=== PATIENT | male | born 1945 ===

== ENCOUNTER 2018-03-23 22:37 | Inpatient (IN) | payer MEDICARE, OTHER ==
--- NOTE | 2018-03-23 23:06 | ED PDOC ---
Arrival/HPI - General Chief Complaint: Shortness Of Breath Time Seen by Provider: 03/23/18 22:41 Historian: Patient, Family - History of Present Illness Narrative History of Present Illness (Text): 03/23/18 23:06 Edward Sarkar is a 73 year old male, whose past medical history includes hypertension and prolymphocytic leukemia, who presents to the Emergency department accompanied by daughter complaining of shortness of breath. Daughter states patient was recently discharged from [facility] yesterday following treatment for pneumonia. Patient reports he developed shortness of breath 1 hour prior to arrival. Patient denies any chest pain, nausea, vomiting, diarrhea, urinary symptoms, back pain, neck pain, headache, dizziness, or any other complaints. Symptom Onset: Gradual Symptom Course: Unchanged Activities at Onset: Light Context: Home Past Medical History - Provider Review Nursing Documentation Reviewed: Yes - Infectious Disease Hx of Infectious Diseases: None Family/Social History - Physician Review Nursing Documentation Reviewed: Yes Family/Social History: Unknown Family HX Allergies/Home Meds Allergies/Adverse Reactions: Allergies No Known Allergies Allergy (Verified 03/23/18 22:42) Home Medications: Home Meds Medication Instructions Recorded Confirmed Unobtainable 03/24/18 03/24/18 Review of Systems - Physician Review All systems were reviewed & negative as marked: Yes - Review of Systems Constitutional: Normal. absent: Fevers Eyes: Normal ENT: Normal Respiratory: SOB Cardiovascular: Normal Gastrointestinal: Normal. absent: Diarrhea, Vomiting Genitourinary Male: Normal. absent: Dysuria, Frequency, Hematuria, Urinary Output Changes Musculoskeletal: Normal. absent: Back Pain, Neck Pain Skin: Normal. absent: Rash Neurological: Normal. absent: Headache, Dizziness Endocrine: Normal Hemo/Lymphatic: Normal Psychiatric: Normal Physical Exam Vital Signs Reviewed: Yes Vital Signs Pulse Resp BP Pulse Ox 03/23/18 22:53 59 L 18 141/83 98 Temperature: Hypothermic Blood Pressure: Normal Pulse: Bradycardic Respiratory Rate: Normal Pain Distress: None Mental Status: Positive for: Alert and Oriented X 3 - Systems Exam Head: Present: Atraumatic, Normocephalic Pupils: Present: PERRL Extroacular Muscles: Present: EOMI Conjunctiva: Present: Normal Mouth: Present: Moist Mucous Membranes Neck: Present: Normal Range of Motion Respiratory/Chest: Present: Rhonchi (Diffuse rhonchi). No: Respiratory Distress, Accessory Muscle Use Cardiovascular: Present: Regular Rate and Rhythm, Normal S1, S2. No: Murmurs Abdomen: No: Tenderness, Distention, Peritoneal Signs Back: Present: Normal Inspection Upper Extremity: Present: Normal Inspection. No: Cyanosis, Edema Lower Extremity: Present: Edema (2+ pitting eddema bilaterally) Neurological: Present: GCS=15, CN II-XII Intact, Speech Normal Skin: Present: Warm, Dry, Normal Color. No: Rashes Psychiatric: Present: Alert, Oriented x 3, Normal Insight, Normal Concentration Medical Decision Making ED Course and Treatment: 03/23/18 23:06 Impression: 73 year old male complaining of shortness of breath today. Plan: -- EKG -- Chest X-ray -- Lab, cardiac enzymes, BNP, VBG, blood cultures -- Urinalysis, urine cultures -- Rapid influenza -- Vancomycn -- Zosyn -- Reassess and disposition Progress Notes: Reviewed EKG, sinus bradycardia at [address]-segment elevations or depressions, no T-wave inversions, normal intervals. 03/24/18 00:35 Chest X-ray reviewed, shows resolving left-sided pneumonia. 03/24/18 02:50 Case discussed with EV Granger covering for Dr. Alcazar, who is aware and agrees with plan. Pt will go to [facility] observation for pneumonia and hypothermia under Dr. Alcazar's service. - Scribe Statement The provider has reviewed the documentation as recorded by the Adalgisa Cade Provider Scribe Attestation: All medical record entries made by the Scribe were at my direction and personally dictated by me. I have reviewed the chart and agree that the record accurately reflects my personal performance of the history, physical exam, medical decision making, and the department course for this patient. I have also personally directed, reviewed, and agree with the discharge instructions and disposition. Disposition/Present on Arrival - Present on Arrival Any Indicators Present on Arrival: No History of DVT/PE: No History of Uncontrolled Diabetes: No Urinary Catheter: No History of Decub. Ulcer: No History Surgical Site Infection Following: None - Disposition Have Diagnosis and Disposition been Completed?: Yes Diagnosis: Hypothermia, Pneumonia Disposition: HOSPITALIZED Disposition Time: 02:20 Condition: FAIR
[2018-03-24] MEDS ORDERED: Vancomycin 1gm in NS 250ml 1 GM/250 ML BAG IVPB STA (00:03)
[2018-03-24] MEDS ORDERED: Piperacillin/Tazobact 3.375 gm 100 ML IVPB STA (00:03)
[2018-03-24 00:20] LABS: BASO # 0.01 K/mm3 (0.0-2.0); BASO % 0.1 % (0.0-3.0); EOS % 0.1 % (1.5-5.0); GRAN # 11.52 (1.4-6.5); HEMOGLOBIN 9.9 g/dL (14.0-18.0); LYMPH # 3.9 (1.2-3.4); MEAN CELL VOLUME 82.6 fl (80.0-105.0); MEAN CORPUSCULAR HEMOGLOBIN 26.5 pg (25.0-35.0); MEAN CORPUSCULAR HGB CONC 32.1 g/dl (31.0-37.0); MEAN PLATELET VOLUME 11.2 fl (7.0-11.0); MONO # 0.3 (0.1-0.6); MONO % 1.8 % (1.0-6.0); RBC 3.73 10^6/uL (3.5-6.1); RED CELL DISTRIBUTION WIDTH 19.6 % (11.5-14.5); WHITE BLOOD COUNT 15.8 10^3/uL (4.5-11.0)
[2018-03-24 00:27] LABS: ALB/GLOB RATIO 0.8 (1.1-1.8); ALBUMIN 2.6 g/dL (3.0-4.8); ALT/SGPT 24 U/L (7-56); AST/SGOT 30 U/L (17-59); BLOOD UREA NITROGEN 10 mg/dL (7-21); CALCIUM 8.4 mg/dL (8.4-10.5); GFR NON-AFRICAN AMERICAN > 60
[2018-03-24 00:37] LABS: VENOUS BLOOD GAS BASE EXCESS 2.4 mmol/L (0.0-2.0); VENOUS BLOOD GAS PO2 191 mm/Hg (30-55); VENOUS BLOOD PH 7.39 (7.32-7.43)
[2018-03-24 00:38] LABS: B-TYPE NATRIURETIC PEPTIDE 2410 pg/mL (0-450); TROPONIN I 0.02 ng/mL
[2018-03-24 01:02] LABS: INR 1.09; PARTIAL THROMBOPLASTIN TIME 33.2 Seconds (25.1-36.5); PROTHROMBIN TIME 12.4 SECONDS (9.4-12.5)
[2018-03-24 02:02] LABS: URINE APPEARANCE CLEAR (CLEAR); URINE BILIRUBIN NEGATIVE (NEGATIVE); URINE BLOOD NEGATIVE (NEGATIVE); URINE COLOR YELLOW (YELLOW); URINE GLUCOSE (UA) NEGATIVE (NEGATIVE); URINE LEUKOCYTE ESTERASE NEGATIVE Leu/uL (NEGATIVE); URINE PROTEIN TRACE mg/dL (<30 mg/dL); URINE UROBILINOGEN 0.2 E.U./dL (<1 E.U./dL)
[2018-03-24 02:10] LABS: URINE BACTERIA FEW /hpf; URINE CALCIUM OXALATE CRYSTALS OCC /hpf; URINE RBC 0 - 2 /hpf (0-2); URINE WBC 0 - 2 /hpf (0-6)
[2018-03-24] MEDS: Vancomycin 1gm in NS 250ml 1 GM/250 ML BAG IVPB SCH ×2 (07:44→14:37)
[2018-03-24] MEDS: Meropenem IV 1 gm in NS 1 GM/50 ML BAG IVPB SCH ×3 (07:52→21:26)
--- NOTE | 2018-03-24 09:25 | CARD ---
APPROVED REPORT Date of service: 03/23/2018 EKG Measurement Heart [id number] <Conclusion> Sinus bradycardia Baseline artifact Possible Left atrial enlargement Junctional ST depression, probably abnormal Abnormal ECG
--- NOTE | 2018-03-24 09:59 | RAD ---
Date of service: 03/23/2018 HISTORY: r/o infiltrate COMPARISON: No prior. FINDINGS: LUNGS: Infiltrate at the left lung base. Small bilateral pleural effusions PLEURA: No significant pleural effusion identified, no pneumothorax apparent. CARDIOVASCULAR: Minimal aortic calcification Mild cardiomegaly no pulmonary vascular congestion. OSSEOUS STRUCTURES: No significant abnormalities. VISUALIZED UPPER ABDOMEN: Normal. OTHER FINDINGS: None. IMPRESSION: Infiltrate at the left lung base. Small bilateral pleural effusions
[2018-03-24] MEDS: Enoxaparin 40 mg Syringe SC SCH (10:40)
[2018-03-24 13:29] LABS: T4 6.4 ug/dL (5.5-11.0)
--- NOTE | 2018-03-24 13:31 | CON ---
DATE: 03/24/2018 PULMONARY CONSULTATION REASON FOR PULMONARY CONSULTATION: Pneumonia. REFERRING PHYSICIAN FOR THIS PULMONARY CONSULTATION: Kirill Alcazar DO History is obtained via extensive discussion with the nurse. I have also reviewed the chart at length. The patient does not appear to be an adequate historian. HISTORY OF PRESENT ILLNESS: The patient is a 73-year-old male, with past medical history significant for hypertension, prolymphocytic leukemia, recent admission for pneumonia at [facility], who presents to [facility] with a 1-day history of increasing shortness of breath at rest, dyspnea on exertion, and cough. There is no history of sputum production. There is no history of chest pain, coughing up of blood, or chest pain - brought on with deep respirations. The patient did present to the emergency room with hypothermia. The patient was also noted to have shaking chills. No known infectious exposure. No history of night sweats, weight loss, or appetite change prior to the above events. No history of leg or calf pains. No history of syncope or diaphoresis. No history of recent travel or trauma. REVIEW OF SYSTEMS: No history of nausea, vomiting, or diarrhea. No acute urinary symptoms. Rest of the review of systems is negative. ALLERGIES: NO KNOWN ALLERGIES. SOCIAL HISTORY: Positive for former tobacco usage. No alcohol. FAMILY HISTORY: No inheritable diseases. MEDICATIONS: Home medications are not listed in the computer at the present time. PHYSICAL EXAMINATION: GENERAL: The patient appears comfortable this morning. He is not short of breath at rest. VITALS: Temperature is 96.4, pulse 91, respirations 18, blood pressure 107/55. Oxygen saturation on room air is 100%. HEENT: Normocephalic, atraumatic. No JVD. CARDIOVASCULAR: Positive S1, S2. No S3 gallop. LUNGS: Minimal crackles noted at the left base. No rhonchi. No wheezing. EXTREMITIES: Mild edema. No cyanosis. No clubbing. Calves are nontender to palpation. GI: Abdomen is soft, nontender, and nondistended. Bowel sounds are positive. SKIN: Reveals an erythematous rash on his legs/feet and palms/hands. NEUROLOGIC: Exam limited at the present time. PERTINENT LABORATORY DATA: Chest x-ray was done last night and reviewed. There is a minimal left lower lobe infiltrate noted. There is also a very small left pleural effusion. I could not access the chest x-ray from [facility], but it is reported by Dr. Hernandez (emergency room) that the left-sided infiltrate is significantly decreased in size. CBC: White count 15.8K, hemoglobin 9.9, hematocrit 30.8, and platelets of 301,000. Complete Metabolic Profile: Glucose 119, alkaline phosphatase 143, LDH 860, B-type natriuretic peptide 2410, albumin 2.6. Rest of the metabolic profile is within normal limits. IMPRESSION: 1. Left lower lobe pneumonia - resolving. 2. Small left pleural effusion. 3. Anemia. 4. Hypothermia. 5. Increased B-type natriuretic peptide. PLAN: Again, I did discuss the case with the emergency room nurse at length. I have also reviewed the chart at length. The patient does not appear to be an adequate historian. The patient presents to [facility] with a 1-day history of increasing pulmonary symptoms. Again, I did review the chest x-ray as above. The chest x-ray reveals a minimal left lower lobe infiltrate with a very small left pleural effusion. Again,, as above, I did discuss the case with Dr. Hernandez. Apparently, Dr. Hernandez was able to access the chest x-ray from [facility]. He reports that the infiltrate is significantly improved - from that previously seen. Infectious Disease evaluation with Dr. Moncada has been ordered. On physical exam, there is no significant bronchospasm noted. In addition, there is no significant alveolar-arterial gradient. Oxygen saturation on room air is 100%. In addition, the temperature is now 96.4. Initial temperature was 89.9. Clinical status of the patient does appear to be improving. However, it appears that the future status/prognosis for this patient does remain guarded. I will discuss the above with Dr. Alcazar. Thank you very much for this pulmonary consultation. Nathan Perkins MD ELLIS
--- NOTE | 2018-03-24 14:22 | CON ---
DATE: 03/24/2018 CARDIOLOGY CONSULTATION HISTORY: The patient is a 73-year-old male who was recently discharged from [facility] after a hernia repair as well as cellulitis in which he was treated with antibiotics, who was home for one day then developed weakness and shortness of breath. The patient is in the ER. He was found to be hypothermic with a temperature of 95. PAST MEDICAL HISTORY: The patient's past medical history is free of cardiac disease. No previous myocardial infarction. He denies chest pain, does admit to shortness of breath, does admit to pedal edema. He denies diabetes mellitus or hypertension. SOCIAL HISTORY: Denies ever smoking. REVIEW OF SYSTEMS: A 14-point review of systems was reviewed. No additional symptoms other than one above. PHYSICAL EXAMINATION: VITAL SIGNS: Blood pressure is 117/68, temperature is 95.7, the heart rates in the 80s. NECK: Negative JVD. LUNGS: Decreased breath sounds without rales. HEART: With S1, S2. EXTREMITIES: No edema noted. LABORATORY DATA: EKG shows normal sinus rhythm with nonspecific ST-T changes. Laboratories, white count is 15,000, hemoglobin is 9.9. BUN and creatinine are unremarkable. The proBNP is 2410. Troponin is 0.02. Preliminary echocardiogram reveals compromised left ventricle with an ejection fraction of approximately 40%. IMPRESSION: 1. Acute systolic congestive heart failure. 2. Cardiomyopathy of questionable etiology. 3. No evidence for acute coronary syndrome. 4. Hypothermia. 5. History of cellulitis. 6. Weakness. 7. Anemia. Given these findings, we will give the patient a dose of Lasix. He is currently on IV antibiotics. We will check his thyroid function. Christoph Bustamante MD
--- NOTE | 2018-03-24 15:03 | CP.PCM.CON ---
<Peterson Houser - Last Filed: 03/24/18 15:11> History of Present Illness - History of Present Illness History of Present Illness: ID Consult Note Patient was previously admitted to [facility] under 73 year old male with past medical history of HTH and Promyelocytic leukemia s/p chemotherapy presented to the hospital for 1 day shortness of breath. Patient was discharged from [facility] for left lower lobe pneumonia complicated by inguinal hernia incarceration. Patient was treated with full course of Ciprofloxacin as sputum cultures grew E. coli. Patient was also noted to have tinea pedis by podiatry and was started on Clotrimazole. Patient complains of shortness of breath without productive cough. Patient also admits he intermittently goes to the [employer] and puts his feet in the water. Denies chest pain, nausea, vomiting, diarrhea, fever, chills. Medical Hx: HTN, Prolymphocytic Leukemia Surgical HX- 2 colon surgeries and hernia repair Family Hx-Denies Allergies-NKDA Social- Denies alcohol, tobacco, and illicit drug use Medications: Denies Review of Systems - Review of Systems Review of Systems: 12 point ROS as per HPI, otherwise negative Past Patient History - Infectious Disease Hx of Infectious Diseases: None - Past Social History Smoking Status: Never Smoked - CARDIAC Hx Hypertension: Yes - PULMONARY Hx Pneumonia: Yes - HEMATOLOGICAL/ONCOLOGICAL Hx Leukemia: Yes - INTEGUMENTARY Hx Cellulitis: Yes - PSYCHIATRIC Hx Substance Use: No - SURGICAL HISTORY Hx Surgeries: Yes Other/Comment: hernia sx - ANESTHESIA Hx Anesthesia: Yes Hx Anesthesia Reactions: No Hx Malignant Hyperthermia: No Meds Allergies/Adverse Reactions: Allergies Allergy/AdvReac Type Severity Reaction Status Date / Time No Known Allergies Allergy Verified 03/24/18 11:42 - Medications Medications: Current Medications Enoxaparin Sodium (Lovenox) 40 mg SC DAILY RIYA; Protocol Last Admin: 03/24/18 10:40 Dose: 40 mg Meropenem (Merrem Iv 1 Gm Premix) 1 gm in 50 mls @ 100 mls/hr IVPB Q8 RIYA; Protocol Last Admin: 03/24/18 12:57 Dose: 100 mls/hr Vancomycin HCl (Vancomycin 1gm) 1 gm in 250 mls @ 167 mls/hr IVPB Q12H RIYA; Protocol Last Admin: 03/24/18 14:37 Dose: 167 mls/hr Doxycycline Hyclate 100 mg/ (Sodium Chloride) 100 mls @ 100 mls/hr IVPB Q12 RIYA; Protocol Last Admin: 03/24/18 13:20 Dose: 100 mls/hr Physical Exam - Constitutional Appears: Non-toxic, No Acute Distress - Head Exam Head Exam: ATRAUMATIC, NORMAL INSPECTION, NORMOCEPHALIC - Eye Exam Eye Exam: EOMI - ENT Exam ENT Exam: Mucous Membranes Moist - Respiratory Exam Respiratory Exam: Decreased Breath Sounds, NORMAL BREATHING PATTERN. absent: Rales, Rhonchi, Wheezes - Cardiovascular Exam Cardiovascular Exam: RRR, +S1, +S2 - GI/Abdominal Exam GI & Abdominal Exam: Normal Bowel Sounds, Soft. absent: Tenderness - Extremities Exam Extremities exam: Positive for: pedal edema (Trace b/l) - Neurological Exam Neurological exam: Alert, Oriented x3 - Psychiatric Exam Psychiatric exam: Normal Affect, Normal Mood - Skin Additional comments: Erythematous soles of feet along with desquamation throughout body Results - Vital Signs Recent Vital Signs: Last Vital Signs Temp 97.1 F L 03/24/18 14:51 Pulse 92 H 03/24/18 14:51 Resp 16 03/24/18 14:51 BP 112/57 L 03/24/18 14:51 Pulse Ox 100 03/24/18 14:51 - Labs Result Diagrams: 03/23/18 23:15 03/23/18 23:15 Labs: Laboratory Results - last 24 hr 03/23/18 03/23/18 03/23/18 02:15 23:15 23:15 WBC 15.8 H RBC 3.73 Hgb 9.9 L Hct 30.8 L MCV 82.6 MCH 26.5 MCHC 32.1 RDW 19.6 H Plt Count 301 MPV 11.2 H Gran % 73.0 H Lymph % (Auto) 25.0 Carl[place] % (Auto) 1.8 Eos % (Auto) 0.1 L Baso % (Auto) 0.1 Gran # 11.52 H Lymph # (Auto) 3.9 H [place] # (Auto) 0.3 Eos # (Auto) 0.0 Baso # (Auto) 0.01 PT INR APTT pO2 VBG pH VBG pCO2 VBG HCO3 VBG Total CO2 VBG O2 Sat (Calc) VBG Base Excess VBG Potassium Glucose Lactate FiO2 Sodium 137 Potassium 3.9 Chloride 106 Carbon Dioxide 28 Anion Gap 8 L BUN 10 Creatinine 0.5 L Est GFR ( Amer) > 60 Est GFR (Non-Af Amer) > 60 Random Glucose 119 H Calcium 8.4 Phosphorus 3.1 Magnesium 1.5 L Total Bilirubin 0.3 AST 30 ALT 24 Alkaline Phosphatase 143 H Lactate Dehydrogenase 860 H Total Creatine Kinase 49 Troponin I 0.02 NT-Pro-B Natriuret Pep 2410 H Total Protein 5.9 Albumin 2.6 L Globulin 3.3 Albumin/Globulin Ratio 0.8 L Thyroxine (T4) TSH 3rd Generation Venous Blood Potassium Urine Color Urine Appearance Urine pH Ur Specific [place] Urine Protein Urine Glucose (UA) Urine Ketones Urine Blood Urine Nitrate Urine Bilirubin Urine Urobilinogen Ur Leukocyte Esterase Urine RBC Urine WBC Ur Epithelial Cells Calcium Oxalate Crystal Urine Bacteria Influenza Typ A,B (EIA) Negative for flu a/b 03/23/18 03/24/18 03/24/18 23:15 00:00 01:32 WBC RBC Hgb Hct MCV MCH MCHC RDW Plt Count MPV Gran % Lymph % (Auto) Carl[place] % (Auto) Eos % (Auto) Baso % (Auto) Gran # Lymph # (Auto) [place] # (Auto) Eos # (Auto) Baso # (Auto) PT 12.4 INR 1.09 APTT 33.2 pO2 191 H VBG pH 7.39 VBG pCO2 46.0 VBG HCO3 27.8 VBG Total CO2 29.2 H VBG O2 Sat (Calc) 100.0 H VBG Base Excess 2.4 H VBG Potassium 3.9 Glucose 121 H Lactate 1.5 FiO2 21.0 Sodium 140.0 Potassium Chloride 107.0 Carbon Dioxide Anion Gap BUN Creatinine Est GFR ( Amer) Est GFR (Non-Af Amer) Random Glucose Calcium Phosphorus Magnesium Total Bilirubin AST ALT Alkaline Phosphatase Lactate Dehydrogenase Total Creatine Kinase Troponin I NT-Pro-B Natriuret Pep Total Protein Albumin Globulin Albumin/Globulin Ratio Thyroxine (T4) TSH 3rd Generation Venous Blood Potassium 3.9 Urine Color Yellow Urine Appearance Clear Urine pH 6.0 Ur Specific [place] 1.025 Urine Protein Trace H Urine Glucose (UA) Negative Urine Ketones Negative Urine Blood Negative Urine Nitrate Negative Urine Bilirubin Negative Urine Urobilinogen 0.2 Ur Leukocyte Esterase Negative Urine RBC 0 - 2 Urine WBC 0 - 2 Ur Epithelial Cells 1 - 3 Calcium Oxalate Crystal Occ Urine Bacteria Few Influenza Typ A,B (EIA) 03/24/18 12:45 WBC RBC Hgb Hct MCV MCH MCHC RDW Plt Count MPV Gran % Lymph % (Auto) [place] % (Auto) Eos % (Auto) Baso % (Auto) Gran # Lymph # (Auto) [place] # (Auto) Eos # (Auto) Baso # (Auto) PT INR APTT pO2 VBG pH VBG pCO2 VBG HCO3 VBG Total CO2 VBG O2 Sat (Calc) VBG Base Excess VBG Potassium Glucose Lactate FiO2 Sodium Potassium Chloride Carbon Dioxide Anion Gap BUN Creatinine Est GFR ( Amer) Est GFR (Non-Af Amer) Random Glucose Calcium Phosphorus Magnesium Total Bilirubin AST ALT Alkaline Phosphatase Lactate Dehydrogenase Total Creatine Kinase Troponin I NT-Pro-B Natriuret Pep Total Protein Albumin Globulin Albumin/Globulin Ratio Thyroxine (T4) 6.4 TSH 3rd Generation 3.92 Venous Blood Potassium Urine Color Urine Appearance Urine pH Ur Specific [place] Urine Protein Urine Glucose (UA) Urine Ketones Urine Blood Urine Nitrate Urine Bilirubin Urine Urobilinogen Ur Leukocyte Esterase Urine RBC Urine WBC Ur Epithelial Cells Calcium Oxalate Crystal Urine Bacteria Influenza Typ A,B (EIA) Assessment & Plan - Assessment and Plan (Free Text) Plan: Sepsis secondary to Left-sided Hospital acquired pneumonia Hx of HTN Hx of prolymphocytic leukemia Plan: Chest x-ray reviewed, shows left sided infiltrate Started on Vancomycin, Merrem, and Doxycycline Influenza negative Follow up blood, sputum, and urine cultures Procalcitonin pending Continue monitor closely Mik, PGY-3 <Zhou Leos - Last Filed: 03/24/18 16:58> Meds - Medications Medications: Current Medications Enoxaparin Sodium (Lovenox) 40 mg SC DAILY RIYA; Protocol Last Admin: 03/24/18 10:40 Dose: 40 mg Meropenem (Merrem Iv 1 Gm Premix) 1 gm in 50 mls @ 100 mls/hr IVPB Q8 RIYA; Protocol Last Admin: 03/24/18 12:57 Dose: 100 mls/hr Vancomycin HCl (Vancomycin 1gm) 1 gm in 250 mls @ 167 mls/hr IVPB Q12H RIYA; Pr otocol Last Admin: 03/24/18 14:37 Dose: 167 mls/hr Doxycycline Hyclate 100 mg/ (Sodium Chloride) 100 mls @ 100 mls/hr IVPB Q12 RIYA; Protocol Last Admin: 03/24/18 13:20 Dose: 100 mls/hr Magnesium Sulfate/Dextrose (Magnesium Sulfate 1 Gm/100 Ml D5w) 1 gm in 100 mls @ 100 mls/hr IVPB ONCE ONE Stop: 03/24/18 17:12 Results - Vital Signs Recent Vital Signs: Last Vital Signs Temp 97.1 F L 03/24/18 15:33 Pulse 92 H 03/24/18 15:33 Resp 16 03/24/18 15:33 BP 112/57 L 03/24/18 15:33 Pulse Ox 100 03/24/18 15:33 - Labs Result Diagrams: 03/23/18 23:15 03/23/18 23:15 Labs: Laboratory Results - last 24 hr 03/23/18 03/23/18 03/23/18 02:15 23:15 23:15 WBC 15.8 H RBC 3.73 Hgb 9.9 L Hct 30.8 L MCV 82.6 MCH 26.5 MCHC 32.1 RDW 19.6 H Plt Count 301 MPV 11.2 H Gran % 73.0 H Lymph % (Auto) 25.0 [place] % (Auto) 1.8 Eos % (Auto) 0.1 L Baso % (Auto) 0.1 Gran # 11.52 H Lymph # (Auto) 3.9 H [place] # (Auto) 0.3 Eos # (Auto) 0.0 Baso # (Auto) 0.01 PT INR APTT pO2 VBG pH VBG pCO2 VBG HCO3 VBG Total CO2 VBG O2 Sat (Calc) VBG Base Excess VBG Potassium Glucose Lactate FiO2 Sodium 137 Potassium 3.9 Chloride 106 Carbon Dioxide 28 Anion Gap 8 L BUN 10 Creatinine 0.5 L Est GFR ( Amer) > 60 Est GFR (Non-Af Amer) > 60 Random Glucose 119 H Calcium 8.4 Phosphorus 3.1 Magnesium 1.5 L Total Bilirubin 0.3 AST 30 ALT 24 Alkaline Phosphatase 143 H Lactate Dehydrogenase 860 H Total Creatine Kinase 49 Troponin I 0.02 NT-Pro-B Natriuret Pep 2410 H Total Protein 5.9 Albumin 2.6 L Globulin 3.3 Albumin/Globulin Ratio 0.8 L Procalcitonin Thyroxine (T4) TSH 3rd Generation Venous Blood Potassium Urine Color Urine Appearance Urine pH Ur Specific [place] Urine Protein Urine Glucose (UA) Urine Ketones Urine Blood Urine Nitrate Urine Bilirubin Urine Urobilinogen Ur Leukocyte Esterase Urine RBC Urine WBC Ur Epithelial Cells Calcium Oxalate Crystal Urine Bacteria Influenza Typ A,B (EIA) Negative for flu a/b 03/23/18 03/24/18 03/24/18 23:15 00:00 01:32 WBC RBC Hgb Hct MCV MCH MCHC RDW Plt Count MPV Gran % Lymph % (Auto) [place] % (Auto) Eos % (Auto) Baso % (Auto) Gran # Lymph # (Auto) [place] # (Auto) Eos # (Auto) Baso # (Auto) PT 12.4 INR 1.09 APTT 33.2 pO2 191 H VBG pH 7.39 VBG pCO2 46.0 VBG HCO3 27.8 VBG Total CO2 29.2 H VBG O2 Sat (Calc) 100.0 H VBG Base Excess 2.4 H VBG Potassium 3.9 Glucose 121 H Lactate 1.5 FiO2 21.0 Sodium 140.0 Potassium Chloride 107.0 Carbon Dioxide Anion Gap BUN Creatinine Est GFR ( Amer) Est GFR (Non-Af Amer) Random Glucose Calcium Phosphorus Magnesium Total Bilirubin AST ALT Alkaline Phosphatase Lactate Dehydrogenase Total Creatine Kinase Troponin I NT-Pro-B Natriuret Pep Total Protein Albumin Globulin Albumin/Globulin Ratio Procalcitonin Thyroxine (T4) TSH 3rd Generation Venous Blood Potassium 3.9 Urine Color Yellow Urine Appearance Clear Urine pH 6.0 Ur Specific [place] 1.025 Urine Protein Trace H Urine Glucose (UA) Negative Urine Ketones Negative Urine Blood Negative Urine Nitrate Negative Urine Bilirubin Negative Urine Urobilinogen 0.2 Ur Leukocyte Esterase Negative Urine RBC 0 - 2 Urine WBC 0 - 2 Ur Epithelial Cells 1 - 3 Calcium Oxalate Crystal Occ Urine Bacteria Few Influenza Typ A,B (EIA) 03/24/18 03/24/18 08:30 12:45 WBC RBC Hgb Hct MCV MCH MCHC RDW Plt Count MPV Gran % Lymph % (Auto) [place] % (Auto) Eos % (Auto) Baso % (Auto) Gran # Lymph # (Auto) [place] # (Auto) Eos # (Auto) Baso # (Auto) PT INR APTT pO2 VBG pH VBG pCO2 VBG HCO3 VBG Total CO2 VBG O2 Sat (Calc) VBG Base Excess VBG Potassium Glucose Lactate FiO2 Sodium Potassium Chloride Carbon Dioxide Anion Gap BUN Creatinine Est GFR ( Amer) Est GFR (Non-Af Amer) Random Glucose Calcium Phosphorus Magnesium Total Bilirubin AST ALT Alkaline Phosphatase Lactate Dehydrogenase Total Creatine Kinase Troponin I NT-Pro-B Natriuret Pep Total Protein Albumin Globulin Albumin/Globulin Ratio Procalcitonin 0.55 H Thyroxine (T4) 6.4 TSH 3rd Generation 3.92 Venous Blood Potassium Urine Color Urine Appearance Urine pH Ur Specific [place] Urine Protein Urine Glucose (UA) Urine Ketones Urine Blood Urine Nitrate Urine Bilirubin Urine Urobilinogen Ur Leukocyte Esterase Urine RBC Urine WBC Ur Epithelial Cells Calcium Oxalate Crystal Urine Bacteria Influenza Typ A,B (EIA) Assessment & Plan - Assessment and Plan (Free Text) Plan: Infectious diseases Attending Physician Attestation Patient seen and examined, discussed with medical certification specialist. I have reviewed the patient's history of present illness, past medical, social, personal and family histories, pertinent physical exam findings, course so far in this hospital admission, pertinent laboratory and imaging results. I agree with the above findings, assessment and plan. In addition, we have started the patient on Vancomycin, Merrem and Doxycycline for patient with sepsis from left sided HAP. Will follow up blood, sputum cx, PCT and will monitor clinically.
--- NOTE | 2018-03-24 15:28 | CARD ---
APPROVED REPORT Date of service: 03/24/2018 EXAM: Two-dimensional and M-mode echocardiogram with Doppler and color Doppler. INDICATION Dyspnea 2D DIMENSIONS Left Atrium (2D)4.4 (1.6-4.0cm)IVSd1.2 (0.7-1.1cm) LVDd5.0 (3.9-5.9cm)PWd1.4 (0.7-1.1cm) LVDs3.8 (2.5-4.0cm)FS (%) 23.2 % LVEF (%)46.2 (>50%) M-Mode DIMENSIONS Aortic Root3.40 (2.2-3.7cm)Aortic Cusp Exc.1.80 (1.5-2.0cm) Aortic Valve AoV Peak Ypheyvup946.0cm/Deric Peak GR.17mmHg Mitral Valve MV E Bimhzunt17.3cm/sMV A Rijdhycc139.0cm/sE/A ratio0.8 TDI Lateral E' Peak V11.90cm/sMedial E' Peak V7.60cm/sE/Lateral E'8.0 E/Medial E'12.5 Pulmonary Valve PV Peak Serwitkn19.0cm/sPV Peak Grad.2mmHg Tricuspid Valve TR Peak Byfufldb252no/sRAP [id number] Peak Gr.35mmHg [id number] LEFT VENTRICLE The left ventricle is normal size. There is normal left ventricular wall thickness. The systolic function is mildly impaired. Lateral wall hypokinesis Transmitral Doppler flow pattern is Grade I-abnormal relaxation pattern. RIGHT VENTRICLE The right ventricle is normal size. There is normal right ventricular wall thickness. The right ventricular systolic function is normal. ATRIA The left atrium is mildly dilated. The right atrium size is normal. AORTIC VALVE The aortic valve is moderately thickened. No aortic regurgitation is present. There is no aortic valvular stenosis. MITRAL VALVE The mitral valve is mildly thickened. Mitral regurgitation is mild. There is no mitral valve stenosis. TRICUSPID VALVE There is mild tricuspid regurgitation. There is mild pulmonary hypertension. GREAT VESSELS The aortic root is normal in size. The IVC is normal in size and collapses >50% with inspiration. PERICARDIAL EFFUSION There is no pericardial effusion. <Conclusion> There is normal left ventricular wall thickness. The systolic function is mildly impaired. Lateral wall hypokinesis Transmitral Doppler flow pattern is Grade I-abnormal relaxation pattern. Mitral regurgitation is mild. There is mild tricuspid regurgitation. There is mild pulmonary hypertension.
[2018-03-24] MEDS ORDERED: Magnesium Sulfate 1 gm in D5W 1 GM/100 ML BAG IVPB ONE (16:13)
[2018-03-24 17:16] VITALS: BMI 23.6
[2018-03-24] MEDS ORDERED: Influenza Vaccine 60 mcg/0.5 mL SYR (4YR UP) IM ONE (17:16)
[2018-03-24] MEDS ORDERED: Pneumococcal 23-Valent Vaccine IM ONE (17:16)
--- NOTE | 2018-03-24 18:18 | HP ---
DATE OF EXAM: 03/24/2018 HISTORY OF PRESENT ILLNESS: He is a 73-year-old man who is short of breath. I saw him in the emergency room. He has not been feeling well. He was just discharged, I believe from [facility] for pneumonia and shortness of breath got much worse. PAST MEDICAL HISTORY: He is a 73-year-old man with past medical history of hypertension, polymorphocytic leukemia and pneumonia. He is now brought in short of breath, also a low temperature in the 89, he is on a warming blanket. FAMILY HISTORY: Unknown family history. Difficult to obtain any information from him. ALLERGIES: NO KNOWN DRUG ALLERGIES. REVIEW OF SYSTEMS: No fevers. No vision or hearing changes. He is short of breath. No chest pain or diarrhea or vomiting. No problems urinating. No back pain. No rashes. No headache. No dizziness. Not anxious. PHYSICAL EXAMINATION: VITAL SIGNS: Has 59 pulse, 18 respiratory rate, 141/83 blood pressure, pulse ox of 98% and he has 89 temperature, he is on a warming blanket. GENERAL: He is alert and oriented. HEENT: His head is atraumatic and normocephalic. Extraocular muscles are intact. Pupils equal, reactive to light. Mucous membranes are dry. NECK: Supple. CHEST: He has got diffuse rhonchi in both sides of the Lungs: Decreased breath sounds, coughing, congestion. HEART: Regular rate. Normal S1 and S2. ABDOMEN: Soft, and nontender. Positive bowel sounds. EXTREMITIES: There is 2+ pitting edema bilateral in lower extremities. NEUROLOGIC: GCS is 15. Cranial nerves II-XII grossly intact. Alert and oriented. SKIN: Warm and dry, dry and very dry. LYMPHATICS: Thyroid midline. No palpable appreciable lymphadenopathy. LABORATORY DATA: He has a negative influenza test. He has a 15.8 white count, 9.9 hemoglobin, 38 hematocrit with 301 platelets. He has a 1.09 INR. He has 121 sugar. Lactate was 1.5. Sodium 137, potassium 3.9, BUN 10, creatinine 0.5, GFR is greater than 60, sugar is 119, calcium is 8.4, phosphorus 3.1, magnesium 1.5, total bili is 0.3, AST is 30, ALT is 24 and alk phos 143. Lactate dehydrogenase is 860. Troponin I is 0.02. His BNP is high at 2410, I am going to give him a dose of Lasix. Total protein is 5.9. Urine was clean. Negative for the flu. He has got a chest x-ray showing infiltrate at a left base and small bilateral pleural effusions. He is having consults with Infectious Disease, Pulmonary and Cardiology. He will get a dose of Lasix and we will see what else the consults want to do. He is on warming blanket and antibiotics, await for Infectious Disease to see him. Kirill Alcazar DO MTDD
[2018-03-25] MEDS: Vancomycin 1gm in NS 250ml 1 GM/250 ML BAG IVPB SCH ×2 (06:36→18:05)
--- NOTE | 2018-03-25 07:36 | PN ---
DATE: 03/25/2018 PULMONARY NOTE SUBJECTIVE: The patient appears quite comfortable this morning. He is not short of breath at rest. He is awake and alert. PHYSICAL EXAMINATION: VITALS: (last noted in the computer): Temperature is 97.1, pulse 92, respirations 18, blood pressure 112/57. Oxygen saturation on nasal cannula is 100%. HEENT: Normocephalic, atraumatic. No JVD. CARDIOVASCULAR: Positive S1, S2. No S3 gallop. LUNGS: Minimal crackles - left base. No rhonchi. No wheezing. EXTREMITIES: Mild edema. No cyanosis, no clubbing. Calves are nontender to palpation. GASTROINTESTINAL: Abdomen is soft, nontender, and nondistended. Bowel sounds are positive. SKIN: + erythematous rash on his legs/feet and hands/palms. NEUROLOGIC: Exam limited at the present time. IMPRESSION: 1. Left lower lobe pneumonia - resolving. 2. Small left pleural effusion. 3. Anemia. 4. Hypothermia - resolved. 5. Increased B-type natriuretic peptide. PLAN: The patient appears much more comfortable this morning. He is not short of breath at rest. I did discuss the case with the night nurse at length. The night nurse stated that the patient had a good night. On physical exam, there is no significant bronchospasm noted. In addition, the oxygen saturation on nasal cannula is now 100%. I would continue with the treatment for pneumonia as per Infectious Disease. Input by Dr. Leos is noted. Again, I tried obtaining the chest x-ray from [facility] (last admission). I was unable to do so in our system. However, again, it was reported to me by the emergency room physician yesterday - that the left-sided infiltrate had improved significantly. Upon review of the laboratory data, the leukocytosis has now resolved. Input by Cardiology (Dr. Bustamante) is also noted. Clinical status of the patient is certainly improved overall. However, given the above, the future status/prognosis for this patient does remain guarded. I will discuss the above with Dr. Alcazra. Nathan Perkins MD ELLIS
[2018-03-25 08:09] LABS: ALB/GLOB RATIO 0.7 (1.1-1.8); ALBUMIN 2.2 g/dL (3.0-4.8); ALT/SGPT 26 U/L (7-56); AST/SGOT 37 U/L (17-59); BLOOD UREA NITROGEN 11 mg/dL (7-21); CALCIUM 8.5 mg/dL (8.4-10.5); GFR NON-AFRICAN AMERICAN > 60
[2018-03-25] MEDS: Enoxaparin 40 mg Syringe SC SCH (09:49)
--- NOTE | 2018-03-25 12:06 | CP.PCM.PN ---
Subjective - Date & Time of Evaluation Date of Evaluation: 03/25/18 Time of Evaluation: 10:05 - Subjective Subjective: Comfortable in bed, feeling a little better, no fevers, no cough currently, no diarrhea. Objective - Vital Signs/Intake and Output Vital Signs (last 24 hours): Temp Pulse Resp BP Pulse Ox 97.9 F 75 18 132/67 97 03/25/18 08:33 03/25/18 08:33 03/25/18 08:33 03/25/18 08:33 03/25/18 08:33 - Medications Medications: Current Medications Enoxaparin Sodium (Lovenox) 40 mg SC DAILY RIYA; Protocol Last Admin: 03/25/18 09:49 Dose: 40 mg Meropenem (Merrem Iv 1 Gm Premix) 1 gm in 50 mls @ 100 mls/hr IVPB Q8 RIYA; Protocol Last Admin: 03/24/18 21:26 Dose: 100 mls/hr Vancomycin HCl (Vancomycin 1gm) 1 gm in 250 mls @ 167 mls/hr IVPB Q12H RIYA; Protocol Last Admin: 03/25/18 06:36 Dose: 167 mls/hr Doxycycline Hyclate 100 mg/ (Sodium Chloride) 100 mls @ 100 mls/hr IVPB Q12 RIYA; Protocol Last Admin: 03/25/18 09:49 Dose: 100 mls/hr - Labs Labs: 03/25/18 06:00 03/25/18 06:00 PT 12.4 SECONDS (9.4-12.5) 03/23/18 23:15 INR 1.09 03/23/18 23:15 APTT 33.2 Seconds (25.1-36.5) 03/23/18 23:15 - Constitutional Appears: Chronically Ill - Head Exam Head Exam: NORMAL INSPECTION - Respiratory Exam Respiratory Exam: Decreased Breath Sounds - Cardiovascular Exam Cardiovascular Exam: +S1, +S2 - GI/Abdominal Exam GI & Abdominal Exam: Soft. 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 Alcazar
--- NOTE | 2018-03-25 12:14 | PN ---
DATE: 03/25/2018 SUBJECTIVE: I saw him this morning in his room in his bed. He is starting to try and eat. He is off the warming blanket. He is more alert and talking with me. He is being seen by Pulmonary and Infectious Disease and Cardiology. He was quite ill when he came into the emergency room with a very low temperature of 89. He also had acute congestive systolic heart failure, cardiomyopathy, also had a left pneumonia and sepsis. He is doing better, more alert. OBJECTIVE: VITAL SIGNS: He has a 97.9 temperature, 75 pulse, 132/67 blood pressure, 18 respiratory rate, 97% O2 sat on 3 liters. HEENT: Head is atraumatic, normocephalic. HEART: Regular rate. LUNGS: Decreased breath sounds, congestion, starting to clear move a little bit. ABDOMEN: Soft. EXTREMITIES: No edema. LABORATORY DATA: He has a 146 sodium; potassium 3.4, we will replace the potassium. BUN 11, creatinine 0.8, GFR is greater than 60, sugar is 68, calcium 8.5, magnesium is 1.9, total bili is 0.3, AST is 37, ALT is 26, alk phos 143. Troponin I is 0.02. BNP was high at 2410, total protein is 5.3. Procalcitonin is 0.555, white count is down to 5.3, 8.7 hemoglobin, I will transfuse him, 26.8 hematocrit with 52 platelets a little bit low. IMPRESSION AND PLAN: He is on multiple medications, doxycycline, Lovenox, Merrem IV, potassium replacement, and vancomycin. out of bed to chair, need physical therapy to walk-in, see what he could do. We will check his labs tomorrow. Replace potassium. Kirill Alcazar DO MTDD
[2018-03-25] MEDS: Meropenem IV 1 gm in NS 1 GM/50 ML BAG IVPB SCH ×2 (14:07→21:15)
--- NOTE | 2018-03-25 19:17 | PN ---
DATE: 03/25/[address] Christoph Bustamante. SUBJECTIVE: The patient denies chest pain. His shortness of breath has improved. PHYSICAL EXAMINATION: VITAL SIGNS: Blood pressure 132/67, heart rate 75, temperature 97.9, and respirations 18. SKIN: The patient has generalized eczema all over his body. HEENT: There is pale conjunctivae. CHEST: Clear. HEART: S1 and S2 regular. EXTREMITIES: Trace pedal edema. LABORATORY DATA: Today's hemoglobin and hematocrit 8.7 and 26.8, white count 5.3, platelet count 52,000, which is significant drop from yesterday's platelet count of 301,000. Today's SMA-7: Sodium 146, potassium 3.4, chloride 115, CO2 of 30, glucose 68, BUN 11, and creatinine 0.8. The echocardiographic study performed yesterday revealed mild impaired systolic function with lateral wall hypokinesis, mild mitral insufficiency and mild pulmonary hypertension, ejection fraction was measured at 46%. ASSESSMENT: 1. Exacerbation of congestive heart failure. 2. Generalized eczema. 3. Anemia. 4. Segmental hypokinesis involving the lateral wall on echocardiogram. 5. Hypokalemia and improved hypomagnesemia. RECOMMENDATIONS: Continue subcutaneous Lovenox 40 mg daily, IV meropenem and IV vancomycin as well as IV doxycycline. Start Cozaar 12.5 mg daily, Coreg at 3.125 mg once a day, and aspirin at 81 mg once a day. Jaun Carrasquillo MD
[2018-03-26] MEDS: Meropenem IV 1 gm in NS 1 GM/50 ML BAG IVPB SCH ×3 (05:45→21:27)
--- NOTE | 2018-03-26 07:51 | PN ---
DATE: 03/26/2018 SUBJECTIVE: The patient appears quite comfortable this morning. He is not short of breath at rest. PHYSICAL EXAMINATION: VITAL SIGNS: Temperature is 97.6, pulse 69, respirations 18, blood pressure 103/52. Oxygen saturation on room air is 94%-- 97%. HEENT: Normocephalic, atraumatic. No JVD. CARDIOVASCULAR: Positive S1, S2. No S3 gallop. LUNGS: Minimal crackles - left base. No rhonchi. No wheezing. EXTREMITIES: Mild edema. No cyanosis, no clubbing. Calves are nontender to palpation. GASTROINTESTINAL: Abdomen is soft, nontender and nondistended. Bowel sounds are positive. SKIN: Erythematous rash noted on his legs/feet and hands/palms. NEUROLOGIC: Exam limited at the present time. IMPRESSION: 1. Left lower lobe pneumonia - resolving. 2. Small left pleural effusion. 3. Anemia. 4. Increased B-type natriuretic peptide. PLAN: The patient appears quite comfortable this morning. He is not short of breath at rest. I did discuss the case with night nurse at length. The night nurse stated that the patient had an uneventful night. On physical exam, there is no significant bronchospasm noted. In addition, there is no significant alveolar-arterial gradient. I would continue with the current antibiotic therapy as per Infectious Disease. Input by Dr. Leos is noted. The leukocytosis has now resolved. Input by Cardiology is also noted. Clinical status of the patient is certainly improved - compared to the initial presentation. However, given the above, the future status/prognosis for this patient does remain guarded. I will discuss the above with Dr. Alcazar. Nathan Perkins MD ELLIS
[2018-03-26 08:35] LABS: HEMOGLOBIN 9.2 g/dL (14.0-18.0); MEAN CELL VOLUME 81.8 fl (80.0-105.0); MEAN CORPUSCULAR HEMOGLOBIN 26.2 pg (25.0-35.0); MEAN CORPUSCULAR HGB CONC 32.1 g/dl (31.0-37.0); MEAN PLATELET VOLUME 11.2 fl (7.0-11.0); RBC 3.51 10^6/uL (3.5-6.1); RED CELL DISTRIBUTION WIDTH 19.8 % (11.5-14.5); WHITE BLOOD COUNT 10.4 10^3/uL (4.5-11.0)
[2018-03-26] MEDS: Enoxaparin 40 mg Syringe SC SCH (09:03)
[2018-03-26] MEDS: Vancomycin 1gm in NS 250ml 1 GM/250 ML BAG IVPB SCH ×2 (09:04→18:03)
[2018-03-26 09:19] LABS: ALB/GLOB RATIO 0.7 (1.1-1.8); ALBUMIN 2.1 g/dL (3.0-4.8); ALT/SGPT 27 U/L (7-56); AST/SGOT 23 U/L (17-59); BLOOD UREA NITROGEN 10 mg/dL (7-21); CALCIUM 8.1 mg/dL (8.4-10.5); GFR NON-AFRICAN AMERICAN > 60
--- NOTE | 2018-03-26 14:06 | CP.PCM.PN ---
Subjective - Date & Time of Evaluation Date of Evaluation: 03/26/18 Time of Evaluation: 12:20 - Subjective Subjective: Feeling a little weaker today, no fevers, no nausea, no diarrhea. Objective - Vital Signs/Intake and Output Vital Signs (last 24 hours): Temp Pulse Resp BP Pulse Ox 97.9 F 75 18 132/67 97 03/25/18 08:33 03/25/18 08:33 03/25/18 08:33 03/25/18 08:33 03/25/18 08:33 - Medications Medications: Current Medications Enoxaparin Sodium (Lovenox) 40 mg SC DAILY RIYA; Protocol Last Admin: 03/25/18 09:49 Dose: 40 mg Meropenem (Merrem Iv 1 Gm Premix) 1 gm in 50 mls @ 100 mls/hr IVPB Q8 RIYA; Protocol Last Admin: 03/24/18 21:26 Dose: 100 mls/hr Vancomycin HCl (Vancomycin 1gm) 1 gm in 250 mls @ 167 mls/hr IVPB Q12H RIYA; Protocol Last Admin: 03/25/18 06:36 Dose: 167 mls/hr Doxycycline Hyclate 100 mg/ (Sodium Chloride) 100 mls @ 100 mls/hr IVPB Q12 RIYA; Protocol Last Admin: 03/25/18 09:49 Dose: 100 mls/hr - Labs Labs: 03/25/18 06:00 03/25/18 06:00 PT 12.4 SECONDS (9.4-12.5) 03/23/18 23:15 INR 1.09 03/23/18 23:15 APTT 33.2 Seconds (25.1-36.5) 03/23/18 23:15 - Constitutional Appears: Chronically Ill - Head Exam Head Exam: NORMAL INSPECTION - Respiratory Exam Respiratory Exam: Decreased Breath Sounds - Cardiovascular Exam Cardiovascular Exam: +S1, +S2 - GI/Abdominal Exam GI & Abdominal Exam: Soft. absent: Tenderness Assessment and Plan - Assessment and Plan (Free Text) Plan: Assessment sepsis from left sided HAP HTN prolymphocytic leukemia Plan continue Vancomycin, Merrem and Doxycycline pending final culture results - sputum cx showing gram negative bacilli and we are awaiting identification and sensitivities (Day 3 today of 4-7 days) will continue to monitor clinically discussed with Dr. Alcazar
--- NOTE | 2018-03-26 16:34 | PN ---
DATE: 03/26/2018 SUBJECTIVE: The patient is currently on warming blanket because of hypothermia. He denies any chest pain. He complaints of bilateral leg pain. PHYSICAL EXAMINATION: VITAL SIGNS: Blood pressure 112/56, most recent rectal temperature 96.3 and respiration 18. HEENT: The patient denies generalized eczema. CHEST: Clear. HEART: S1 and S2, regular. ABDOMEN: Soft. LABORATORY DATA: Hemoglobin and hematocrit 9.1 and 28.7. White count and platelet count are within normal limits. Today's SMA-7: Sodium 149, potassium 3.5, chloride 117, CO2 of 30, glucose 51, BUN 10 and creatinine 0.8. Sputum culture is positive for Gram-negative rods. Blood culture is negative after 48 hours. ASSESSMENT: 1. Exacerbation of congestive heart failure. 2. Generalized eczema. 3. Anemia. 4. Consider underlying coronary artery disease, segmental hypokinesis on the echocardiograph study. 5. Mild hypothermia. RECOMMENDATIONS: The patient got aspirin 81 mg once a day, Coreg 3.125 mg once a day, Cozaar 12.5 mg once a day, IV doxycycline 100 mg every 12 hours subcutaneous Lovenox 40 mg once a day, IV meropenem at 1 g every 8 hours, IV vancomycin 1 g every 12 hours. Jaun Carrasquillo MD
--- NOTE | 2018-03-26 18:23 | PN ---
DATE: 03/26/2018 SUBJECTIVE: I saw him in bed this morning. He seemed weaker than he usually looks. I thought he looked stronger yesterday, it kind of worries me a little bit. He is on a lot of medications right now. He has a left pneumonia, sepsis, hypertension, polymorphocytic leukemia. He is on vanco, Merrem, and doxy and is weaker today. I am not sure if he slept well last night. OBJECTIVE: VITAL SIGNS: He has 97.6 temperature, 89 pulse, 112/56 blood pressure, 18 respiratory rate, 94% O2 sat. HEAD: Atraumatic, normocephalic. HEART: Regular rate. LUNGS: Decreased breath sounds, mostly clear with very poor inspiration. ABDOMEN: Soft . EXTREMITIES: No edema. ASSESSMENT AND PLAN: Being seen by Pulmonary, Cardio, and Infectious Disease. I will also see him out of bed to chair, get some physical therapy on him. I recommended also. I will continue aggressive treatment and care. His white count is at 10.41 up a little bit, 9.2 hemoglobin and also up a little bit which is good, 20.7 hematocrit with 311 platelets. 149 sodium, potassium 3.5, I will replace the potassium, BUN is 10, creatinine 0.8, GFR is greater than 60, sugar is 51, calcium is 8.1, total bili is 0.1, AST is 23, ALT is 27, alk phos 135, total protein is 4.9. We will continue aggressive treatment and care. Hopefully, he will get out of bed to chair, physical therapy and start this in the future. Kirill Alcazar DO MTDD
[2018-03-27] MEDS: Meropenem IV 1 gm in NS 1 GM/50 ML BAG IVPB SCH ×3 (05:33→22:44)
[2018-03-27 08:06] LABS: HEMOGLOBIN 9.1 g/dL (14.0-18.0); MEAN CELL VOLUME 82.1 fl (80.0-105.0); MEAN CORPUSCULAR HEMOGLOBIN 26.7 pg (25.0-35.0); MEAN CORPUSCULAR HGB CONC 32.5 g/dl (31.0-37.0); MEAN PLATELET VOLUME 11.1 fl (7.0-11.0); RBC 3.41 10^6/uL (3.5-6.1); RED CELL DISTRIBUTION WIDTH 19.9 % (11.5-14.5); WHITE BLOOD COUNT 9.7 10^3/uL (4.5-11.0)
[2018-03-27 08:15] LABS: ALB/GLOB RATIO 0.7 (1.1-1.8); ALBUMIN 1.9 g/dL (3.0-4.8); ALT/SGPT 25 U/L (7-56); AST/SGOT 23 U/L (17-59); BLOOD UREA NITROGEN 11 mg/dL (7-21); CALCIUM 7.8 mg/dL (8.4-10.5); GFR NON-AFRICAN AMERICAN > 60
[2018-03-27] MEDS ORDERED: Sodium Chloride 0.9% 500 ML IV SCH ×3 (08:15→08:30)
[2018-03-27] MEDS: Vancomycin 1gm in NS 250ml 1 GM/250 ML BAG IVPB SCH ×2 (08:21→21:28)
--- NOTE | 2018-03-27 09:05 | PN ---
DATE: 03/27/2018 SUBJECTIVE: The patient appears comfortable this morning. He is not short of breath at rest. PHYSICAL EXAMINATION: VITAL SIGNS: Temperature is 96.5, pulse 67, respirations 18, blood pressure 98/56. Oxygen saturation on room air is 94% to 97%. HEENT: Normocephalic, atraumatic. No JVD. CARDIOVASCULAR: Positive S1, S2. No S3 gallop. LUNGS: Minimal crackles - left base. No rhonchi. No wheezing. EXTREMITIES: Mild edema. No cyanosis, no clubbing. Calves are nontender to palpation. GASTROINTESTINAL: Abdomen is soft, nontender and nondistended. Bowel sounds are positive. SKIN: Erythematous rash noted on his legs/feet and hands/palms. NEUROLOGIC: Exam limited at the present time. IMPRESSION: 1. Left lower lobe pneumonia - resolving. 2. Small left pleural effusion. 3. Anemia. 4. Increased B-type natriuretic peptide. PLAN: The patient appears very comfortable this morning. He is not short of breath at rest. He does state to feeling better overall. I did discuss the case with the night nurse at length. The night nurse stated that the patient had a fairly uneventful night. However, the night nurse did inform me that the patient does have periods of hypothermia. On physical exam, there is no significant bronchospasm noted. In addition, there is no significant alveolar-arterial gradient. I would continue with the antibiotic coverage as per Infectious Disease. Input by Dr. Leos is noted. The patient is less hypothermic this morning. The leukocytosis has fully resolved. Input by Cardiology is also noted. Clinical status of the patient is certainly improved - compared to the initial presentation. However, given the above, the future status/prognosis for this patient does remain guarded. I will discuss the above with Dr. Alcazar this morning. Nathan Perkins MD MTDD
[2018-03-27] MEDS: Enoxaparin 40 mg Syringe SC SCH (09:40)
--- NOTE | 2018-03-27 11:57 | PN ---
DATE: 03/27/2018 SUBJECTIVE: Edward is not doing well today. He is very lethargic in bed. He has 95 rectal temp. He is on a heating blanket again, the bear hugger. MEDICATIONS: He is on aspirin, Coreg, Cozaar, doxycycline IV, Lovenox, Merrem IV and vancomycin IV. PHYSICAL EXAMINATION: VITAL SIGNS: He has 95 temp, was 93.7 earlier, 70 pulse, 89/41 blood pressure, 18 respiratory rate, 90% O2 sat on room air. We have to give him more fluids still, increase his IV. HEENT: Head is atraumatic, normocephalic. HEART: Regular rate. LUNGS: Decreased breath sounds, but clear. ABDOMEN: Soft. EXTREMITIES: No edema. He is not doing well. We are trying to impressively improve him. LABORATORY DATA: He has 9.7 white count, 9.1 hemoglobin, 28 hematocrit with 283 platelets. Sodium 145, potassium 3.6, BUN 11, creatinine 0.7, GFR greater than 60, sugar is 51, calcium 7.8, total bili is 0.2, AST is 23, ALT is 25, alk phos 129, total protein is 4.5, TSH is 3.92. E. coli in the urine. ASSESSMENT AND PLAN: Being seen by Cardiology, Infectious Disease, Pulmonary. Sepsis from left-sided hospital-acquired pneumonia and also leukemia. Kirill Alcazar DO
--- NOTE | 2018-03-27 13:45 | CP.PCM.PN ---
<Peterson Houser - Last Filed: 03/27/18 13:40> Subjective - Date & Time of Evaluation Date of Evaluation: 03/27/18 Time of Evaluation: 11:00 - Subjective Subjective: ID Progress Note Patient seen and examined. Patient remains hypothermic intermittently. Patient complaining of foot pain. Denies shortness of breath, fever, chills, nausea, vomiting. Objective - Vital Signs/Intake and Output Vital Signs (last 24 hours): Temp Pulse Resp BP Pulse Ox 95 F L 77 18 96/56 L 90 L 03/27/18 07:00 03/27/18 09:41 03/27/18 07:00 03/27/18 09:41 03/27/18 07:00 Intake and Output: 03/27/18 03/27/18 06:59 18:59 Intake Total 600 Output Total 600 Balance 0 - Medications Medications: Current Medications Aspirin (Aspirin Chewable) 81 mg PO DAILY [facility] Last Admin: 03/27/18 09:40 Dose: 81 mg Carvedilol (Coreg) 3.125 mg PO BID RIYA Last Admin: 03/27/18 09:41 Dose: 3.125 mg Enoxaparin Sodium (Lovenox) 40 mg SC DAILY RIYA; Protocol Last Admin: 03/27/18 09:40 Dose: 40 mg Meropenem (Merrem Iv 1 Gm Premix) 1 gm in 50 mls @ 100 mls/hr IVPB Q8 RIYA; Protocol Last Admin: 03/27/18 05:33 Dose: 100 mls/hr Vancomycin HCl (Vancomycin 1gm) 1 gm in 250 mls @ 167 mls/hr IVPB Q12H RIYA; Protocol Last Admin: 03/27/18 08:21 Dose: 167 mls/hr Doxycycline Hyclate 100 mg/ (Sodium Chloride) 100 mls @ 100 mls/hr IVPB Q12 RIYA; Protocol Last Admin: 03/27/18 09:42 Dose: 100 mls/hr Ketorolac Tromethamine (Toradol) 15 mg IVP Q6 PRN PRN Reason: Pain, moderate (4-7) Last Admin: 03/27/18 09:40 Dose: 15 mg Losartan Potassium (Cozaar) 12.5 mg PO DAILY RIYA Last Admin: 03/27/18 09:41 Dose: Not Given - Labs Labs: 03/27/18 08:00 03/27/18 08:00 PT 12.4 SECONDS (9.4-12.5) 03/23/18 23:15 INR 1.09 03/23/18 23:15 APTT 33.2 Seconds (25.1-36.5) 03/23/18 23:15 - Constitutional Appears: Non-toxic, No Acute Distress - Head Exam Head Exam: ATRAUMATIC, NORMAL INSPECTION, NORMOCEPHALIC - Respiratory Exam Respiratory Exam: Decreased Breath Sounds, NORMAL BREATHING PATTERN. absent: Rales, Rhonchi, Wheezes - Cardiovascular Exam Cardiovascular Exam: RRR, +S1, +S2 - GI/Abdominal Exam GI & Abdominal Exam: Soft, Normal Bowel Sounds. absent: Tenderness - Extremities Exam Extremities Exam: Pedal Edema (Trace b/l). absent: Normal Inspection - Neurological Exam Neurological Exam: Alert, Awake - Psychiatric Exam Psychiatric exam: Normal Affect, Normal Mood - Skin Additional comments: Exfoliating skin throughout entire body Assessment and Plan - Assessment and Plan (Free Text) Plan: Sepsis secondary to left-sided HAP HTN prolymphocytic leukemia Plan Will continue Vancomycin, Merrem and Doxycycline, Day 4 of 4-7 days total Sputum demonstrates E. coli Brain MRI ordered to evaluate for central causes of hypothermia CT of chest, abdomen, pelvis for persistent white count elevation Consider Heme-onc consult, patient previously seen by Dr. Landeros Consider Podiatry consult Continue to monitor closely Mik, PGY-3 <Zhou Leos S - Last Filed: 03/27/18 14:11> Objective - Vital Signs/Intake and Output Vital Signs (last 24 hours): Temp Pulse Resp BP Pulse Ox 95 F L 77 18 96/56 L 90 L 03/27/18 07:00 03/27/18 09:41 03/27/18 07:00 03/27/18 09:41 03/27/18 07:00 Intake and Output: 03/27/18 03/27/18 06:59 18:59 Intake Total 600 Output Total 600 Balance 0 - Medications Medications: Current Medications Aspirin (Aspirin Chewable) 81 mg PO DAILY [facility] Last Admin: 03/27/18 09:40 Dose: 81 mg Carvedilol (Coreg) 3.125 mg PO BID [facility] Last Admin: 03/27/18 09:41 Dose: 3.125 mg Enoxaparin Sodium (Lovenox) 40 mg SC DAILY RIYA; Protocol Last Admin: 03/27/18 09:40 Dose: 40 mg Meropenem (Merrem Iv 1 Gm Premix) 1 gm in 50 mls @ 100 mls/hr IVPB Q8 RIYA; Protocol Last Admin: 03/27/18 05:33 Dose: 100 mls/hr Vancomycin HCl (Vancomycin 1gm) 1 gm in 250 mls @ 167 mls/hr IVPB Q12H RIYA; Protocol Last Admin: 03/27/18 08:21 Dose: 167 mls/hr Doxycycline Hyclate 100 mg/ (Sodium Chloride) 100 mls @ 100 mls/hr IVPB Q12 RIYA; Protocol Last Admin: 03/27/18 09:42 Dose: 100 mls/hr Ketorolac Tromethamine (Toradol) 15 mg IVP Q6 PRN PRN Reason: Pain, moderate (4-7) Last Admin: 03/27/18 09:40 Dose: 15 mg Losartan Potassium (Cozaar) 12.5 mg PO DAILY RIYA Last Admin: 03/27/18 09:41 Dose: Not Given - Labs Labs: 03/27/18 08:00 03/27/18 08:00 PT 12.4 SECONDS (9.4-12.5) 03/23/18 23:15 INR 1.09 03/23/18 23:15 APTT 33.2 Seconds (25.1-36.5) 03/23/18 23:15 Assessment and Plan - Assessment and Plan (Free Text) Plan: Infectious diseases Attending Physician Attestation Patient seen and examined, discussed with medical technicians. I have reviewed the patient's history of present illness, past medical, social, personal and family histories, pertinent physical exam findings, course so far in this hospital admission, pertinent laboratory and imaging results. I agree with the above findings, assessment and plan. In addition, continue Vancomycin, Merrem and Doxycycline for left sided HAP. Patient having intermittent bouts of hypothermia, with exfoliation and with history of leukemia - would recommend Heme/Onc consult, do CT C/A/P and MRI brain and will follow up results.
--- NOTE | 2018-03-27 15:04 | PN ---
DATE: 03/27/2018 CARDIOLOGY FOLLOWUP SUBJECTIVE: The patient is resting comfortably, is still on a heating blanket. No chest pain noted. PHYSICAL EXAMINATION: VITAL SIGNS: Blood pressure is 96/56, temperature is 95, heart rate is in the 70s, normal sinus rhythm. NECK: Negative JVD. LUNGS: Decreased breath sounds. HEART: S1, S2. EXTREMITIES: Without edema. LABORATORY DATA: Hemoglobin is 9.1, white count is down to 9.7. Chemistries, BUN and creatinine are unremarkable. Thyroid function tests normal. Echocardiogram reveals an ejection fraction of 46%. There is segmental wall motion abnormalities suggestive of coronary artery disease. IMPRESSION: 1. Hypothermia. 2. Pneumonia. 3. High probability for coronary artery disease. 4. Dilated cardiomyopathy. Given these findings, we will need to investigate coronary artery disease once his pneumonia and hypothermia resolve. Christoph Bustamante MD
--- NOTE | 2018-03-27 16:11 | CT ---
Date of service: 03/27/2018 PROCEDURE: CT Chest, Abdomen and Pelvis without intravenous contrast HISTORY: Leukocytosis, pain COMPARISON: None available. TECHNIQUE: Radiation dose: Total exam DLP = 726.15 mGy-cm. This CT exam was performed using one or more of the following dose reduction techniques: Automated exposure control, adjustment of the mA and/or kV according to patient size, and/or use of iterative reconstruction technique. FINDINGS: CT CHEST WITHOUT CONTRAST: LUNGS: Moderate size pleural effusions with bibasilar consolidation. MEDIASTINUM: Unremarkable. Normal caliber aorta and pulmonary arterial trunk. Normal size heart. Aortic calcification. Coronary artery calcification LYMPH NODES: Unremarkable. PLEURA: Unremarkable. No pneumothorax. No pleural fluid. BONES: Unremarkable. OTHER FINDINGS: None. CT ABDOMEN AND PELVIS: LIVER: Unremarkable. No gross lesion or ductal dilatation. GALLBLADDER AND BILE DUCTS: Unremarkable. PANCREAS: Unremarkable. No gross lesion or ductal dilatation. SPLEEN: Unremarkable. ADRENALS: Unremarkable. No mass. KIDNEYS AND URETERS: Unremarkable. No hydronephrosis. No solid mass. VASCULATURE: No aortic atherosclerotic calcification or mural plaque present. Unremarkable. No aortic aneurysm. BOWEL: Unremarkable. No obstruction. No gross mural thickening. Moderate constipation APPENDIX: Normal appendix. PERITONEUM: Unremarkable. No free fluid. No free air. LYMPH NODES: Unremarkable. No enlarged lymph nodes. BLADDER: Small stones are seen in the bladder. REPRODUCTIVE: Unremarkable. BONES: No acute fracture. OTHER FINDINGS: None. IMPRESSION: Moderate size bilateral pleural effusions with some adjacent consolidation. No acute intra-abdominal findings.
[2018-03-28] MEDS: Meropenem IV 1 gm in NS 1 GM/50 ML BAG IVPB SCH ×3 (05:24→22:58)
[2018-03-28] MEDS: Vancomycin 1gm in NS 250ml 1 GM/250 ML BAG IVPB SCH ×2 (06:28→18:00)
[2018-03-28 07:20] LABS: HEMOGLOBIN 8.9 g/dL (14.0-18.0); MEAN CELL VOLUME 82.1 fl (80.0-105.0); MEAN CORPUSCULAR HEMOGLOBIN 26.5 pg (25.0-35.0); MEAN CORPUSCULAR HGB CONC 32.2 g/dl (31.0-37.0); MEAN PLATELET VOLUME 10.8 fl (7.0-11.0); RBC 3.36 10^6/uL (3.5-6.1); RED CELL DISTRIBUTION WIDTH 19.8 % (11.5-14.5); WHITE BLOOD COUNT 11.2 10^3/uL (4.5-11.0)
[2018-03-28 07:43] LABS: TROPONIN I 0.03 ng/mL
[2018-03-28 07:48] LABS: ALB/GLOB RATIO 0.7 (1.1-1.8); ALBUMIN 1.8 g/dL (3.0-4.8); ALT/SGPT 30 U/L (7-56); AST/SGOT 30 U/L (17-59); BLOOD UREA NITROGEN 13 mg/dL (7-21); CALCIUM 7.8 mg/dL (8.4-10.5); GFR NON-AFRICAN AMERICAN > 60
--- NOTE | 2018-03-28 08:16 | PN ---
DATE: 03/28/2018 SUBJECTIVE: The patient appears comfortable this morning. He is not short of breath at rest. PHYSICAL EXAMINATION: VITAL SIGNS: (Last noted in the computer): Temperature is 97.5, pulse 78, respirations 18, blood pressure 95/42. Oxygen saturation on room air is 91% to 94%. HEENT: Normocephalic, atraumatic. No JVD. CARDIOVASCULAR: Positive S1, S2. No S3 gallop. LUNGS: Minimal crackles - left base. No rhonchi. No wheezing. EXTREMITIES: Mild edema. No cyanosis, no clubbing. Calves are nontender to palpation. GASTROINTESTINAL: Abdomen is soft, nontender and nondistended. Bowel sounds are positive. SKIN: Erythematous rash noted on his legs/feet and hands/palms. NEUROLOGIC: Exam limited at the present time. PERTINENT LABORATORY DATA: CAT scan of the chest was done yesterday and reviewed. There are small to moderate bilateral pleural effusions noted. There are also minimal consolidations adjacent to the pleural effusions - consistent with compressive atelectasis. IMPRESSION: 1. Left lower lobe pneumonia - resolving. 2. Bilateral pleural effusions. 3. Anemia. 4. Increased B-type natriuretic peptide. 5. Mild cardiomyopathy. PLAN: The patient appears comfortable this morning. He is not short of breath at rest. He does state to feeling better overall. I did discuss the case with the night nurse at length. The night nurse stated that the patient had an uneventful night. On physical exam, there is no significant bronchospasm noted. In addition, there is no significant alveolar-arterial gradient. I would continue with the current antibiotic therapy - as per Infectious Disease. The patient is now normothermic. The leukocytosis has primarily resolved. Input by Cardiology (Dr. Bustamante) is also noted. Clinical status of the patient is certainly improved - compared to the initial presentation. However, given the above, his future status/prognosis remains very guarded. I will discuss the above with Dr. Alcazar this morning. Nathan Perkins MD MTDFatimah
[2018-03-28] MEDS ORDERED: Gadodiamide 287 MG/ML VIAL (15ML) IV ONE (08:24)
[2018-03-28] MEDS ORDERED: Clotrimazole 1% Cream(30 gm) TOP PRN (10:00)
[2018-03-28] MEDS: Enoxaparin 40 mg Syringe SC SCH (10:22)
--- NOTE | 2018-03-28 10:40 | MRI ---
Date of service: 03/28/2018 PROCEDURE: MRI BRAIN WITH AND WITHOUT CONTRAST HISTORY: Hypothermia COMPARISON: None available. TECHNIQUE: Multiplanar, multisequence MR images of the brain were obtained with and without intravenous contrast enhancement (Omniscan 15 cc). FINDINGS: HEMORRHAGE: None DWI: No evidence of an acute or early subacute infarction. BRAIN PARENCHYMA: Good corticomedullary differentiation is seen. Proportional, diffuse expansion of the ventriculosulcal and cisternal spaces is appreciated with white matter long TR hyperintensity compatible with diffuse cerebral atrophy and chronic microangiopathy. No suspicious extra-axial fluid collection is identified and the midline brain anatomy appears grossly nonfocal as imaged. There is no mass effect throughout. ENHANCEMENT: No abnormal intracranial enhancement. VENTRICLES: Unremarkable. No hydrocephalus. CRANIUM: Unremarkable. ORBITS: Grossly unremarkable. PARANASAL SINUSES/MASTOIDS: Left mastoid effusions are identified, borderline at the right. VASCULAR SYSTEM: Skull base flow voids intact. OTHER FINDINGS: None . IMPRESSION: Age-related degenerative changes are identified which appear age-appropriate. No acute intracranial findings as per standard MR criteria at this time.
[2018-03-28] MEDS: Ammonium Lactate 12% Cream (140 g) TOP PRN (11:04)
--- NOTE | 2018-03-28 11:29 | CP.PCM.CON ---
<CarolineMeet - Last Filed: 03/28/18 11:25> History of Present Illness - History of Present Illness History of Present Illness: Podiatry consult note for Dr. Cherry 73M with pmhx of HTN and prolymphocytic leukemia seen and evaluated at bedside with Dr. Cherry. Patient is in discomfort and appears in distress from his dry skin breaking down about his extremities. Patient is unable to give thorough history. Per nursing patient was seen at [facility] and discharged recently and came in with SOB to the ED at [facility]. Patient denies N/V/F/C today. PMHx: HTN, prolymphocytic leukemia PSHx: 2 colon surgeries and hernia repair All: NKDA Past Patient History - Infectious Disease Hx of Infectious Diseases: None - Past Social History Smoking Status: Never Smoked - CARDIAC Hx Hypertension: Yes - PULMONARY Hx Respiratory Disorders: Yes Hx Pneumonia: Yes - NEUROLOGICAL Hx Neurological Disorder: No - HEENT Hx HEENT Problems: No - RENAL Hx Chronic Kidney Disease: No - ENDOCRINE/METABOLIC Hx Endocrine Disorders: No - HEMATOLOGICAL/ONCOLOGICAL Hx Blood Disorders: Yes (PROLYMPHOCYTIC LEUKEMIA) Hx Cancer: Yes - INTEGUMENTARY Hx Dermatological Problems: Yes Hx Eczema: Yes - MUSCULOSKELETAL/RHEUMATOLOGICAL Hx Musculoskeletal Disorders: Yes Hx Falls: Yes Hx Unsteady Gait: Yes (WALKER) - GASTROINTESTINAL Hx Gastrointestinal Disorders: No - GENITOURINARY/GYNECOLOGICAL Hx Genitourinary Disorders: No - PSYCHIATRIC Hx Psychophysiologic Disorder: No - SURGICAL HISTORY Hx Surgeries: Yes Other/Comment: hernia sx - ANESTHESIA Hx Anesthesia: Yes Hx Anesthesia Reactions: No Hx Malignant Hyperthermia: No Meds Allergies/Adverse Reactions: Allergies Allergy/AdvReac Type Severity Reaction Status Date / Time No Known Allergies Allergy Verified 03/24/18 11:42 - Medications Medications: Current Medications Aspirin (Aspirin Chewable) 81 mg PO DAILY [facility] Last Admin: 03/28/18 10:22 Dose: 81 mg Carvedilol (Coreg) 3.125 mg PO BID [facility] Last Admin: 03/28/18 10:18 Dose: Not Given Clotrimazole (Lotrimin 1%) 0 gm TOP BID PRN PRN Reason: Rash Enoxaparin Sodium (Lovenox) 40 mg SC DAILY [facility]; Protocol Last Admin: 03/28/18 10:22 Dose: 40 mg Meropenem (Merrem Iv 1 Gm Premix) 1 gm in 50 mls @ 100 mls/hr IVPB Q8 [facility]; Protocol Last Admin: 03/28/18 05:24 Dose: 100 mls/hr Vancomycin HCl (Vancomycin 1gm) 1 gm in 250 mls @ 167 mls/hr IVPB Q12H [facility]; Protocol Last Admin: 03/28/18 06:28 Dose: 167 mls/hr Doxycycline Hyclate 100 mg/ (Sodium Chloride) 100 mls @ 100 mls/hr IVPB Q12 [facility]; Protocol Last Admin: 03/28/18 11:04 Dose: 100 mls/hr Ketorolac Tromethamine (Toradol) 15 mg IVP Q6 PRN PRN Reason: Pain, moderate (4-7) Last Admin: 03/28/18 11:03 Dose: 15 mg Lactic Acid (Lac-Hydrin 12% Cream (140 G)) 0 ea TOP TID PRN PRN Reason: Dry skin Last Admin: 03/28/18 11:04 Dose: 1 applic Losartan Potassium (Cozaar) 12.5 mg PO DAILY [facility] Last Admin: 03/28/18 10:18 Dose: Not Given Silver Sulfadiazine (Silvadene 1% 25 Gm) 0 gm TP BID PRN PRN Reason: Dry skin Physical Exam - Constitutional Appears: Non-toxic - Head Exam Head Exam: ATRAUMATIC, NORMOCEPHALIC - Extremities Exam Additional comments: LE focused exam VASC: DP and PT pulses palpable; temp gradient warm to warm; pedal hair absent; cap refill <3 seconds to all digits; no edema appreciated ORTHO: pain upon palpation of b/l LE due to severe xerosis and sensitivity NEURO: gross and protective sensation intact b/l DERM: severe xerosis present at b/l LE with scaling and minor evidence of bleeding; flaking skin appreciated; no IDM; dermatitis appreciated; no clinical signs of infection; plantar aspects of feet exhibit most bleeding however currently minor secondary to xerosis and scaling - Neurological Exam Neurological exam: Alert - Psychiatric Exam Psychiatric exam: Normal Affect Results - Vital Signs Recent Vital Signs: Last Vital Signs Temp 98.2 F 03/28/18 06:00 Pulse 80 03/28/18 10:18 Resp 20 03/28/18 06:00 BP 98/52 L 03/28/18 10:18 Pulse Ox 99 03/28/18 06:00 - Labs Result Diagrams: 03/28/18 07:00 03/28/18 07:00 Labs: Laboratory Results - last 24 hr 03/25/18 03/26/18 03/28/18 06:00 08:27 07:00 WBC Cancelled 10.4 D 11.2 H RBC Cancelled 3.51 3.36 L Hgb Cancelled 9.2 L 8.9 L Hct Cancelled 28.7 L 27.6 L MCV Cancelled 81.8 82.1 MCH Cancelled 26.2 26.5 MCHC Cancelled 32.1 32.2 RDW Cancelled 19.8 H 19.8 H Plt Count Cancelled 311 327 MPV Cancelled 11.2 H 10.8 Sodium Potassium Chloride Carbon Dioxide Anion Gap BUN Creatinine Est GFR ( Amer) Est GFR (Non-Af Amer) POC Glucose (mg/dL) Random Glucose Calcium Total Bilirubin AST ALT Alkaline Phosphatase Troponin I Total Protein Albumin Globulin Albumin/Globulin Ratio 03/28/18 03/28/18 07:00 07:51 WBC RBC Hgb Hct MCV MCH MCHC RDW Plt Count MPV Sodium 147 Potassium 3.8 Chloride 119 H Carbon Dioxide 29 Anion Gap 4 L BUN 13 Creatinine 0.9 Est GFR ( Amer) > 60 Est GFR (Non-Af Amer) > 60 POC Glucose (mg/dL) 61 L Random Glucose 47 L* Calcium 7.8 L Total Bilirubin 0.3 AST 30 ALT 30 Alkaline Phosphatase 170 H D Troponin I 0.03 D Total Protein 4.5 L Albumin 1.8 L Globulin 2.7 Albumin/Globulin Ratio 0.7 L Assessment & Plan - Assessment and Plan (Free Text) Assessment: 73M with pmhx of HTN and prolymphocytic leukemia seen and evaluated for severe xerosis at b/l with associated minor superficial scaling and bleeding Plan: Patient seen and evaluated with Dr. Cherry Afebrile, mild leukocytosis 11.2 WBC Skin cleansed with sterile saline, ammonium lactate applied to lower legs, SSD applied to plantar aspects of feet b/l, xeroform applied to plantar feet and DSD wrap to reinforce dressing Multipodus boots ordered - patient to be in at all times in bed if can tolerate due to sensitivity from severe xerosis No clinical evidence of infection to the LE Podiatry to continue to follow while in house Thank you for the consult - Date & Time Date: 03/28/18 Time: 11:41 <Sundar Cherry - Last Filed: 03/28/18 17:34> Meds - Medications Medications: Current Medications Aspirin (Aspirin Chewable) 81 mg PO DAILY [facility] Last Admin: 03/28/18 10:22 Dose: 81 mg Carvedilol (Coreg) 3.125 mg PO BID [facility] Last Admin: 03/28/18 10:18 Dose: Not Given Clotrimazole (Lotrimin 1%) 0 gm TOP BID PRN PRN Reason: Rash Enoxaparin Sodium (Lovenox) 40 mg SC DAILY [facility]; Protocol Last Admin: 03/28/18 10:22 Dose: 40 mg Meropenem (Merrem Iv 1 Gm Premix) 1 gm in 50 mls @ 100 mls/hr IVPB Q8 [facility]; Protocol Last Admin: 03/28/18 05:24 Dose: 100 mls/hr Vancomycin HCl (Vancomycin 1gm) 1 gm in 250 mls @ 167 mls/hr IVPB Q12H [facility]; Protocol Last Admin: 03/28/18 06:28 Dose: 167 mls/hr Doxycycline Hyclate 100 mg/ (Sodium Chloride) 100 mls @ 100 mls/hr IVPB Q12 [facility]; Protocol Last Admin: 03/28/18 11:04 Dose: 100 mls/hr Ketorolac Tromethamine (Toradol) 15 mg IVP Q6 PRN PRN Reason: Pain, moderate (4-7) Last Admin: 03/28/18 11:03 Dose: 15 mg Lactic Acid (Lac-Hydrin 12% Cream (140 G)) 0 ea TOP TID PRN PRN Reason: Dry skin Last Admin: 03/28/18 11:04 Dose: 1 applic Losartan Potassium (Cozaar) 12.5 mg PO DAILY [facility] Last Admin: 03/28/18 10:18 Dose: Not Given Silver Sulfadiazine (Silvadene 1% 25 Gm) 0 gm TP BID PRN PRN Reason: Dry skin Results - Vital Signs Recent Vital Signs: Last Vital Signs Temp 93.7 F L 03/28/18 14:00 Pulse 63 03/28/18 14:00 Resp 18 03/28/18 14:00 BP 100/44 L 03/28/18 14:00 Pulse Ox 94 L 03/28/18 14:00 - Labs Result Diagrams: 03/28/18 07:00 03/28/18 07:00 Labs: Laboratory Results - last 24 hr 03/28/18 03/28/18 03/28/18 07:00 07:00 07:51 WBC 11.2 H RBC 3.36 L Hgb 8.9 L Hct 27.6 L MCV 82.1 MCH 26.5 MCHC 32.2 RDW 19.8 H Plt Count 327 MPV 10.8 Sodium 147 Potassium 3.8 Chloride 119 H Carbon Dioxide 29 Anion Gap 4 L BUN 13 Creatinine 0.9 Est GFR ( Amer) > 60 Est GFR (Non-Af Amer) > 60 POC Glucose (mg/dL) 61 L Random Glucose 47 L* Calcium 7.8 L Total Bilirubin 0.3 AST 30 ALT 30 Alkaline Phosphatase 170 H D Troponin I 0.03 D Total Protein 4.5 L Albumin 1.8 L Globulin 2.7 Albumin/Globulin Ratio 0.7 L Attending/Attestation - Attestation I have personally seen and examined this patient.: Yes I have fully participated in the care of the patient.: Yes I have reviewed all pertinent clinical information: Yes
--- NOTE | 2018-03-28 13:09 | PN ---
DATE: 03/28/2018 SUBJECTIVE: He is resting in bed. He is maybe a little stronger today, talking a little bit better. He is still not hungry, but he is responding a little bit better and the skin with all the creams, he is also looking better. He is on aspirin, Coreg, Cozaar, Vibramycin IV, ammonium lactate, Lotrimin cream, Lovenox, Merrem IV, Silvadene cream, Toradol for pain and vancomycin IV. PHYSICAL EXAMINATION: VITAL SIGNS: He has a 98.2 temperature, 80 pulse. This is one of the better temps he has had. He was on a heating blanket the other day with a 94 temperature. He has 98/52 blood pressure, 80 pulse, 20 respiratory rate, 99% O2 sat on room air, he was 91 the other day, so I do see some improvement in his vital signs. HEENT: Head: Atraumatic, normocephalic. He is alert. He is answering questions better, little bit stronger, even feels little bit stronger. Throat is moist. NECK: Supple. HEART: Regular rate. LUNGS: Decreased breath sounds but clear. ABDOMEN: Soft, nontender. Positive bowel sounds. EXTREMITIES: No edema. SKIN: Starting to be less excoriated. LABORATORY DATA: He has 147 sodium, potassium 3.8, BUN 13, creatinine 0.9, GFR is greater than 60, sugar was 61, calcium 7.8, total bili is 0.3, AST is 30, ALT is 30, alk phos is 170. Troponin I is 0.03. Total protein is 4.5, albumin is 1.8. TSH is 3.92. He has 11.2 white count, it was 9.7 yesterday, 8.9 hemoglobin, 27.6 hematocrit with 327 platelets. RECOMMENDATIONS: He is being seen by Pulmonary, Infectious Disease. He had a CT scan of the chest, abdomen and pelvis which did not show much, was being seen by Cardiology. He is still on IV antibiotics as per Infectious Disease. I need to get him out of bed to chair if possible and get some physical therapy involved. Start thinking about discharge planning when I get the okay from Infectious Disease and Pulmonary and Cardio. He has a pneumonia, hypertension, sepsis, history of leukemia. Continue aggressive treatment and care. Waiting for an MRI to come back. Kirill DO Ot[facility] # [id number]
--- NOTE | 2018-03-28 14:28 | CP.PCM.PN ---
Subjective - Date & Time of Evaluation Date of Evaluation: 03/28/18 Time of Evaluation: 10:40 - Subjective Subjective: Patient still feels weak, no fevers but still with bouts of hypothermia, no cough currently, still complaining of pain in the feet. Objective - Vital Signs/Intake and Output Vital Signs (last 24 hours): Temp Pulse Resp BP Pulse Ox 97.5 F L 78 18 95/42 L 91 L 03/27/18 22:46 03/27/18 22:46 03/27/18 22:46 03/27/18 22:46 03/27/18 22:46 Intake and Output: 03/27/18 03/28/18 18:59 06:59 Intake Total 1180 Balance 1180 - Medications Medications: Current Medications Aspirin (Aspirin Chewable) 81 mg PO DAILY [facility] Last Admin: 03/27/18 09:40 Dose: 81 mg Carvedilol (Coreg) 3.125 mg PO BID [facility] Last Admin: 03/27/18 17:46 Dose: 3.125 mg Clotrimazole (Lotrimin 1%) 0 gm TOP BID PRN PRN Reason: Rash Enoxaparin Sodium (Lovenox) 40 mg SC DAILY [facility]; Protocol Last Admin: 03/27/18 09:40 Dose: 40 mg Meropenem (Merrem Iv 1 Gm Premix) 1 gm in 50 mls @ 100 mls/hr IVPB Q8 [facility]; Protocol Last Admin: 03/28/18 05:24 Dose: 100 mls/hr Vancomycin HCl (Vancomycin 1gm) 1 gm in 250 mls @ 167 mls/hr IVPB Q12H [facility]; Protocol Last Admin: 03/28/18 06:28 Dose: 167 mls/hr Doxycycline Hyclate 100 mg/ (Sodium Chloride) 100 mls @ 100 mls/hr IVPB Q12 [facility]; Protocol Last Admin: 03/27/18 22:42 Dose: 100 mls/hr Ketorolac Tromethamine (Toradol) 15 mg IVP Q6 PRN PRN Reason: Pain, moderate (4-7) Last Admin: 03/27/18 17:46 Dose: 15 mg Lactic Acid (Lac-Hydrin 12% Cream (140 G)) 0 ea TOP TID PRN PRN Reason: Dry skin Losartan Potassium (Cozaar) 12.5 mg PO DAILY [facility] Last Admin: 03/27/18 09:41 Dose: Not Given Silver Sulfadiazine (Silvadene 1% 25 Gm) 0 gm TP BID PRN PRN Reason: Dry skin - Labs Labs: 03/27/18 08:00 03/27/18 08:00 PT 12.4 SECONDS (9.4-12.5) 03/23/18 23:15 INR 1.09 03/23/18 23:15 APTT 33.2 Seconds (25.1-36.5) 03/23/18 23:15 - Constitutional Appears: Chronically Ill - Head Exam Head Exam: NORMAL INSPECTION - ENT Exam ENT Exam: Mucous Membranes Moist - Neck Exam Neck Exam: absent: Meningismus - Respiratory Exam Respiratory Exam: Decreased Breath Sounds - Cardiovascular Exam Cardiovascular Exam: +S1, +S2 - GI/Abdominal Exam GI & Abdominal Exam: Soft. absent: Tenderness - Skin Additional comments: areas of desquamation in the extremities, torso Assessment and Plan - Assessment and Plan (Free Text) Plan: Assessment sepsis from left sided HAP exfoliative dermatitis, consider eczema or psoriasis HTN prolymphocytic leukemia Plan continue Vancomycin, Merrem and Doxycycline (Day 4 today of 4-7 days) reviewed CT C/A/P and brain MRI will continue to monitor clinically discussed with Dr. Alcazar would recommend Heme/Onc consult and Dermatology consult and patient may need skin biopsy
--- NOTE | 2018-03-28 20:39 | PN ---
DATE: 03/28/2018 CARDIOLOGY FOLLOWUP SUBJECTIVE: The patient is comfortable in bed, but without dyspnea. PHYSICAL EXAMINATION: VITAL SIGNS: Blood pressure is 100/44, heart rate is in the 60s. NECK: Negative JVD. CARDIOPULMONARY: S1, S2. LUNGS: Without rales. EXTREMITIES: Without edema. LABORATORY DATA: The hemoglobin is 8.9. Chemistries, BUN and creatinine are unremarkable. IMPRESSION: 1. Persistent hypothermia. 2. Pneumonia. 3. Pleural effusions. 4. Segmental wall motion abnormalities suggestive of coronary artery disease. 5. Anemia. PLAN: Given these findings, we will continue IV antibiotics. We will need to do diagnostic testing, rule out coronary artery disease once his hypothermia and his sepsis is improved. Christoph Bustamante MD
[2018-03-29] MEDS: Meropenem IV 1 gm in NS 1 GM/50 ML BAG IVPB SCH ×3 (05:35→21:43)
[2018-03-29] MEDS: Vancomycin 1gm in NS 250ml 1 GM/250 ML BAG IVPB SCH ×2 (06:18→20:22)
[2018-03-29 07:13] LABS: HEMOGLOBIN 9.1 g/dL (14.0-18.0); MEAN CELL VOLUME 81.8 fl (80.0-105.0); MEAN CORPUSCULAR HEMOGLOBIN 25.9 pg (25.0-35.0); MEAN CORPUSCULAR HGB CONC 31.7 g/dl (31.0-37.0); MEAN PLATELET VOLUME 10.9 fl (7.0-11.0); RBC 3.51 10^6/uL (3.5-6.1); RED CELL DISTRIBUTION WIDTH 19.9 % (11.5-14.5); WHITE BLOOD COUNT 12.6 10^3/uL (4.5-11.0)
[2018-03-29 07:33] LABS: ALB/GLOB RATIO 0.7 (1.1-1.8); ALBUMIN 1.9 g/dL (3.0-4.8); ALT/SGPT 29 U/L (7-56); AST/SGOT 47 U/L (17-59); BLOOD UREA NITROGEN 15 mg/dL (7-21); CALCIUM 8.1 mg/dL (8.4-10.5); GFR NON-AFRICAN AMERICAN > 60
[2018-03-29] MEDS ORDERED: Dextrose 50% SYRINGE Inj (50 ml) ONE (07:38)
[2018-03-29 08:22] LABS: ALB/GLOB RATIO 0.7 (1.1-1.8); ALBUMIN 1.7 g/dL (3.0-4.8); ALT/SGPT 33 U/L (7-56); AST/SGOT 41 U/L (17-59); BLOOD UREA NITROGEN 16 mg/dL (7-21); CALCIUM 7.7 mg/dL (8.4-10.5); GFR NON-AFRICAN AMERICAN > 60
[2018-03-29] MEDS ORDERED: Dextrose 5%/0.45% NS 1,000 ML IV SCH (08:45)
[2018-03-29] MEDS ORDERED: Magnesium Sulfate 1 gm in D5W 1 GM/100 ML BAG IVPB ONE (09:15)
[2018-03-29] MEDS: Enoxaparin 40 mg Syringe SC SCH (09:57)
--- NOTE | 2018-03-29 09:59 | PN ---
DATE: 03/29/2018 SUBJECTIVE: The patient appears comfortable this morning. He is not short of breath at rest. PHYSICAL EXAMINATION: VITAL SIGNS: (Last noted in the computer): Temperature is 97.5, pulse 74, respirations 18, blood pressure 98/42. Oxygen saturation on room air is 93%-94%. HEENT: Normocephalic, atraumatic. No JVD. CARDIOVASCULAR: Positive S1, S2. No S3 gallop. LUNGS: Minimal crackles at the bases. No rhonchi. No wheezing. EXTREMITIES: Mild edema. No cyanosis, no clubbing. Calves are nontender to palpation. GASTROINTESTINAL: Abdomen is soft, nontender, nondistended. Bowel sounds are positive. SKIN: Erythematous rash noted on his legs/feet and hands/palms. NEUROLOGIC: Exam limited at the present time. IMPRESSION: 1. Left lower lobe pneumonia - resolving. 2. Bilateral pleural effusions. 3. Anemia. 4. Increased B-type natriuretic peptide. 5. Mild cardiomyopathy. PLAN: The patient appears very comfortable this morning. He is not short of breath at rest. He does state to feeling better overall. I did discuss the case with the night nurse at length. The night nurse stated the patient had a good night. On physical exam, there is no significant bronchospasm noted. In addition, there is no significant alveolar-arterial gradient. I would continue with the antibiotic coverage as per Infectious Disease. Input by Dr. Leos is noted. Repeat a.m. labs are pending. Input by Cardiology (Dr. Bustamante) is also noted. Clinical status of the patient is certainly improved - compared to the initial presentation. However, given the above, the future status/prognosis for this patient remains guarded. I will discuss the above with Dr. Alcaazr. Nathan Perkins MD MTDFatimah
--- NOTE | 2018-03-29 10:21 | CP.PCM.PN ---
Subjective - Date & Time of Evaluation Date of Evaluation: 03/29/18 Time of Evaluation: 10:12 - Subjective Subjective: Podiatry progress note for Dr. Flannery 73M patient seen and evaluated with Dr. Flannery at bedside. Patient is in pain to both feet. Denies acute events overnight but nurses state his blood sugar was very low this morning. Denies N/V/F/C/SOB/CP. Objective - Vital Signs/Intake and Output Vital Signs (last 24 hours): Temp Pulse Resp BP Pulse Ox 98.3 F 70 18 108/68 94 L 03/29/18 06:00 03/29/18 06:00 03/29/18 06:00 03/29/18 06:00 03/29/18 06:00 Intake and Output: 03/29/18 03/29/18 06:59 18:59 Intake Total 120 Balance 120 - Medications Medications: Current Medications Aspirin (Aspirin Chewable) 81 mg PO DAILY [facility] Last Admin: 03/29/18 09:57 Dose: 81 mg Carvedilol (Coreg) 3.125 mg PO BID [facility] Last Admin: 03/29/18 09:57 Dose: 3.125 mg Clotrimazole (Lotrimin 1%) 0 gm TOP BID PRN PRN Reason: Rash Enoxaparin Sodium (Lovenox) 40 mg SC DAILY [facility]; Protocol Last Admin: 03/29/18 09:57 Dose: 40 mg Meropenem (Merrem Iv 1 Gm Premix) 1 gm in 50 mls @ 100 mls/hr IVPB Q8 [facility]; Protocol Last Admin: 03/29/18 05:35 Dose: 100 mls/hr Vancomycin HCl (Vancomycin 1gm) 1 gm in 250 mls @ 167 mls/hr IVPB Q12H [facility]; Protocol Last Admin: 03/29/18 06:18 Dose: 167 mls/hr Doxycycline Hyclate 100 mg/ (Sodium Chloride) 100 mls @ 100 mls/hr IVPB Q12 [facility]; Protocol Last Admin: 03/28/18 23:47 Dose: 100 mls/hr Dextrose/Sodium Chloride (Dextrose 5%/0.45% Ns 1000 Ml) 1,000 mls @ 40 mls/hr IV .Q24H [facility] Potassium Chloride (Potassium Chloride 10 Meq/100 Ml) 10 meq in 100 mls @ 50 mls/hr IVPB Q2H [facility] Stop: 03/29/18 12:44 Calcium Gluconate 1,000 mg/ (Dextrose) 110 mls @ 110 mls/hr IVPB ONCE ONE Stop: 03/29/18 10:14 Magnesium Sulfate/Dextrose (Magnesium Sulfate 1 Gm/100 Ml D5w) 1 gm in 100 mls @ 100 mls/hr IVPB ONCE ONE Stop: 03/29/18 10:14 Last Admin: 03/29/18 09:58 Dose: 100 mls/hr Ketorolac Tromethamine (Toradol) 15 mg IVP Q6 PRN PRN Reason: Pain, moderate (4-7) Last Admin: 03/29/18 05:36 Dose: 15 mg Lactic Acid (Lac-Hydrin 12% Cream (140 G)) 0 ea TOP TID PRN PRN Reason: Dry skin Last Admin: 03/28/18 11:04 Dose: 1 applic Losartan Potassium (Cozaar) 12.5 mg PO DAILY [facility] Last Admin: 03/28/18 10:18 Dose: Not Given Methylprednisolone (Solu-Medrol) 30 mg IVP Q12 [facility] Silver Sulfadiazine (Silvadene 1% 25 Gm) 0 gm TP BID PRN PRN Reason: Dry skin - Labs Labs: 03/29/18 06:40 03/29/18 08:00 PT 12.4 SECONDS (9.4-12.5) 03/23/18 23:15 INR 1.09 03/23/18 23:15 APTT 33.2 Seconds (25.1-36.5) 03/23/18 23:15 - Constitutional Appears: Non-toxic - Head Exam Head Exam: NORMOCEPHALIC - Extremities Exam Additional comments: LE focused exam VASC: DP and PT pulses palpable; temp gradient warm to warm; pedal hair absent; cap refill <3 seconds to all digits; no edema appreciated ORTHO: pain upon palpation of b/l LE due to severe xerosis and sensitivity NEURO: gross and protective sensation intact b/l DERM: severe xerosis present at b/l LE with scaling and minor evidence of bleedi ng; flaking skin appreciated; no IDM; dermatitis appreciated; no clinical signs of infection; plantar aspects of feet exhibit most bleeding however currently minor secondary to xerosis and scaling - Neurological Exam Neurological Exam: Alert, Awake - Psychiatric Exam Psychiatric exam: Normal Affect, Normal Mood Assessment and Plan - Assessment and Plan (Free Text) Assessment: 73M with severe xerosis at b/l LE with associated minor superficial plantar ulcerations Plan: Patient seen and evaluated with Dr. Flannery Afebrile, WBC 12.6 Skin cleansed with sterile saline, clotrimazole and aquaphor applied to feet b/l, left open to air in attempt to dry out ulcerations Multipodus boots ordered - patient to be in at all times in bed if can tolerate due to sensitivity from severe xerosis No clinical evidence of infection to the LE Podiatry to continue to follow while in house
--- NOTE | 2018-03-29 10:52 | CP.PCM.APN ---
Subjective - Date & Time of Evaluation Date of Evaluation: 03/29/18 Time of Evaluation: 10:45 - Subjective Subjective: Pt seen and examined at bedside. Pt refusing to eat due to pain when swallowing. Denies chest pain or shortness of breath. Objective - Vital Signs/Intake and Output Vital Signs (last 24 hours): Temp Pulse Resp BP Pulse Ox 98.3 F 70 18 108/68 94 L 03/29/18 06:00 03/29/18 06:00 03/29/18 06:00 03/29/18 06:00 03/29/18 06:00 Intake and Output: 03/29/18 03/29/18 06:59 18:59 Intake Total 120 Balance 120 - Medications Medications: Current Medications Aspirin (Aspirin Chewable) 81 mg PO DAILY [facility] Last Admin: 03/29/18 09:57 Dose: 81 mg Carvedilol (Coreg) 3.125 mg PO BID [facility] Last Admin: 03/29/18 09:57 Dose: 3.125 mg Clotrimazole (Lotrimin 1%) 0 gm TOP BID PRN PRN Reason: Rash Enoxaparin Sodium (Lovenox) 40 mg SC DAILY [facility]; Protocol Last Admin: 03/29/18 09:57 Dose: 40 mg Meropenem (Merrem Iv 1 Gm Premix) 1 gm in 50 mls @ 100 mls/hr IVPB Q8 [facility]; Pr otocol Last Admin: 03/29/18 05:35 Dose: 100 mls/hr Vancomycin HCl (Vancomycin 1gm) 1 gm in 250 mls @ 167 mls/hr IVPB Q12H [facility]; Protocol Last Admin: 03/29/18 06:18 Dose: 167 mls/hr Doxycycline Hyclate 100 mg/ (Sodium Chloride) 100 mls @ 100 mls/hr IVPB Q12 [facility]; Protocol Last Admin: 03/28/18 23:47 Dose: 100 mls/hr Dextrose/Sodium Chloride (Dextrose 5%/0.45% Ns 1000 Ml) 1,000 mls @ 40 mls/hr IV .Q24H [facility] Potassium Chloride (Potassium Chloride 10 Meq/100 Ml) 10 meq in 100 mls @ 50 mls/hr IVPB Q2H [facility] Stop: 03/29/18 12:44 Ketorolac Tromethamine (Toradol) 15 mg IVP Q6 PRN PRN Reason: Pain, moderate (4-7) Last Admin: 03/29/18 05:36 Dose: 15 mg Lactic Acid (Lac-Hydrin 12% Cream (140 G)) 0 ea TOP TID PRN PRN Reason: Dry skin Last Admin: 03/28/18 11:04 Dose: 1 applic Losartan Potassium (Cozaar) 12.5 mg PO DAILY [facility] Last Admin: 03/28/18 10:18 Dose: Not Given Methylprednisolone (Solu-Medrol) 30 mg IVP Q12 [facility] Silver Sulfadiazine (Silvadene 1% 25 Gm) 0 gm TP BID PRN PRN Reason: Dry skin - Labs Labs: 03/29/18 06:40 03/29/18 08:00 PT 12.4 SECONDS (9.4-12.5) 03/23/18 23:15 INR 1.09 03/23/18 23:15 APTT 33.2 Seconds (25.1-36.5) 03/23/18 23:15 - Constitutional Appears: No Acute Distress, Chronically Ill - Respiratory Exam Respiratory Exam: Rhonchi - Cardiovascular Exam Cardiovascular Exam: REGULAR RHYTHM, +S1, +S2 - GI/Abdominal Exam GI & Abdominal Exam: Soft, Normal Bowel Sounds - Rectal Exam Rectal Exam: Deferred - Neurological Exam Neurological Exam: Alert, Awake, Oriented x3 - Skin Additional comments: generalized dry, scaly skin Assessment and Plan - Assessment and Plan (Free Text) Assessment: Pt is a 73 y.o. male with pmhx of hypertension and prolymphocytic leukemia who presented to ED with his daughter complaining of shortness of breath. Daughter states patient was recently discharged from [facility] yesterday following treatment for pneumonia. Pt is currently being treated for sepsis from L side HAP, persistent hypothermia, r/o exfoliative dermatitis vs eczema vs psoriasis. ITS Impressions Chest X-Ray 03/23/18 23:12 IMPRESSION: Infiltrate at the left lung base. Small bilateral pleural effusions Chest/Abdomen/Pelvis CT 03/27/18 13:38 IMPRESSION: Moderate size bilateral pleural effusions with some adjacent consolidation. No acute intra-abdominal findings. Brain MRI 03/28/18 08:00 IMPRESSION: Age-related degenerative changes are identified which appear age-appropriate. No acute intracranial findings as per standard MR criteria at this time. Plan: Pt maintained on genoveva hugger On Vanco IV/Merrem/Doxy IV per ID recs Started on D5 1/2NS for hypoglycemia/hypernatremia Replacing Magnesium (1.5) Replacing Potassium (3.3) Started on Solumedrol 30 q12h D/W ID, most likely will have punch biopsy of skin by Podiatry. Will continue on IV abx. Speech eval - odynophagia Meds per MAR Will continue to follow
--- NOTE | 2018-03-29 12:39 | CP.PCM.PN ---
<Peterson Houser - Last Filed: 03/29/18 12:31> Subjective - Date & Time of Evaluation Date of Evaluation: 03/29/18 Time of Evaluation: 08:00 - Subjective Subjective: ID Progress Note Patient seen and examined. Patient complaining of b/l foot pain. Hypothermic yesterday. Objective - Vital Signs/Intake and Output Vital Signs (last 24 hours): Temp Pulse Resp BP Pulse Ox 98.3 F 70 18 108/68 94 L 03/29/18 06:00 03/29/18 06:00 03/29/18 06:00 03/29/18 06:00 03/29/18 06:00 Intake and Output: 03/29/18 03/29/18 06:59 18:59 Intake Total 120 Balance 120 - Medications Medications: Current Medications Aspirin (Aspirin Chewable) 81 mg PO DAILY [facility] Last Admin: 03/29/18 09:57 Dose: 81 mg Carvedilol (Coreg) 3.125 mg PO BID [facility] Last Admin: 03/29/18 09:57 Dose: 3.125 mg Clotrimazole (Lotrimin 1%) 0 gm TOP BID PRN PRN Reason: Rash Enoxaparin Sodium (Lovenox) 40 mg SC DAILY [facility]; Protocol Last Admin: 03/29/18 09:57 Dose: 40 mg Meropenem (Merrem Iv 1 Gm Premix) 1 gm in 50 mls @ 100 mls/hr IVPB Q8 [facility]; Protocol Last Admin: 03/29/18 05:35 Dose: 100 mls/hr Vancomycin HCl (Vancomycin 1gm) 1 gm in 250 mls @ 167 mls/hr IVPB Q12H [facility]; Protocol Last Admin: 03/29/18 06:18 Dose: 167 mls/hr Doxycycline Hyclate 100 mg/ (Sodium Chloride) 100 mls @ 100 mls/hr IVPB Q12 [facility]; Protocol Last Admin: 03/29/18 12:01 Dose: 100 mls/hr Dextrose/Sodium Chloride (Dextrose 5%/0.45% Ns 1000 Ml) 1,000 mls @ 40 mls/hr IV .Q24H [facility] Last Admin: 03/29/18 12:12 Dose: 40 mls/hr Potassium Chloride (Potassium Chloride 10 Meq/100 Ml) 10 meq in 100 mls @ 50 mls/hr IVPB Q2H [facility] Stop: 03/29/18 12:44 Ketorolac Tromethamine (Toradol) 15 mg IVP Q6 PRN PRN Reason: Pain, moderate (4-7) Last Admin: 03/29/18 05:36 Dose: 15 mg Lactic Acid (Lac-Hydrin 12% Cream (140 G)) 0 ea TOP TID PRN PRN Reason: Dry skin Last Admin: 03/28/18 11:04 Dose: 1 applic Losartan Potassium (Cozaar) 12.5 mg PO DAILY [facility] Last Admin: 03/29/18 11:55 Dose: Not Given Methylprednisolone (Solu-Medrol) 30 mg IVP Q12 [facility] Silver Sulfadiazine (Silvadene 1% 25 Gm) 0 gm TP BID PRN PRN Reason: Dry skin - Labs Labs: 03/29/18 06:40 03/29/18 08:00 PT 12.4 SECONDS (9.4-12.5) 03/23/18 23:15 INR 1.09 03/23/18 23:15 APTT 33.2 Seconds (25.1-36.5) 03/23/18 23:15 - Constitutional Appears: Non-toxic, No Acute Distress - Head Exam Head Exam: ATRAUMATIC, NORMAL INSPECTION, NORMOCEPHALIC - ENT Exam ENT Exam: Mucous Membranes Moist - Respiratory Exam Respiratory Exam: Clear to Ausculation Bilateral, NORMAL BREATHING PATTERN. absent: Rales, Rhonchi, Wheezes - Cardiovascular Exam Cardiovascular Exam: RRR, +S1, +S2 - GI/Abdominal Exam GI & Abdominal Exam: Soft, Normal Bowel Sounds. absent: Tenderness - Extremities Exam Extremities Exam: Normal Inspection. absent: Pedal Edema - Neurological Exam Neurological Exam: Alert, Awake, Oriented x3 - Psychiatric Exam Psychiatric exam: Normal Affect, Normal Mood - Skin Additional comments: Exfoliating skin throughout entire body Assessment and Plan - Assessment and Plan (Free Text) Plan: Sepsis secondary to left sided HAP Exfoliative dermatitis, consider eczema or psoriasis Hx of HTN Hx of Prolymphocytic leukemia Plan Continue Vancomycin, Merrem and Doxycycline, Day 5/5-[address] chest, abdomen, and pelvis Reviewed Brain MRI Follow Podiatry Continue to monitor closely Mik, PGY-3 <Zhou Leos - Last Filed: 03/29/18 17:55> Objective - Vital Signs/Intake and Output Vital Signs (last 24 hours): Temp Pulse Resp BP Pulse Ox 98.3 F 67 18 95/47 L 94 L 03/29/18 06:00 03/29/18 17:19 03/29/18 06:00 03/29/18 17:19 03/29/18 06:00 Intake and Output: 03/29/18 03/29/18 06:59 18:59 Intake Total 120 Balance 120 - Medications Medications: Current Medications Aspirin (Aspirin Chewable) 81 mg PO DAILY [facility] Last Admin: 03/29/18 09:57 Dose: 81 mg Carvedilol (Coreg) 3.125 mg PO BID [facility] Last Admin: 03/29/18 17:19 Dose: Not Given Clotrimazole (Lotrimin 1%) 0 gm TOP BID PRN PRN Reason: Rash Enoxaparin Sodium (Lovenox) 40 mg SC DAILY [facility]; Protocol Last Admin: 03/29/18 09:57 Dose: 40 mg Meropenem (Merrem Iv 1 Gm Premix) 1 gm in 50 mls @ 100 mls/hr IVPB Q8 [facility]; Protocol Last Admin: 03/29/18 05:35 Dose: 100 mls/hr Vancomycin HCl (Vancomycin 1gm) 1 gm in 250 mls @ 167 mls/hr IVPB Q12H [facility]; Protocol Last Admin: 03/29/18 06:18 Dose: 167 mls/hr Doxycycline Hyclate 100 mg/ (Sodium Chloride) 100 mls @ 100 mls/hr IVPB Q12 [facility]; Protocol Last Admin: 03/29/18 12:01 Dose: 100 mls/hr Dextrose/Sodium Chloride (Dextrose 5%/0.45% Ns 1000 Ml) 1,000 mls @ 40 mls/hr IV .Q24H [facility] Last Admin: 03/29/18 12:12 Dose: 40 mls/hr Ketorolac Tromethamine (Toradol) 15 mg IVP Q6 PRN PRN Reason: Pain, moderate (4-7) Last Admin: 03/29/18 16:24 Dose: 15 mg Lactic Acid (Lac-Hydrin 12% Cream (140 G)) 0 ea TOP TID PRN PRN Reason: Dry skin Last Admin: 03/28/18 11:04 Dose: 1 applic Losartan Potassium (Cozaar) 12.5 mg PO DAILY [facility] Last Admin: 03/29/18 11:55 Dose: Not Given Methylprednisolone (Solu-Medrol) 30 mg IVP Q12 [facility] Last Admin: 03/29/18 16:38 Dose: Not Given Silver Sulfadiazine (Silvadene 1% 25 Gm) 0 gm TP BID PRN PRN Reason: Dry skin - Labs Labs: 03/29/18 06:40 03/29/18 08:00 PT 12.4 SECONDS (9.4-12.5) 03/23/18 23:15 INR 1.09 03/23/18 23:15 APTT 33.2 Seconds (25.1-36.5) 03/23/18 23:15 Assessment and Plan - Assessment and Plan (Free Text) Plan: Infectious diseases Attending Physician Attestation Patient seen and examined, discussed with medical billing coordinator. I have reviewed the patient's history of present illness, past medical, social, personal and family histories, pertinent physical exam findings, course so far in this hospital admission, pertinent laboratory and imaging results. I agree with the above findings, assessment and plan. In addition, continue Vancomycin, Merrem and Doxycycline for sepsis due to left sided HAP. Reviewed CT C/A/P and MRI brain. Patient with exfoliative dermatitis and discussed with Dr. Flannery and Dr. Alcazar - patient will get skin biopsy and will be started on steroids.
--- NOTE | 2018-03-29 12:55 | PN ---
DATE: 03/29/2018 SUBJECTIVE: I saw him this morning. He has a warming blanket on, the Mike Hugger, his temperature dropped again. His skin is actually looking a little bit better with the creams, it is just not improving that well. He has had no appetite at all, very weak. He is on aspirin, Coreg, Cozaar, dextrose, doxycycline. I added the dextrose this morning with the nurse practitioner because his sugars have been low. He is on doxycycline IV, Lac-Hydrin, Lotrimin, Lovenox, Merrem IV potassium replacement, Silvadene cream, Toradol, and vancomycin IV. PHYSICAL EXAMINATION: GENERAL: He is alert, but very weak and lethargic, really responding well. VITAL SIGNS: He has a 98.3 temperature, 70 pulse, 108/68 blood pressure, 18 respiratory rate, 94% sat on room air. HEENT: Head is atraumatic, normocephalic. HEART: Regular rate. LUNGS: Decreased breath sounds. ABDOMEN: Soft. EXTREMITIES: No edema. SKIN: His skin is starting to look a little bit less excoriated. LABORATORY DATA: He has a 12.6 white count going up a little bit, 9.1 hemoglobin, 28.7 hematocrit with 331 platelets. 150 sodium, potassium 3.3, I replaced the potassium. BUN 16, creatinine 0.9, GFR is greater than 60. Last blood sugar was 134, doing better. Calcium was 7.7, I replaced the calcium, phosphorous 3.3, magnesium 1.5. Total bili is 0.3, AST is 41, ALT is 33, alk phos is 179. Total protein 4.3. ASSESSMENT AND PLAN: The patient is being seen by Cardiology, Infectious Disease, Podiatry, Pulmonary. He has got persistent hypothermia and pneumonia, pleural effusions, coronary artery disease, anemia. Continue aggressive treatment and care as per Infectious Disease, IV antibiotics, IV fluids, and replace electrolytes. He will eventually . Kirill Alcazar DO [facility] HOSPITALFatimah
--- NOTE | 2018-03-29 14:18 | PN ---
DATE: 03/29/2018 SUBJECTIVE: The patient remains hypothermic. He is comfortable. PHYSICAL EXAMINATION: VITAL SIGNS: Blood pressure is 108/68, heart rates in the 70s. NECK: Negative JVD. LUNGS: Without rales. HEART: S1, S2. EXTREMITIES: Without change. LABORATORY DATA: Hemoglobin is 9.1. Chemistries, BUN and creatinine unremarkable. Potassium is 3.3, glucose 134. IMPRESSION: 1. Persistent hypothermia. 2. Pneumonia. 3. Diabetes mellitus. 4. Segmental wall motion abnormalities with a mild cardiomyopathy. 5. Rule out coronary artery disease. 6. Anemia. PLAN: Given these findings, we will get a cortisol level prior to administration of the steroid that was ordered. Christoph Bustamante MD
[2018-03-29] MEDS: MethylPREDNISolone 40 mg Vial IVP SCH ×2 (16:38→21:41)
--- NOTE | 2018-03-29 21:24 | CON ---
DATE: 03/29/2018 ENDOCRINOLOGY CONSULT HISTORY OF PRESENT ILLNESS: This is a 73-year-old male with known history of hypertension and significant history of prolymphocytic leukemia with recent chemotherapy and has now been admitted with progressive shortness of breath and underlying acute pneumonitis and is now being referred for endocrine evaluation because of intermittent hypothermia as noted thereof. His temperatures have ranged from the initial temperature of 93.7 and subsequent levels of 97-98 and the latest one today is 95 degrees Fahrenheit as noted. The patient admits to generalized body weakness with episodic bouts of dizziness and lightheadedness and progressive shortness of breath as noted. PAST MEDICAL HISTORY: History of prolymphocytic leukemia with recent chemotherapy given, history of hypertension and dyslipidemia. FAMILY HISTORY: Positive for hypertension and heart disease. SOCIAL HISTORY: The patient has a supportive family. No known substance use. REVIEW OF SYSTEMS: Admits to generalized body weakness with progressive bouts of dizziness and lightheadedness and bifrontal headaches. Also admits to chill sensation and intermittent rigors with no overt febrile episodes. No chest pains or palpitations, however, admits to progressive shortness of breath initially on exertion and then at rest with pleuritic chest pain. His oral intake has been variable with nausea and dyspepsia and vague upper abdominal pains. No recent alterations of bowel or urinary patterns. PHYSICAL EXAMINATION: GENERAL: Average build male in no apparent distress. VITAL SIGNS: Blood pressure of 140/80; pulse of 70 beats per minute, regular; temperature 97; respirations ; height is 5 feet 9 inches; weight is 160 pounds. HEENT: Head normocephalic. Eyes anicteric with pink conjunctivae. Funduscopy not possible at this time. Ears, nose and throat otherwise normal. NECK: Supple. Thyroid gland is normal in size. No carotid bruits or any cervical adenopathy. CARDIOPULMONARY: Adynamic precordium. S1, S2 are rapid and regular. LUNGS: Clear to auscultation. ABDOMEN: Flat, soft, with positive bowel sounds. EXTREMITIES: No peripheral edema. Pulses are +2 bilaterally. LABORATORY DATA: His WBC initially was 15.8, hemoglobin of 9.9, hematocrit of 31, MCV 83, platelets 301. Chemistries initially today showed a BUN of 15, sodium 152, potassium 3.7, chloride 121, CO2 of 27, glucose 26 and creatinine 0.9. His glucose levels have ranged from 62 to 145 and 296 after dextrose infusion was given. The initial thyroid studies done showed T4 of 6.4 mcg/dL with a TSH of 3.92 with an albumin level of 2.6 and repeat level of 1.9. ASSESSMENT: This is a 73-year-old male with prolymphocytic leukemia, presenting here with progressive shortness of breath and recent underlying left lobe pneumonia, currently undergoing IV antibiotic management and is being referred now also for evaluation of intermittent bouts of hypothermia. The patient also was undernutrition and marked hypoalbuminemia was noted with an elevated proBNP indicative of also supervening congestive heart failure. PLAN OF MANAGEMENT: We will repeat the thyroid function studies and include a thyroid peroxidase antibody to confirm and/or indicate the presence of underlying thyroid autoimmunity. We will hold off levothyroxine replacement therapy at this time and observe and continue with the current symptomatic and supportive measures given for temperature regulation. We will obtain serial chemistries and supplement accordingly as needed. We will also obtain a serum cortisol and ACTH levels and also serum insulin and hemoglobin A1c levels to exclude any other underlying endocrinopathy causing the episodic bouts also of hypoglycemia and hypothermia. We will follow. Maria Luisa Ray MD
[2018-03-30] MEDS: Meropenem IV 1 gm in NS 1 GM/50 ML BAG IVPB SCH ×4 (05:43→21:31)
[2018-03-30] MEDS: Vancomycin 1gm in NS 250ml 1 GM/250 ML BAG IVPB SCH ×2 (06:29→18:32)
[2018-03-30 07:10] LABS: HEMOGLOBIN 9.1 g/dL (14.0-18.0); MEAN CELL VOLUME 80.9 fl (80.0-105.0); MEAN CORPUSCULAR HEMOGLOBIN 26.3 pg (25.0-35.0); MEAN CORPUSCULAR HGB CONC 32.5 g/dl (31.0-37.0); MEAN PLATELET VOLUME 10.9 fl (7.0-11.0); RBC 3.46 10^6/uL (3.5-6.1); WHITE BLOOD COUNT 11.7 10^3/uL (4.5-11.0)
[2018-03-30 07:28] LABS: ALB/GLOB RATIO 0.7 (1.1-1.8); ALT/SGPT 31 U/L (7-56); AST/SGOT 37 U/L (17-59); BLOOD UREA NITROGEN 19 mg/dL (7-21); CALCIUM 8.3 mg/dL (8.4-10.5); GFR NON-AFRICAN AMERICAN > 60
[2018-03-30 07:39] LABS: FREE T4 0.9 ng/dL (0.78-2.19); T4 5.3 ug/dL (5.5-11.0)
--- NOTE | 2018-03-30 10:23 | PN ---
DATE: 03/30/2018 SUBJECTIVE: The patient appears very comfortable this morning. He is not short of breath at rest. PHYSICAL EXAMINATION: VITAL SIGNS: (Last noted in the computer): Temperature is 97.3, pulse 69, respirations 19, blood pressure 96/46. Oxygen saturation on room air is 95%. HEENT: Normocephalic, atraumatic. No JVD. CARDIOVASCULAR: Positive S1, S2. No S3 gallop. LUNGS: Minimal crackles at both bases. No rhonchi. No wheezing. EXTREMITIES: Mild edema. No cyanosis, no clubbing. Calves are nontender to palpation. GASTROINTESTINAL: Abdomen is soft, nontender and nondistended. Bowel sounds are positive. SKIN: Erythematous rash noted on his legs/feet and hands/palms. NEUROLOGIC: Exam limited at the present time. IMPRESSION: 1. Left lower lobe pneumonia - resolving. 2. Bilateral pleural effusions. 3. Anemia. 4. Increased B-type natriuretic peptide. 5. Mild cardiomyopathy. PLAN: The patient appears very comfortable this morning. He is not short of breath at rest. He does state to feeling better overall. I did discuss the case with night nurse at length. The night nurse stated the patient had an uneventful night. On physical exam, there is no significant bronchospasm noted. In addition, there is no significant alveolar-arterial gradient. I would continue with the antibiotic coverage as per Infectious Disease. There are no temperatures noted. There is a mild leukocytosis. Inputs by Endocrine and Internal Medicine are also noted. Clinical status of the patient is significantly improved - compared to his initial presentation. However, given the above, the future status/prognosis for this patient does remain guarded. I will discuss the above with Dr. Alcazar. Nathan Perkins MD MTDD
--- NOTE | 2018-03-30 10:45 | CP.PCM.PN ---
Subjective - Date & Time of Evaluation Date of Evaluation: 03/30/18 Time of Evaluation: 10:43 - Subjective Subjective: Podiatry progress note for Dr. Flannery 73M patient seen and evaluated with Dr. Flannery at bedside. Patient is in pain to both feet. States he was seen by development assistant about a year ago where he was diagnosed with eczema. Denies N/V/F/C/SOB/CP. Objective - Vital Signs/Intake and Output Vital Signs (last 24 hours): Temp Pulse Resp BP Pulse Ox 98 F 79 18 114/53 L 97 03/30/18 06:00 03/30/18 06:00 03/30/18 06:00 03/30/18 06:00 03/30/18 06:00 Intake and Output: 03/30/18 03/30/18 06:59 18:59 Intake Total 800 Balance 800 - Medications Medications: Current Medications Aspirin (Aspirin Chewable) 81 mg PO DAILY [facility] Last Admin: 03/29/18 09:57 Dose: 81 mg Carvedilol (Coreg) 3.125 mg PO BID [facility] Last Admin: 03/29/18 17:19 Dose: Not Given Clotrimazole (Lotrimin 1%) 0 gm TOP BID PRN PRN Reason: Rash Enoxaparin Sodium (Lovenox) 40 mg SC DAILY [facility]; Protocol Last Admin: 03/29/18 09:57 Dose: 40 mg Meropenem (Merrem Iv 1 Gm Premix) 1 gm in 50 mls @ 100 mls/hr IVPB Q8 [facility]; Protocol Last Admin: 03/30/18 05:43 Dose: 100 mls/hr Vancomycin HCl (Vancomycin 1gm) 1 gm in 250 mls @ 167 mls/hr IVPB Q12H [facility]; Protocol Last Admin: 03/30/18 06:29 Dose: 167 mls/hr Doxycycline Hyclate 100 mg/ (Sodium Chloride) 100 mls @ 100 mls/hr IVPB Q12 [facility]; Protocol Last Admin: 03/29/18 21:44 Dose: 100 mls/hr Dextrose/Sodium Chloride (Dextrose 5%/0.45% Ns 1000 Ml) 1,000 mls @ 40 mls/hr IV .Q24H [facility] Last Admin: 03/29/18 12:12 Dose: 40 mls/hr Ketorolac Tromethamine (Toradol) 15 mg IVP Q6 PRN PRN Reason: Pain, moderate (4-7) Last Admin: 03/29/18 16:24 Dose: 15 mg Lactic Acid (Lac-Hydrin 12% Cream (140 G)) 0 ea TOP TID PRN PRN Reason: Dry skin Last Admin: 03/28/18 11:04 Dose: 1 applic Losartan Potassium (Cozaar) 12.5 mg PO DAILY [facility] Last Admin: 03/29/18 11:55 Dose: Not Given Methylprednisolone (Solu-Medrol) 30 mg IVP Q12 [facility] Last Admin: 03/29/18 21:41 Dose: 30 mg Silver Sulfadiazine (Silvadene 1% 25 Gm) 0 gm TP BID PRN PRN Reason: Dry skin - Labs Labs: 03/30/18 06:45 03/30/18 06:45 PT 12.4 SECONDS (9.4-12.5) 03/23/18 23:15 INR 1.09 03/23/18 23:15 APTT 33.2 Seconds (25.1-36.5) 03/23/18 23:15 - Constitutional Appears: Non-toxic - Head Exam Head Exam: NORMOCEPHALIC - Extremities Exam Additional comments: LE focused exam VASC: DP and PT pulses palpable; temp gradient warm to warm; pedal hair absent; cap refill <3 seconds to all digits; no edema appreciated ORTHO: pain upon palpation of b/l LE due to severe xerosis and sensitivity NEURO: gross and protective sensation intact b/l DERM: severe xerosis present at b/l LE with scaling and minor evidence of bleeding; flaking skin appreciated; no IDM; dermatitis appreciated; no clinical signs of infection; plantar aspects of feet exhibit most bleeding however currently minor secondary to xerosis and scaling - Neurological Exam Neurological Exam: Alert, Awake, Oriented x3 - Psychiatric Exam Psychiatric exam: Normal Affect, Normal Mood Assessment and Plan - Assessment and Plan (Free Text) Assessment: 73M with severe xerosis at b/l LE with associated minor superficial plantar ulcerations Plan: Patient seen and evaluated with Dr. Flannery Afebrile, WBC 11.7 Skin cleansed with sterile saline, clotrimazole and aquaphor applied to feet b/l, left open to air in attempt to dry out ulcerations IV steroid started, continue per medicine No punch biopsy performed as patient states he had a biopsy less than a year ago with a development assistant which revealed diagnosis of eczema Multipodus boots to be worn at all times in bed No clinical evidence of infection to the LE Podiatry to continue to follow while in house
--- NOTE | 2018-03-30 10:53 | CP.PCM.APN ---
Subjective - Date & Time of Evaluation Date of Evaluation: 03/30/18 Time of Evaluation: 08:45 - Subjective Subjective: Pt seen and examined at bedside. States that he feels better overall. Able to eat his breakfast today without any pain on swallowing. Objective - Vital Signs/Intake and Output Vital Signs (last 24 hours): Temp Pulse Resp BP Pulse Ox 98 F 79 18 114/53 L 97 03/30/18 06:00 03/30/18 06:00 03/30/18 06:00 03/30/18 06:00 03/30/18 06:00 Intake and Output: 03/30/18 03/30/18 06:59 18:59 Intake Total 800 Balance 800 - Medications Medications: Current Medications Aspirin (Aspirin Chewable) 81 mg PO DAILY [facility] Last Admin: 03/29/18 09:57 Dose: 81 mg Carvedilol (Coreg) 3.125 mg PO BID [facility] Last Admin: 03/29/18 17:19 Dose: Not Given Clotrimazole (Lotrimin 1%) 0 gm TOP BID PRN PRN Reason: Rash Enoxaparin Sodium (Lovenox) 40 mg SC DAILY [facility]; Protocol Last Admin: 03/29/18 09:57 Dose: 40 mg Meropenem (Merrem Iv 1 Gm Premix) 1 gm in 50 mls @ 100 mls/hr IVPB Q8 [facility]; Protocol Last Admin: 03/30/18 05:43 Dose: 100 mls/hr Vancomycin HCl (Vancomycin 1gm) 1 gm in 250 mls @ 167 mls/hr IVPB Q12H [facility]; Protocol Last Admin: 03/30/18 06:29 Dose: 167 mls/hr Doxycycline Hyclate 100 mg/ (Sodium Chloride) 100 mls @ 100 mls/hr IVPB Q12 [facility]; Protocol Last Admin: 03/29/18 21:44 Dose: 100 mls/hr Dextrose/Sodium Chloride (Dextrose 5%/0.45% Ns 1000 Ml) 1,000 mls @ 40 mls/hr IV .Q24H [facility] Last Admin: 03/29/18 12:12 Dose: 40 mls/hr Ketorolac Tromethamine (Toradol) 15 mg IVP Q6 PRN PRN Reason: Pain, moderate (4-7) Last Admin: 03/29/18 16:24 Dose: 15 mg Lactic Acid (Lac-Hydrin 12% Cream (140 G)) 0 ea TOP TID PRN PRN Reason: Dry skin Last Admin: 03/28/18 11:04 Dose: 1 applic Losartan Potassium (Cozaar) 12.5 mg PO DAILY [facility] Last Admin: 03/29/18 11:55 Dose: Not Given Methylprednisolone (Solu-Medrol) 30 mg IVP Q12 [facility] Last Admin: 03/29/18 21:41 Dose: 30 mg Silver Sulfadiazine (Silvadene 1% 25 Gm) 0 gm TP BID PRN PRN Reason: Dry skin - Labs Labs: 03/30/18 06:45 03/30/18 06:45 PT 12.4 SECONDS (9.4-12.5) 03/23/18 23:15 INR 1.09 03/23/18 23:15 APTT 33.2 Seconds (25.1-36.5) 03/23/18 23:15 - Constitutional Appears: No Acute Distress - Head Exam Head Exam: ATRAUMATIC - Respiratory Exam Respiratory Exam: Rhonchi Additional comments: mild crackles at yobani lung bases - Cardiovascular Exam Cardiovascular Exam: REGULAR RHYTHM, +S1, +S2 - GI/Abdominal Exam GI & Abdominal Exam: Soft, Normal Bowel Sounds - Rectal Exam Rectal Exam: Deferred - Neurological Exam Neurological Exam: Alert, Awake, Oriented x3 - Skin Additional comments: generalized dry, scaly skin Assessment and Plan - Assessment and Plan (Free Text) Assessment: Pt is a 73 y.o. male who is admitted for sepsis due to L side HAP. D/W Podiatry, stated that pt had biopsy of skin done by switch repairer outside which showed eczema. Plan: On Solumedrol 30 q12h On Doxy/Merrem/Vanco per ID recs Pending arterial dopp Meds per MAR Will continue to follow
--- NOTE | 2018-03-30 10:54 | CP.PCM.PN ---
<Peterson Houser - Last Filed: 03/30/18 12:46> Subjective - Date & Time of Evaluation Date of Evaluation: 03/30/18 Time of Evaluation: 09:00 - Subjective Subjective: ID Progress Note Patient seen and examined at bedside. Patient complaining of b/l leg pain. Denies chest pain, shortness of breath, fevers, or hypothermia. Objective - Vital Signs/Intake and Output Vital Signs (last 24 hours): Temp Pulse Resp BP Pulse Ox 98 F 79 18 114/53 L 97 03/30/18 06:00 03/30/18 06:00 03/30/18 06:00 03/30/18 06:00 03/30/18 06:00 Intake and Output: 03/30/18 03/30/18 06:59 18:59 Intake Total 800 Balance 800 - Medications Medications: Current Medications Aspirin (Aspirin Chewable) 81 mg PO DAILY [facility] Last Admin: 03/29/18 09:57 Dose: 81 mg Carvedilol (Coreg) 3.125 mg PO BID [facility] Last Admin: 03/29/18 17:19 Dose: Not Given Clotrimazole (Lotrimin 1%) 0 gm TOP BID PRN PRN Reason: Rash Enoxaparin Sodium (Lovenox) 40 mg SC DAILY [facility]; Protocol Last Admin: 03/29/18 09:57 Dose: 40 mg Meropenem (Merrem Iv 1 Gm Premix) 1 gm in 50 mls @ 100 mls/hr IVPB Q8 [facility]; Protocol Last Admin: 03/30/18 05:43 Dose: 100 mls/hr Vancomycin HCl (Vancomycin 1gm) 1 gm in 250 mls @ 167 mls/hr IVPB Q12H [facility]; Protocol Last Admin: 03/30/18 06:29 Dose: 167 mls/hr Doxycycline Hyclate 100 mg/ (Sodium Chloride) 100 mls @ 100 mls/hr IVPB Q12 [facility]; Protocol Last Admin: 03/29/18 21:44 Dose: 100 mls/hr Dextrose/Sodium Chloride (Dextrose 5%/0.45% Ns 1000 Ml) 1,000 mls @ 40 mls/hr IV .Q24H [facility] Last Admin: 03/29/18 12:12 Dose: 40 mls/hr Ketorolac Tromethamine (Toradol) 15 mg IVP Q6 PRN PRN Reason: Pain, moderate (4-7) Last Admin: 03/29/18 16:24 Dose: 15 mg Lactic Acid (Lac-Hydrin 12% Cream (140 G)) 0 ea TOP TID PRN PRN Reason: Dry skin Last Admin: 03/28/18 11:04 Dose: 1 applic Losartan Potassium (Cozaar) 12.5 mg PO DAILY [facility] Last Admin: 03/29/18 11:55 Dose: Not Given Methylprednisolone (Solu-Medrol) 30 mg IVP Q12 [facility] Last Admin: 03/29/18 21:41 Dose: 30 mg Silver Sulfadiazine (Silvadene 1% 25 Gm) 0 gm TP BID PRN PRN Reason: Dry skin - Labs Labs: 03/30/18 06:45 03/30/18 06:45 PT 12.4 SECONDS (9.4-12.5) 03/23/18 23:15 INR 1.09 03/23/18 23:15 APTT 33.2 Seconds (25.1-36.5) 03/23/18 23:15 - Constitutional Appears: Non-toxic, No Acute Distress - Head Exam Head Exam: ATRAUMATIC, NORMAL INSPECTION, NORMOCEPHALIC - ENT Exam ENT Exam: Mucous Membranes Moist - Respiratory Exam Respiratory Exam: Decreased Breath Sounds, NORMAL BREATHING PATTERN. absent: Rales, Rhonchi, Wheezes - Cardiovascular Exam Cardiovascular Exam: RRR, +S1, +S2 - GI/Abdominal Exam GI & Abdominal Exam: Soft, Normal Bowel Sounds. 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 Severe Xerosis of b/l feet Hx of HTN Hx of Prolymphocytic leukemia Plan Continue Vancomycin, Merrem and Doxycycline, Day 6/7 days IV steroids started No skin biopsy as per podiatry, as patient was diagnosed 1 year ago with Eczema after skin biopsy Follow up further Podiatry recommendations Continue to monitor closely Mik, PGY-3 <Zhou Leos - Last Filed: 03/30/18 14:29> Objective - Vital Signs/Intake and Output Vital Signs (last 24 hours): Temp Pulse Resp BP Pulse Ox 98 F 79 18 114/53 L 97 03/30/18 06:00 03/30/18 06:00 03/30/18 06:00 03/30/18 06:00 03/30/18 06:00 Intake and Output: 03/30/18 03/30/18 06:59 18:59 Intake Total 800 Balance 800 - Medications Medications: Current Medications Aspirin (Aspirin Chewable) 81 mg PO DAILY [facility] Last Admin: 03/30/18 11:07 Dose: 81 mg Carvedilol (Coreg) 3.125 mg PO BID [facility] Last Admin: 03/30/18 11:07 Dose: 3.125 mg Clotrimazole (Lotrimin 1%) 0 gm TOP BID PRN PRN Reason: Rash Enoxaparin Sodium (Lovenox) 40 mg SC DAILY [facility]; Protocol Last Admin: 03/30/18 11:12 Dose: 40 mg Meropenem (Merrem Iv 1 Gm Premix) 1 gm in 50 mls @ 100 mls/hr IVPB Q8 [facility]; Protocol Last Admin: 03/30/18 05:43 Dose: 100 mls/hr Vancomycin HCl (Vancomycin 1gm) 1 gm in 250 mls @ 167 mls/hr IVPB Q12H [facility]; Protocol Last Admin: 03/30/18 06:29 Dose: 167 mls/hr Doxycycline Hyclate 100 mg/ (Sodium Chloride) 100 mls @ 100 mls/hr IVPB Q12 [facility]; Protocol Last Admin: 03/30/18 11:13 Dose: 100 mls/hr Dextrose/Sodium Chloride (Dextrose 5%/0.45% Ns 1000 Ml) 1,000 mls @ 40 mls/hr IV .Q24H [facility] Last Admin: 03/29/18 12:12 Dose: 40 mls/hr Ketorolac Tromethamine (Toradol) 15 mg IVP Q6 PRN PRN Reason: Pain, moderate (4-7) Last Admin: 03/29/18 16:24 Dose: 15 mg Lactic Acid (Lac-Hydrin 12% Cream (140 G)) 0 ea TOP TID PRN PRN Reason: Dry skin Last Admin: 03/28/18 11:04 Dose: 1 applic Losartan Potassium (Cozaar) 12.5 mg PO DAILY [facility] Last Admin: 03/30/18 11:07 Dose: Not Given Methylprednisolone (Solu-Medrol) 30 mg IVP Q12 [facility] Last Admin: 03/30/18 11:12 Dose: 30 mg Silver Sulfadiazine (Silvadene 1% 25 Gm) 0 gm TP BID PRN PRN Reason: Dry skin - Labs Labs: 03/30/18 06:45 03/30/18 06:45 PT 12.4 SECONDS (9.4-12.5) 03/23/18 23:15 INR 1.09 03/23/18 23:15 APTT 33.2 Seconds (25.1-36.5) 03/23/18 23:15 Assessment and Plan - Assessment and Plan (Free Text) Plan: Infectious diseases Attending Physician Attestation Patient seen and examined, discussed with medical collector. I have reviewed the patient's history of present illness, past medical, social, personal and family histories, pertinent physical exam findings, course so far in this hospital admission, pertinent laboratory and imaging results. I agree with the above findings, assessment and plan. In addition, complete 7 days of Vancomycin, Merrem and Doxycycline for sepsis due to left sided hospital-acquired pneumonia. Patient with exfoliative dermatitis - discussed with dr. Flannery, and it was discussed with family that apparently the patient saw a fire patrol months ago who did a skin biopsy and was told that the skin lesion is eczema. Continue steroids and discussed this with Dr. Alcazar.
--- NOTE | 2018-03-30 10:57 | PN ---
DATE: 03/30/2018 SUBJECTIVE: I saw him this morning in bed. His skin is very excoriated even with the creams. He is on Solu-Medrol IV right now. I think he is little bit hungry this morning, may be the Solu-Medrol gave him an appetite. We are also waiting for biopsy from Podiatry to see if we could find out what is going out withe the skin excoriation. He is not really improving. The CAT scan of the abdomen, chest and pelvis did not show much. The MRI of the brain was pretty good. PHYSICAL EXAMINATION: GENERAL: He is alert, little bit stronger today I think than yesterday. VITAL SIGNS: Temperature 98, 79 pulse, 114/53 blood pressure, 18 respiratory rate, 97% O2 sat on room air. HEAD: Atraumatic, normocephalic. HEART: Regular rate. LUNGS: Decreased breath sounds bilaterally but clear to auscultation, poor inspiration. ABDOMEN: Soft, nontender. Positive bowel sounds. EXTREMITIES: No edema. SKIN: Very excoriated. They are putting on multiple creams. MEDICATIONS: He is currently on aspirin, Coreg, Cozaar, dextrose, doxycycline, Lac-Hydrin, Lotrimin, Lovenox, Merrem, Silvadene, Solu-Medrol, Toradol, vancomycin. I will leave 30 for one more day and tomorrow start decreasing it. LABORATORY DATA: Sodium 152, potassium 4.1, BUN 90, creatinine 1.1, GFR is greater than 60, sugar is 88, calcium is 8.3, total bili is 0.4, AST is 37, ALT 31, alk phos 237, total protein is 5. TSH is 5.3. Cortisol was actually 12.5. White count is 11.7, hemoglobin 9.1, hematocrit 28, platelets of 322. PLAN: He is being seen by multiple doctors, Pulmonary, Cardio, Podiatry, Endocrine, Infectious Disease. He has persistent hypothermia, urosepsis, diabetes, CHF and hopefully, he will start to improve. Kirill Alcazar DO MTDD
[2018-03-30] MEDS: Enoxaparin 40 mg Syringe SC SCH (11:12)
[2018-03-30] MEDS: MethylPREDNISolone 40 mg Vial IVP SCH ×2 (11:12→21:30)
--- NOTE | 2018-03-30 13:47 | PN ---
DATE: 03/30/2018 SUBJECTIVE: The patient is awake, alert without dyspnea. OBJECTIVE: VITAL SIGNS: Blood pressure 150/53, heart rates in the 80s, temperature is 98. NECK: Negative JVD. LUNGS: Decreased breath sounds. HEART: S1, S2. EXTREMITIES: Without change. LABORATORY DATA: Hemoglobin 9.1 and white count is 11.1. Chemistries; BUN and creatinine are normal. Glucose is 88. The cortisol level is pending. IMPRESSION: 1. Status post hypothermia. 2. Pneumonia. 3. Diabetes mellitus. 4. Cardiomyopathy. 5. Anemia. Given these findings, awaiting cortisol level. I had a discussion with the patient and his daughter about the segmental wall motion abnormalities of the left ventricle noted on echocardiogram, which is consistent with coronary artery disease. They understand that he will need to undergo some testing to rule out significant coronary disease once his acute illness is finished. Christoph Bustamante MD
--- NOTE | 2018-03-30 14:18 | US ---
PROCEDURE: Lower extremity ANDIE exam HISTORY: Peripheral vascular disease with pain and ulceration.. PHYSICIAN(S): Christoph Kim MD. FINDINGS: The resting ANDIE's are normal: right, 1.12and left, 1.19. The brachial systolic pressures are symmetric. The low thigh pressures and waveforms are relatively normal. The calf PVR waveforms augment normally. No significant gradients are noted across the thighs. The ankle and metatarsal waveforms are relatively normal and symmetric. No significant pressure gradients are noted across the lower legs. IMPRESSION: 1. Normal ANDIE and PVR examination at rest.
[2018-03-31] MEDS: Meropenem IV 1 gm in NS 1 GM/50 ML BAG IVPB SCH ×3 (06:18→21:17)
[2018-03-31] MEDS: Vancomycin 1gm in NS 250ml 1 GM/250 ML BAG IVPB SCH ×2 (06:58→18:00)
[2018-03-31 07:36] LABS: HEMOGLOBIN 8.6 g/dL (14.0-18.0); MEAN CELL VOLUME 80.9 fl (80.0-105.0); MEAN CORPUSCULAR HEMOGLOBIN 26.1 pg (25.0-35.0); MEAN CORPUSCULAR HGB CONC 32.2 g/dl (31.0-37.0); MEAN PLATELET VOLUME 11.7 fl (7.0-11.0); RBC 3.3 10^6/uL (3.5-6.1); RED CELL DISTRIBUTION WIDTH 20.2 % (11.5-14.5); WHITE BLOOD COUNT 11.8 10^3/uL (4.5-11.0)
--- NOTE | 2018-03-31 07:36 | PN ---
DATE: 03/31/2018 PULMONARY NOTE SUBJECTIVE: The patient appears comfortable this morning. He is not short of breath at rest. PHYSICAL EXAMINATION: VITALS: Temperature this morning is 98, pulse is 60, respirations 18, blood pressure 113/57. Oxygen saturation on room air is 93%. HEENT: Normocephalic, atraumatic. No JVD. CARDIOVASCULAR: Positive S1, S2. No S3 gallop. LUNGS: Minimal crackles at both bases. No rhonchi. No wheezing. EXTREMITIES: Mild edema. No cyanosis, no clubbing. Calves are nontender to palpation. GASTROINTESTINAL: Abdomen is soft, nontender, and nondistended. Bowel sounds are positive. SKIN: Erythematous rash noted on his legs/feet and hands/palms. NEUROLOGIC: Exam limited at the present time. IMPRESSION: 1. Left lower lobe pneumonia - resolving. 2. Bilateral pleural effusions. 3. Anemia. 4. Increased B-type natriuretic peptide. 5. Mild cardiomyopathy. PLAN: The patient appears quite comfortable this morning. He is not short of breath at rest. He does state to feeling better overall. I did discuss the case with night nurse at length. The night nurse stated the patient had a fairly uneventful night. On physical exam, there is no significant bronchospasm noted. In addition, there is no significant alveolar-arterial gradient. I would continue with the current antibiotic therapy for now. Input by Infectious Disease (Dr. Leos) is noted. Repeat a.m. labs are pending. Inputs by Cardiology and Endocrine are also noted. Clinical status of the patient is significantly improved - compared to his initial presentation. However, given the above, the future status/prognosis for this patient does remain guarded. I will discuss the above with Dr. Alcazar. Nathan Perkins MD MTDFatimah
[2018-03-31 07:59] LABS: ALB/GLOB RATIO 0.6 (1.1-1.8); ALBUMIN 1.9 g/dL (3.0-4.8); ALT/SGPT 30 U/L (7-56); AST/SGOT 22 U/L (17-59); BLOOD UREA NITROGEN 29 mg/dL (7-21); CALCIUM 8.5 mg/dL (8.4-10.5); GFR NON-AFRICAN AMERICAN 54
--- NOTE | 2018-03-31 08:12 | PN ---
DATE: 03/30/2018 ENDOCRINOLOGY FOLLOWUP NOTE LOCATION: He is in room 574. SUBJECTIVE: This is a 73-year-old male admitted with progressive shortness of breath and evaluated for acute pneumonitis, and currently receiving IV antibiotic management as given. He also has significant history of prolymphocytic leukemia and with prior chemotherapy is given. He remains clinically euthyroid and biochemically also euthyroid with repeat thyroid studies showing a thyroxin or T4 level of 5.3 mcg/dL and TSH of 3.36. His A1c level is 5.3%. His serum cortisol level is 17.1 mcg/dL. His glucose levels have ranged from 216 to 334 mg/dL with the intercurrent IV steroid therapy as given for inpatient management. PLAN: So at this time, his hypothermia has resolved and the latest temperature is 98 degrees and has remained clinically and biochemically euthyroid at this time. We will obtain serial chemistries and supplement accordingly as needed. We will hold off any kind of levothyroxine replacement therapy at this moment. We will obtain serial chemistries and supplement accordingly as needed. The transient hyperglycemia accelerations are related to the intercurrent IV steroid therapy as given. We will follow. Maria Luisa Ray MD
[2018-03-31] MEDS: Enoxaparin 40 mg Syringe SC SCH (09:44)
[2018-03-31] MEDS: MethylPREDNISolone 40 mg Vial IVP SCH ×3 (09:44→21:16)
[2018-03-31] MEDS: Hydrocerin(120 gm) TOP SCH ×2 (10:00→22:27)
--- NOTE | 2018-03-31 10:28 | CP.PCM.APN ---
Subjective - Date & Time of Evaluation Date of Evaluation: 03/31/18 Time of Evaluation: 09:30 - Subjective Subjective: Pt seen and examined at bedside. In no acute distress. States that he is feeling better. Objective - Vital Signs/Intake and Output Vital Signs (last 24 hours): Temp Pulse Resp BP Pulse Ox 98 F 66 18 127/67 94 L 03/31/18 06:00 03/31/18 06:00 03/31/18 06:00 03/31/18 09:45 03/31/18 06:00 Intake and Output: 03/31/18 03/31/18 06:59 18:59 Intake Total 120 Output Total 300 Balance -180 - Medications Medications: Current Medications Aspirin (Aspirin Chewable) 81 mg PO DAILY [facility] Last Admin: 03/31/18 09:45 Dose: 81 mg Carvedilol (Coreg) 3.125 mg PO BID [facility] Last Admin: 03/31/18 09:45 Dose: 3.125 mg Clotrimazole (Lotrimin 1%) 0 gm TOP BID PRN PRN Reason: Rash Enoxaparin Sodium (Lovenox) 40 mg SC DAILY [facility]; Protocol Last Admin: 03/31/18 09:44 Dose: 40 mg Meropenem (Merrem Iv 1 Gm Premix) 1 gm in 50 mls @ 100 mls/hr IVPB Q8 [facility]; Protocol Last Admin: 03/31/18 06:18 Dose: 100 mls/hr Vancomycin HCl (Vancomycin 1gm) 1 gm in 250 mls @ 167 mls/hr IVPB Q12H [facility]; Protocol Last Admin: 03/31/18 06:58 Dose: 167 mls/hr Doxycycline Hyclate 100 mg/ (Sodium Chloride) 100 mls @ 100 mls/hr IVPB Q12 [facility]; Protocol Last Admin: 03/31/18 09:43 Dose: 100 mls/hr Ketorolac Tromethamine (Toradol) 15 mg IVP Q6 PRN PRN Reason: Pain, moderate (4-7) Last Admin: 03/29/18 16:24 Dose: 15 mg Lactic Acid (Lac-Hydrin 12% Cream (140 G)) 0 ea TOP TID PRN PRN Reason: Dry skin Last Admin: 03/28/18 11:04 Dose: 1 applic Losartan Potassium (Cozaar) 12.5 mg PO DAILY [facility] Last Admin: 03/31/18 09:45 Dose: 12.5 mg Methylprednisolone (Solu-Medrol) 20 mg IVP Q12 [facility] Multi-Ingredient Cream (Hydrocerin Cream) 0 ea TOP 1000,2200 [facility] Silver Sulfadiazine (Silvadene 1% 25 Gm) 0 gm TP BID PRN PRN Reason: Dry skin - Labs Labs: 03/31/18 07:20 03/31/18 07:20 PT 12.4 SECONDS (9.4-12.5) 03/23/18 23:15 INR 1.09 03/23/18 23:15 APTT 33.2 Seconds (25.1-36.5) 03/23/18 23:15 - Constitutional Appears: No Acute Distress - Respiratory Exam Respiratory Exam: Rhonchi - Cardiovascular Exam Cardiovascular Exam: REGULAR RHYTHM, +S1, +S2 - GI/Abdominal Exam GI & Abdominal Exam: Soft, Normal Bowel Sounds - Rectal Exam Rectal Exam: Deferred - Neurological Exam Neurological Exam: Alert, Awake, Oriented x3 - Skin Additional comments: generalized dry, scaling skin Assessment and Plan - Assessment and Plan (Free Text) Assessment: Pt is a 73 y.o. male who is admitted for sepsis due to L side HAP and persistent hypothermia. Per RN, attempted to remove genoveva hugger yesterday but pt's temper ature dropped to 93.6 Plan: On Doxy/Vanco/Merrem per ID recs On IVFs On Solumedrol 30mg iv q12 Cardio, Pulm, ID, Endocrinology, Podiatry on consult Monitor temp C/W Genoveva hugger C/W skin care Meds per MAR Physical therapy Will continue to follow
--- NOTE | 2018-03-31 10:33 | CP.PCM.PN ---
<Peterson Houser - Last Filed: 03/31/18 13:13> Subjective - Date & Time of Evaluation Date of Evaluation: 03/31/18 Time of Evaluation: 10:00 - Subjective Subjective: ID Progress Note Patient seen and examined. Patient admits to improvement in pain in his legs. No acute events overnight. Patient remains hypothermic once bear hugger is removed. Objective - Vital Signs/Intake and Output Vital Signs (last 24 hours): Temp Pulse Resp BP Pulse Ox 98 F 66 18 127/67 94 L 03/31/18 06:00 03/31/18 06:00 03/31/18 06:00 03/31/18 09:45 03/31/18 06:00 Intake and Output: 03/31/18 03/31/18 06:59 18:59 Intake Total 120 Output Total 300 Balance -180 - Medications Medications: Current Medications Aspirin (Aspirin Chewable) 81 mg PO DAILY [facility] Last Admin: 03/31/18 09:45 Dose: 81 mg Carvedilol (Coreg) 3.125 mg PO BID [facility] Last Admin: 03/31/18 09:45 Dose: 3.125 mg Clotrimazole (Lotrimin 1%) 0 gm TOP BID PRN PRN Reason: Rash Enoxaparin Sodium (Lovenox) 40 mg SC DAILY [facility]; Protocol Last Admin: 03/31/18 09:44 Dose: 40 mg Meropenem (Merrem Iv 1 Gm Premix) 1 gm in 50 mls @ 100 mls/hr IVPB Q8 [facility]; Protocol Last Admin: 03/31/18 06:18 Dose: 100 mls/hr Vancomycin HCl (Vancomycin 1gm) 1 gm in 250 mls @ 167 mls/hr IVPB Q12H [facility]; Protocol Last Admin: 03/31/18 06:58 Dose: 167 mls/hr Doxycycline Hyclate 100 mg/ (Sodium Chloride) 100 mls @ 100 mls/hr IVPB Q12 [facility]; Protocol Last Admin: 03/31/18 09:43 Dose: 100 mls/hr Ketorolac Tromethamine (Toradol) 15 mg IVP Q6 PRN PRN Reason: Pain, moderate (4-7) Last Admin: 03/29/18 16:24 Dose: 15 mg Lactic Acid (Lac-Hydrin 12% Cream (140 G)) 0 ea TOP TID PRN PRN Reason: Dry skin Last Admin: 03/28/18 11:04 Dose: 1 applic Losartan Potassium (Cozaar) 12.5 mg PO DAILY [facility] Last Admin: 03/31/18 09:45 Dose: 12.5 mg Methylprednisolone (Solu-Medrol) 20 mg IVP Q12 [facility] Multi-Ingredient Cream (Hydrocerin Cream) 0 ea TOP 1000,2200 [facility] Silver Sulfadiazine (Silvadene 1% 25 Gm) 0 gm TP BID PRN PRN Reason: Dry skin - Labs Labs: 03/31/18 07:20 03/31/18 07:20 PT 12.4 SECONDS (9.4-12.5) 03/23/18 23:15 INR 1.09 03/23/18 23:15 APTT 33.2 Seconds (25.1-36.5) 03/23/18 23:15 - Constitutional Appears: Non-toxic, No Acute Distress - Head Exam Head Exam: ATRAUMATIC, NORMAL INSPECTION, NORMOCEPHALIC - Respiratory Exam Respiratory Exam: Decreased Breath Sounds, Rhonchi (Mild b/l), NORMAL BREATHING PATTERN. absent: Rales, Wheezes - Cardiovascular Exam Cardiovascular Exam: RRR, +S1, +S2 - GI/Abdominal Exam GI & Abdominal Exam: Soft, Normal Bowel Sounds. absent: Tenderness - Extremities Exam Extremities Exam: absent: Pedal Edema - Neurological Exam Neurological Exam: Alert, Awake, Oriented x3 - Psychiatric Exam Psychiatric exam: Normal Affect, Normal Mood - Skin Skin Exam: Warm Additional comments: Exfolitation throughout entire body, erythema on lower extremities Assessment and Plan - Assessment and Plan (Free Text) Plan: Sepsis secondary to left sided HAP Exfoliative dermatitis, Eczema as per prior biopsy Severe Xerosis of b/l feet Hx of HTN Hx of Prolymphocytic leukemia Plan Continue Vancomycin, Merrem and Doxycycline, Day 7/7 IV steroids started No skin biopsy as per podiatry, as patient was diagnosed 1 year ago with Eczema after skin biopsy ANDIE's normal b/l on lower extremities Follow up further Podiatry and Cardiology recommendations recommendations Continue to monitor closely Mik, PGY-3 <Zhou Leos - Last Filed: 03/31/18 14:12> Objective - Vital Signs/Intake and Output Vital Signs (last 24 hours): Temp Pulse Resp BP Pulse Ox 98 F 66 18 127/67 94 L 03/31/18 06:00 03/31/18 06:00 03/31/18 06:00 03/31/18 09:45 03/31/18 06:00 Intake and Output: 03/31/18 03/31/18 06:59 18:59 Intake Total 120 Output Total 300 Balance -180 - Medications Medications: Current Medications Aspirin (Aspirin Chewable) 81 mg PO DAILY [facility] Last Admin: 03/31/18 09:45 Dose: 81 mg Carvedilol (Coreg) 3.125 mg PO BID [facility] Last Admin: 03/31/18 09:45 Dose: 3.125 mg Clotrimazole (Lotrimin 1%) 0 gm TOP BID PRN PRN Reason: Rash Enoxaparin Sodium (Lovenox) 40 mg SC DAILY [facility]; Protocol Last Admin: 03/31/18 09:44 Dose: 40 mg Meropenem (Merrem Iv 1 Gm Premix) 1 gm in 50 mls @ 100 mls/hr IVPB Q8 [facility]; Protocol Last Admin: 03/31/18 06:18 Dose: 100 mls/hr Vancomycin HCl (Vancomycin 1gm) 1 gm in 250 mls @ 167 mls/hr IVPB Q12H [facility]; Protocol Last Admin: 03/31/18 06:58 Dose: 167 mls/hr Doxycycline Hyclate 100 mg/ (Sodium Chloride) 100 mls @ 100 mls/hr IVPB Q12 [facility]; Protocol Last Admin: 03/31/18 09:43 Dose: 100 mls/hr Ketorolac Tromethamine (Toradol) 15 mg IVP Q6 PRN PRN Reason: Pain, moderate (4-7) Last Admin: 03/29/18 16:24 Dose: 15 mg Lactic Acid (Lac-Hydrin 12% Cream (140 G)) 0 ea TOP TID PRN PRN Reason: Dry skin Last Admin: 03/28/18 11:04 Dose: 1 applic Losartan Potassium (Cozaar) 12.5 mg PO DAILY [facility] Last Admin: 03/31/18 09:45 Dose: 12.5 mg Methylprednisolone (Solu-Medrol) 20 mg IVP Q12 [facility] Last Admin: 03/31/18 11:00 Dose: Not Given Multi-Ingredient Cream (Hydrocerin Cream) 0 ea TOP 1000,2200 [facility] Silver Sulfadiazine (Silvadene 1% 25 Gm) 0 gm TP BID PRN PRN Reason: Dry skin - Labs Labs: 03/31/18 07:20 03/31/18 07:20 PT 12.4 SECONDS (9.4-12.5) 03/23/18 23:15 INR 1.09 03/23/18 23:15 APTT 33.2 Seconds (25.1-36.5) 03/23/18 23:15 Assessment and Plan - Assessment and Plan (Free Text) Plan: Infectious diseases Attending Physician Attestation Patient seen and examined, discussed with senior medical technologist. I have reviewed the patient's history of present illness, past medical, social, personal and family histories, pertinent physical exam findings, course so far in this hospital admission, pertinent laboratory and imaging results. I agree with the above findings, assessment and plan. In addition, on day 7 of Vancomycin, Merrem and Doxycycline for sepsis due to left sided hospital-acquired pneumonia. Will repeat CXR today and see if we can d/c antibiotics after today. Patient with exfoliative dermatitis - discussed with dr. Flannery, and it was discussed with family that apparently the patient saw a estimating manager months ago who did a skin biopsy and was told that the skin lesion is eczema. Continue steroids and discussed this with Dr. Alcazar. Patient continues to have hypothermia, etiology is not clear, may need Endocrine work up - MRI brain done did not show a lesion in the hypothalamus. Hypothermia may be related to the skin - may need further Dermatology evaluation.
--- NOTE | 2018-03-31 11:14 | PN ---
DATE: 03/31/2018 CARDIOLOGY FOLLOWUP SUBJECTIVE: The patient is awake, alert without complaints. OBJECTIVE: VITAL SIGNS: Blood pressure 127/67, the temperature is 98 with a heating blanket, it drops down to 95 off the heating blanket. NECK: Negative JVD. LUNGS: Without rales. HEART: Reveals S1, S2. EXTREMITIES: Without edema. LABORATORY DATA: Hemoglobin is 8.6. Chemistries, BUN and creatinine unremarkable. The cortisol level was 12 prior to steroid administration. IMPRESSION: 1. Recurrent hypothermia. 2. Pneumonia. 3. Cardiomyopathy. 4. Diabetes mellitus. 5. Anemia. Given these findings, we will continue his steroids. The patient is somewhat hemodynamically improved and much more alert today. Christoph Bustamante MD
--- NOTE | 2018-03-31 13:46 | PN ---
DATE: 03/31/2018 SUBJECTIVE: He is resting comfortably in bed. He is alert. His skin is pretty bad, we are going to try him on a different cream today. I am also going to decrease his Solu-Medrol. He is on aspirin, Coreg, Cozaar. I am going to discontinue the dextrose as he is eating a little bit and his blood sugars are going higher. He is on doxycycline. We added cream, Lac-Hydrin, Lotrimin, Lovenox, Merrem, Silvadene, Solu-Medrol drop it down to 20, Toradol, and vancomycin. He is doing a little bit more with strength, but still his skin is been very bad and he is getting hypothermic. He was 94 rectal today. We had to put him back on the Mike hugger. PHYSICAL EXAMINATION: GENERAL: He is alert, talking, he is eating a little bit better. VITAL SIGNS: He cannot maintain a 98 temperature, has a 98 temperature now with the Mike hugger, 66 pulse, 127/67 blood pressure, 18 respiratory rate, and 94% on air. HEENT: Head is atraumatic, normocephalic. HEART: Regular rate. LUNGS: Decreased breath sounds but clear. ABDOMEN: Soft. EXTREMITIES: No edema. SKIN: In his arms, skin is very excoriated and shedding. LABORATORY DATA: He has an 11.8 white count, 8.6 hemoglobin; went down a little bit, 26.7 hematocrit with a 306 platelets. He has a 152 sodium, potassium 4.4, BUN 29, creatinine 1.3, GFR is 54, sugar is 109 but it has been 245, 334 and 216, stopped the dextrose, it is coming down. Calcium is 8.5, total bilirubin 0.4, AST is 22, ALT is 30, alk phos is 208, total protein is 4.8. PLAN: He is being seen by numerous doctors; Pulmonary, Endocrinology, Cardiology, Infectious Disease. He is status post hypothermia. He is still hypothermic, on a Mike hugger still and symptomatic. He had pneumonia, diabetes mellitus, cardiomyopathy, and anemia. When we could get rid of this hypothermia, we would have a better chance of discharging him. He had sepsis, left-sided pneumonia, extremely dry excoriated skin. Kirill Alcazar DO [facility] # [id number] MTDFatimah
--- NOTE | 2018-03-31 14:17 | RAD ---
Date of service: 03/31/2018 HISTORY: cough COMPARISON: 03/23/2018 FINDINGS: LUNGS: Infiltrate and small effusion left lung base PLEURA: Small left pleural effusion. CARDIOVASCULAR: Aortic calcification Normal cardiac size. No pulmonary vascular congestion. OSSEOUS STRUCTURES: No significant abnormalities. VISUALIZED UPPER ABDOMEN: Normal. OTHER FINDINGS: None. IMPRESSION: Infiltrate and small effusion left lung base
[2018-03-31] MEDS ORDERED: Hydrocerin(120 gm) TOP SCH (15:00)
--- NOTE | 2018-03-31 18:08 | PN ---
DATE: 03/31/2018 SUBJECTIVE: This is a 73-year-old male with recent admission for generalized body weakness and progressive shortness of breath and currently receiving IV antibiotic management for acute pneumonitis, and is also being followed closely for recent evaluation of persistent hypothermia a from admission but has resolved at this time as noted. His initial temperatures were down to 93.7 on admission and the latest temperature is 98 degrees as noted. His latest chemistry showed a BUN of 19, sodium 152, potassium 4.1, chloride 122, CO2 of 26, glucose 88 and creatinine 1.1. His glucose values are fluctuating with the intercurrent IV steroid therapy as given. His A1c, however, is normal at 5.3%. His thyroid study showed a T4 of 5.3 mcg/dL and a TSH of 3.36. He remains clinically and biochemically euthyroid at this time, excluding a potential endocrine-related etiology for hypothermia. ASSESSMENT: This is a 73-year-old male with known history of prolymphocytic leukemia and recent chemotherapy with supervening acute pneumonitis and currently receiving IV antibiotic management and presenting here with marked hypothermia that has resolved accordingly. His thyroid studies were normal and has remained clinically and biochemically euthyroid at this time. PLAN OF MANAGEMENT: We will concur with the present medical management as given and obtain serial chemistries accordingly. We will also continue the current sliding scale coverage with transient hyperglycemic accelerations from the intercurrent IV steroid therapy as given. There is no indication at this time for any kind of thyroid pharmacotherapy. We will follow. Maria Luisa aRy MD
[2018-04-01] MEDS: Meropenem IV 1 gm in NS 1 GM/50 ML BAG IVPB SCH ×3 (05:44→22:13)
[2018-04-01] MEDS: Vancomycin 1gm in NS 250ml 1 GM/250 ML BAG IVPB SCH (06:33)
[2018-04-01 08:04] LABS: HEMOGLOBIN 8.5 g/dL (14.0-18.0); MEAN CELL VOLUME 81.5 fl (80.0-105.0); MEAN CORPUSCULAR HEMOGLOBIN 26.2 pg (25.0-35.0); MEAN CORPUSCULAR HGB CONC 32.1 g/dl (31.0-37.0); MEAN PLATELET VOLUME 10.9 fl (7.0-11.0); RBC 3.25 10^6/uL (3.5-6.1); RED CELL DISTRIBUTION WIDTH 20.3 % (11.5-14.5); WHITE BLOOD COUNT 11.5 10^3/uL (4.5-11.0)
[2018-04-01 08:32] LABS: ALB/GLOB RATIO 0.7 (1.1-1.8); CALCIUM 8.6 mg/dL (8.4-10.5)
--- NOTE | 2018-04-01 10:57 | CP.PCM.PN ---
<Betsy Wyatt - Last Filed: 04/01/18 10:31> Subjective - Date & Time of Evaluation Date of Evaluation: 04/01/18 Time of Evaluation: 10:31 - Subjective Subjective: Podiatry progress note for Drs. Flannery/Dilip 73M seen and evaluated this AM. Patient states pain in feet remains unchanged. Multipodus boots present bilaterally. Denies n/v/f/d/c/sob. Objective - Vital Signs/Intake and Output Vital Signs (last 24 hours): Temp Pulse Resp BP Pulse Ox 97.4 F L 56 L 18 159/82 H 92 L 04/01/18 07:00 04/01/18 07:00 04/01/18 07:00 04/01/18 07:00 04/01/18 07:00 Intake and Output: 04/01/18 04/01/18 06:59 18:59 Intake Total 120 Balance 120 - Medications Medications: Current Medications Aspirin (Aspirin Chewable) 81 mg PO DAILY [facility] Last Admin: 03/31/18 09:45 Dose: 81 mg Carvedilol (Coreg) 3.125 mg PO BID [facility] Last Admin: 03/31/18 17:59 Dose: Not Given Clotrimazole (Lotrimin 1%) 0 gm TOP BID PRN PRN Reason: Rash Enoxaparin Sodium (Lovenox) 40 mg SC DAILY [facility]; Protocol Last Admin: 03/31/18 09:44 Dose: 40 mg Meropenem (Merrem Iv 1 Gm Premix) 1 gm in 50 mls @ 100 mls/hr IVPB Q8 [facility]; Protocol Last Admin: 04/01/18 05:44 Dose: 100 mls/hr Vancomycin HCl (Vancomycin 1gm) 1 gm in 250 mls @ 167 mls/hr IVPB Q12H [facility]; Protocol Last Admin: 04/01/18 06:33 Dose: 167 mls/hr Doxycycline Hyclate 100 mg/ (Sodium Chloride) 100 mls @ 100 mls/hr IVPB Q12 [facility]; Protocol Last Admin: 03/31/18 22:27 Dose: 100 mls/hr Ketorolac Tromethamine (Toradol) 15 mg IVP Q6 PRN PRN Reason: Pain, moderate (4-7) Last Admin: 03/29/18 16:24 Dose: 15 mg Lactic Acid (Lac-Hydrin 12% Cream (140 G)) 0 ea TOP TID PRN PRN Reason: Dry skin Last Admin: 03/28/18 11:04 Dose: 1 applic Losartan Potassium (Cozaar) 12.5 mg PO DAILY [facility] Last Admin: 03/31/18 09:45 Dose: 12.5 mg Methylprednisolone (Solu-Medrol) 20 mg IVP Q12 [facility] Last Admin: 03/31/18 21:16 Dose: 20 mg Multi-Ingredient Cream (Hydrocerin Cream) 0 ea TOP 1000,2200 [facility] Last Admin: 03/31/18 22:27 Dose: 1 applic Silver Sulfadiazine (Silvadene 1% 25 Gm) 0 gm TP BID PRN PRN Reason: Dry skin - Labs Labs: 04/01/18 07:30 04/01/18 07:30 PT 12.4 SECONDS (9.4-12.5) 03/23/18 23:15 INR 1.09 03/23/18 23:15 APTT 33.2 Seconds (25.1-36.5) 03/23/18 23:15 - Constitutional Appears: Non-toxic, No Acute Distress - Extremities Exam Additional comments: LE focused exam VASC: DP and PT pulses palpable; temp gradient warm to warm; pedal hair absent; cap refill <3 seconds to all digits; no edema appreciated ORTHO: pain upon palpation of b/l LE due to severe xerosis and sensitivity NEURO: gross and protective sensation intact b/l DERM: severe xerosis present at b/l LE with scaling and minor evidence of bleeding; flaking skin appreciated; no IDM; dermatitis appreciated; no clinical signs of infection; plantar aspects of feet exhibit most bleeding however currently minor secondary to xerosis and scaling - Neurological Exam Neurological Exam: Alert, Awake, Oriented x3 - Psychiatric Exam Psychiatric exam: Normal Affect, Normal Mood Assessment and Plan - Assessment and Plan (Free Text) Assessment: 73M with severe xerosis at b/l LE with associated minor superficial plantar ulcerations Plan: Patient seen and evaluated alongside attending, Dr. Cherry Afebrile, WBC 11.5 Hypothermia precautions Continue local wound care: clotrimazole + aquaphor b/l LE Continue solumedrol per medicine No punch biopsy performed as patient states he had a biopsy less than a year ago with a edge burnisher which revealed diagnosis of eczema Multipodus boots to be worn at all times in bed No clinical evidence of infection to the LE Podiatry will continue to follow <Sundar Cherry - Last Filed: 04/04/18 16:30> Objective - Vital Signs/Intake and Output Vital Signs (last 24 hours): Temp Pulse Resp BP Pulse Ox 98.4 F 87 18 103/50 L 100 04/04/18 06:00 04/04/18 06:00 04/04/18 14:22 04/04/18 06:00 04/04/18 14:22 Intake and Output: 04/04/18 04/04/18 06:59 18:59 Intake Total 600 Balance 600 - Medications Medications: Current Medications Aspirin (Aspirin Chewable) 81 mg PO DAILY [facility] Last Admin: 04/03/18 11:17 Dose: Not Given Carbamide Peroxide (Debrox Ear Drops) 0 ml AU BID [facility] Last Admin: 04/03/18 17:55 Dose: 5 drop Carvedilol (Coreg) 3.125 mg PO BID [facility] Last Admin: 04/03/18 18:24 Dose: 3.125 mg Clotrimazole (Lotrimin 1%) 0 gm TOP BID PRN PRN Reason: Rash Last Admin: 04/02/18 09:40 Dose: 1 applic Amino Acids (Clinimix 4.25/5 % (1000 Ml)) 1,000 mls @ 42 mls/hr IV .[id number] [facility] Fat Emulsion-Soy/MCT/[place]/Fish Oil (Smoflipid 20%) 250 mls @ 21 mls/hr IV MWF@1800 [facility] Pantoprazole Sodium (Protonix 40mg Ivpb) 40 mg in 100 mls @ 20 mls/hr IVPB .Q5H [facility] Sodium Chloride (Sodium Chloride 0.9%) 1,000 mls @ 200 mls/hr IV .Q5H [facility] Dextrose (Dextrose 5% In Water 1000 Ml) 1,000 mls @ 100 mls/hr IV .Q10H [facility] NOREPINEPHRINE BIT/0.9 % NACL (Levophed 4 Mg/ 250 Ml Ns Premixed) 4 mg in 250 mls @ 15 mls/hr IV .[id number] PRN; Protocol PRN Reason: TITRATE PER MD ORDER Phenylephrine HCl 40 mg/ (Sodium Chloride) 254 mls @ 38.1 mls/hr IV .Q6H40M PRN; Protocol PRN Reason: TITRATE PER MD ORDER Vasopressin 20 units/ Sodium (Chloride) 101 mls @ 9.09 mls/hr IV .Q11H7M [facility]; Protocol Fentanyl Citrate (Fentanyl Citrate/Sodium Chloride 1 Mg/100 Ml) 1,000 mcg in 100 mls @ 2 mls/hr IV .Q24H PRN; Protocol PRN Reason: TITRATE PER MD ORDER Lactic Acid (Lac-Hydrin 12% Cream (140 G)) 0 ea TOP TID PRN PRN Reason: Dry skin Last Admin: 04/03/18 10:01 Dose: 1 applic Losartan Potassium (Cozaar) 12.5 mg PO DAILY [facility] Last Admin: 04/03/18 11:18 Dose: Not Given Methylprednisolone (Solu-Medrol) 40 mg IVP Q8 [facility] Multi-Ingredient Cream (Hydrocerin Cream) 0 ea TOP 1000,2200 [facility] Last Admin: 04/03/18 11:00 Dose: Not Given Silver Sulfadiazine (Silvadene 1% 25 Gm) 0 gm TP BID PRN PRN Reason: Dry skin - Labs Labs: 04/04/18 15:30 04/04/18 15:00 PT 12.4 SECONDS (9.4-12.5) 03/23/18 23:15 INR 1.09 03/23/18 23:15 APTT 33.2 Seconds (25.1-36.5) 03/23/18 23:15 Attending/Attestation - Attestation I have personally seen and examined this patient.: Yes I have fully participated in the care of the patient.: Yes I have reviewed all pertinent clinical information, including history, physical exam and plan: Yes
[2018-04-01] MEDS: MethylPREDNISolone 40 mg Vial IVP SCH ×2 (11:00→22:12)
[2018-04-01] MEDS: Enoxaparin 40 mg Syringe SC SCH (11:00)
[2018-04-01] MEDS: Hydrocerin(120 gm) TOP SCH (11:01)
--- NOTE | 2018-04-01 14:10 | PN ---
DATE: 04/01/2018 SUBJECTIVE: I saw him in bed this morning. He has got one blanket on. He is actually little bit stronger today, asking more questions, may be a little bit demanding which I like. He is eating a little bit better. Skin is also horrible. He is complaining that he is not hearing well because of all the excoriations to the ear. We called the [facility] Throat to clean out the ear. PHYSICAL EXAMINATION: VITAL SIGNS: He has 97.4 temperature, 56 pulse, 159/82 blood pressure, 18 respiratory rate, 92% sat on room air. HEAD: Atraumatic, normocephalic. HEART: Regular rate. LUNGS: Decreased breath sounds. The left pneumonia as of today is still persisting. ABDOMEN: Soft. EXTREMITIES: No edema. SKIN: Excoriating everywhere. MEDICATIONS: He is on multiple different creams to help him. He is on aspirin; Coreg; Cozaar; doxycycline IV; cream; Lac-Hydrin cream; Lotrimin cream; Lovenox; Merrem IV; Silvadene cream; Solu-Medrol, it is down to 20, I will give it one more day and then I will change him over to Toradol, vancomycin. LABORATORY DATA: He has 11.5 white count; 8.5 hemoglobin, if it drops down to 8, I will transfuse him; 26.5 hematocrit with 293 platelets. Sodium 154, potassium 4.1, BUN 36, creatinine 1.6, GFR is 42, sugar is 114, calcium is 8.6, total bili is 0.5, AST is 19, ALT is 19, alk phos 205. ASSESSMENT AND PLAN: We will continue with aggressive treatment and care, IV antibiotics. He is being seen by Infectious Disease, Endocrinology, Cardiology, Podiatry. He has numerous problems. He has got persistent hypothermia. He has a persistent left lower lobe pneumonia. He has got skin excoriations and eczema I believe. He is starting to get a little bit stronger, starting to wake up a little bit which I like. For his cardiomyopathy and diabetes and anemia, we will continue with aggressive treatment and care. Kirill Alcazar DO [facility] # [id number] ELL[facility]
--- NOTE | 2018-04-01 16:28 | PN ---
DATE: 04/01/2018 ENDO FOLLOWUP NOTE ROOM: 574. SUBJECTIVE: This is a 73-year-old male presenting here with progressive shortness of breath and evaluated to have acute pneumonitis and is now being followed closely for metabolic management. He remains clinically and biochemically euthyroid at this time. LABORATORY DATA: His latest thyroid study with T4 of 5.3 with a TSH of 3.36 and a serum cortisol of 17.1. His glucose values are fluctuating but improved and have ranged from 176 to 245 mg/dL. His chemistry showed a BUN of 36, sodium 154, potassium 4.1, chloride 124, glucose 25 and creatinine 1.6. ASSESSMENT AND PLAN: So at this time, we will continue the present medical management with no indication for any kind of thyroid pharmacotherapy for now. We will obtain serial thyroid studies and observe the labile fluctuations as noted thereof. We will also continue the serial chemistries and observe his glycemic fluctuations with the intercurrent IV steroid therapy as given. The IV steroids have been tapered down to 20 mg IV every day as noted. We will obtain serial chemistries and supplement accordingly as needed. His temperatures have stabilized now of 97-98 degrees Fahrenheit is noted. We will follow with you. Maria Luisa Ray MD
--- NOTE | 2018-04-01 16:46 | PN ---
DATE: 04/01/2018 PULMONARY PROGRESS NOTE Pt appears comfortable this morning. He is not short of breath. PHYSICAL EXAMINATION: GENERAL: The patient is comfortable, in no acute distress. VITAL SIGNS: Stable, afebrile, respiratory rate 18, heart rate 60, blood pressure 110/70, O2 saturation 94% on room air. HEENT: Normocephalic, atraumatic. NECK: Supple. No JVD. No bruit. CARDIOVASCULAR: Regular rhythm. S1, S2 without murmur, gallop or rub. CHEST: Bilateral rales. No rhonchi or wheezing appreciated. ABDOMEN: Soft. Bowel sounds normoactive without mass, guarding, rebound or organomegaly. EXTREMITIES: Reveal trace edema. No clubbing or cyanosis. There is no Homans sign noted. SKIN: Erythematous rash noted as described previously. The entire body is just scaling. NEUROLOGIC: No focal findings. CLINICAL IMPRESSION: 1. Resolving left lower lobe pneumonia. 2. Bilateral pleural effusions. 3. Pulmonary vascular congestion. 4. Cardiomyopathy. 5. Scaling skin/erythematous rash. PLAN: Continue current treatment plan. Complete course of antibiotics. Monitor effusions. Followup chest x-ray in several days suggested. We will follow closely with you. Maikel Lechuga MD MTDFatimah
--- NOTE | 2018-04-01 16:50 | PN ---
DATE: 04/01/2018 SUBJECTIVE: The patient is in bed in no acute distress. Nontoxic. The patient was seen in 574, bed 1, earlier today. PHYSICAL EXAMINATION VITAL SIGNS: On exam, temperature is 97, blood pressure is 150/80, respiratory rate of 18 and heart rate of 56. HEENT: Unremarkable. NECK: Supple. LUNGS: Have decreased breath sounds. HEART: Normal S1 and S2. ABDOMEN: Soft. LABORATORY EXAMINATION: Reveals a white count of 11,500 and hemoglobin of 8. BUN of 36, creatinine of 1.6 and urinalysis is noted. Immunology is reviewed and serology, influenza is negative. Microbiology; his sputum culture has E. coli which is resistant to Cipro; however, it is sensitive to ampicillin and review of orders reveals the patient to be on doxycycline and vancomycin and meropenem. MRSA screen is negative and the blood cultures are reported to be negative. ASSESSMENT AND PLAN: Is a 73-year-old male seen earlier today with sepsis secondary to left-sided healthcare-associated pneumonia with Escherichia coli. We will discontinue the vancomycin and continue the meropenem, today is day #8.. With negative blood cultures are negative nasal methicillin-resistant Staphylococcus aureus screen, makes methicillin-resistant Staphylococcus aureus less likely. We will continue the meropenem and change the doxycycline to p.o. Duane Moncada MD
[2018-04-02] MEDS: Meropenem IV 1 gm in NS 1 GM/50 ML BAG IVPB SCH ×3 (06:17→22:00)
[2018-04-02 07:43] LABS: HEMOGLOBIN 8.9 g/dL (14.0-18.0); MEAN CELL VOLUME 82.2 fl (80.0-105.0); MEAN CORPUSCULAR HGB CONC 31.7 g/dl (31.0-37.0); MEAN PLATELET VOLUME 11.3 fl (7.0-11.0); RBC 3.42 10^6/uL (3.5-6.1); RED CELL DISTRIBUTION WIDTH 20.4 % (11.5-14.5); WHITE BLOOD COUNT 11.1 10^3/uL (4.5-11.0)
[2018-04-02 08:10] LABS: ALB/GLOB RATIO 0.7 (1.1-1.8); ALBUMIN 2.1 g/dL (3.0-4.8)
[2018-04-02] MEDS: Enoxaparin 40 mg Syringe SC SCH ×2 (09:37→09:54)
[2018-04-02] MEDS: MethylPREDNISolone 40 mg Vial IVP SCH ×2 (09:37→22:01)
[2018-04-02] MEDS: Hydrocerin(120 gm) TOP SCH ×2 (09:39→22:02)
--- NOTE | 2018-04-02 17:24 | PN ---
DATE: 04/02/2018 SUBJECTIVE: He is resting in bed with a Mike Hugger blanket on. His temperature has still been low. He is also not as alert as he was the other day. His skin that was improved since the other day. He is on aspirin; Coreg; Cozaar; Doryx; cream; Lac-Hydrin; Lotrimin; Lovenox; Merrem I.V.; Silvadene cream; Solu-Medrol, I bumped it up to 30 from 20; Toradol. PHYSICAL EXAMINATION VITAL SIGNS: He has 98 temperature, 72 pulse, 146/72 blood pressure, 18 respiratory rate, 95% O2 sat on room air. HEENT: Head is atraumatic, normocephalic. HEART: Regular rate. LUNGS: Decreased breath sounds. ABDOMEN: Soft. EXTREMITIES: No edema. SKIN: Now is much better than the other day. NEUROLOGIC: Mentally, he is not doing well. LABORATORY DATA: He has 11.1 white count, 8.9 hemoglobin, 28.1 hematocrit with 290 platelets. 157 sodium, it did pop up; BUN is 41; creatinine 1.6; GFR is 42; sugar is 102. Calcium is 9, total bili is 0.5, AST is 17, ALT is 22, alk phos is 212, total protein is 5.3. ASSESSMENT AND PLAN: He has multiple issues going on. He is being seen by Infectious Disease, Endocrinology, and Pulmonary. He has got sepsis pneumonia, E. coli, on multiple IV antibiotics. We will continue aggressive treatment and care. We will increase his Solu-Medrol; hopefully, he will mentally. Hopefully, he will not need Mike Hugger as much anymore. Continue aggressive treatment and care. Kirill Alcazar DO [facility]
--- NOTE | 2018-04-02 17:46 | PN ---
DATE: 04/02/2018 SUBJECTIVE: The patient is in bed in no acute distress. Nontoxic. PHYSICAL EXAMINATION: VITAL SIGNS: On exam, temperature is 98, blood pressure is 140/70, respiratory rate of 18. HEENT: Unremarkable. NECK: Supple. LUNGS: Have decreased breath sounds. HEART: Normal S1 and S2. ABDOMEN: Soft. LABORATORY DATA: Reveals a white count of 11,000, hemoglobin of 8. BUN of 41, creatinine of 1.6. ASSESSMENT AND PLAN: This is a 73-year-old male who was seen earlier with sepsis that is secondary to left-sided associated pneumonia, Escherichia coli. Currently on meropenem day#9 and doxycycline, appears to be improving. May be able to discontinue the antibiotics in the next 24 hours. Duane Moncada MD
--- NOTE | 2018-04-02 23:32 | CON ---
DATE: 03/24/2018 This is a consultation on request of Dr. Kirill Alcazar for cerumen. HISTORY OF PRESENT ILLNESS: This 73-year-old male was seen in bed with significant eczema like changes of his skin and is noted with diabetic issues. When visualizing the auditory canal, noted to have hard, sloughing of the skin as well as cerumen with eczema like changes to auricle on physical exam. 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 Patient was a poor historian and was uncomfortable on cleaning. Indication as stated for diagnosis of presbycusis, mixed hearing loss and cerumen impaction, attempted cerumen removal. The patient was not tolerant of cleaning. RECOMMENDATION: Debrox 5 drops twice a day in both ears over a 7 to 10 day period and reconsultation for outpatient followup for cerumen removal. This consultation was done at [facility] and the details as stated. Stanton Gomez DO MTDFatimah
--- NOTE | 2018-04-03 03:32 | PN ---
DATE: 04/02/2018 ENDOCRINOLOGY FOLLOWUP NOTE LOCATION: In room 574. SUBJECTIVE: This is a 73-year-old male with recent admission for acute pneumonitis and progressive shortness of breath and is now being followed closely for metabolic management. His glycemic levels are fluctuating, but improved at this time, and the glucose values have ranged from 124-152 and 190 mg per dL. His chemistry shows a BUN of 41, sodium 157, potassium 4.2, chloride 129, CO2 of 25, glucose 101, and creatinine 1.6. He remains clinically and biochemically euthyroid at this time. The hypothermia is resolved. His T4 is 5.3 with a TSH of 3.36. His A1c is 5.3%. So at this time, we will continue the present medical management. No indications for any kind of thyroid pharmacotherapy for now. We will obtain serial chemistries and supplement accordingly as needed. We will follow. Maria Luisa Ray MD
[2018-04-03] MEDS: Meropenem IV 1 gm in NS 1 GM/50 ML BAG IVPB SCH ×3 (05:26→22:10)
--- NOTE | 2018-04-03 09:02 | PN ---
DATE: 04/03/2018 SUBJECTIVE: The patient appears very comfortable this morning. He is not short of breath at rest. PHYSICAL EXAMINATION: VITAL SIGNS: Temperature is 98.5, pulse 69, respirations 18, blood pressure 129/67. Oxygen saturation on room air is 98%. HEENT: Normocephalic, atraumatic. No JVD. CARDIOVASCULAR: Positive S1, S2. No S3 gallop. LUNGS: Minimal crackles at both bases. Otherwise clear. EXTREMITIES: Less edema. No cyanosis, no clubbing. Calves are nontender to palpation. GASTROINTESTINAL: Abdomen is soft, nontender and nondistended. Bowel sounds are positive. SKIN: Erythematous rash noted on his legs/feet and hands/palms. NEUROLOGIC: Exam limited at the present time. PERTINENT LABORATORY DATA: Chest x-ray was repeated on 03/31/2018 and reviewed. There is further resolution of the left lower lobe infiltrate. A very small left pleural effusion remains. IMPRESSION: 1. Left lower lobe pneumonia - resolving. 2. Bilateral pleural effusions. 3. Anemia. 4. Increased B-type natriuretic peptide. 5. Mild cardiomyopathy. PLAN: The patient appears very comfortable this morning. He is not short of breath at rest. He does state to feeling much better overall. I did discuss the case with the night nurse at length. The night nurse stated that the patient had a good night. I did review the last chest x-ray as above. There is further resolution of the left lower lobe infiltrate. A very small left pleural effusion is noted. I would continue with the antibiotic coverage as per Infectious Disease. Temperatures have resolved. The leukocytosis has resolved. On physical exam, there is no bronchospasm noted. In addition, the oxygen saturation on room air is now 98%. Inputs by Endocrine, Ears, Nose and Throat, and Infectious Disease are noted. Clinical status of the patient appears significantly improved - compared to the initial presentation. However, given the above, the future status/prognosis for this patient does remain guarded. At this point in time, there is nothing more to add from a pulmonary point of view. I will thus follow up on this patient again as requested. Please call me for any additional pulmonary questions or problems with this patient. I will discuss the above with Dr. Alcazar. Nathan Perkins MD [facility] # [id number] [facility]
[2018-04-03] MEDS: MethylPREDNISolone 40 mg Vial IVP SCH ×2 (09:58→22:10)
[2018-04-03] MEDS: Enoxaparin 40 mg Syringe SC SCH (09:59)
[2018-04-03] MEDS: Ammonium Lactate 12% Cream (140 g) TOP PRN (10:01)
--- NOTE | 2018-04-03 10:28 | CP.PCM.PN ---
Subjective - Date & Time of Evaluation Date of Evaluation: 04/03/18 Time of Evaluation: 10:27 - Subjective Subjective: Podiatry progress note for Drs. Flannery/Dilip BroderickM seen and evaluated this AM with Dr. Flannery. Patient states pain in feet remains unchanged. Multipodus boots present bilaterally. Denies n/v/f/d/c/sob. Objective - Vital Signs/Intake and Output Vital Signs (last 24 hours): Temp Pulse Resp BP Pulse Ox 98.5 F 68 18 152/77 H 98 04/03/18 06:00 04/03/18 09:59 04/03/18 06:00 04/03/18 09:59 04/03/18 06:00 - Medications Medications: Current Medications Aspirin (Aspirin Chewable) 81 mg PO DAILY [facility] Last Admin: 04/03/18 09:55 Dose: 81 mg Carbamide Peroxide (Debrox Ear Drops) 0 ml AU BID [facility] Last Admin: 04/03/18 10:00 Dose: 5 drop Carvedilol (Coreg) 3.125 mg PO BID [facility] Last Admin: 04/03/18 09:56 Dose: 3.125 mg Clotrimazole (Lotrimin 1%) 0 gm TOP BID PRN PRN Reason: Rash Last Admin: 04/02/18 09:40 Dose: 1 applic Doxycycline Hyclate (Doryx) 100 mg PO Q12 [facility]; Protocol Stop: 04/06/18 22:01 Last Admin: 04/03/18 09:56 Dose: 100 mg Enoxaparin Sodium (Lovenox) 40 mg SC DAILY [facility]; Protocol Last Admin: 04/03/18 09:59 Dose: Not Given Meropenem (Merrem Iv 1 Gm Premix) 1 gm in 50 mls @ 100 mls/hr IVPB Q8 [facility]; Protocol Last Admin: 04/03/18 05:26 Dose: 100 mls/hr Ketorolac Tromethamine (Toradol) 15 mg IVP Q6 PRN PRN Reason: Pain, moderate (4-7) Last Admin: 03/29/18 16:24 Dose: 15 mg Lactic Acid (Lac-Hydrin 12% Cream (140 G)) 0 ea TOP TID PRN PRN Reason: Dry skin Last Admin: 04/03/18 10:01 Dose: 1 applic Losartan Potassium (Cozaar) 12.5 mg PO DAILY [facility] Last Admin: 04/03/18 09:59 Dose: 12.5 mg Methylprednisolone (Solu-Medrol) 30 mg IVP Q12 [facility] Last Admin: 04/03/18 09:58 Dose: 30 mg Multi-Ingredient Cream (Hydrocerin Cream) 0 ea TOP 1000,2200 [facility] Last Admin: 04/02/18 22:02 Dose: 1 applic Silver Sulfadiazine (Silvadene 1% 25 Gm) 0 gm TP BID PRN PRN Reason: Dry skin - Labs Labs: 04/02/18 07:30 04/02/18 07:30 PT 12.4 SECONDS (9.4-12.5) 03/23/18 23:15 INR 1.09 03/23/18 23:15 APTT 33.2 Seconds (25.1-36.5) 03/23/18 23:15 - Constitutional Appears: Non-toxic - Head Exam Head Exam: NORMOCEPHALIC - Extremities Exam Additional comments: LE focused exam VASC: DP and PT pulses palpable; temp gradient warm to warm; pedal hair absent; cap refill <3 seconds to all digits; no edema appreciated ORTHO: pain upon palpation of b/l LE due to severe xerosis and sensitivity NEURO: gross and protective sensation intact b/l DERM: severe xerosis present at b/l LE with scaling and minor evidence of bleedi ng; flaking skin appreciated; no IDM; dermatitis appreciated; no clinical signs of infection; plantar aspects of feet exhibit most bleeding however currently minor secondary to xerosis and scaling - improved - Neurological Exam Neurological Exam: Alert, Awake, Oriented x3 - Psychiatric Exam Psychiatric exam: Normal Affect, Normal Mood Assessment and Plan - Assessment and Plan (Free Text) Assessment: 73M with severe xerosis at b/l LE with associated minor superficial plantar ulcerations Plan: Patient seen and evaluated with Dr. Flannery Afebrile, WBC 11.5 Hypothermia precautions Continue local wound care: clotrimazole + aquaphor b/l LE Continue solumedrol per medicine Multipodus boots to be worn at all times in bed No clinical evidence of infection to the LE Podiatry will continue to follow
[2018-04-03] MEDS: Hydrocerin(120 gm) TOP SCH (11:00)
--- NOTE | 2018-04-03 12:38 | CP.PCM.PN ---
Subjective - Date & Time of Evaluation Date of Evaluation: 04/03/18 Time of Evaluation: 10:00 - Subjective Subjective: Still feels weak but a little better, appetite still not as good, no fevers, not in distress, still with hypothermia when not under the warmer, no diarrhea, no abdominal pain. Objective - Vital Signs/Intake and Output Vital Signs (last 24 hours): Temp Pulse Resp BP Pulse Ox 98.5 F 68 18 152/77 H 98 04/03/18 06:00 04/03/18 09:56 04/03/18 06:00 04/03/18 09:56 04/03/18 06:00 - Medications Medications: Current Medications Aspirin (Aspirin Chewable) 81 mg PO DAILY [facility] Last Admin: 04/03/18 11:17 Dose: Not Given Carbamide Peroxide (Debrox Ear Drops) 0 ml AU BID [facility] Last Admin: 04/03/18 10:00 Dose: 5 drop Carvedilol (Coreg) 3.125 mg PO BID [facility] Last Admin: 04/03/18 11:18 Dose: Not Given Clotrimazole (Lotrimin 1%) 0 gm TOP BID PRN PRN Reason: Rash Last Admin: 04/02/18 09:40 Dose: 1 applic Doxycycline Hyclate (Doryx) 100 mg PO Q12 [facility]; Protocol Stop: 04/06/18 22:01 Last Admin: 04/03/18 11:18 Dose: Not Given Enoxaparin Sodium (Lovenox) 40 mg SC DAILY [facility]; Protocol Last Admin: 04/03/18 09:59 Dose: Not Given Meropenem (Merrem Iv 1 Gm Premix) 1 gm in 50 mls @ 100 mls/hr IVPB Q8 [facility]; Protocol Last Admin: 04/03/18 05:26 Dose: 100 mls/hr Ketorolac Tromethamine (Toradol) 15 mg IVP Q6 PRN PRN Reason: Pain, moderate (4-7) Last Admin: 03/29/18 16:24 Dose: 15 mg Lactic Acid (Lac-Hydrin 12% Cream (140 G)) 0 ea TOP TID PRN PRN Reason: Dry skin Last Admin: 04/03/18 10:01 Dose: 1 applic Losartan Potassium (Cozaar) 12.5 mg PO DAILY [facility] Last Admin: 01/28/19 11:18 Dose: Not Given Methylprednisolone (Solu-Medrol) 30 mg IVP Q12 [facility] Last Admin: 04/03/18 09:58 Dose: 30 mg Multi-Ingredient Cream (Hydrocerin Cream) 0 ea TOP 1000,2200 [facility] Last Admin: 04/02/18 22:02 Dose: 1 applic Silver Sulfadiazine (Silvadene 1% 25 Gm) 0 gm TP BID PRN PRN Reason: Dry skin - Labs Labs: 04/02/18 07:30 04/02/18 07:30 PT 12.4 SECONDS (9.4-12.5) 03/23/18 23:15 INR 1.09 03/23/18 23:15 APTT 33.2 Seconds (25.1-36.5) 03/23/18 23:15 - Constitutional Appears: No Acute Distress, Chronically Ill - Head Exam Head Exam: NORMAL INSPECTION - ENT Exam ENT Exam: Mucous Membranes Moist - Neck Exam Neck Exam: absent: Lymphadenopathy, Meningismus - Respiratory Exam Respiratory Exam: Decreased Breath Sounds - Cardiovascular Exam Cardiovascular Exam: +S1, +S2 - GI/Abdominal Exam GI & Abdominal Exam: Soft. absent: Tenderness - Skin Additional comments: generalized exfoliation present Assessment and Plan - Assessment and Plan (Free Text) Plan: Assessment sepsis from left sided HAP, clinically improved exfoliative dermatitis, consider eczema or psoriasis HTN prolymphocytic leukemia Plan on Merrem and Doxycycline day 10 -will d/c after today reviewed CT C/A/P and brain MRI will continue to monitor clinically discussed with Dr. Alcazar would recommend Heme/Onc consult and Dermatology consult and patient may need sk in biopsy although he apparently had skin biopsy as an outpatient months ago and was diagnosed with eczema - we have suspicion that the hypothermia is related to his exfoliative dermatitis, etiology not clear
--- NOTE | 2018-04-03 14:27 | PN ---
DATE: 04/03/2018 SUBJECTIVE: He is still with a Mike hugger heating blanket on to keep his temperature up. He is alert this morning, maybe a little bit stronger, but no appetite. His skin is also quite excoriated. He is on aspirin, Coreg, Cozaar, Debrox, Doryx, cream, Lac-Hydrin cream, Lotrimin cream, Silvadene cream, on Lovenox and Merrem IV, Solu-Medrol 30; I will keep him on 30 for another day and Toradol, although he is not in any pain. PHYSICAL EXAMINATION: VITAL SIGNS: He has a 94.1 temperature after he is back on that Mike hugger, 69 pulse, 129/67 blood pressure, 18 respiratory rate, and 94% saturation on room air. HEENT: Head is atraumatic and normocephalic. HEART: Regular rate. LUNGS: Decreased breath sounds but clear. ABDOMEN: Soft. EXTREMITIES: No edema. SKIN: Very excoriated. NEUROLOGIC: He is alert, but is just not keeping his temperature up. LABORATORY DATA: He has a 11.1 white count still high, 8.9 hemoglobin, 28.1 hematocrit with 290 platelets. He has 167 sodium, potassium 4.2, BUN 41, creatinine 1.2, GFR is 42, blood sugar is 190, calcium is 9. Total bilirubin is 0.5, AST is 17, ALT is 22, alkaline phosphatase 212, and total protein is 5.3. Negative for SUN. Negative for thyroperoxidase. Negative for the flu. ASSESSMENT AND PLAN: I will discuss this again with Infectious Disease. ENT came, which was great. They put him on Debrox drops. Continue aggressive treatment and care. Kirill Alcazar DO MTDD
--- NOTE | 2018-04-03 15:19 | PN ---
DATE: 04/03/2018 SUBJECTIVE: The patient is without distress. OBJECTIVE: VITAL SIGNS: Blood pressure is 132/73, heart rate in the 60s. NECK: Negative JVD. LUNGS: Decreased breath sounds. HEART: Reveal S1, S2. EXTREMITIES: Without change. LABORATORY DATA: Hemoglobin is 8.9. Chemistries; BUN and creatinine 41 and 1.6, glucose is 124. IMPRESSION: 1. Recurrent hypothermia. 2. Pneumonia. 3. Cardiomyopathy. 4. Diabetes mellitus. 5. Anemia. Given these findings, there is no evidence for CHF despite an elevated ProBNP. Christoph Bustamante MD
[2018-04-03] MEDS ORDERED: Sodium Chloride 0.45% 1,000 ML IV SCH (17:30)
--- NOTE | 2018-04-03 17:45 | PN ---
DATE: 04/03/2018 ENDO FOLLOWUP NOTE LOCATION: Room 574. SUBJECTIVE: This is a 73-year-old male with recent uncontrolled type 2 insulin-requiring diabetes, now being followed closely for metabolic management. His glycemic levels are fluctuating, but much improved at this time, and the latest glucose levels have ranged from 152-190 mg/dL. LABORATORY DATA: His chemistry showed a BUN of 41, sodium 157, potassium 4.2, chloride 129, CO2 of 25, glucose 101, and creatinine 1.6. ASSESSMENT AND PLAN: He remains clinically and biochemically euthyroid at this time. He has very minimal insulin requirements and so we will continue the low-dose regular insulin as ordered. No indication at this time for any kind of thyroid pharmacotherapy as he remains euthyroid both clinically and biochemically as noted thereof. We will follow. Maria Luisa Ray MD
--- NOTE | 2018-04-04 05:14 | PN ---
DATE: 04/04/2018 ENDOCRINOLOGY FOLLOWUP NOTE LOCATION: In room 574. SUBJECTIVE: This is a 73-year-old male with prolymphocytic leukemia, admitted with acute pneumonitis, and currently receiving IV antibiotic management with also supervening exacerbation of COPD, currently on IV steroid therapy with Solu-Medrol given at 30 mg IV every 12 hours as given as ordered. His glycemic levels are fluctuating, but improved and have ranged from 100-113 and 136 mg per dL. His latest chemistry showed a BUN of 41, sodium 157, potassium 4.2, chloride 129, CO2 25, glucose 101, and creatinine 1.6. His thyroid study showed a T4 of 5.3 with a TSH of 3.36. He remains clinically and biochemically euthyroid at this time with the initial presentation of hypothermia that has resolved accordingly. So for now, we will continue the present medical management as ordered. No indication for any kind of thyroid pharmacotherapy for now. We will obtain serial chemistries and supplement accordingly as needed. We will follow. Maria Luisa Ray MD
[2018-04-04] MEDS: Meropenem IV 1 gm in NS 1 GM/50 ML BAG IVPB SCH (06:05)
[2018-04-04 07:44] LABS: HEMOGLOBIN 8.3 g/dL (14.0-18.0); MEAN CELL VOLUME 85.6 fl (80.0-105.0); MEAN CORPUSCULAR HEMOGLOBIN 26.5 pg (25.0-35.0); PLATELET COUNT 203 10^3/uL (120.0-450.0); RBC 3.13 10^6/uL (3.5-6.1); WHITE BLOOD COUNT 12.5 10^3/uL (4.5-11.0)
[2018-04-04 08:20] LABS: ALB/GLOB RATIO 0.6 (1.1-1.8); ALBUMIN 1.7 g/dL (3.0-4.8)
[2018-04-04] MEDS ORDERED: MethylPREDNISolone 40 mg Vial IVP SCH (09:25)
[2018-04-04] MEDS ORDERED: Sodium Chloride 0.45% 1,000 ML IV SCH (09:28)
--- NOTE | 2018-04-04 11:06 | PN ---
DATE: 04/04/2018 SUBJECTIVE: He is still in bed. He is alert. He is not eating at all. He is very excoriated to his skin. His sodium is now quite high at 167. I called in Renal and I changed his IV fluids around. He is aseptic on antibiotics. He has got excoriation of skin, left pneumonia, cardiomyopathy, diabetes. He is being seen by Pulmonary, Cardio, Podiatry, Endocrinology, Ear, Nose and Throat; Infectious Disease. He has got Wound Care nurses seeing him. He is on IV fluids, aspirin, Coreg, Cozaar, eardrops, Doryx, cream, Lac-Hydrin cream, Lotrimin cream, Lovenox, Merrem IV, Silvadene cream, Solu-Medrol is now decreased to 20 mg, and Toradol. PHYSICAL EXAMINATION: GENERAL: He is comfortable, not in much pain right now, just no appetite at all. VITAL SIGNS: He has a 98.4 temp, 87 pulse, 103/50 blood pressure, 18 respiratory rate, 94% O2 sat. His temperature is also hypothermia and on a Mike Hugger blanket. HEENT: Head is atraumatic, normocephalic. HEART: Regular rate. LUNGS: Decreased breath sounds but clear. ABDOMEN: Soft. EXTREMITIES: No edema. LABORATORY DATA: He has a 167 sodium. I called in Renal to change rate of his IV fluids. BUN is 66, creatinine 1.7, GFR is 40, sugar is 68, calcium is 9, total bili is 0.7, AST is 19, ALT is 12, alk phos 153. His white count is 12.5, hemoglobin is 8.3, if it drops below 8, I will transfuse him, hematocrit is 26.8, platelets are 203. ASSESSMENT AND PLAN: He has got numerous issues going on. He is being seen by numerous physicians. He is in trouble and I am hoping that he responds to treatment and he is just not doing that at this time. I am going to start him on PPN, that is my next goal for him. Kirill Alcazar DO [facility] # [id number] MTDD
--- NOTE | 2018-04-04 11:35 | PCM.RRT ---
<Rui Groves Nas - Last Filed: 04/04/18 11:43> LOGISTICS ENGINEERING MANAGER Nurse Assessment - Situation Date: 04/04/18 Time LOGISTICS ENGINEERING MANAGER was called: 11:01 LOGISTICS ENGINEERING MANAGER Location:: [address] [place] [address] LOGISTICS ENGINEERING MANAGER Reason for Call: Respiratory Distress, O2 Saturation below 90% LOGISTICS ENGINEERING MANAGER Called By: RN - IV IV Inserted during LOGISTICS ENGINEERING MANAGER?: No - Respiratory Oxygen Delivery Method: Venturi Mask @% Received Nebulizer Treatments:: Yes Secretions Suctioned?: Yes Was the Patient Intubated?: No Was the Patient Placed on a Ventilator?: No - Diagnostic Test Ordered EKG: Yes Chest X-Ray: Yes CT Scan: Yes - Stat Labs Ordered LOGISTICS ENGINEERING MANAGER Stat Labs Ordered: CBC, BMP, TROPONIN, LACTIC ACID, ABG CPR started during LOGISTICS ENGINEERING MANAGER?: No - Silva Coma Scale Coma Scale Eye Opening: No response Coma Scale Motor: None Coma Scale Verbal: No response - Recommendations 5) LOGISTICS ENGINEERING MANAGER Level of Care Recommendations: Transfer to ICU Notifications: Attending Physician, Family or Designated Caregiver I.Reason for LOGISTICS ENGINEERING MANAGER - A) Acute Change in Patient: Subjective: LOGISTICS ENGINEERING MANAGER was called at 11:01AM for agonal breathing - Neurological Status (Select all that apply): Lethargic - Respiratory Oxygen Delivery Method: Face Mask @% - Head Head Exam: ATRAUMATIC, NORMOCEPHALIC - Respiratory Exam Respiratory Exam: Accessory Muscle Use, Clear to Ausculation Bilateral, Respiratory Distress - Cardiovascular Exam Cardiovascular Exam: RRR, +S1, +S2. absent: Diastolic murmur, Murmur - GI/Abdominal Exam GI & Abdominal Exam: Soft - Neurological Exam Neurological Exam: Altered Plan - Assessment of Findings&Treatment Plan Plan: - ABG shock panel - CBC - CMP - Mg and Phos - EKG - Troponin - CXR - D50 amp - PMD notified - pt daughter notificed and aware - ICU physician at bedside notified, accepted to ICU, awaiting bed assignment - transfer to ICU <Maddison Alcaraz - Last Filed: 04/05/18 17:28> LOGISTICS ENGINEERING MANAGER Nurse Assessment - Vital Signs Vital Sign: Rapid Response Vital Sign Blood Pressure 147/127 Pulse Rate 96 Respiratory Rate 16 Temperature 98 F Oxygen Saturation 81 Attending/Attestation - Attestation I have personally seen and examined this patient.: Yes I have fully participated in the care of the patient.: Yes I have reviewed all pertinent clinical information, including history, physical exam and plan: Yes Notes (Text): Patient seen and examined by me with resident 11:02AM on 04/04/18. Case discussed with resident. Agree with above with following additions/corrections. Rapid response was called 11:01 AM secondary to patient being unresponsive and having agonal breathing. Chart and vitals were reviewed. Patient was hypoxic and found to have acute respiratory failure. Patient was placed on a nonrebreather. ABG was ordered. Labs were ordered. EKG was obtained. Help Desk Analyst was consulted for possible intubation and transfer to ICU. Patient was found to be severely hypernatremic with a sodium of 167. Patient may have been altered secondary to this. ABG was obtained at bedside and patient was transferred to the ICU. Patient was unresponsive and did not open eyes. Pupils were equal and reactive to light. Patient's primary care doctor and patient's daughter were notified. Physical exam: General: Unresponsive. HEENT: Pupils equal and reactive to light. Cardiovascular: Regular rhythm. No murmurs, rubs, or gallops appreciated Pulmonary: Agonal breathing. Decreased breath sounds. Central nervous system: Unresponsive Dermatologic: Very Dry scaly skin with open areas across entire body
[2018-04-04 11:46] LABS: BASO # 0.02 K/mm3 (0.0-2.0); BASO % 0.2 % (0.0-3.0); EOS # 0.2 (0.0-0.7); EOS % 1.2 % (1.5-5.0); HEMOGLOBIN 8.1 g/dL (14.0-18.0); LYMPH # 2.4 (1.2-3.4); LYMPH % 18.9 % (22.0-35.0); MEAN CELL VOLUME 86.2 fl (80.0-105.0); MEAN CORPUSCULAR HEMOGLOBIN 26.6 pg (25.0-35.0); MEAN CORPUSCULAR HGB CONC 30.9 g/dl (31.0-37.0); MEAN PLATELET VOLUME 12.4 fl (7.0-11.0); MONO # 0.7 (0.1-0.6); MONO % 5.2 % (1.0-6.0); PLATELET COUNT 187 10^3/uL (120.0-450.0); RBC 3.04 10^6/uL (3.5-6.1); RED CELL DISTRIBUTION WIDTH 20.9 % (11.5-14.5); WHITE BLOOD COUNT 12.7 10^3/uL (4.5-11.0)
[2018-04-04] MEDS ORDERED: Ipratropium 0.02% Inhal Soln (0.5 mg/2.5 ml) UD IH ONE (11:47)
[2018-04-04] MEDS ORDERED: Sodium Chloride 0.9% 1,000 ML IV STA (12:17)
[2018-04-04 12:25] LABS: ALB/GLOB RATIO 0.7 (1.1-1.8); ALBUMIN 1.7 g/dL (3.0-4.8); CALCIUM 9.1 mg/dL (8.4-10.5); TROPONIN I 0.15 ng/mL
[2018-04-04] MEDS ORDERED: Sodium Chloride 0.9% 1,000 ML IV SCH (12:30)
[2018-04-04] MEDS ORDERED: Dextrose 50% SYRINGE Inj (50 ml) IVP ONE (12:34)
[2018-04-04 12:58] LABS: ANISOCYTOSIS 1+; BAND 5 % (0-2); EOSINOPHIL 2 % (0.0-3.0); LYMPHOCYTE 9 % (22.0-35.0); MICROCYTOSIS SLIGHT; MONOCYTE 5 % (1.0-6.0); NEUTROPHIL 79 % (50.0-70.0); POIKILOCYTOSIS 1+
[2018-04-04 12:59] LABS: ACANTHROCYTES SLIGHT; HYPOCHROMIA 2+; LARGE PLATELETS PRESENT; PLATELET ESTIMATE NORMAL (NORMAL); SCHISTOCYTES SLIGHT; TARGET CELLS 2+
[2018-04-04] MEDS ORDERED: NOREPINEPHRINE BIT/0.9 % NACL 4 MG/250 ML BAG IV PRN (13:39)
[2018-04-04] MEDS ORDERED: Etomidate 20 mg/10ml Inj IVP STA (13:42)
[2018-04-04 13:46] LABS: ARTERIAL BLOOD GAS HCO3 18.2 mmol/L (21-28); ARTERIAL BLOOD GAS O2 SAT 100.5 % (95-98); ARTERIAL BLOOD GAS PCO2 25 mm/Hg (35-45); ARTERIAL BLOOD GAS PH 7.47 (7.35-7.45)
[2018-04-04] MEDS ORDERED: Propofol 10 mg/ml 1,000 MG/100 ML VIAL IV PRN (13:47)
--- NOTE | 2018-04-04 13:50 | CP.PCM.CON ---
<Pasha Wilkerson - Last Filed: 04/04/18 16:10> History of Present Illness - History of Present Illness History of Present Illness: Keanu Wilkerson PGY2 - ICU Consult Note Consulted reason: Respiratory Distress HPI: Patient is a 73 year old male with past medical history of prolmyelocytic leukemia s/p chemotherapy, HTN with recent discharge from [facility] after being treated for left lower lobe pneumonia with combinent inguinal hernia incarceration. Patient presented to [facility] complaining of shortness of breath. Patient was started on vancomycin, merrem and doxycycline for sepsis secondary to left sided hospital acquired pneumonia. Patient was treated on medical floor with IV antibiotics. During his stay he was noted to have episodes of hypothermia and hypoglycemia. Endocrine with Dr. Ray was consulted. Rapid response was called on patient on 04/04/18 for respiratory distress. Patient was noted to have hypernatremia and episodes of melena. Patient transferred to ICU, CVL placed and intubated to protect his airway. Patient was with limited responses to questioning and thus majority of HPI was conducted from medical chart review and hospital staffing. 12 point ROS unable to obtain secondary to mentation. PMH: HTN, Prolymphocytic Leukemia, hx of DIA, eczema PSH: Colon surgery x2, hernia repair SOXHX: No history of tobacco, etoh, ID ALL: NKDA MEDS: MAR reviewed Review of Systems - Review of Systems Review of Systems: unable to obtain secondary to limited mentation Past Patient History - Infectious Disease Hx of Infectious Diseases: None - Past Social History Smoking Status: Never Smoked - CARDIAC Hx Hypertension: Yes - PULMONARY Hx Pneumonia: Yes - NEUROLOGICAL Hx Neurological Disorder: No - HEENT Hx HEENT Problems: No - RENAL Hx Chronic Kidney Disease: No - ENDOCRINE/METABOLIC Hx Endocrine Disorders: No - HEMATOLOGICAL/ONCOLOGICAL Hx Blood Disorders: Yes (PROLYMPHOCYTIC LEUKEMIA) Hx Cancer: Yes - INTEGUMENTARY Hx Dermatological Problems: Yes Hx Eczema: Yes - MUSCULOSKELETAL/RHEUMATOLOGICAL Hx Musculoskeletal Disorders: Yes Hx Falls: Yes Hx Unsteady Gait: Yes (WALKER) - GASTROINTESTINAL Hx Gastrointestinal Disorders: No - GENITOURINARY/GYNECOLOGICAL Hx Genitourinary Disorders: No - PSYCHIATRIC Hx Psychophysiologic Disorder: No - SURGICAL HISTORY Hx Surgeries: Yes Other/Comment: hernia sx - ANESTHESIA Hx Anesthesia: Yes Hx Anesthesia Reactions: No Hx Malignant Hyperthermia: No Meds Allergies/Adverse Reactions: Allergies Allergy/AdvReac Type Severity Reaction Status Date / Time No Known Allergies Allergy Verified 03/24/18 11:42 - Medications Medications: Current Medications Aspirin (Aspirin Chewable) 81 mg PO DAILY [facility] Last Admin: 04/03/18 11:17 Dose: Not Given Carbamide Peroxide (Debrox Ear Drops) 0 ml AU BID [facility] Last Admin: 04/03/18 17:55 Dose: 5 drop Carvedilol (Coreg) 3.125 mg PO BID [facility] Last Admin: 04/03/18 18:24 Dose: 3.125 mg Clotrimazole (Lotrimin 1%) 0 gm TOP BID PRN PRN Reason: Rash Last Admin: 04/02/18 09:40 Dose: 1 applic Doxycycline Hyclate (Doryx) 100 mg PO Q12 [facility]; Protocol Stop: 04/06/18 22:01 Last Admin: 04/03/18 22:10 Dose: 100 mg Etomidate (Amidate) 20 mg IVP STAT STA Stop: 04/04/18 13:43 Amino Acids (Clinimix 4.25/5 % (1000 Ml)) 1,000 mls @ 42 mls/hr IV .[id number] [facility] Fat Emulsion-Soy/MCT/[place]/Fish Oil (Smoflipid 20%) 250 mls @ 21 mls/hr IV MWF@1800 RIYA Pantoprazole Sodium (Protonix 40mg Ivpb) 40 mg in 100 mls @ 20 mls/hr IVPB .Q5H RIYA Sodium Chloride (Sodium Chloride 0.9%) 1,000 mls @ 200 mls/hr IV .Q5H RIYA Dextrose (Dextrose 5% In Water 1000 Ml) 1,000 mls @ 100 mls/hr IV .Q10H RIYA Meropenem/Sodium Chloride (Merrem Iv 500 Mg/Ns 50 Ml) 500 mg in 50 mls @ 100 mls/hr IVPB Q12 RIYA; Protocol Stop: 04/11/18 22:01 NOREPINEPHRINE BIT/0.9 % NACL (Levophed 4 Mg/ 250 Ml Ns Premixed) 4 mg in 250 mls @ 15 mls/hr IV .[id number] PRN; Protocol PRN Reason: TITRATE PER MD ORDER Propofol (Diprivan) 1,000 mg in 100 mls @ 2.177 mls/hr IV .Q24H PRN; Protocol PRN Reason: TITRATE PER MD ORDER Lactic Acid (Lac-Hydrin 12% Cream (140 G)) 0 ea TOP TID PRN PRN Reason: Dry skin Last Admin: 04/03/18 10:01 Dose: 1 applic Losartan Potassium (Cozaar) 12.5 mg PO DAILY [facility] Last Admin: 04/03/18 11:18 Dose: Not Given Methylprednisolone (Solu-Medrol) 20 mg IVP Q12 RIYA Multi-Ingredient Cream (Hydrocerin Cream) 0 ea TOP 1000,2200 [facility] Last Admin: 04/03/18 11:00 Dose: Not Given Silver Sulfadiazine (Silvadene 1% 25 Gm) 0 gm TP BID PRN PRN Reason: Dry skin Physical Exam - Head Exam Head Exam: ATRAUMATIC, NORMAL INSPECTION, NORMOCEPHALIC - Eye Exam Eye Exam: PERRL - ENT Exam ENT Exam: Mucous Membranes Dry - Respiratory Exam Respiratory Exam: Clear to Auscultation Bilateral, Respiratory Distress. absent: Wheezes - Cardiovascular Exam Cardiovascular Exam: REGULAR RHYTHM, +S1, +S2 - GI/Abdominal Exam GI & Abdominal Exam: Normal Bowel Sounds, Soft. absent: Rigid - Neurological Exam Additional comments: Mentation diminished, neuro exam limited secondary to compliance Patient moving all four extremities spontaneously Limited response to verbal and painful stimuli - Skin Additional comments: full body with dry, scaly skin with active peeling Exfoliative dermatitis exhibited Results - Vital Signs Recent Vital Signs: Last Vital Signs Temp 98.4 F 04/04/18 06:00 Pulse 87 04/04/18 06:00 Resp 18 04/04/18 06:00 BP 103/50 L 04/04/18 06:00 Pulse Ox 94 L 04/04/18 06:00 - Labs Result Diagrams: 04/04/18 11:30 04/04/18 15:00 Labs: Laboratory Results - last 24 hr 03/31/18 04/03/18 04/03/18 13:19 16:10 21:22 WBC RBC Hgb Hct MCV MCH MCHC RDW Plt Count MPV Neut % (Auto) Lymph % (Auto) [place] % (Auto) Eos % (Auto) Baso % (Auto) Lymph # (Auto) [place] # (Auto) Eos # (Auto) Baso # (Auto) Absolute Neuts (auto) Neutrophils % (Manual) Band Neutrophils % Lymphocytes % (Manual) Monocytes % (Manual) Eosinophils % (Manual) Platelet Evaluation Large Platelets Hypochromasia Poikilocytosis (manual Anisocytosis (manual) Microcytosis (manual) Target Cells Acanthocytes (Spur) Schistocytes pCO2 pO2 HCO3 ABG pH ABG Total CO2 ABG O2 Saturation ABG Base Excess ABG Potassium Glucose Lactate FiO2 Crit Value Called To Crit Value Called By Blood Gas Notified Time Sodium Potassium Chloride Carbon Dioxide Anion Gap BUN Creatinine Est GFR ( Amer) Est GFR (Non-Af Amer) POC Glucose (mg/dL) 100 113 H Random Glucose Calcium Phosphorus Magnesium Total Bilirubin AST ALT Alkaline Phosphatase Troponin I Total Protein Albumin Globulin Albumin/Globulin Ratio Arterial Blood Potassium Stool Occult Blood Proteinase 3 (PR3) <1.0 Myeloperoxidase Ab <1.0 04/04/18 04/04/18 04/04/18 07:30 07:30 11:30 WBC 12.5 H 12.7 H RBC 3.13 L 3.04 L Hgb 8.3 L 8.1 L Hct 26.8 L 26.2 L MCV 85.6 D 86.2 MCH 26.5 26.6 MCHC 31.0 30.9 L RDW 21.0 H 20.9 H Plt Count 203 187 MPV 12.4 H Neut % (Auto) 74.5 H Lymph % (Auto) 18.9 L [place] % (Auto) 5.2 Eos % (Auto) 1.2 L Baso % (Auto) 0.2 Lymph # (Auto) 2.4 [place] # (Auto) 0.7 H Eos # (Auto) 0.2 Baso # (Auto) 0.02 Absolute Neuts (auto) 9.44 H Neutrophils % (Manual) 79 H Band Neutrophils % 5 H Lymphocytes % (Manual) 9 L Monocytes % (Manual) 5 Eosinophils % (Manual) 2 Platelet Evaluation Normal Large Platelets Present Hypochromasia 2+ Poikilocytosis (manual 1+ Anisocytosis (manual) 1+ Microcytosis (manual) Slight Target Cells 2+ Acanthocytes (Spur) Slight Schistocytes Slight pCO2 pO2 HCO3 ABG pH ABG Total CO2 ABG O2 Saturation ABG Base Excess ABG Potassium Glucose Lactate FiO2 Crit Value Called To Crit Value Called By Blood Gas Notified Time Sodium 167 H* Potassium 4.8 Chloride 141 H Carbon Dioxide 25 Anion Gap 6 L BUN 56 H Creatinine 1.7 H Est GFR ( Amer) 48 Est GFR (Non-Af Amer) 40 POC Glucose (mg/dL) Random Glucose 68 L Calcium 9.0 Phosphorus Magnesium Total Bilirubin 0.7 AST 19 ALT 22 Alkaline Phosphatase 153 H D Troponin I Total Protein 4.4 L Albumin 1.7 L Globulin 2.6 Albumin/Globulin Ratio 0.6 L Arterial Blood Potassium Stool Occult Blood Proteinase 3 (PR3) Myeloperoxidase Ab 04/04/18 04/04/18 04/04/18 11:30 11:31 11:45 WBC RBC Hgb Hct MCV MCH MCHC RDW Plt Count MPV Neut % (Auto) Lymph % (Auto) [place] % (Auto) Eos % (Auto) Baso % (Auto) Lymph # (Auto) [place] # (Auto) Eos # (Auto) Baso # (Auto) Absolute Neuts (auto) Neutrophils % (Manual) Band Neutrophils % Lymphocytes % (Manual) Monocytes % (Manual) Eosinophils % (Manual) Platelet Evaluation Large Platelets Hypochromasia Poikilocytosis (manual Anisocytosis (manual) Microcytosis (manual) Target Cells Acanthocytes (Spur) Schistocytes pCO2 25 L pO2 277.0 H HCO3 18.2 L ABG pH 7.47 H ABG Total CO2 19.0 L ABG O2 Saturation 100.5 H ABG Base Excess -3.8 L ABG Potassium 3.4 L Glucose 60 L Lactate 3.2 H FiO2 100.0 Crit Value Called To Md Crit Value Called By Ga Blood Gas Notified Time 1137 Sodium 168 H* 173.0 H* Potassium 4.9 Chloride 140 H 145.0 H Carbon Dioxide 25 Anion Gap 6 L BUN 57 H Creatinine 1.9 H Est GFR ( Amer) 42 Est GFR (Non-Af Amer) 35 POC Glucose (mg/dL) Random Glucose 69 L Calcium 9.1 Phosphorus 3.4 Magnesium 2.1 Total Bilirubin 0.3 AST 19 ALT 19 Alkaline Phosphatase 149 H Troponin I 0.15 H* D Total Protein 4.2 L Albumin 1.7 L Globulin 2.4 Albumin/Globulin Ratio 0.7 L Arterial Blood Potassium 3.4 L Stool Occult Blood Positive H Proteinase 3 (PR3) Myeloperoxidase Ab Assessment & Plan - Assessment and Plan (Free Text) Assessment: Patient is a 73 year old male with past medical history of prolmyelocytic leukemia s/p chemotherapy, HTN with recent discharge from [facility] after being treated for left lower lobe pneumonia with combinent inguinal hernia incarceration who presented with shortness of breath. Patient monitored on medical floor when noticed to have acute episode of melena and increased respiratory distress. Patient was transferred to ICU and CVL placed and intubation to help protect airway. Plan: Sepsis 2/2 Left sided HAP Respiratory distress Melena Hypernatremia Leukocytosis DIA Cardiomyopathy unknown origin Exfoliative dermatitis Eczema vs. Psoriasis Hx of cellultis HTN Prolymphocytic leukemia Hypothermia Imaging -CXR (03/23/18): Inflitrate at left lung base, small bilateral pleurla effusiosn, mild cardiomegaly -Echocardiogram(03/24/18): EF 46%, normal LV wall thickness, lateral wall hypokinesis -Chest/Abdomen/Pelvis CT(03/27/18): moderate size bilateral pleural effusions with some adjacent consolidation, small stones noted in bladder -Brain MRI(03/28/2018): Age-related degenerative changes are identified which appear age-appropriate. no acute intracranial findings as per standard MR criteria -Extremity US(03/30/18):Normal BARRY and PVR examination at rest Neuro: Mentation waxing and waning -Head CT when stable -Sedation with fentanyl gtt -maintain euglycemia, normothermia Cardio: Hypotension,Shock likely hypovolemic -IVF bolus given, started levophed for pressure support -Added vasopressin for augmentation -Maintain hemodynamic stability with continued IVF Elevated troponin -Trop 0.15, likely type 2 demand ischemia -Continue to trend troponin q6H x 2 -EKG showing t wave inversions in lateral leads, unseen in previous EKG -Will hold anticoagulation in setting of apparent GI bleed HTN -Holding coreg and cozaar secondary to hypotension -Maintian MAP >65mmHg Pulm: Respiratory distress, respiratory alkalosis, moderate pleural effusions -abg 7.47/277/25/128.2/100% -Patient intubated ventilator settings as follows: 500/16/5/100% -Daily Chest xray -HOB 35 degrees. weaning trial daily -Protective oral hygiene, conservative fluid management -Pulmonology with Dr. Perkins consulted and following, continue with recommended therapy -Maintain SaO2 >90% with supplemental O2 as needed GI: Active Melena -elevated BUN, hypotension -Protonix gtt -NPO, monitor CBC Q4H -Type and screen, continue to monitor for transfusion of pRBC -Goal Hgb >7 -Dr. Stoddard with GI consulted f/u recs GI ppx with IV protonix Renal: Hypernatremia, hyperchloridemia, DIA -likely secondary to volume depletion -UA with specific gravity 1.025 -IV NS 1 liter bolus given -Nephrology with Dr. Segovia consulted -f/u random urine sodium and Cr, urine osmolality -Monitor with BMP Q4H -IVF as per nephrology, Continue with D5W at 100mL/Hr Maintain euvolemia, replete lytes as needed Endo: Hypoglycemia episodes, Thyroid autoimmunity -HgA1c wnl -TSH 3.36, Free T4 0.90, Thyroxine 5.3 (low) -Cortsol AM samole 03/30, 3.36 wnl -Endo with Dr. 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 psoriasis -Follow up with outpatient biopsy -Monitor clinical course GI/DVT ppx - Protonix gtt - Holding AC secondary to acute GI bleed Patient seen, case and plan discussed with attending, Dr. Engel <Marimar Engel - Last Filed: 04/04/18 17:11> Meds - Medications Medications: Current Medications Aspirin (Aspirin Chewable) 81 mg PO DAILY [facility] Last Admin: 04/03/18 11:17 Dose: Not Given Carbamide Peroxide (Debrox Ear Drops) 0 ml AU BID [facility] Last Admin: 04/03/18 17:55 Dose: 5 drop Carvedilol (Coreg) 3.125 mg PO BID [facility] Last Admin: 04/03/18 18:24 Dose: 3.125 mg Clotrimazole (Lotrimin 1%) 0 gm TOP BID PRN PRN Reason: Rash Last Admin: 04/02/18 09:40 Dose: 1 applic Amino Acids (Clinimix 4.25/5 % (1000 Ml)) 1,000 mls @ 42 mls/hr IV .[id number] [facility] Fat Emulsion-Soy/MCT/[place]/Fish Oil (Smoflipid 20%) 250 mls @ 21 mls/hr IV MWF@1800 RIYA Pantoprazole Sodium (Protonix 40mg Ivpb) 40 mg in 100 mls @ 20 mls/hr IVPB .Q5H RIYA Sodium Chloride (Sodium Chloride 0.9%) 1,000 mls @ 200 mls/hr IV .Q5H RIYA Dextrose (Dextrose 5% In Water 1000 Ml) 1,000 mls @ 100 mls/hr IV .Q10H RIYA NOREPINEPHRINE BIT/0.9 % NACL (Levophed 4 Mg/ 250 Ml Ns Premixed) 4 mg in 250 mls @ 15 mls/hr IV .[id number] PRN; Protocol PRN Reason: TITRATE PER MD ORDER Phenylephrine HCl 40 mg/ (Sodium Chloride) 254 mls @ 38.1 mls/hr IV .Q6H40M PRN; Protocol PRN Reason: TITRATE PER MD ORDER Vasopressin 20 units/ Sodium (Chloride) 101 mls @ 9.09 mls/hr IV .Q11H7M RIYA; Protocol Fentanyl Citrate (Fentanyl Citrate/Sodium Chloride 1 Mg/100 Ml) 1,000 mcg in 100 mls @ 2 mls/hr IV .Q24H PRN; Protocol PRN Reason: TITRATE PER MD ORDER Lactic Acid (Lac-Hydrin 12% Cream (140 G)) 0 ea TOP TID PRN PRN Reason: Dry skin Last Admin: 04/03/18 10:01 Dose: 1 applic Losartan Potassium (Cozaar) 12.5 mg PO DAILY [facility] Last Admin: 04/03/18 11:18 Dose: Not Given Methylprednisolone (Solu-Medrol) 40 mg IVP Q8 RIYA Multi-Ingredient Cream (Hydrocerin Cream) 0 ea TOP 1000,2200 [facility] Last Admin: 04/03/18 11:00 Dose: Not Given Silver Sulfadiazine (Silvadene 1% 25 Gm) 0 gm TP BID PRN PRN Reason: Dry skin Results - Vital Signs Recent Vital Signs: Last Vital Signs Temp 98.4 F 04/04/18 06:00 Pulse 87 04/04/18 06:00 Resp 18 04/04/18 14:22 BP 103/50 L 04/04/18 06:00 Pulse Ox 100 04/04/18 14:22 - Labs Result Diagrams: 04/04/18 15:30 04/04/18 15:00 Labs: Laboratory Results - last 24 hr 03/31/18 04/03/18 04/03/18 13:19 16:10 21:22 WBC RBC Hgb Hct MCV MCH MCHC RDW Plt Count MPV Neut % (Auto) Lymph % (Auto) [place] % (Auto) Eos % (Auto) Baso % (Auto) Lymph # (Auto) [place] # (Auto) Eos # (Auto) Baso # (Auto) Absolute Neuts (auto) Neutrophils % (Manual) Band Neutrophils % Lymphocytes % (Manual) Monocytes % (Manual) Eosinophils % (Manual) Platelet Evaluation Large Platelets Hypochromasia Poikilocytosis (manual Anisocytosis (manual) Microcytosis (manual) Target Cells Acanthocytes (Spur) Schistocytes PT INR APTT pCO2 pO2 HCO3 ABG pH ABG Total CO2 ABG O2 Saturation ABG O2 Content ABG Base Excess ABG Hemoglobin ABG Carboxyhemoglobin POC ABG HHb (Measured) ABG Methemoglobin ABG O2 Capacity ABG Potassium VBG pH VBG pCO2 VBG HCO3 VBG Total CO2 VBG O2 Sat (Calc) VBG Base Excess VBG Potassium Hgb O2 Saturation Glucose Lactate FiO2 Crit Value Called To Crit Value Called By Blood Gas Notified Time Sodium Potassium Chloride Carbon Dioxide Anion Gap BUN Creatinine Est GFR ( Amer) Est GFR (Non-Af Amer) POC Glucose (mg/dL) 100 113 H Random Glucose Calcium Phosphorus Magnesium Total Bilirubin AST ALT Alkaline Phosphatase Troponin I Total Protein Albumin Globulin Albumin/Globulin Ratio Arterial Blood Potassium Venous Blood Potassium Stool Occult Blood Proteinase 3 (PR3) <1.0 Myeloperoxidase Ab <1.0 Blood Type Blood Type Confirm Antibody Screen Crossmatch BBK History Checked 04/04/18 04/04/18 04/04/18 07:30 07:30 11:30 WBC 12.5 H 12.7 H RBC 3.13 L 3.04 L Hgb 8.3 L 8.1 L Hct 26.8 L 26.2 L MCV 85.6 D 86.2 MCH 26.5 26.6 MCHC 31.0 30.9 L RDW 21.0 H 20.9 H Plt Count 203 187 MPV 12.4 H Neut % (Auto) 74.5 H Lymph % (Auto) 18.9 L [place] % (Auto) 5.2 Eos % (Auto) 1.2 L Baso % (Auto) 0.2 Lymph # (Auto) 2.4 [place] # (Auto) 0.7 H Eos # (Auto) 0.2 Baso # (Auto) 0.02 Absolute Neuts (auto) 9.44 H Neutrophils % (Manual) 79 H Band Neutrophils % 5 H Lymphocytes % (Manual) 9 L Monocytes % (Manual) 5 Eosinophils % (Manual) 2 Platelet Evaluation Normal Large Platelets Present Hypochromasia 2+ Poikilocytosis (manual 1+ Anisocytosis (manual) 1+ Microcytosis (manual) Slight Target Cells 2+ Acanthocytes (Spur) Slight Schistocytes Slight PT INR APTT pCO2 pO2 HCO3 ABG pH ABG Total CO2 ABG O2 Saturation ABG O2 Content ABG Base Excess ABG Hemoglobin ABG Carboxyhemoglobin POC ABG HHb (Measured) ABG Methemoglobin ABG O2 Capacity ABG Potassium VBG pH VBG pCO2 VBG HCO3 VBG Total CO2 VBG O2 Sat (Calc) VBG Base Excess VBG Potassium Hgb O2 Saturation Glucose Lactate FiO2 Crit Value Called To Crit Value Called By Blood Gas Notified Time Sodium 167 H* Potassium 4.8 Chloride 141 H Carbon Dioxide 25 Anion Gap 6 L BUN 56 H Creatinine 1.7 H Est GFR ( Amer) 48 Est GFR (Non-Af Amer) 40 POC Glucose (mg/dL) Random Glucose 68 L Calcium 9.0 Phosphorus Magnesium Total Bilirubin 0.7 AST 19 ALT 22 Alkaline Phosphatase 153 H D Troponin I Total Protein 4.4 L Albumin 1.7 L Globulin 2.6 Albumin/Globulin Ratio 0.6 L Arterial Blood Potassium Venous Blood Potassium Stool Occult Blood Proteinase 3 (PR3) Myeloperoxidase Ab Blood Type Blood Type Confirm Antibody Screen Crossmatch BBK History Checked 04/04/18 04/04/18 04/04/18 11:30 11:31 11:45 WBC RBC Hgb Hct MCV MCH MCHC RDW Plt Count MPV Neut % (Auto) Lymph % (Auto) [place] % (Auto) Eos % (Auto) Baso % (Auto) Lymph # (Auto) [place] # (Auto) Eos # (Auto) Baso # (Auto) Absolute Neuts (auto) Neutrophils % (Manual) Band Neutrophils % Lymphocytes % (Manual) Monocytes % (Manual) Eosinophils % (Manual) Platelet Evaluation Large Platelets Hypochromasia Poikilocytosis (manual Anisocytosis (manual) Microcytosis (manual) Target Cells Acanthocytes (Spur) Schistocytes PT INR APTT pCO2 25 L pO2 277.0 H HCO3 18.2 L ABG pH 7.47 H ABG Total CO2 19.0 L ABG O2 Saturation 100.5 H ABG O2 Content ABG Base Excess -3.8 L ABG Hemoglobin ABG Carboxyhemoglobin POC ABG HHb (Measured) ABG Methemoglobin ABG O2 Capacity ABG Potassium 3.4 L VBG pH VBG pCO2 VBG HCO3 VBG Total CO2 VBG O2 Sat (Calc) VBG Base Excess VBG Potassium Hgb O2 Saturation Glucose 60 L Lactate 3.2 H FiO2 100.0 Crit Value Called To Md Crit Value Called By Ga Blood Gas Notified Time 1137 Sodium 168 H* 173.0 H* Potassium 4.9 Chloride 140 H 145.0 H Carbon Dioxide 25 Anion Gap 6 L BUN 57 H Creatinine 1.9 H Est GFR ( Amer) 42 Est GFR (Non-Af Amer) 35 POC Glucose (mg/dL) Random Glucose 69 L Calcium 9.1 Phosphorus 3.4 Magnesium 2.1 Total Bilirubin 0.3 AST 19 ALT 19 Alkaline Phosphatase 149 H Troponin I 0.15 H* D Total Protein 4.2 L Albumin 1.7 L Globulin 2.4 Albumin/Globulin Ratio 0.7 L Arterial Blood Potassium 3.4 L Venous Blood Potassium Stool Occult Blood Positive H Proteinase 3 (PR3) Myeloperoxidase Ab Blood Type Blood Type Confirm Antibody Screen Crossmatch BBK History Checked 04/04/18 04/04/18 04/04/18 13:59 14:45 15:00 WBC RBC Hgb Hct MCV MCH MCHC RDW Plt Count MPV Neut % (Auto) Lymph % (Auto) [place] % (Auto) Eos % (Auto) Baso % (Auto) Lymph # (Auto) [place] # (Auto) Eos # (Auto) Baso # (Auto) Absolute Neuts (auto) Neutrophils % (Manual) Band Neutrophils % Lymphocytes % (Manual) Monocytes % (Manual) Eosinophils % (Manual) Platelet Evaluation Large Platelets Hypochromasia Poikilocytosis (manual Anisocytosis (manual) Microcytosis (manual) Target Cells Acanthocytes (Spur) Schistocytes PT INR APTT pCO2 pO2 HCO3 ABG pH ABG Total CO2 ABG O2 Saturation ABG O2 Content ABG Base Excess ABG Hemoglobin ABG Carboxyhemoglobin POC ABG HHb (Measured) ABG Methemoglobin ABG O2 Capacity ABG Potassium VBG pH VBG pCO2 VBG HCO3 VBG Total CO2 VBG O2 Sat (Calc) VBG Base Excess VBG Potassium Hgb O2 Saturation Glucose Lactate FiO2 Crit Value Called To Crit Value Called By Blood Gas Notified Time Sodium 166 H* Potassium 4.3 Chloride 143 H Carbon Dioxide 23 Anion Gap 6 L BUN 52 H Creatinine 1.7 H Est GFR ( Amer) 48 Est GFR (Non-Af Amer) 40 POC Glucose (mg/dL) Random Glucose 88 Calcium 7.5 L Phosphorus 3.3 Magnesium 1.9 Total Bilirubin 0.2 AST 19 ALT 20 Alkaline Phosphatase 119 Troponin I 0.14 H* Total Protein 3.1 L Albumin 1.3 L Globulin 1.8 Albumin/Globulin Ratio 0.7 L Arterial Blood Potassium Venous Blood Potassium Stool Occult Blood Proteinase 3 (PR3) Myeloperoxidase Ab Blood Type O POSITIVE Blood Type Confirm O POSITIVE Antibody Screen Negative Crossmatch See Detail BBK History Checked No verified bt 04/04/18 04/04/18 04/04/18 15:30 15:30 16:00 WBC 11.1 H RBC 2.96 L Hgb 7.9 L Hct 25.4 L MCV 85.8 MCH 26.7 MCHC 31.1 RDW 20.0 H Plt Count 121 MPV Neut % (Auto) 74.0 H Lymph % (Auto) 19.2 L [place] % (Auto) 5.5 Eos % (Auto) 1.1 L Baso % (Auto) 0.2 Lymph # (Auto) 2.1 [place] # (Auto) 0.6 Eos # (Auto) 0.1 Baso # (Auto) 0.02 Absolute Neuts (auto) 8.21 H Neutrophils % (Manual) Band Neutrophils % Lymphocytes % (Manual) Monocytes % (Manual) Eosinophils % (Manual) Platelet Evaluation Large Platelets Hypochromasia Poikilocytosis (manual Anisocytosis (manual) Microcytosis (manual) Target Cells Acanthocytes (Spur) Schistocytes PT 16.1 H INR 1.45 APTT 39.1 H pCO2 pO2 147 H HCO3 ABG pH ABG Total CO2 ABG O2 Saturation ABG O2 Content ABG Base Excess ABG Hemoglobin ABG Carboxyhemoglobin POC ABG HHb (Measured) ABG Methemoglobin ABG O2 Capacity ABG Potassium VBG pH 7.30 L VBG pCO2 44.0 VBG HCO3 21.6 VBG Total CO2 23.0 VBG O2 Sat (Calc) 99.6 H VBG Base Excess -4.8 L VBG Potassium 4.0 Hgb O2 Saturation Glucose 109 Lactate 3.2 H FiO2 21.0 Crit Value Called To Petrona hernández Crit Value Called By Atc Blood Gas Notified Time 1614 Sodium 173.0 H* Potassium Chloride 143.0 H Carbon Dioxide Anion Gap BUN Creatinine Est GFR ( Amer) Est GFR (Non-Af Amer) POC Glucose (mg/dL) Random Glucose Calcium Phosphorus Magnesium Total Bilirubin AST ALT Alkaline Phosphatase Troponin I Total Protein Albumin Globulin Albumin/Globulin Ratio Arterial Blood Potassium Venous Blood Potassium 4.0 Stool Occult Blood Proteinase 3 (PR3) Myeloperoxidase Ab Blood Type Blood Type Confirm Antibody Screen Crossmatch BBK History Checked 04/04/18 16:40 WBC RBC Hgb Hct MCV MCH MCHC RDW Plt Count MPV Neut % (Auto) Lymph % (Auto) [place] % (Auto) Eos % (Auto) Baso % (Auto) Lymph # (Auto) [place] # (Auto) Eos # (Auto) Baso # (Auto) Absolute Neuts (auto) Neutrophils % (Manual) Band Neutrophils % Lymphocytes % (Manual) Monocytes % (Manual) Eosinophils % (Manual) Platelet Evaluation Large Platelets Hypochromasia Poikilocytosis (manual Anisocytosis (manual) Microcytosis (manual) Target Cells Acanthocytes (Spur) Schistocytes PT INR APTT pCO2 35 pO2 571.0 H HCO3 22.2 ABG pH 7.41 ABG Total CO2 23.3 ABG O2 Saturation 100.4 H ABG O2 Content 13.5 L ABG Base Excess -2.1 L ABG Hemoglobin 8.6 L ABG Carboxyhemoglobin 1.7 H POC ABG HHb (Measured) -0.4 L ABG Methemoglobin 0.9 ABG O2 Capacity 13.4 L ABG Potassium VBG pH VBG pCO2 VBG HCO3 VBG Total CO2 VBG O2 Sat (Calc) VBG Base Excess VBG Potassium Hgb O2 Saturation 97.7 Glucose Lactate FiO2 100.0 Crit Value Called To Crit Value Called By Blood Gas Notified Time Sodium Potassium Chloride Carbon Dioxide Anion Gap BUN Creatinine Est GFR ( Amer) Est GFR (Non-Af Amer) POC Glucose (mg/dL) Random Glucose Calcium Phosphorus Magnesium Total Bilirubin AST ALT Alkaline Phosphatase Troponin I Total Protein Albumin Globulin Albumin/Globulin Ratio Arterial Blood Potassium Venous Blood Potassium Stool Occult Blood Proteinase 3 (PR3) Myeloperoxidase Ab Blood Type Blood Type Confirm Antibody Screen Crossmatch BBK History Checked Addendum Addendum: 04/04/18 17:11 ICU Attending Addendum Patient seen and examined. Case reviewed on round with housestaff. Agree with resident note above with the following additions/exceptions 73 M with PML s/p chemotherapy, HTN with recent discharge from [facility] after being treated for left lower lobe pneumonia reported complicated by inguinal hernia incarceration. Unclear if he had a surgical procedure done. He was admitted to [facility] on 03/23 being tx for HCAP however rapid response today as he became very lethargic, minimally responsive and now found to be in shock, hypernatremic and actively having a GI Bleed. Unclear regards to the sequence of events however I suspect he was dry given his rising sodium and his hypernatremia could have caused his decline in mentation. During our ICU evaluation, we removed his diaper and found a pool of dark black stool which is new. Brought him to ICU, intubated for airway support however his pulmonary status is good in regards to his oxygenation and ability to exchange co2. Cont low vT ventialtion nephro consulted for his hypernatremia, follow their recs. Thus far requiroing bolus of NS. repeat chem q 6 GI bleed is active. GI consulted for emergent endoscopy surgery team and IR notified as well FOr now will cont to suport him with blood, pressors and IV Fluids He has rec'd 2 emergent units of unmatched blood and will rec' another 2 units for presoors on levophed, vaso and phenylephrine abx as per ID will marie culture elevated TNI likely from demand given blood loss SCDs for dvt ppx PPI for GI Bleed Fentanyl for sedation insert maciel Explained everything ind etail with his daughter at bedside and answered all questions they understand his prognosis is poor and will lean towards making him comfort care only if he continues to fail Marimar Engel MD Pulmonary Critical Care Attending Critical Care Time: 61 mins
[2018-04-04] MEDS ORDERED: Etomidate 20 mg/10ml Inj IV ONE (13:51)
[2018-04-04] MEDS ORDERED: Midazolam 2 MG/2 ML VIAL IVP ONE (14:00)
--- NOTE | 2018-04-04 14:00 | CP.PCM.PN ---
<Peterson Houser - Last Filed: 04/04/18 13:55> Subjective - Date & Time of Evaluation Date of Evaluation: 04/04/18 Time of Evaluation: 07:45 - Subjective Subjective: ID Progress Note Patient seen and examined. 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 Patient was found to have elevated sodium. Remains hypothermic without warmer. Objective - Vital Signs/Intake and Output Vital Signs (last 24 hours): Temp Pulse Resp BP Pulse Ox 98.4 F 87 18 103/50 L 94 L 04/04/18 06:00 04/04/18 06:00 04/04/18 06:00 04/04/18 06:00 04/04/18 06:00 Intake and Output: 04/04/18 04/04/18 06:59 18:59 Intake Total 600 Balance 600 - Medications Medications: Current Medications Aspirin (Aspirin Chewable) 81 mg PO DAILY [facility] Last Admin: 04/03/18 11:17 Dose: Not Given Carbamide Peroxide (Debrox Ear Drops) 0 ml AU BID [facility] Last Admin: 04/03/18 17:55 Dose: 5 drop Carvedilol (Coreg) 3.125 mg PO BID [facility] Last Admin: 04/03/18 18:24 Dose: 3.125 mg Clotrimazole (Lotrimin 1%) 0 gm TOP BID PRN PRN Reason: Rash Last Admin: 04/02/18 09:40 Dose: 1 applic Amino Acids (Clinimix 4.25/5 % (1000 Ml)) 1,000 mls @ 42 mls/hr IV .[id number] [facility] Fat Emulsion-Soy/MCT/[place]/Fish Oil (Smoflipid 20%) 250 mls @ 21 mls/hr IV MWF@1800 [facility] Pantoprazole Sodium (Protonix 40mg Ivpb) 40 mg in 100 mls @ 20 mls/hr IVPB .Q5H [facility] Sodium Chloride (Sodium Chloride 0.9%) 1,000 mls @ 200 mls/hr IV .Q5H [facility] Dextrose (Dextrose 5% In Water 1000 Ml) 1,000 mls @ 100 mls/hr IV .Q10H [facility] NOREPINEPHRINE BIT/0.9 % NACL (Levophed 4 Mg/ 250 Ml Ns Premixed) 4 mg in 250 mls @ 15 mls/hr IV .[id number] PRN; Protocol PRN Reason: TITRATE PER MD ORDER Propofol (Diprivan) 1,000 mg in 100 mls @ 2.177 mls/hr IV .Q24H PRN; Protocol PRN Reason: TITRATE PER MD ORDER Lactic Acid (Lac-Hydrin 12% Cream (140 G)) 0 ea TOP TID PRN PRN Reason: Dry skin Last Admin: 04/03/18 10:01 Dose: 1 applic Losartan Potassium (Cozaar) 12.5 mg PO DAILY [facility] Last Admin: 04/03/18 11:18 Dose: Not Given Methylprednisolone (Solu-Medrol) 20 mg IVP Q12 [facility] Multi-Ingredient Cream (Hydrocerin Cream) 0 ea TOP 1000,2200 [facility] Last Admin: 04/03/18 11:00 Dose: Not Given Silver Sulfadiazine (Silvadene 1% 25 Gm) 0 gm TP BID PRN PRN Reason: Dry skin - Labs Labs: 04/04/18 11:30 04/04/18 11:30 PT 12.4 SECONDS (9.4-12.5) 03/23/18 23:15 INR 1.09 03/23/18 23:15 APTT 33.2 Seconds (25.1-36.5) 03/23/18 23:15 - Constitutional Appears: Non-toxic, No Acute Distress - Head Exam Head Exam: ATRAUMATIC, NORMAL INSPECTION, NORMOCEPHALIC - ENT Exam ENT Exam: Mucous Membranes Dry - Respiratory Exam Respiratory Exam: Clear to Ausculation Bilateral, NORMAL BREATHING PATTERN - Cardiovascular Exam Cardiovascular Exam: RRR, +S1, +S2 - GI/Abdominal Exam GI & Abdominal Exam: Soft, Normal Bowel Sounds. absent: Tenderness - Extremities Exam Additional comments: B/l feet edema, trace - Neurological Exam Neurological Exam: Alert, Awake, Oriented x3 - Psychiatric Exam Psychiatric exam: Normal Affect, Normal Mood - Skin Additional comments: Exfoliative dermatitis throughout entire body. Feet erythema b/l Assessment and Plan - Assessment and Plan (Free Text) Plan: sepsis from left sided HAP, improving Hypernatremia exfoliative dermatitis, consider eczema or psoriasis Hx of HTN Hx of prolymphocytic leukemia Plan S/p 10 days of Merrem and Doxycycline No skin biopsy as patient had biopsy from Dermatology as outpatient consistent with Eczema. Consider repeat Hypothermia potentially related to exfoliative dermatitis reviewed CT C/A/P and brain MRI will continue to monitor clinically Mik, PGY-3 <Dio Leosmarie Kwok S - Last Filed: 04/04/18 14:11> Objective - Vital Signs/Intake and Output Vital Signs (last 24 hours): Temp Pulse Resp BP Pulse Ox 98.4 F 87 18 103/50 L 94 L 04/04/18 06:00 04/04/18 06:00 04/04/18 06:00 04/04/18 06:00 04/04/18 06:00 Intake and Output: 04/04/18 04/04/18 06:59 18:59 Intake Total 600 Balance 600 - Medications Medications: Current Medications Aspirin (Aspirin Chewable) 81 mg PO DAILY [facility] Last Admin: 04/03/18 11:17 Dose: Not Given Carbamide Peroxide (Debrox Ear Drops) 0 ml AU BID [facility] Last Admin: 04/03/18 17:55 Dose: 5 drop Carvedilol (Coreg) 3.125 mg PO BID [facility] Last Admin: 04/03/18 18:24 Dose: 3.125 mg Clotrimazole (Lotrimin 1%) 0 gm TOP BID PRN PRN Reason: Rash Last Admin: 04/02/18 09:40 Dose: 1 applic Amino Acids (Clinimix 4.25/5 % (1000 Ml)) 1,000 mls @ 42 mls/hr IV .[id number] [facility] Fat Emulsion-Soy/MCT/[place]/Fish Oil (Smoflipid 20%) 250 mls @ 21 mls/hr IV MWF@1800 [facility] Pantoprazole Sodium (Protonix 40mg Ivpb) 40 mg in 100 mls @ 20 mls/hr IVPB .Q5H [facility] Sodium Chloride (Sodium Chloride 0.9%) 1,000 mls @ 200 mls/hr IV .Q5H [facility] Dextrose (Dextrose 5% In Water 1000 Ml) 1,000 mls @ 100 mls/hr IV .Q10H [facility] NOREPINEPHRINE BIT/0.9 % NACL (Levophed 4 Mg/ 250 Ml Ns Premixed) 4 mg in 250 mls @ 15 mls/hr IV .[id number] PRN; Protocol PRN Reason: TITRATE PER MD ORDER Propofol (Diprivan) 1,000 mg in 100 mls @ 2.177 mls/hr IV .Q24H PRN; Protocol PRN Reason: TITRATE PER MD ORDER Lactic Acid (Lac-Hydrin 12% Cream (140 G)) 0 ea TOP TID PRN PRN Reason: Dry skin Last Admin: 04/03/18 10:01 Dose: 1 applic Losartan Potassium (Cozaar) 12.5 mg PO DAILY [facility] Last Admin: 04/03/18 11:18 Dose: Not Given Methylprednisolone (Solu-Medrol) 20 mg IVP Q12 [facility] Multi-Ingredient Cream (Hydrocerin Cream) 0 ea TOP 1000,2200 [facility] Last Admin: 04/03/18 11:00 Dose: Not Given Silver Sulfadiazine (Silvadene 1% 25 Gm) 0 gm TP BID PRN PRN Reason: Dry skin - Labs Labs: 04/04/18 11:30 04/04/18 11:30 PT 12.4 SECONDS (9.4-12.5) 03/23/18 23:15 INR 1.09 03/23/18 23:15 APTT 33.2 Seconds (25.1-36.5) 03/23/18 23:15 Assessment and Plan - Assessment and Plan (Free Text) Plan: Infectious diseases Attending Physician Attestation Patient seen and examined, discussed with medical instructor. I have reviewed the patient's history of present illness, past medical, social, personal and family histories, pertinent physical exam findings, course so far in this hospital admission, pertinent laboratory and imaging results. I agree with the above findings, assessment and plan. In addition, on Doxycycline and MErrem for sepsis from left sided HAP. Patient had unresponsiveness and is now in the ICU for closer monitoring and management. Will repeat blood cx. Patient with hypernatremia which may contribute to encephalopathy. Patient with exfoliative dermatitis and is on steroids as per PMD. Would recommend repeat skin biopsy.
--- NOTE | 2018-04-04 14:20 | RAD ---
Date of service: 04/04/2018 HISTORY: rapid response COMPARISON: 03/31/2018 FINDINGS: LUNGS: No active pulmonary disease. PLEURA: Minimal left pleural effusion. No right pleural effusion. No pneumothorax. CARDIOVASCULAR: No aortic atherosclerotic calcification present. Normal cardiac size. No pulmonary vascular congestion. OSSEOUS STRUCTURES: No significant abnormalities. VISUALIZED UPPER ABDOMEN: Normal. OTHER FINDINGS: None. IMPRESSION: Minimal left pleural effusion
[2018-04-04] MEDS ORDERED: Vasopressin 20 UNITS in Dextrose 5% In Water 100 ML IV SCH (14:45)
--- NOTE | 2018-04-04 14:56 | PCM.PROC ---
<Mike Martinez - Last Filed: 04/04/18 14:52> Procedures Attestation:: I certify that I have explained the specified Operation(s) or Procedure(s), risks, benefits and reasonable alternatives to the Patient and/or other person responsible. The opportunity was given to ask questions and all questions answered - Central Line Placement Right Femoral Triple Lumen Catheter Aseptic technique was employed throughout the procedure: Hand Hygiene done prior to procedure, Full sterile barriers (mask, hair cover, sterile gown, sterile gloves), Full body sterile drape, Chloraprep Antiseptic: 2 minute prep for Femoral Pt. Placed on Pulse Ox Monitor: Yes Central Line Prep: Chlorhexidine-Alcohol Combination Local Anesthesia Used: Lidocaine 1% Amount of Anesthesia Used (mls): 6 Ultrasound Used for Placement: Yes Central Line Lumen Inserted: triple Central Line Length: 20 cm Post Procedure: Sutured in Place, Good Blood Return, All Ports Aspirated, Flushed, Capped, Sterile Dressing Applied Secured by: Suture Post procedure dressing: Clear vapor permeable, Chlorhexidine disc (Biopatch) Post Procedure X-Ray: No Patient Tolerated Procedure: Well, No Complications Additional Comments: Consent obtained prior to procedure by patient's daughter, as patient unresponsive and unable to consent self. Form witnessed by nursing and placed in chart. Procedure overseen by attending, Dr. Engel - Intubation Time Out Performed: Yes Sedative: Etomidate, Versed Mg Given: 10 Etomidate/2 Versed Laryngoscope: Glidescope ET Tube Size: 8.0 ET Tube Secured at Depth: 23cm ET Tube Secured Locarion: Lips ET Tube Placement Confirmation: Visualized Passing Through Cords, Breath Sounds Equal Bilaterally, No Breath Sounds Over Epigastrum, Confirmation w/Capnometry Patient Tolerated Procedure: Well Procedure Immediate Complications: None Additional comments: Emergent intubation due to worsening hypotension, persistently altered/unresponsive state (unable to protect airway). Procedure overseen by attending, Dr. Engel. <Marimar Engel - Last Filed: 04/07/18 10:07> Addendum Addendum: 04/07/18 10:07 MICU Attending Agree with note above i was present for the entire procedure Marimar Engel MD
--- NOTE | 2018-04-04 15:21 | RAD ---
Date of service: 04/04/2018 HISTORY: pt intubated COMPARISON: Portable chest 04/04/2018 11:36 a.m.. FINDINGS: LUNGS: Endotracheal tube is now inserted terminating in good apparent position 5 cm above the rajan. A nasogastric tube however has been placed terminating at the distal esophagus. Advanced the tube some 15-20 cm further to correlate into the stomach. Follow-up abdomen radiograph is recommended to confirm. Small left pleural effusion is reiterated as well as limited left basilar atelectasis or infiltrate. Right lung remains clear. No pneumothorax bilaterally or right pleural effusion. Cardiomediastinal silhouette is stable exclusive of inserted tube in catheter. PLEURA: As above. CARDIOVASCULAR: Calcific atherosclerotic changes are seen related to the thoracic aorta. Normal cardiac size. No pulmonary vascular congestion. OSSEOUS STRUCTURES: No significant abnormalities. VISUALIZED UPPER ABDOMEN: Normal. OTHER FINDINGS: None. IMPRESSION: NG tube terminates well proximal to the esophagogastric junction. Advancement into the stomach followed by confirmation radiography is recommended as discussed in lung section above. ET tube in good apparent position. Small pleural effusion and limited left basilar atelectasis or infiltrate unchanged.
--- NOTE | 2018-04-04 15:43 | CP.PCM.CON ---
History of Present Illness - History of Present Illness History of Present Illness: Resident Consult Note for Surgery: Dr. Caal Patient is a 73 year old male with past medical history of HTN, systolic CHF, prolymphocytic leukemia s/p chemotherapy, colon cancer, eczema who presented to [facility] on 03/23 with shortness of breath. Patient was recently admitted to ICU at [facility] for management of sepsis due to aspiration pneumonia and was on pressors. Patient subsequently developed small bowel obstruction and also underwent left inguinal hernia repair for incarcerated hernia. At [facility], patient was admitted for sepsis due to hospital acquired pneumonia and was started on vancomycin, merrem, doxycycline. Patient was noted have episodes of hypothermia and hypoglycemia in addition to hypernatremia. Rapid response was called this morning for respiratory distress; patient was intubated and transferred to ICU. Patient was also noted to have bowel movement with melena. History was obtained from prior records as patient is currently intubated and sedated. 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 Schumacher Review of Systems - Review of Systems Systems not reviewed;Unavailable: Intubated Past Patient History - Infectious Disease Hx of Infectious Diseases: None - Past Social History Smoking Status: Never Smoked - CARDIAC Hx Hypertension: Yes - PULMONARY Hx Pneumonia: Yes - NEUROLOGICAL Hx Neurological Disorder: No - HEENT Hx HEENT Problems: No - RENAL Hx Chronic Kidney Disease: No - ENDOCRINE/METABOLIC Hx Endocrine Disorders: No - HEMATOLOGICAL/ONCOLOGICAL Hx Blood Disorders: Yes (PROLYMPHOCYTIC LEUKEMIA) Hx Cancer: Yes - INTEGUMENTARY Hx Dermatological Problems: Yes Hx Eczema: Yes - MUSCULOSKELETAL/RHEUMATOLOGICAL Hx Musculoskeletal Disorders: Yes Hx Falls: Yes Hx Unsteady Gait: Yes (WALKER) - GASTROINTESTINAL Hx Gastrointestinal Disorders: No - GENITOURINARY/GYNECOLOGICAL Hx Genitourinary Disorders: No - PSYCHIATRIC Hx Psychophysiologic Disorder: No - SURGICAL HISTORY Hx Surgeries: Yes Other/Comment: hernia sx - ANESTHESIA Hx Anesthesia: Yes Hx Anesthesia Reactions: No Hx Malignant Hyperthermia: No Meds Allergies/Adverse Reactions: Allergies Allergy/AdvReac Type Severity Reaction Status Date / Time No Known Allergies Allergy Verified 03/24/18 11:42 - Medications Medications: Current Medications Aspirin (Aspirin Chewable) 81 mg PO DAILY [facility] Last Admin: 04/03/18 11:17 Dose: Not Given Carbamide Peroxide (Debrox Ear Drops) 0 ml AU BID [facility] Last Admin: 04/03/18 17:55 Dose: 5 drop Carvedilol (Coreg) 3.125 mg PO BID [facility] Last Admin: 04/03/18 18:24 Dose: 3.125 mg Clotrimazole (Lotrimin 1%) 0 gm TOP BID PRN PRN Reason: Rash Last Admin: 04/02/18 09:40 Dose: 1 applic Amino Acids (Clinimix 4.25/5 % (1000 Ml)) 1,000 mls @ 42 mls/hr IV .[id number] RIYA Fat Emulsion-Soy/MCT/[place]/Fish Oil (Smoflipid 20%) 250 mls @ 21 mls/hr IV MWF@1800 RIYA Pantoprazole Sodium (Protonix 40mg Ivpb) 40 mg in 100 mls @ 20 mls/hr IVPB .Q5H RIYA Sodium Chloride (Sodium Chloride 0.9%) 1,000 mls @ 200 mls/hr IV .Q5H RIYA Dextrose (Dextrose 5% In Water 1000 Ml) 1,000 mls @ 100 mls/hr IV .Q10H RIYA NOREPINEPHRINE BIT/0.9 % NACL (Levophed 4 Mg/ 250 Ml Ns Premixed) 4 mg in 250 mls @ 15 mls/hr IV .[id number] PRN; Protocol PRN Reason: TITRATE PER MD ORDER Propofol (Diprivan) 1,000 mg in 100 mls @ 2.177 mls/hr IV .Q24H PRN; Protocol PRN Reason: TITRATE PER MD ORDER Phenylephrine HCl 40 mg/ (Sodium Chloride) 254 mls @ 38.1 mls/hr IV .Q6H40M PRN; Protocol PRN Reason: TITRATE PER MD ORDER Vasopressin 20 units/ Sodium (Chloride) 101 mls @ 9.09 mls/hr IV .Q11H7M [facility]; Protocol Lactic Acid (Lac-Hydrin 12% Cream (140 G)) 0 ea TOP TID PRN PRN Reason: Dry skin Last Admin: 04/03/18 10:01 Dose: 1 applic Losartan Potassium (Cozaar) 12.5 mg PO DAILY [facility] Last Admin: 04/03/18 11:18 Dose: Not Given Methylprednisolone (Solu-Medrol) 20 mg IVP Q12 [facility] Multi-Ingredient Cream (Hydrocerin Cream) 0 ea TOP 1000,2200 [facility] Last Admin: 04/03/18 11:00 Dose: Not Given Silver Sulfadiazine (Silvadene 1% 25 Gm) 0 gm TP BID PRN PRN Reason: Dry skin Physical Exam - Constitutional Appears: No Acute Distress, Chronically Ill - Head Exam Head Exam: ATRAUMATIC, NORMOCEPHALIC - Eye Exam Eye Exam: EOMI, Normal appearance - ENT Exam Additional comments: ett in place - Respiratory Exam Respiratory Exam: Respiratory Distress, NORMAL BREATHING PATTERN. absent: Accessory Muscle Use - Cardiovascular Exam Cardiovascular Exam: REGULAR RHYTHM, +S1, +S2 - GI/Abdominal Exam GI & Abdominal Exam: Soft. absent: Distended, Firm, Guarding, Rebound, Rigid Additional comments: right fem TLC - Neurological Exam Additional comments: sedated - Skin Additional comments: extensive scaly skin with sloughing Results - Vital Signs Recent Vital Signs: Last Vital Signs Temp 98.4 F 04/04/18 06:00 Pulse 87 04/04/18 06:00 Resp 18 04/04/18 14:22 BP 103/50 L 04/04/18 06:00 Pulse Ox 100 04/04/18 14:22 - Labs Result Diagrams: 04/04/18 15:30 04/04/18 15:00 Labs: Laboratory Results - last 24 hr 03/31/18 04/03/18 04/03/18 13:19 16:10 21:22 WBC RBC Hgb Hct MCV MCH MCHC RDW Plt Count MPV Neut % (Auto) Lymph % (Auto) [place] % (Auto) Eos % (Auto) Baso % (Auto) Lymph # (Auto) [place] # (Auto) Eos # (Auto) Baso # (Auto) Absolute Neuts (auto) Neutrophils % (Manual) Band Neutrophils % Lymphocytes % (Manual) Monocytes % (Manual) Eosinophils % (Manual) Platelet Evaluation Large Platelets Hypochromasia Poikilocytosis (manual Anisocytosis (manual) Microcytosis (manual) Target Cells Acanthocytes (Spur) Schistocytes pCO2 pO2 HCO3 ABG pH ABG Total CO2 ABG O2 Saturation ABG Base Excess ABG Potassium Glucose Lactate FiO2 Crit Value Called To Crit Value Called By Blood Gas Notified Time Sodium Potassium Chloride Carbon Dioxide Anion Gap BUN Creatinine Est GFR ( Amer) Est GFR (Non-Af Amer) POC Glucose (mg/dL) 100 113 H Random Glucose Calcium Phosphorus Magnesium Total Bilirubin AST ALT Alkaline Phosphatase Troponin I Total Protein Albumin Globulin Albumin/Globulin Ratio Arterial Blood Potassium Stool Occult Blood Proteinase 3 (PR3) <1.0 Myeloperoxidase Ab <1.0 Blood Type Antibody Screen Crossmatch BBK History Checked 04/04/18 04/04/18 04/04/18 07:30 07:30 11:30 WBC 12.5 H 12.7 H RBC 3.13 L 3.04 L Hgb 8.3 L 8.1 L Hct 26.8 L 26.2 L MCV 85.6 D 86.2 MCH 26.5 26.6 MCHC 31.0 30.9 L RDW 21.0 H 20.9 H Plt Count 203 187 MPV 12.4 H Neut % (Auto) 74.5 H Lymph % (Auto) 18.9 L [place] % (Auto) 5.2 Eos % (Auto) 1.2 L Baso % (Auto) 0.2 Lymph # (Auto) 2.4 [place] # (Auto) 0.7 H Eos # (Auto) 0.2 Baso # (Auto) 0.02 Absolute Neuts (auto) 9.44 H Neutrophils % (Manual) 79 H Band Neutrophils % 5 H Lymphocytes % (Manual) 9 L Monocytes % (Manual) 5 Eosinophils % (Manual) 2 Platelet Evaluation Normal Large Platelets Present Hypochromasia 2+ Poikilocytosis (manual 1+ Anisocytosis (manual) 1+ Microcytosis (manual) Slight Target Cells 2+ Acanthocytes (Spur) Slight Schistocytes Slight pCO2 pO2 HCO3 ABG pH ABG Total CO2 ABG O2 Saturation ABG Base Excess ABG Potassium Glucose Lactate FiO2 Crit Value Called To Crit Value Called By Blood Gas Notified Time Sodium 167 H* Potassium 4.8 Chloride 141 H Carbon Dioxide 25 Anion Gap 6 L BUN 56 H Creatinine 1.7 H Est GFR ( Amer) 48 Est GFR (Non-Af Amer) 40 POC Glucose (mg/dL) Random Glucose 68 L Calcium 9.0 Phosphorus Magnesium Total Bilirubin 0.7 AST 19 ALT 22 Alkaline Phosphatase 153 H D Troponin I Total Protein 4.4 L Albumin 1.7 L Globulin 2.6 Albumin/Globulin Ratio 0.6 L Arterial Blood Potassium Stool Occult Blood Proteinase 3 (PR3) Myeloperoxidase Ab Blood Type Antibody Screen Crossmatch BBK History Checked 04/04/18 04/04/18 04/04/18 11:30 11:31 11:45 WBC RBC Hgb Hct MCV MCH MCHC RDW Plt Count MPV Neut % (Auto) Lymph % (Auto) [place] % (Auto) Eos % (Auto) Baso % (Auto) Lymph # (Auto) [place] # (Auto) Eos # (Auto) Baso # (Auto) Absolute Neuts (auto) Neutrophils % (Manual) Band Neutrophils % Lymphocytes % (Manual) Monocytes % (Manual) Eosinophils % (Manual) Platelet Evaluation Large Platelets Hypochromasia Poikilocytosis (manual Anisocytosis (manual) Microcytosis (manual) Target Cells Acanthocytes (Spur) Schistocytes pCO2 25 L pO2 277.0 H HCO3 18.2 L ABG pH 7.47 H ABG Total CO2 19.0 L ABG O2 Saturation 100.5 H ABG Base Excess -3.8 L ABG Potassium 3.4 L Glucose 60 L Lactate 3.2 H FiO2 100.0 Crit Value Called To Md Crit Value Called By Ga Blood Gas Notified Time 1137 Sodium 168 H* 173.0 H* Potassium 4.9 Chloride 140 H 145.0 H Carbon Dioxide 25 Anion Gap 6 L BUN 57 H Creatinine 1.9 H Est GFR ( Amer) 42 Est GFR (Non-Af Amer) 35 POC Glucose (mg/dL) Random Glucose 69 L Calcium 9.1 Phosphorus 3.4 Magnesium 2.1 Total Bilirubin 0.3 AST 19 ALT 19 Alkaline Phosphatase 149 H Troponin I 0.15 H* D Total Protein 4.2 L Albumin 1.7 L Globulin 2.4 Albumin/Globulin Ratio 0.7 L Arterial Blood Potassium 3.4 L Stool Occult Blood Positive H Proteinase 3 (PR3) Myeloperoxidase Ab Blood Type Antibody Screen Crossmatch BBK History Checked 04/04/18 13:59 WBC RBC Hgb Hct MCV MCH MCHC RDW Plt Count MPV Neut % (Auto) Lymph % (Auto) [place] % (Auto) Eos % (Auto) Baso % (Auto) Lymph # (Auto) [place] # (Auto) Eos # (Auto) Baso # (Auto) Absolute Neuts (auto) Neutrophils % (Manual) Band Neutrophils % Lymphocytes % (Manual) Monocytes % (Manual) Eosinophils % (Manual) Platelet Evaluation Large Platelets Hypochromasia Poikilocytosis (manual Anisocytosis (manual) Microcytosis (manual) Target Cells Acanthocytes (Spur) Schistocytes pCO2 pO2 HCO3 ABG pH ABG Total CO2 ABG O2 Saturation ABG Base Excess ABG Potassium Glucose Lactate FiO2 Crit Value Called To Crit Value Called By Blood Gas Notified Time Sodium Potassium Chloride Carbon Dioxide Anion Gap BUN Creatinine Est GFR ( Amer) Est GFR (Non-Af Amer) POC Glucose (mg/dL) Random Glucose Calcium Phosphorus Magnesium Total Bilirubin AST ALT Alkaline Phosphatase Troponin I Total Protein Albumin Globulin Albumin/Globulin Ratio Arterial Blood Potassium Stool Occult Blood Proteinase 3 (PR3) Myeloperoxidase Ab Blood Type O POSITIVE Antibody Screen Negative Crossmatch See Detail BBK History Checked No verified bt Assessment & Plan - Assessment and Plan (Free Text) Assessment: Patient is a 73 year old male with past medical history HTN, systolic CHF, 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 Plan: - colonoscopy in October 2016 showed rectal varices, patent end to side anastomosis, benign polyp - followup coags, correct as needed - recommended DDAVP in setting of DIA and active bleeding - a line - titrate pressors as needed - correct hypernatremia - strict Is and Os - followup GI recs - further management per primary - further recommendations per Dr. Ten Walton PGY-1 - Date & Time Date: 04/04/18 Time: 15:47
--- NOTE | 2018-04-04 15:50 | RAD ---
Date of service: 04/04/2018 HISTORY: confirm placement of catheter COMPARISON: None available. FINDINGS: BOWEL: Unremarkable abdominal bowel gas pattern. No masses or abnormal calcifications. There is a catheter overlying the right inguinal region and right pelvis, most likely a femoral venous catheter. BONES: Normal. OTHER FINDINGS: None. IMPRESSION: Probable right femoral venous catheter. Otherwise unremarkable.
[2018-04-04 15:51] LABS: ALB/GLOB RATIO 0.7 (1.1-1.8); ALBUMIN 1.3 g/dL (3.0-4.8); CALCIUM 7.5 mg/dL (8.4-10.5); TROPONIN I 0.14 ng/mL
[2018-04-04] MEDS ORDERED: Albumin Human 25% (12.5 gm/50 ml) IV ONE (16:04)
--- NOTE | 2018-04-04 16:12 | CP.PCM.CON ---
History of Present Illness - History of Present Illness History of Present Illness: Nephrology Consultation Note: Assessment: critical Acute Kidney Injury (N17.9) likely due to ATN, hypotension. Hypothermia Hypernatremia, dehydration ? increase loss of fluid from skin Severe malnutrition with hypoalbuminemia HCAP skin rash ? etiology sysCHF LVEF 45% small bladder stones AMS, respi failure leukaemia, HTN hx Plan No acute need for renal replacement therapy at this time. Maintain hemodynamics stable. Avoid hypotension. Patient not on ACEI/ARB due to recent DIA. hold BP meds. Monitor Input/Output, daily weights and renal function with basic metabolic panel once hemodynamically stable after NS bolus, start D5W @ 100 ml/hr albumin 25 gm IV dermatology eval. Check urine analysis, urine Na, cr and osmol bladder scan r/o retention and straight cath prn Dose meds/antibiotics for reduced GFR. Avoid fleets enema/magnesium based laxatives. Avoid nephrotoxins/NSAIDs/ iodinated contrast (unless needed emergently) Glycemic control Further work up/management as per primary team Thanks for allowing me to participate in care of your patient. Will follow patient with you. Please call if any Qs. had d/w team Dr Kana Segovia Office: [phone] Chief Complaint; Unable to obtain source of info EMR Reason for consult: Acute Kidney Injury Hypernatremia HPI: Pt is a 73 M with hx of leukemia s/p chemo, hypertension (years) presented with complaints of SOB and cough initially and being treated for HCAP. he also had diffuse skin desqamation and hypothermia, hypernatremia, and DIA. transferred to ICU for respi failure and AMS Denies OTC/herbal meds or NSAIDs No recent iodinated contrast exposure. Noted obvious episodes of low BP (90s). ROS: pt unable to provide Physical Examination: General Appearance: ill appearing on NRB. Vitals reviewed and noted as below Head; Atraumatic, normocephalic ENT: unable EYES: Pupils are equal, round and reactive to light accommodation. Eye muscles and extraocular movement intact. Sclera is anicteric. Neck; supple no lymphadenopathy, no thyromegaly or bruit Lungs: Increased respiratory rate/effort. Breath sounds bilateral reduced at bases Heart: Normal rate. s1s2 normal. No rub or gallop. Extremities: 1+ edema. No varicose veins Neurological: Patient is AMS and non communicating Skin: Warm and dry. diffuse skin desqamation Abdomen: Abdomen is soft. Bowel sounds +. There is no abdominal tenderness, no guarding/rigidity no organomegaly Psych: unable MSK: no joint tenderness or swelling. Digits and nails normal, no deformity : kidney or bladder not palpable Labs/imaging reviewed. Past medical history, past surgical history, family history, social history, allergy reviewed and noted as below Family hx: no hx of CKD. Rest non-contributory SUN and ANCA neg Past Patient History - Infectious Disease Hx of Infectious Diseases: None - Past Social History Smoking Status: Never Smoked - CARDIAC Hx Hypertension: Yes - PULMONARY Hx Pneumonia: Yes - NEUROLOGICAL Hx Neurological Disorder: No - HEENT Hx HEENT Problems: No - RENAL Hx Chronic Kidney Disease: No - ENDOCRINE/METABOLIC Hx Endocrine Disorders: No - HEMATOLOGICAL/ONCOLOGICAL Hx Blood Disorders: Yes (PROLYMPHOCYTIC LEUKEMIA) Hx Cancer: Yes - INTEGUMENTARY Hx Dermatological Problems: Yes Hx Eczema: Yes - MUSCULOSKELETAL/RHEUMATOLOGICAL Hx Musculoskeletal Disorders: Yes Hx Falls: Yes Hx Unsteady Gait: Yes (WALKER) - GASTROINTESTINAL Hx Gastrointestinal Disorders: No - GENITOURINARY/GYNECOLOGICAL Hx Genitourinary Disorders: No - PSYCHIATRIC Hx Psychophysiologic Disorder: No - SURGICAL HISTORY Hx Surgeries: Yes Other/Comment: hernia sx - ANESTHESIA Hx Anesthesia: Yes Hx Anesthesia Reactions: No Hx Malignant Hyperthermia: No Meds Allergies/Adverse Reactions: Allergies Allergy/AdvReac Type Severity Reaction Status Date / Time No Known Allergies Allergy Verified 03/24/18 11:42 - Medications Medications: Current Medications Albumin Human (Albumin Human 25% (12.5 Gm/50 Ml)) 25 gm IV ONCE ONE Stop: 04/04/18 16:05 Aspirin (Aspirin Chewable) 81 mg PO DAILY [facility] Last Admin: 04/03/18 11:17 Dose: Not Given Carbamide Peroxide (Debrox Ear Drops) 0 ml AU BID [facility] Last Admin: 04/03/18 17:55 Dose: 5 drop Carvedilol (Coreg) 3.125 mg PO BID [facility] Last Admin: 04/03/18 18:24 Dose: 3.125 mg Clotrimazole (Lotrimin 1%) 0 gm TOP BID PRN PRN Reason: Rash Last Admin: 04/02/18 09:40 Dose: 1 applic Amino Acids (Clinimix 4.25/5 % (1000 Ml)) 1,000 mls @ 42 mls/hr IV .[id number] RIYA Fat Emulsion-Soy/MCT/[place]/Fish Oil (Smoflipid 20%) 250 mls @ 21 mls/hr IV MWF@1800 RIYA Pantoprazole Sodium (Protonix 40mg Ivpb) 40 mg in 100 mls @ 20 mls/hr IVPB .Q5H RIYA Sodium Chloride (Sodium Chloride 0.9%) 1,000 mls @ 200 mls/hr IV .Q5H RIYA Dextrose (Dextrose 5% In Water 1000 Ml) 1,000 mls @ 100 mls/hr IV .Q10H RIYA NOREPINEPHRINE BIT/0.9 % NACL (Levophed 4 Mg/ 250 Ml Ns Premixed) 4 mg in 250 mls @ 15 mls/hr IV .[id number] PRN; Protocol PRN Reason: TITRATE PER MD ORDER Phenylephrine HCl 40 mg/ (Sodium Chloride) 254 mls @ 38.1 mls/hr IV .Q6H40M PRN; Protocol PRN Reason: TITRATE PER MD ORDER Vasopressin 20 units/ Sodium (Chloride) 101 mls @ 9.09 mls/hr IV .Q11H7M [facility]; Protocol Lactic Acid (Lac-Hydrin 12% Cream (140 G)) 0 ea TOP TID PRN PRN Reason: Dry skin Last Admin: 04/03/18 10:01 Dose: 1 applic Losartan Potassium (Cozaar) 12.5 mg PO DAILY [facility] Last Admin: 04/03/18 11:18 Dose: Not Given Methylprednisolone (Solu-Medrol) 40 mg IVP Q8 [facility] Multi-Ingredient Cream (Hydrocerin Cream) 0 ea TOP 1000,2200 [facility] Last Admin: 04/03/18 11:00 Dose: Not Given Silver Sulfadiazine (Silvadene 1% 25 Gm) 0 gm TP BID PRN PRN Reason: Dry skin Results - Vital Signs Recent Vital Signs: Last Vital Signs Temp 98.4 F 04/04/18 06:00 Pulse 87 04/04/18 06:00 Resp 18 04/04/18 14:22 BP 103/50 L 04/04/18 06:00 Pulse Ox 100 04/04/18 14:22 - Labs Result Diagrams: 04/04/18 11:30 04/04/18 15:00 Labs: Laboratory Results - last 24 hr 03/31/18 04/03/18 04/03/18 13:19 16:10 21:22 WBC RBC Hgb Hct MCV MCH MCHC RDW Plt Count MPV Neut % (Auto) Lymph % (Auto) [place] % (Auto) Eos % (Auto) Baso % (Auto) Lymph # (Auto) [place] # (Auto) Eos # (Auto) Baso # (Auto) Absolute Neuts (auto) Neutrophils % (Manual) Band Neutrophils % Lymphocytes % (Manual) Monocytes % (Manual) Eosinophils % (Manual) Platelet Evaluation Large Platelets Hypochromasia Poikilocytosis (manual Anisocytosis (manual) Microcytosis (manual) Target Cells Acanthocytes (Spur) Schistocytes pCO2 pO2 HCO3 ABG pH ABG Total CO2 ABG O2 Saturation ABG Base Excess ABG Potassium Glucose Lactate FiO2 Crit Value Called To Crit Value Called By Blood Gas Notified Time Sodium Potassium Chloride Carbon Dioxide Anion Gap BUN Creatinine Est GFR ( Amer) Est GFR (Non-Af Amer) POC Glucose (mg/dL) 100 113 H Random Glucose Calcium Phosphorus Magnesium Total Bilirubin AST ALT Alkaline Phosphatase Troponin I Total Protein Albumin Globulin Albumin/Globulin Ratio Arterial Blood Potassium Stool Occult Blood Proteinase 3 (PR3) <1.0 Myeloperoxidase Ab <1.0 Blood Type Blood Type Confirm Antibody Screen Crossmatch BBK History Checked 04/04/18 04/04/18 04/04/18 07:30 07:30 11:30 WBC 12.5 H 12.7 H RBC 3.13 L 3.04 L Hgb 8.3 L 8.1 L Hct 26.8 L 26.2 L MCV 85.6 D 86.2 MCH 26.5 26.6 MCHC 31.0 30.9 L RDW 21.0 H 20.9 H Plt Count 203 187 MPV 12.4 H Neut % (Auto) 74.5 H Lymph % (Auto) 18.9 L [place] % (Auto) 5.2 Eos % (Auto) 1.2 L Baso % (Auto) 0.2 Lymph # (Auto) 2.4 [place] # (Auto) 0.7 H Eos # (Auto) 0.2 Baso # (Auto) 0.02 Absolute Neuts (auto) 9.44 H Neutrophils % (Manual) 79 H Band Neutrophils % 5 H Lymphocytes % (Manual) 9 L Monocytes % (Manual) 5 Eosinophils % (Manual) 2 Platelet Evaluation Normal Large Platelets Present Hypochromasia 2+ Poikilocytosis (manual 1+ Anisocytosis (manual) 1+ Microcytosis (manual) Slight Target Cells 2+ Acanthocytes (Spur) Slight Schistocytes Slight pCO2 pO2 HCO3 ABG pH ABG Total CO2 ABG O2 Saturation ABG Base Excess ABG Potassium Glucose Lactate FiO2 Crit Value Called To Crit Value Called By Blood Gas Notified Time Sodium 167 H* Potassium 4.8 Chloride 141 H Carbon Dioxide 25 Anion Gap 6 L BUN 56 H Creatinine 1.7 H Est GFR ( Amer) 48 Est GFR (Non-Af Amer) 40 POC Glucose (mg/dL) Random Glucose 68 L Calcium 9.0 Phosphorus Magnesium Total Bilirubin 0.7 AST 19 ALT 22 Alkaline Phosphatase 153 H D Troponin I Total Protein 4.4 L Albumin 1.7 L Globulin 2.6 Albumin/Globulin Ratio 0.6 L Arterial Blood Potassium Stool Occult Blood Proteinase 3 (PR3) Myeloperoxidase Ab Blood Type Blood Type Confirm Antibody Screen Crossmatch BBK History Checked 04/04/18 04/04/18 04/04/18 11:30 11:31 11:45 WBC RBC Hgb Hct MCV MCH MCHC RDW Plt Count MPV Neut % (Auto) Lymph % (Auto) [place] % (Auto) Eos % (Auto) Baso % (Auto) Lymph # (Auto) [place] # (Auto) Eos # (Auto) Baso # (Auto) Absolute Neuts (auto) Neutrophils % (Manual) Band Neutrophils % Lymphocytes % (Manual) Monocytes % (Manual) Eosinophils % (Manual) Platelet Evaluation Large Platelets Hypochromasia Poikilocytosis (manual Anisocytosis (manual) Microcytosis (manual) Target Cells Acanthocytes (Spur) Schistocytes pCO2 25 L pO2 277.0 H HCO3 18.2 L ABG pH 7.47 H ABG Total CO2 19.0 L ABG O2 Saturation 100.5 H ABG Base Excess -3.8 L ABG Potassium 3.4 L Glucose 60 L Lactate 3.2 H FiO2 100.0 Crit Value Called To Crit Value Called By Ga Blood Gas Notified Time 1137 Sodium 168 H* 173.0 H* Potassium 4.9 Chloride 140 H 145.0 H Carbon Dioxide 25 Anion Gap 6 L BUN 57 H Creatinine 1.9 H Est GFR ( Amer) 42 Est GFR (Non-Af Amer) 35 POC Glucose (mg/dL) Random Glucose 69 L Calcium 9.1 Phosphorus 3.4 Magnesium 2.1 Total Bilirubin 0.3 AST 19 ALT 19 Alkaline Phosphatase 149 H Troponin I 0.15 H* D Total Protein 4.2 L Albumin 1.7 L Globulin 2.4 Albumin/Globulin Ratio 0.7 L Arterial Blood Potassium 3.4 L Stool Occult Blood Positive H Proteinase 3 (PR3) Myeloperoxidase Ab Blood Type Blood Type Confirm Antibody Screen Crossmatch BBK History Checked 04/04/18 04/04/18 04/04/18 13:59 14:45 15:00 WBC RBC Hgb Hct MCV MCH MCHC RDW Plt Count MPV Neut % (Auto) Lymph % (Auto) [place] % (Auto) Eos % (Auto) Baso % (Auto) Lymph # (Auto) [place] # (Auto) Eos # (Auto) Baso # (Auto) Absolute Neuts (auto) Neutrophils % (Manual) Band Neutrophils % Lymphocytes % (Manual) Monocytes % (Manual) Eosinophils % (Manual) Platelet Evaluation Large Platelets Hypochromasia Poikilocytosis (manual Anisocytosis (manual) Microcytosis (manual) Target Cells Acanthocytes (Spur) Schistocytes pCO2 pO2 HCO3 ABG pH ABG Total CO2 ABG O2 Saturation ABG Base Excess ABG Potassium Glucose Lactate FiO2 Crit Value Called To Crit Value Called By Blood Gas Notified Time Sodium 166 H* Potassium 4.3 Chloride 143 H Carbon Dioxide 23 Anion Gap 6 L BUN 52 H Creatinine 1.7 H Est GFR ( Amer) 48 Est GFR (Non-Af Amer) 40 POC Glucose (mg/dL) Random Glucose 88 Calcium 7.5 L Phosphorus 3.3 Magnesium 1.9 Total Bilirubin 0.2 AST 19 ALT 20 Alkaline Phosphatase 119 Troponin I 0.14 H* Total Protein 3.1 L Albumin 1.3 L Globulin 1.8 Albumin/Globulin Ratio 0.7 L Arterial Blood Potassium Stool Occult Blood Proteinase 3 (PR3) Myeloperoxidase Ab Blood Type O POSITIVE Blood Type Confirm O POSITIVE Antibody Screen Negative Crossmatch See Detail BBK History Checked No verified bt
[2018-04-04 16:15] LABS: BASO # 0.02 K/mm3 (0.0-2.0); BASO % 0.2 % (0.0-3.0); EOS # 0.1 (0.0-0.7); EOS % 1.1 % (1.5-5.0); HEMOGLOBIN 7.9 g/dL (14.0-18.0); LYMPH # 2.1 (1.2-3.4); LYMPH % 19.2 % (22.0-35.0); MEAN CELL VOLUME 85.8 fl (80.0-105.0); MEAN CORPUSCULAR HEMOGLOBIN 26.7 pg (25.0-35.0); MEAN CORPUSCULAR HGB CONC 31.1 g/dl (31.0-37.0); MONO # 0.6 (0.1-0.6); MONO % 5.5 % (1.0-6.0); PLATELET COUNT 121 10^3/uL (120.0-450.0); RBC 2.96 10^6/uL (3.5-6.1); WHITE BLOOD COUNT 11.1 10^3/uL (4.5-11.0)
[2018-04-04] MEDS ORDERED: Fentanyl 1000mcg/100ml NS 1,000 MCG/100 ML BAG IV PRN (16:15)
[2018-04-04 16:16] LABS: VENOUS BLOOD GAS BASE EXCESS -4.8 mmol/L (0.0-2.0); VENOUS BLOOD GAS PO2 147 mm/Hg (30-55)
[2018-04-04 16:47] LABS: ARTERIAL BLOOD GAS HCO3 22.2 mmol/L (21-28); ARTERIAL BLOOD GAS HEMOGLOBIN 8.6 g/dL (11.7-17.4); ARTERIAL BLOOD GAS O2 CAPACITY 13.4 mL/dl (16-24); ARTERIAL BLOOD GAS O2 CONTENT 13.5 ML/dl (15-23); ARTERIAL BLOOD GAS O2 SAT 100.4 % (95-98); ARTERIAL BLOOD GAS PCO2 35 mm/Hg (35-45); ARTERIAL BLOOD GAS PH 7.41 (7.35-7.45); ARTERIAL BLOOD GAS TCO2 23.3 mmol.L (22-28)
[2018-04-04 17:10] LABS: INR 1.45; PARTIAL THROMBOPLASTIN TIME 39.1 Seconds (26.9-38.3); PROTHROMBIN TIME 16.1 SECONDS (9.4-12.5)
--- NOTE | 2018-04-04 17:44 | US ---
Date of service: 04/04/2018 PROCEDURE: Ultrasound urinary bladder HISTORY: eval for urine retention COMPARISON: None TECHNIQUE: Standard protocol for this study/examination. FINDINGS: Nondiagnostic assessment. A Bautista catheter is in place. The catheter was not clamped prior to the study. IMPRESSION: Nondiagnostic study of the urinary bladder.
--- NOTE | 2018-04-04 17:57 | PN ---
DATE: 04/04/2018 CARDIOLOGY FOLLOWUP SUBJECTIVE: The patient had a rapid response because of hypotension today. He was found to have blood coming from his rectum. PHYSICAL EXAMINATION: GENERAL: Currently the patient is in the ICU. VITAL SIGNS: Blood pressure approximately 80. NECK: Negative JVD. LUNGS: Decreased breath sounds. HEART: S1, S2. EXTREMITIES: Without change. LABORATORY: BUN and creatinine are increased. The troponin is mildly increased. IMPRESSION: 1. Hypotension. 2. Hypovolemia, superimposed on his baseline renal insufficiency. 3. Nbc-TH-cmblyixpg myocardial infarction. 4. Bilateral pneumonia. 5. Hypothermia. Given these findings, the patient needs to be hydrated both with IV fluids as well as packed red blood cells. After the patient is stabilized, we will consider whether the patient needs cardiac catheterization. Christoph Bustamante MD
[2018-04-04] MEDS: MethylPREDNISolone 40 mg Vial IVP SCH ×2 (19:17→22:00)
--- NOTE | 2018-04-04 19:17 | CP.PCM.CON ---
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 (s/p recolon resection with anastamosis per CSPY report) who was admitted on 03/24/18 for SOB found to be in new decom pensated CHF. In the AM of 04/04/18, a rapid response was called for altered mental status and increased work of breathing. During the rapid response, he was found to have dark tarry stools for which GI was called for further evaluation. During my encounter, pt was wearing non-rebreather and not conversive. Visualized melena seen in bed. Unable to obtain ROS due to clinical condition No prior EGD on file; CSPY 10/25/16 with end to side colo-colonic anastamosis, diverticulosis MHx: See above SurgHx: 2 colon surgeries, Hernia repairs Meds: Reviewed in chart FamHx: Unknown SocHx: Negative x 3 All: NKDA Past Patient History - Infectious Disease Hx of Infectious Diseases: None - Past Social History Smoking Status: Never Smoked - CARDIAC Hx Hypertension: Yes - PULMONARY Hx Pneumonia: Yes - NEUROLOGICAL Hx Neurological Disorder: No - HEENT Hx HEENT Problems: No - RENAL Hx Chronic Kidney Disease: No - ENDOCRINE/METABOLIC Hx Endocrine Disorders: No - HEMATOLOGICAL/ONCOLOGICAL Hx Blood Disorders: Yes (PROLYMPHOCYTIC LEUKEMIA) Hx Cancer: Yes - INTEGUMENTARY Hx Dermatological Problems: Yes Hx Eczema: Yes - MUSCULOSKELETAL/RHEUMATOLOGICAL Hx Musculoskeletal Disorders: Yes Hx Falls: Yes Hx Unsteady Gait: Yes (WALKER) - GASTROINTESTINAL Hx Gastrointestinal Disorders: No - GENITOURINARY/GYNECOLOGICAL Hx Genitourinary Disorders: No - PSYCHIATRIC Hx Psychophysiologic Disorder: No - SURGICAL HISTORY Hx Surgeries: Yes Other/Comment: hernia sx - ANESTHESIA Hx Anesthesia: Yes Hx Anesthesia Reactions: No Hx Malignant Hyperthermia: No Meds Allergies/Adverse Reactions: Allergies Allergy/AdvReac Type Severity Reaction Status Date / Time No Known Allergies Allergy Verified 03/24/18 11:42 - Medications Medications: Current Medications Aspirin (Aspirin Chewable) 81 mg PO DAILY [facility] Last Admin: 04/03/18 11:17 Dose: Not Given Carbamide Peroxide (Debrox Ear Drops) 0 ml AU BID [facility] Last Admin: 04/03/18 17:55 Dose: 5 drop Carvedilol (Coreg) 3.125 mg PO BID [facility] Last Admin: 04/03/18 18:24 Dose: 3.125 mg Clotrimazole (Lotrimin 1%) 0 gm TOP BID PRN PRN Reason: Rash Last Admin: 04/02/18 09:40 Dose: 1 applic Amino Acids (Clinimix 4.25/5 % (1000 Ml)) 1,000 mls @ 42 mls/hr IV .[id number] [facility] Fat Emulsion-Soy/MCT/[place]/Fish Oil (Smoflipid 20%) 250 mls @ 21 mls/hr IV MWF@1800 [facility] Pantoprazole Sodium (Protonix 40mg Ivpb) 40 mg in 100 mls @ 20 mls/hr IVPB .Q5H [facility] Sodium Chloride (Sodium Chloride 0.9%) 1,000 mls @ 200 mls/hr IV .Q5H [facility] Dextrose (Dextrose 5% In Water 1000 Ml) 1,000 mls @ 100 mls/hr IV .Q10H [facility] NOREPINEPHRINE BIT/0.9 % NACL (Levophed 4 Mg/ 250 Ml Ns Premixed) 4 mg in 250 mls @ 15 mls/hr IV .[id number] PRN; Protocol PRN Reason: TITRATE PER MD ORDER Phenylephrine HCl 40 mg/ (Sodium Chloride) 254 mls @ 38.1 mls/hr IV .Q6H40M PRN; Protocol PRN Reason: TITRATE PER MD ORDER Vasopressin 20 units/ Sodium (Chloride) 101 mls @ 9.09 mls/hr IV .Q11H7M [facility]; Protocol Fentanyl Citrate (Fentanyl Citrate/Sodium Chloride 1 Mg/100 Ml) 1,000 mcg in 100 mls @ 2 mls/hr IV .Q24H PRN; Protocol PRN Reason: TITRATE PER MD ORDER Norepinephrine Bitartrate 8 mg (/ Sodium Chloride) 500 mls @ 112.5 mls/hr IV .Q4H27M [facility]; Protocol Lactic Acid (Lac-Hydrin 12% Cream (140 G)) 0 ea TOP TID PRN PRN Reason: Dry skin Last Admin: 04/03/18 10:01 Dose: 1 applic Losartan Potassium (Cozaar) 12.5 mg PO DAILY [facility] Last Admin: 04/03/18 11:18 Dose: Not Given Methylprednisolone (Solu-Medrol) 40 mg IVP Q8 [facility] Metoclopramide HCl (Reglan) 10 mg IVP ONCE ONE Stop: 04/04/18 19:31 Multi-Ingredient Cream (Hydrocerin Cream) 0 ea TOP 1000,2200 [facility] Last Admin: 04/03/18 11:00 Dose: Not Given Silver Sulfadiazine (Silvadene 1% 25 Gm) 0 gm TP BID PRN PRN Reason: Dry skin Physical Exam - Constitutional Appears: In Acute Distress, Chronically Ill - ENT Exam ENT Exam: Mucous Membranes Dry. absent: Mucous Membranes Moist - Respiratory Exam Respiratory Exam: Accessory Muscle Use, Respiratory Distress. absent: NORMAL BREATHING PATTERN - Cardiovascular Exam Cardiovascular Exam: Tachycardia, REGULAR RHYTHM - GI/Abdominal Exam GI & Abdominal Exam: Guarding, Normal Bowel Sounds, Tenderness (vol guarding upon palpation). absent: Bruit, Diminished Bowel Sounds, Distended, Firm, Hernia, Organomegaly, Pulsatile Mass, Rebound, Rigid - Rectal Exam Rectal Exam: Black Stool - Neurological Exam Additional comments: agitated, moving all extremities - Psychiatric Exam Psychiatric exam: Agitated - Skin Additional comments: diffuse, dry scaly rash Results - Vital Signs Recent Vital Signs: Last Vital Signs Temp 98.4 F 04/04/18 06:00 Pulse 87 04/04/18 06:00 Resp 18 04/04/18 14:22 BP 103/50 L 04/04/18 06:00 Pulse Ox 100 04/04/18 14:22 - Labs Result Diagrams: 04/04/18 15:30 04/04/18 15:00 Labs: Laboratory Results - last 24 hr 04/03/18 04/03/18 04/04/18 16:10 21:22 07:30 WBC RBC Hgb Hct MCV MCH MCHC RDW Plt Count MPV Neut % (Auto) Lymph % (Auto) [place] % (Auto) Eos % (Auto) Baso % (Auto) Lymph # (Auto) [place] # (Auto) Eos # (Auto) Baso # (Auto) Absolute Neuts (auto) Neutrophils % (Manual) Band Neutrophils % Lymphocytes % (Manual) Monocytes % (Manual) Eosinophils % (Manual) Platelet Evaluation Large Platelets Hypochromasia Poikilocytosis (manual Anisocytosis (manual) Microcytosis (manual) Target Cells Acanthocytes (Spur) Schistocytes PT INR APTT pCO2 pO2 HCO3 ABG pH ABG Total CO2 ABG O2 Saturation ABG O2 Content ABG Base Excess ABG Hemoglobin ABG Carboxyhemoglobin POC ABG HHb (Measured) ABG Methemoglobin ABG O2 Capacity ABG Potassium VBG pH VBG pCO2 VBG HCO3 VBG Total CO2 VBG O2 Sat (Calc) VBG Base Excess VBG Potassium Hgb O2 Saturation Glucose Lactate FiO2 Crit Value Called To Crit Value Called By Blood Gas Notified Time Sodium 167 H* Potassium 4.8 Chloride 141 H Carbon Dioxide 25 Anion Gap 6 L BUN 56 H Creatinine 1.7 H Est GFR ( Amer) 48 Est GFR (Non-Af Amer) 40 POC Glucose (mg/dL) 100 113 H Random Glucose 68 L Calcium 9.0 Phosphorus Magnesium Total Bilirubin 0.7 AST 19 ALT 22 Alkaline Phosphatase 153 H D Troponin I Total Protein 4.4 L Albumin 1.7 L Globulin 2.6 Albumin/Globulin Ratio 0.6 L Arterial Blood Potassium Venous Blood Potassium Stool Occult Blood Blood Type Blood Type Confirm Antibody Screen Crossmatch BBK History Checked 04/04/18 04/04/18 04/04/18 07:30 10:57 11:30 WBC 12.5 H 12.7 H RBC 3.13 L 3.04 L Hgb 8.3 L 8.1 L Hct 26.8 L 26.2 L MCV 85.6 D 86.2 MCH 26.5 26.6 MCHC 31.0 30.9 L RDW 21.0 H 20.9 H Plt Count 203 187 MPV 12.4 H Neut % (Auto) 74.5 H Lymph % (Auto) 18.9 L [place] % (Auto) 5.2 Eos % (Auto) 1.2 L Baso % (Auto) 0.2 Lymph # (Auto) 2.4 [place] # (Auto) 0.7 H Eos # (Auto) 0.2 Baso # (Auto) 0.02 Absolute Neuts (auto) 9.44 H Neutrophils % (Manual) 79 H Band Neutrophils % 5 H Lymphocytes % (Manual) 9 L Monocytes % (Manual) 5 Eosinophils % (Manual) 2 Platelet Evaluation Normal Large Platelets Present Hypochromasia 2+ Poikilocytosis (manual 1+ Anisocytosis (manual) 1+ Microcytosis (manual) Slight Target Cells 2+ Acanthocytes (Spur) Slight Schistocytes Slight PT INR APTT pCO2 pO2 HCO3 ABG pH ABG Total CO2 ABG O2 Saturation ABG O2 Content ABG Base Excess ABG Hemoglobin ABG Carboxyhemoglobin POC ABG HHb (Measured) ABG Methemoglobin ABG O2 Capacity ABG Potassium VBG pH VBG pCO2 VBG HCO3 VBG Total CO2 VBG O2 Sat (Calc) VBG Base Excess VBG Potassium Hgb O2 Saturation Glucose Lactate FiO2 Crit Value Called To Crit Value Called By Blood Gas Notified Time Sodium Potassium Chloride Carbon Dioxide Anion Gap BUN Creatinine Est GFR ( Amer) Est GFR (Non-Af Amer) POC Glucose (mg/dL) 74 Random Glucose Calcium Phosphorus Magnesium Total Bilirubin AST ALT Alkaline Phosphatase Troponin I Total Protein Albumin Globulin Albumin/Globulin Ratio Arterial Blood Potassium Venous Blood Potassium Stool Occult Blood Blood Type Blood Type Confirm Antibody Screen Crossmatch BBK History Checked 04/04/18 04/04/18 04/04/18 11:30 11:31 11:45 WBC RBC Hgb Hct MCV MCH MCHC RDW Plt Count MPV Neut % (Auto) Lymph % (Auto) [place] % (Auto) Eos % (Auto) Baso % (Auto) Lymph # (Auto) [place] # (Auto) Eos # (Auto) Baso # (Auto) Absolute Neuts (auto) Neutrophils % (Manual) Band Neutrophils % Lymphocytes % (Manual) Monocytes % (Manual) Eosinophils % (Manual) Platelet Evaluation Large Platelets Hypochromasia Poikilocytosis (manual Anisocytosis (manual) Microcytosis (manual) Target Cells Acanthocytes (Spur) Schistocytes PT INR APTT pCO2 25 L pO2 277.0 H HCO3 18.2 L ABG pH 7.47 H ABG Total CO2 19.0 L ABG O2 Saturation 100.5 H ABG O2 Content ABG Base Excess -3.8 L ABG Hemoglobin ABG Carboxyhemoglobin POC ABG HHb (Measured) ABG Methemoglobin ABG O2 Capacity ABG Potassium 3.4 L VBG pH VBG pCO2 VBG HCO3 VBG Total CO2 VBG O2 Sat (Calc) VBG Base Excess VBG Potassium Hgb O2 Saturation Glucose 60 L Lactate 3.2 H FiO2 100.0 Crit Value Called To Md Crit Value Called By Ga Blood Gas Notified Time 1137 Sodium 168 H* 173.0 H* Potassium 4.9 Chloride 140 H 145.0 H Carbon Dioxide 25 Anion Gap 6 L BUN 57 H Creatinine 1.9 H Est GFR ( Amer) 42 Est GFR (Non-Af Amer) 35 POC Glucose (mg/dL) Random Glucose 69 L Calcium 9.1 Phosphorus 3.4 Magnesium 2.1 Total Bilirubin 0.3 AST 19 ALT 19 Alkaline Phosphatase 149 H Troponin I 0.15 H* D Total Protein 4.2 L Albumin 1.7 L Globulin 2.4 Albumin/Globulin Ratio 0.7 L Arterial Blood Potassium 3.4 L Venous Blood Potassium Stool Occult Blood Positive H Blood Type Blood Type Confirm Antibody Screen Crossmatch BBK History Checked 04/04/18 04/04/18 04/04/18 13:59 14:45 15:00 WBC RBC Hgb Hct MCV MCH MCHC RDW Plt Count MPV Neut % (Auto) Lymph % (Auto) [place] % (Auto) Eos % (Auto) Baso % (Auto) Lymph # (Auto) [place] # (Auto) Eos # (Auto) Baso # (Auto) Absolute Neuts (auto) Neutrophils % (Manual) Band Neutrophils % Lymphocytes % (Manual) Monocytes % (Manual) Eosinophils % (Manual) Platelet Evaluation Large Platelets Hypochromasia Poikilocytosis (manual Anisocytosis (manual) Microcytosis (manual) Target Cells Acanthocytes (Spur) Schistocytes PT INR APTT pCO2 pO2 HCO3 ABG pH ABG Total CO2 ABG O2 Saturation ABG O2 Content ABG Base Excess ABG Hemoglobin ABG Carboxyhemoglobin POC ABG HHb (Measured) ABG Methemoglobin ABG O2 Capacity ABG Potassium VBG pH VBG pCO2 VBG HCO3 VBG Total CO2 VBG O2 Sat (Calc) VBG Base Excess VBG Potassium Hgb O2 Saturation Glucose Lactate FiO2 Crit Value Called To Crit Value Called By Blood Gas Notified Time Sodium 166 H* Potassium 4.3 Chloride 143 H Carbon Dioxide 23 Anion Gap 6 L BUN 52 H Creatinine 1.7 H Est GFR ( Amer) 48 Est GFR (Non-Af Amer) 40 POC Glucose (mg/dL) Random Glucose 88 Calcium 7.5 L Phosphorus 3.3 Magnesium 1.9 Total Bilirubin 0.2 AST 19 ALT 20 Alkaline Phosphatase 119 Troponin I 0.14 H* Total Protein 3.1 L Albumin 1.3 L Globulin 1.8 Albumin/Globulin Ratio 0.7 L Arterial Blood Potassium Venous Blood Potassium Stool Occult Blood Blood Type O POSITIVE Blood Type Confirm O POSITIVE Antibody Screen Negative Crossmatch See Detail BBK History Checked No verified bt 04/04/18 04/04/18 04/04/18 15:30 15:30 16:00 WBC 11.1 H RBC 2.96 L Hgb 7.9 L Hct 25.4 L MCV 85.8 MCH 26.7 MCHC 31.1 RDW 20.0 H Plt Count 121 MPV Neut % (Auto) 74.0 H Lymph % (Auto) 19.2 L [place] % (Auto) 5.5 Eos % (Auto) 1.1 L Baso % (Auto) 0.2 Lymph # (Auto) 2.1 [place] # (Auto) 0.6 Eos # (Auto) 0.1 Baso # (Auto) 0.02 Absolute Neuts (auto) 8.21 H Neutrophils % (Manual) Band Neutrophils % Lymphocytes % (Manual) Monocytes % (Manual) Eosinophils % (Manual) Platelet Evaluation Large Platelets Hypochromasia Poikilocytosis (manual Anisocytosis (manual) Microcytosis (manual) Target Cells Acanthocytes (Spur) Schistocytes PT 16.1 H INR 1.45 APTT 39.1 H pCO2 pO2 147 H HCO3 ABG pH ABG Total CO2 ABG O2 Saturation ABG O2 Content ABG Base Excess ABG Hemoglobin ABG Carboxyhemoglobin POC ABG HHb (Measured) ABG Methemoglobin ABG O2 Capacity ABG Potassium VBG pH 7.30 L VBG pCO2 44.0 VBG HCO3 21.6 VBG Total CO2 23.0 VBG O2 Sat (Calc) 99.6 H VBG Base Excess -4.8 L VBG Potassium 4.0 Hgb O2 Saturation Glucose 109 Lactate 3.2 H FiO2 21.0 Crit Value Called To Petrona hernández Crit Value Called By [facility] Blood Gas Notified Time 1614 Sodium 173.0 H* Potassium Chloride 143.0 H Carbon Dioxide Anion Gap BUN Creatinine Est GFR ( Amer) Est GFR (Non-Af Amer) POC Glucose (mg/dL) Random Glucose Calcium Phosphorus Magnesium Total Bilirubin AST ALT Alkaline Phosphatase Troponin I Total Protein Albumin Globulin Albumin/Globulin Ratio Arterial Blood Potassium Venous Blood Potassium 4.0 Stool Occult Blood Blood Type Blood Type Confirm Antibody Screen Crossmatch BBK History Checked 04/04/18 16:40 WBC RBC Hgb Hct MCV MCH MCHC RDW Plt Count MPV Neut % (Auto) Lymph % (Auto) [place] % (Auto) Eos % (Auto) Baso % (Auto) Lymph # (Auto) [place] # (Auto) Eos # (Auto) Baso # (Auto) Absolute Neuts (auto) Neutrophils % (Manual) Band Neutrophils % Lymphocytes % (Manual) Monocytes % (Manual) Eosinophils % (Manual) Platelet Evaluation Large Platelets Hypochromasia Poikilocytosis (manual Anisocytosis (manual) Microcytosis (manual) Target Cells Acanthocytes (Spur) Schistocytes PT INR APTT pCO2 35 pO2 571.0 H HCO3 22.2 ABG pH 7.41 ABG Total CO2 23.3 ABG O2 Saturation 100.4 H ABG O2 Content 13.5 L ABG Base Excess -2.1 L ABG Hemoglobin 8.6 L ABG Carboxyhemoglobin 1.7 H POC ABG HHb (Measured) -0.4 L ABG Methemoglobin 0.9 ABG O2 Capacity 13.4 L ABG Potassium VBG pH VBG pCO2 VBG HCO3 VBG Total CO2 VBG O2 Sat (Calc) VBG Base Excess VBG Potassium Hgb O2 Saturation 97.7 Glucose Lactate FiO2 100.0 Crit Value Called To Crit Value Called By Blood Gas Notified Time Sodium Potassium Chloride Carbon Dioxide Anion Gap BUN Creatinine Est GFR ( Amer) Est GFR (Non-Af Amer) POC Glucose (mg/dL) Random Glucose Calcium Phosphorus Magnesium Total Bilirubin AST ALT Alkaline Phosphatase Troponin I Total Protein Albumin Globulin Albumin/Globulin Ratio Arterial Blood Potassium Venous Blood Potassium Stool Occult Blood Blood Type Blood Type Confirm Antibody Screen Crossmatch BBK History Checked Assessment & Plan - Assessment and Plan (Free Text) Assessment: 73 yo BM with PML, DM, CHF found to have dark tarry stools # Melena: Likely due to Upper GI Bleed. Hgb downtrending with increasing BUN. Has been on ASA and steroids to place at risk for GI bleeding. Intubated for altered mental status/increased work of breathing. Increasing pressor requirement. # HyperNatremia, DIA # CHF: EF 40% # Severe Psoriasis Plan: - EGD emergently tonight - Further recs pending EGD findings, see report - Pt intubated on vent - PPI gtt - NPO - Volume resuscitation/Transfusions per ICU - Monitor Hgb - Metoclopramide 10 mg IV at 1930 - Goal INR <2, Plts > 50 Pt seen and examined with Dr. Stoddard; please see attestation for further recs/changes. <Shady Stoddard - Last Filed: 04/04/18 21:38> Meds - Medications Medications: Current Medications Aspirin (Aspirin Chewable) 81 mg PO DAILY [facility] Last Admin: 04/04/18 18:59 Dose: Not Given Carbamide Peroxide (Debrox Ear Drops) 0 ml AU BID [facility] Last Admin: 04/03/18 17:55 Dose: 5 drop Carvedilol (Coreg) 3.125 mg PO BID [facility] Last Admin: 04/04/18 19:00 Dose: Not Given Clotrimazole (Lotrimin 1%) 0 gm TOP BID PRN PRN Reason: Rash Last Admin: 04/02/18 09:40 Dose: 1 applic Amino Acids (Clinimix 4.25/5 % (1000 Ml)) 1,000 mls @ 42 mls/hr IV .[id number] [facility] Fat Emulsion-Soy/MCT/[place]/Fish Oil (Smoflipid 20%) 250 mls @ 21 mls/hr IV MWF@1800 [facility] Pantoprazole Sodium (Protonix 40mg Ivpb) 40 mg in 100 mls @ 20 mls/hr IVPB .Q5H [facility] Last Admin: 04/04/18 19:24 Dose: 20 mls/hr Sodium Chloride (Sodium Chloride 0.9%) 1,000 mls @ 200 mls/hr IV .Q5H [facility] Last Admin: 04/04/18 19:21 Dose: 200 mls/hr Dextrose (Dextrose 5% In Water 1000 Ml) 1,000 mls @ 100 mls/hr IV .Q10H [facility] NOREPINEPHRINE BIT/0.9 % NACL (Levophed 4 Mg/ 250 Ml Ns Premixed) 4 mg in 250 mls @ 15 mls/hr IV .[id number] PRN; Protocol PRN Reason: TITRATE PER MD ORDER Last Admin: 04/04/18 19:05 Dose: 20 mcg/min, 75 mls/hr Phenylephrine HCl 40 mg/ (Sodium Chloride) 254 mls @ 38.1 mls/hr IV .Q6H40M PRN; Protocol PRN Reason: TITRATE PER MD ORDER Last Admin: 04/04/18 19:06 Dose: 100 mcg/min, 38.1 mls/hr Vasopressin 20 units/ Sodium (Chloride) 101 mls @ 9.09 mls/hr IV .Q11H7M [facility]; Protocol Fentanyl Citrate (Fentanyl Citrate/Sodium Chloride 1 Mg/100 Ml) 1,000 mcg in 100 mls @ 2 mls/hr IV .Q24H PRN; Protocol PRN Reason: TITRATE PER MD ORDER Norepinephrine Bitartrate 8 mg (/ Sodium Chloride) 500 mls @ 112.5 mls/hr IV .Q4H27M [facility]; Protocol Last Admin: 04/04/18 20:35 Dose: 30 mcg/min, 112.5 mls/hr Lactic Acid (Lac-Hydrin 12% Cream (140 G)) 0 ea TOP TID PRN PRN Reason: Dry skin Last Admin: 04/03/18 10:01 Dose: 1 applic Losartan Potassium (Cozaar) 12.5 mg PO DAILY [facility] Last Admin: 04/04/18 19:00 Dose: Not Given Methylprednisolone (Solu-Medrol) 40 mg IVP Q8 [facility] Last Admin: 04/04/18 19:17 Dose: 40 mg Multi-Ingredient Cream (Hydrocerin Cream) 0 ea TOP 1000,2200 [facility] Last Admin: 04/03/18 11:00 Dose: Not Given Silver Sulfadiazine (Silvadene 1% 25 Gm) 0 gm TP BID PRN PRN Reason: Dry skin Results - Vital Signs Recent Vital Signs: Last Vital Signs Temp 98.4 F 04/04/18 06:00 Pulse 87 04/04/18 06:00 Resp 18 04/04/18 14:22 BP 103/50 L 04/04/18 06:00 Pulse Ox 100 04/04/18 14:22 - Labs Result Diagrams: 04/04/18 15:30 04/04/18 15:00 Labs: Laboratory Results - last 24 hr 04/04/18 04/04/18 04/04/18 07:30 07:30 10:57 WBC 12.5 H RBC 3.13 L Hgb 8.3 L Hct 26.8 L MCV 85.6 D MCH 26.5 MCHC 31.0 RDW 21.0 H Plt Count 203 MPV Neut % (Auto) Lymph % (Auto) [place] % (Auto) Eos % (Auto) Baso % (Auto) Lymph # (Auto) [place] # (Auto) Eos # (Auto) Baso # (Auto) Absolute Neuts (auto) Neutrophils % (Manual) Band Neutrophils % Lymphocytes % (Manual) Monocytes % (Manual) Eosinophils % (Manual) Platelet Evaluation Large Platelets Hypochromasia Poikilocytosis (manual Anisocytosis (manual) Microcytosis (manual) Target Cells Acanthocytes (Spur) Schistocytes PT INR APTT pCO2 pO2 HCO3 ABG pH ABG Total CO2 ABG O2 Saturation ABG O2 Content ABG Base Excess ABG Hemoglobin ABG Carboxyhemoglobin POC ABG HHb (Measured) ABG Methemoglobin ABG O2 Capacity ABG Potassium VBG pH VBG pCO2 VBG HCO3 VBG Total CO2 VBG O2 Sat (Calc) VBG Base Excess VBG Potassium Hgb O2 Saturation Glucose Lactate FiO2 Crit Value Called To Crit Value Called By Blood Gas Notified Time Sodium 167 H* Potassium 4.8 Chloride 141 H Carbon Dioxide 25 Anion Gap 6 L BUN 56 H Creatinine 1.7 H Est GFR ( Amer) 48 Est GFR (Non-Af Amer) 40 POC Glucose (mg/dL) 74 Random Glucose 68 L Calcium 9.0 Phosphorus Magnesium Total Bilirubin 0.7 AST 19 ALT 22 Alkaline Phosphatase 153 H D Troponin I Total Protein 4.4 L Albumin 1.7 L Globulin 2.6 Albumin/Globulin Ratio 0.6 L Arterial Blood Potassium Venous Blood Potassium Stool Occult Blood Blood Type Blood Type Confirm Antibody Screen Crossmatch BBK History Checked 04/04/18 04/04/18 04/04/18 11:30 11:30 11:31 WBC 12.7 H RBC 3.04 L Hgb 8.1 L Hct 26.2 L MCV 86.2 MCH 26.6 MCHC 30.9 L RDW 20.9 H Plt Count 187 MPV 12.4 H Neut % (Auto) 74.5 H Lymph % (Auto) 18.9 L [place] % (Auto) 5.2 Eos % (Auto) 1.2 L Baso % (Auto) 0.2 Lymph # (Auto) 2.4 [place] # (Auto) 0.7 H Eos # (Auto) 0.2 Baso # (Auto) 0.02 Absolute Neuts (auto) 9.44 H Neutrophils % (Manual) 79 H Band Neutrophils % 5 H Lymphocytes % (Manual) 9 L Monocytes % (Manual) 5 Eosinophils % (Manual) 2 Platelet Evaluation Normal Large Platelets Present Hypochromasia 2+ Poikilocytosis (manual 1+ Anisocytosis (manual) 1+ Microcytosis (manual) Slight Target Cells 2+ Acanthocytes (Spur) Slight Schistocytes Slight PT INR APTT pCO2 25 L pO2 277.0 H HCO3 18.2 L ABG pH 7.47 H ABG Total CO2 19.0 L ABG O2 Saturation 100.5 H ABG O2 Content ABG Base Excess -3.8 L ABG Hemoglobin ABG Carboxyhemoglobin POC ABG HHb (Measured) ABG Methemoglobin ABG O2 Capacity ABG Potassium 3.4 L VBG pH VBG pCO2 VBG HCO3 VBG Total CO2 VBG O2 Sat (Calc) VBG Base Excess VBG Potassium Hgb O2 Saturation Glucose 60 L Lactate 3.2 H FiO2 100.0 Crit Value Called To Md Crit Value Called By Ga Blood Gas Notified Time 1137 Sodium 168 H* 173.0 H* Potassium 4.9 Chloride 140 H 145.0 H Carbon Dioxide 25 Anion Gap 6 L BUN 57 H Creatinine 1.9 H Est GFR ( Amer) 42 Est GFR (Non-Af Amer) 35 POC Glucose (mg/dL) Random Glucose 69 L Calcium 9.1 Phosphorus 3.4 Magnesium 2.1 Total Bilirubin 0.3 AST 19 ALT 19 Alkaline Phosphatase 149 H Troponin I 0.15 H* D Total Protein 4.2 L Albumin 1.7 L Globulin 2.4 Albumin/Globulin Ratio 0.7 L Arterial Blood Potassium 3.4 L Venous Blood Potassium Stool Occult Blood Blood Type Blood Type Confirm Antibody Screen Crossmatch BBK History Checked 04/04/18 04/04/18 04/04/18 11:45 13:59 14:45 WBC RBC Hgb Hct MCV MCH MCHC RDW Plt Count MPV Neut % (Auto) Lymph % (Auto) [place] % (Auto) Eos % (Auto) Baso % (Auto) Lymph # (Auto) [place] # (Auto) Eos # (Auto) Baso # (Auto) Absolute Neuts (auto) Neutrophils % (Manual) Band Neutrophils % Lymphocytes % (Manual) Monocytes % (Manual) Eosinophils % (Manual) Platelet Evaluation Large Platelets Hypochromasia Poikilocytosis (manual Anisocytosis (manual) Microcytosis (manual) Target Cells Acanthocytes (Spur) Schistocytes PT INR APTT pCO2 pO2 HCO3 ABG pH ABG Total CO2 ABG O2 Saturation ABG O2 Content ABG Base Excess ABG Hemoglobin ABG Carboxyhemoglobin POC ABG HHb (Measured) ABG Methemoglobin ABG O2 Capacity ABG Potassium VBG pH VBG pCO2 VBG HCO3 VBG Total CO2 VBG O2 Sat (Calc) VBG Base Excess VBG Potassium Hgb O2 Saturation Glucose Lactate FiO2 Crit Value Called To Crit Value Called By Blood Gas Notified Time Sodium Potassium Chloride Carbon Dioxide Anion Gap BUN Creatinine Est GFR ( Amer) Est GFR (Non-Af Amer) POC Glucose (mg/dL) Random Glucose Calcium Phosphorus Magnesium Total Bilirubin AST ALT Alkaline Phosphatase Troponin I Total Protein Albumin Globulin Albumin/Globulin Ratio Arterial Blood Potassium Venous Blood Potassium Stool Occult Blood Positive H Blood Type O POSITIVE Blood Type Confirm O POSITIVE Antibody Screen Negative Crossmatch See Detail BBK History Checked No verified bt 04/04/18 04/04/18 04/04/18 15:00 15:30 15:30 WBC 11.1 H RBC 2.96 L Hgb 7.9 L Hct 25.4 L MCV 85.8 MCH 26.7 MCHC 31.1 RDW 20.0 H Plt Count 121 MPV Neut % (Auto) 74.0 H Lymph % (Auto) 19.2 L [place] % (Auto) 5.5 Eos % (Auto) 1.1 L Baso % (Auto) 0.2 Lymph # (Auto) 2.1 [place] # (Auto) 0.6 Eos # (Auto) 0.1 Baso # (Auto) 0.02 Absolute Neuts (auto) 8.21 H Neutrophils % (Manual) Band Neutrophils % Lymphocytes % (Manual) Monocytes % (Manual) Eosinophils % (Manual) Platelet Evaluation Large Platelets Hypochromasia Poikilocytosis (manual Anisocytosis (manual) Microcytosis (manual) Target Cells Acanthocytes (Spur) Schistocytes PT INR APTT pCO2 pO2 147 H HCO3 ABG pH ABG Total CO2 ABG O2 Saturation ABG O2 Content ABG Base Excess ABG Hemoglobin ABG Carboxyhemoglobin POC ABG HHb (Measured) ABG Methemoglobin ABG O2 Capacity ABG Potassium VBG pH 7.30 L VBG pCO2 44.0 VBG HCO3 21.6 VBG Total CO2 23.0 VBG O2 Sat (Calc) 99.6 H VBG Base Excess -4.8 L VBG Potassium 4.0 Hgb O2 Saturation Glucose 109 Lactate 3.2 H FiO2 21.0 Crit Value Called To Petrona hernández Crit Value Called By Atc Blood Gas Notified Time 1614 Sodium 166 H* 173.0 H* Potassium 4.3 Chloride 143 H 143.0 H Carbon Dioxide 23 Anion Gap 6 L BUN 52 H Creatinine 1.7 H Est GFR ( Amer) 48 Est GFR (Non-Af Amer) 40 POC Glucose (mg/dL) Random Glucose 88 Calcium 7.5 L Phosphorus 3.3 Magnesium 1.9 Total Bilirubin 0.2 AST 19 ALT 20 Alkaline Phosphatase 119 Troponin I 0.14 H* Total Protein 3.1 L Albumin 1.3 L Globulin 1.8 Albumin/Globulin Ratio 0.7 L Arterial Blood Potassium Venous Blood Potassium 4.0 Stool Occult Blood Blood Type Blood Type Confirm Antibody Screen Crossmatch BBK History Checked 04/04/18 04/04/18 16:00 16:40 WBC RBC Hgb Hct MCV MCH MCHC RDW Plt Count MPV Neut % (Auto) Lymph % (Auto) [place] % (Auto) Eos % (Auto) Baso % (Auto) Lymph # (Auto) [place] # (Auto) Eos # (Auto) Baso # (Auto) Absolute Neuts (auto) Neutrophils % (Manual) Band Neutrophils % Lymphocytes % (Manual) Monocytes % (Manual) Eosinophils % (Manual) Platelet Evaluation Large Platelets Hypochromasia Poikilocytosis (manual Anisocytosis (manual) Microcytosis (manual) Target Cells Acanthocytes (Spur) Schistocytes PT 16.1 H INR 1.45 APTT 39.1 H pCO2 35 pO2 571.0 H HCO3 22.2 ABG pH 7.41 ABG Total CO2 23.3 ABG O2 Saturation 100.4 H ABG O2 Content 13.5 L ABG Base Excess -2.1 L ABG Hemoglobin 8.6 L ABG Carboxyhemoglobin 1.7 H POC ABG HHb (Measured) -0.4 L ABG Methemoglobin 0.9 ABG O2 Capacity 13.4 L ABG Potassium VBG pH VBG pCO2 VBG HCO3 VBG Total CO2 VBG O2 Sat (Calc) VBG Base Excess VBG Potassium Hgb O2 Saturation 97.7 Glucose Lactate FiO2 100.0 Crit Value Called To Crit Value Called By Blood Gas Notified Time Sodium Potassium Chloride Carbon Dioxide Anion Gap BUN Creatinine Est GFR ( Amer) Est GFR (Non-Af Amer) POC Glucose (mg/dL) Random Glucose Calcium Phosphorus Magnesium Total Bilirubin AST ALT Alkaline Phosphatase Troponin I Total Protein Albumin Globulin Albumin/Globulin Ratio Arterial Blood Potassium Venous Blood Potassium Stool Occult Blood Blood Type Blood Type Confirm Antibody Screen Crossmatch BBK History Checked Attending/Attestation - Attestation I have personally seen and examined this patient.: Yes I have fully participated in the care of the patient.: Yes I have reviewed all pertinent clinical information: Yes Notes (Text): 04/04/18 21:32 I have seen and examined patient with GI fellow. Agree with above documentation with the following additions. In brief, this is a 73 year old male with history of DM, psoriasis, CHF, colon cancer s/p partial colon resection who was initially admitted to hospital with complaint of progressive dyspnea and was be ing treated for presumed CHF exacerbation. His hospital course became complicated by development of altered mental status, respiratory failure s/p intubation, NSTEMI, and development of melena. He is seen currently in intensive care unit, intubated and sedated on vasopressor support. Additional i nformation obtained from patient's daughters at bedside. There was no previously reported abdominal pain, nausea, vomiting, weight loss. Patient had a colonoscopy in 2017 which showed anastomosis, diverticulosis. DM Psoriasis CHF History of colon cancer s/p partial colon resection Respiratory failure, s/p intubation Sepsis Anemia, melena - severe posing threat to patient life - NPO - Continue with PPI infusion therapy - Continue to monitor H/H, s/p PRBC transfusion - Ventilator and vasopressor management as per critical care team - Plan for emergent EGD today given hemodynamic instability along with presence of melena, rule out peptic ulcer disease - Further recommendations pending endoscopic evaluation
[2018-04-04] MEDS: Pantoprazole 40mg/100mL NS 40 MG/100 ML BAG IVPB SCH ×3 (19:24→21:49)
[2018-04-04] MEDS ORDERED: ePHEDrine 50 mg/ml Inj ONE (20:43)
[2018-04-04] MEDS ORDERED: Phenylephrine 10 mg/ml Inj ONE (20:43)
[2018-04-04] MEDS: Amino/Dext 4.25/5 1,000 ML IV SCH (21:31)
[2018-04-04] MEDS ORDERED: MEROPENEM 500 MG in NS 500 MG/50 ML BAG IVPB SCH (22:00)
[2018-04-04] MEDS: Hydrocerin(120 gm) TOP SCH ×2 (23:30→23:40)
[2018-04-05 00:53] LABS: ANCA SCREEN NEGATIVE (NEGATIVE)
[2018-04-05 01:40] LABS: BASO # 0.01 K/mm3 (0.0-2.0); BASO % 0.1 % (0.0-3.0); EOS % 0.1 % (1.5-5.0); HEMOGLOBIN 9.5 g/dL (14.0-18.0); LYMPH # 2.1 (1.2-3.4); LYMPH % 14.4 % (22.0-35.0); MEAN CELL VOLUME 85.6 fl (80.0-105.0); MEAN CORPUSCULAR HEMOGLOBIN 27.9 pg (25.0-35.0); MEAN CORPUSCULAR HGB CONC 32.5 g/dl (31.0-37.0); MONO # 0.6 (0.1-0.6); MONO % 4.3 % (1.0-6.0); PLATELET COUNT 115 10^3/uL (120.0-450.0); RBC 3.41 10^6/uL (3.5-6.1); RED CELL DISTRIBUTION WIDTH 19.1 % (11.5-14.5); WHITE BLOOD COUNT 14.8 10^3/uL (4.5-11.0)
[2018-04-05 01:53] LABS: ALB/GLOB RATIO 0.7 (1.1-1.8); ALBUMIN 1.7 g/dL (3.0-4.8); CALCIUM 8.2 mg/dL (8.4-10.5); TROPONIN I 0.11 ng/mL
[2018-04-05] MEDS: Silver Sulfadiazine 1% Cream (25 gm) TP PRN (05:03)
[2018-04-05] MEDS: MethylPREDNISolone 40 mg Vial IVP SCH ×3 (05:26→23:01)
[2018-04-05] MEDS: Pantoprazole 40mg/100mL NS 40 MG/100 ML BAG IVPB SCH ×3 (05:27→22:52)
[2018-04-05 07:10] LABS: BASO # 0.02 K/mm3 (0.0-2.0); BASO % 0.1 % (0.0-3.0); HEMOGLOBIN 9.8 g/dL (14.0-18.0); LYMPH # 2.2 (1.2-3.4); LYMPH % 13.1 % (22.0-35.0); MEAN CELL VOLUME 84.8 fl (80.0-105.0); MEAN CORPUSCULAR HEMOGLOBIN 27.6 pg (25.0-35.0); MEAN CORPUSCULAR HGB CONC 32.6 g/dl (31.0-37.0); MONO # 0.5 (0.1-0.6); MONO % 3.1 % (1.0-6.0); PLATELET COUNT 125 10^3/uL (120.0-450.0); RBC 3.55 10^6/uL (3.5-6.1); WHITE BLOOD COUNT 16.6 10^3/uL (4.5-11.0)
[2018-04-05 07:34] LABS: ALB/GLOB RATIO 0.7 (1.1-1.8); ALBUMIN 1.9 g/dL (3.0-4.8); CALCIUM 8.2 mg/dL (8.4-10.5)
[2018-04-05 07:52] LABS: ARTERIAL BLOOD GAS HCO3 18.4 mmol/L (21-28); ARTERIAL BLOOD GAS O2 SAT 99.5 % (95-98); ARTERIAL BLOOD GAS PCO2 29 mm/Hg (35-45); ARTERIAL BLOOD GAS PH 7.41 (7.35-7.45); ARTERIAL BLOOD GAS TCO2 19.3 mmol.L (22-28)
[2018-04-05] MEDS ORDERED: Vancomycin 2 GM in Sodium Chloride 0.9% 500 ML IVPB ONE (08:00)
[2018-04-05 08:04] LABS: PH,URINE 5.5 (4.7-8.0); URINE BILIRUBIN NEGATIVE (NEGATIVE); URINE BLOOD NEGATIVE (NEGATIVE); URINE GLUCOSE (UA) NEGATIVE (NEGATIVE); URINE LEUKOCYTE ESTERASE NEGATIVE Leu/uL (NEGATIVE); URINE PROTEIN NEGATIVE mg/dL (<30 mg/dL); URINE UROBILINOGEN 0.2 E.U./dL (<1 E.U./dL)
[2018-04-05 08:05] LABS: URINE APPEARANCE CLEAR (CLEAR); URINE COLOR YELLOW (YELLOW)
[2018-04-05 08:29] LABS: OSMOLALITY,URINE 476 mosm/kg (300-1000)
--- NOTE | 2018-04-05 08:58 | CP.CCUPN ---
<Sonja Garcia - Last Filed: 04/05/18 12:39> CCU Subjective - Physician Review Subjective (Free Text): Sonja Garcia PGY1 Critical Care Progress Note Patient seen and examined at bedside this morning. S/p 2 units PRBC yesterday and emergent EGD last night which showed non bleeding gastric and duodenal ulcers. Phenylephrine turned off this morning, currently on levophed at 10 mcg/hr. Patient extubatd this morning. He is alert but lethargic and does not respond to questioning. 12 point ROS limited due to patient status. CCU Objective - Vital Signs / Intake & Output Vital Signs (Last 4 hours): Vital Signs Pulse Resp Pulse Ox 04/05/18 07:24 20 94 L 04/05/18 06:00 80 Intake and Output (Last 8hrs): Intake & Output 04/04/18 04/05/18 04/05/18 22:59 06:59 14:59 Intake Total 4100 654 Balance 4100 654 Intake: IV 4100 654 Right Femoral 4000 Oral 0 Other: # Voids Urethral (Bautista) 4,400 # Bowel Movements 2 - Physical Exam Head: Positive for: Atraumatic, Normocephalic Pupils: Positive for: PERRL Extroacular Muscles: Positive for: EOMI Conjunctiva: Positive for: Normal Mouth: Positive for: Moist Mucous Membranes Neck: Positive for: Normal Range of Motion Respiratory/Chest: Positive for: Rhonchi (Diffuse rhonchi). Negative for: Respiratory Distress, Accessory Muscle Use Cardiovascular: Positive for: Regular Rate and Rhythm, Normal S1, S2. Negative for: Murmurs Abdomen: Negative for: Tenderness, Distention, Peritoneal Signs Back: Positive for: Normal Inspection Upper Extremity: Positive for: Normal Inspection. Negative for: Cyanosis, Edema Lower Extremity: Positive for: Edema (2+ pitting eddema bilaterally) Neurological: Positive for: Other (lethargic, does not respond to questioning ) Skin: Positive for: Warm, Dry, Normal Color. Negative for: Rashes Psychiatric: Positive for: Alert - Medications Active Medications: Active Medications Generic Name Dose Route Start Last Admin Trade Name Freq PRN Reason Stop Dose Admin Albumin Human 12.5 gm 04/05/18 09:00 Albumin Human 5% (12.5 Gm/250 Ml) IV 04/05/18 11:01 Q1H RIYA Aspirin 81 mg 03/26/18 10:00 04/04/18 18:59 Aspirin Chewable PO Not Given DAILY RIYA Carbamide Peroxide 0 ml 04/02/18 18:00 04/03/18 17:55 Debrox Ear Drops AU 5 drop BID RIYA Administration Carvedilol 3.125 mg 03/25/18 18:00 04/04/18 19:00 Coreg PO Not Given BID [facility] Clotrimazole 0 gm 03/28/18 10:00 04/02/18 09:40 Lotrimin 1% TOP 1 applic BID PRN Administration Rash Amino Acids 1,000 mls @ 42 mls/hr 04/04/18 18:00 04/04/18 21:31 Clinimix 4.25/5 % (1000 Ml) IV 42 mls/hr .[id number] RIYA Administration Fat Emulsion-Soy/MCT/Gans/Fish Oil 250 mls @ 21 mls/hr 04/05/18 18:00 Smoflipid 20% IV MWF@1800 RIYA Pantoprazole Sodium 40 mg in 100 mls @ 20 mls/hr 04/04/18 12:30 04/05/18 05:27 Protonix 40mg Ivpb IVPB 20 mls/hr .Q5H RIYA Administration Dextrose 1,000 mls @ 100 mls/hr 04/04/18 15:00 04/04/18 23:21 Dextrose 5% In Water 1000 Ml IV 100 mls/hr .Q10H RIYA Administration Phenylephrine HCl 40 mg/ 254 mls @ 38.1 mls/hr 04/04/18 14:38 04/05/18 05:31 Sodium Chloride IV 100 mcg/min .Q6H40M PRN 38.1 mls/hr TITRATE PER MD ORDER Administration Protocol 100 MCG/MIN Vasopressin 20 units/ Sodium 101 mls @ 9.09 mls/hr 04/04/18 14:45 04/05/18 03:19 Chloride IV Not Given .Q11H7M RIYA Protocol 0.03 U/MIN Fentanyl Citrate 1,000 mcg in 100 mls @ 2 mls/hr 04/04/18 16:15 Fentanyl Citrate/Sodium Chloride 1 Mg/100 Ml IV .Q24H PRN TITRATE PER MD ORDER Protocol 20 MCG/HR Norepinephrine Bitartrate 8 mg 500 mls @ 112.5 mls/hr 04/04/18 19:00 04/05/18 05:21 / Sodium Chloride IV 15 mcg/min .Q4H27M RIYA 56.25 mls/hr Administration Protocol 30 MCG/MIN Meropenem/Sodium Chloride 500 mg in 50 mls @ 100 mls/hr 04/05/18 07:00 Merrem Iv 500 Mg/Ns 50 Ml IVPB 04/12/18 07:01 Q12 RIYA Protocol Vancomycin HCl 2 gm/ Sodium 500 mls @ 170 mls/hr 04/05/18 08:00 Chloride IVPB 04/05/18 10:56 ONCE ONE Protocol Insulin Human Regular 0 units 04/05/18 12:00 Humulin R Low SC Q6 [facility] Protocol Lactic Acid 0 ea 03/28/18 10:00 04/03/18 10:01 Lac-Hydrin 12% Cream (140 G) TOP 1 applic TID PRN Administration Dry skin Losartan Potassium 12.5 mg 03/26/18 10:00 04/04/18 19:00 Cozaar PO Not Given DAILY [facility] Methylprednisolone 40 mg 04/04/18 16:00 04/05/18 05:26 Solu-Medrol IVP 40 mg Q8 RIYA Administration Multi-Ingredient Cream 0 ea 03/31/18 10:00 04/04/18 23:40 Hydrocerin Cream TOP 1 applic 1000,2200 RIYA Administration Silver Sulfadiazine 0 gm 03/28/18 10:00 04/05/18 05:03 Silvadene 1% 25 Gm TP 25 gm BID PRN Administration Dry skin - Patient Studies Lab Studies: Lab Studies 04/05/18 04/05/18 04/05/18 Range/Units 07:45 06:00 06:00 WBC 16.6 H (4.5-11.0) 10^3/uL RBC 3.55 (3.5-6.1) 10^6/uL Hgb 9.8 L (14.0-18.0) g/dL Hct 30.1 L (42.0-52.0) % MCV 84.8 (80.0-105.0) fl MCH 27.6 (25.0-35.0) pg MCHC 32.6 (31.0-37.0) g/dl RDW 19.0 H (11.5-14.5) % Plt Count 125 (120.0-450.0) 10^3/uL MPV (7.0-11.0) fl Neut % (Auto) 83.7 H (50.0-68.0) % Lymph % (Auto) 13.1 L (22.0-35.0) % [place] % (Auto) 3.1 (1.0-6.0) % Eos % (Auto) 0.0 L (1.5-5.0) % Baso % (Auto) 0.1 (0.0-3.0) % Lymph # (Auto) 2.2 (1.2-3.4) [place] # (Auto) 0.5 (0.1-0.6) Eos # (Auto) 0.0 (0.0-0.7) Baso # (Auto) 0.02 (0.0-2.0) K/mm3 Absolute Neuts (auto) 13.84 H (1.4-6.5) Neutrophils % (Manual) (50.0-70.0) % Band Neutrophils % (0-2) % Lymphocytes % (Manual) (22.0-35.0) % Monocytes % (Manual) (1.0-6.0) % Eosinophils % (Manual) (0.0-3.0) % Platelet Evaluation (NORMAL) Large Platelets Hypochromasia Poikilocytosis (manual Anisocytosis (manual) Microcytosis (manual) Target Cells Acanthocytes (Spur) Schistocytes PT (9.4-12.5) SECONDS INR APTT (26.9-38.3) Seconds pCO2 29 L (35-45) mm/Hg pO2 198.0 H (80-100) mm/Hg HCO3 18.4 L (21-28) mmol/L ABG pH 7.41 (7.35-7.45) ABG Total CO2 19.3 L (22-28) mmol.L ABG O2 Saturation 99.5 H (95-98) % ABG O2 Content (15-23) ML/dl ABG Base Excess -5.0 L (-2.0-3.0) mmol/L ABG Hemoglobin (11.7-17.4) g/dL ABG Carboxyhemoglobin (0.5-1.5) % POC ABG HHb (Measured) (0-5) % ABG Methemoglobin (0.0-3.0) % ABG O2 Capacity (16-24) mL/dl ABG Potassium 3.8 (3.6-5.2) mmol/L VBG pH (7.32-7.43) VBG pCO2 (40-60) VBG HCO3 (21-28) mmol/l VBG Total CO2 (22-28) mmol.L VBG O2 Sat (Calc) (40-65) % VBG Base Excess (0.0-2.0) mmol/L VBG Potassium (3.6-5.2) mmol/L Hgb O2 Saturation (95.0-98.0) % Glucose 198 H (75-110) mg/dl Lactate 2.1 (0.7-2.1) mmol/L Mechanical Rate 16 FiO2 50.0 % Tidal Volume 500 PEEP 5 Crit Value Called To Dr oneal Crit Value Called By Chon funes Blood Gas Notified Time 855 Sodium 172.0 H* 166 H* (132-148) mmol/L Potassium 4.3 (3.6-5.0) mmol/L Chloride 142.0 H 142 H (98-107) mmol/L Carbon Dioxide 21 (21-33) mmol/L Anion Gap 8 L (10-20) BUN 62 H (7-21) mg/dL Creatinine 1.8 H (0.8-1.5) mg/dl Est GFR ( Amer) 45 Est GFR (Non-Af Amer) 37 POC Glucose (mg/dL) (65-110) mg/dL Random Glucose 194 H (70-110) mg/dL Calcium 8.2 L (8.4-10.5) mg/dL Phosphorus (2.5-4.5) mg/dL Magnesium (1.7-2.2) mg/dL Total Bilirubin 0.4 (0.2-1.3) mg/dL AST 44 (17-59) U/L ALT 26 (7-56) U/L Alkaline Phosphatase 143 H (38-126) U/L Troponin I ng/mL Total Protein 4.6 L (5.8-8.3) g/dL Albumin 1.9 L (3.0-4.8) g/dL Globulin 2.8 gm/dL Albumin/Globulin Ratio 0.7 L (1.1-1.8) Arterial Blood Potassium 3.8 (3.6-5.2) mmol/L Venous Blood Potassium (3.6-5.2) mmol/L Urine Color (YELLOW) Urine Appearance (CLEAR) Urine pH (4.7-8.0) Ur Specific [place] (1.005-1.035) Urine Protein (<30 mg/dL) mg/dL Urine Glucose (UA) (NEGATIVE) mg/dL Urine Ketones (NEGATIVE) mg/dL Urine Blood (NEGATIVE) Urine Nitrate (NEGATIVE) Urine Bilirubin (NEGATIVE) Urine Urobilinogen (<1 E.U./dL) E.U./dL Ur Leukocyte Esterase (NEGATIVE) Brenna/uL Urine Osmolality (300-1000) mosm/kg Ur Random Creatinine mg/dL Ur Random Sodium meq/L Stool Occult Blood (NEGATIVE) ANCA Screen (NEGATIVE) c-ANCA Titer p-ANCA Titer Atypical p-ANCA Titer Blood Type Blood Type Confirm Antibody Screen Crossmatch BBK History Checked 04/05/18 04/05/18 04/05/18 Range/Units 04:00 04:00 04:00 WBC (4.5-11.0) 10^3/uL RBC (3.5-6.1) 10^6/uL Hgb (14.0-18.0) g/dL Hct (42.0-52.0) % MCV (80.0-105.0) fl MCH (25.0-35.0) pg MCHC (31.0-37.0) g/dl RDW (11.5-14.5) % Plt Count (120.0-450.0) 10^3/uL MPV (7.0-11.0) fl Neut % (Auto) (50.0-68.0) % Lymph % (Auto) (22.0-35.0) % [place] % (Auto) (1.0-6.0) % Eos % (Auto) (1.5-5.0) % Baso % (Auto) (0.0-3.0) % Lymph # (Auto) (1.2-3.4) [place] # (Auto) (0.1-0.6) Eos # (Auto) (0.0-0.7) Baso # (Auto) (0.0-2.0) K/mm3 Absolute Neuts (auto) (1.4-6.5) Neutrophils % (Manual) (50.0-70.0) % Band Neutrophils % (0-2) % Lymphocytes % (Manual) (22.0-35.0) % Monocytes % (Manual) (1.0-6.0) % Eosinophils % (Manual) (0.0-3.0) % Platelet Evaluation (NORMAL) Large Platelets Hypochromasia Poikilocytosis (manual Anisocytosis (manual) Microcytosis (manual) Target Cells Acanthocytes (Spur) Schistocytes PT (9.4-12.5) SECONDS INR APTT (26.9-38.3) Seconds pCO2 (35-45) mm/Hg pO2 (80-100) mm/Hg HCO3 (21-28) mmol/L ABG pH (7.35-7.45) ABG Total CO2 (22-28) mmol.L ABG O2 Saturation (95-98) % ABG O2 Content (15-23) ML/dl ABG Base Excess (-2.0-3.0) mmol/L ABG Hemoglobin (11.7-17.4) g/dL ABG Carboxyhemoglobin (0.5-1.5) % POC ABG HHb (Measured) (0-5) % ABG Methemoglobin (0.0-3.0) % ABG O2 Capacity (16-24) mL/dl ABG Potassium (3.6-5.2) mmol/L VBG pH (7.32-7.43) VBG pCO2 (40-60) VBG HCO3 (21-28) mmol/l VBG Total CO2 (22-28) mmol.L VBG O2 Sat (Calc) (40-65) % VBG Base Excess (0.0-2.0) mmol/L VBG Potassium (3.6-5.2) mmol/L Hgb O2 Saturation (95.0-98.0) % Glucose (75-110) mg/dl Lactate (0.7-2.1) mmol/L Mechanical Rate FiO2 % Tidal Volume PEEP Crit Value Called To Crit Value Called By Blood Gas Notified Time Sodium (132-148) mmol/L Potassium (3.6-5.0) mmol/L Chloride (98-107) mmol/L Carbon Dioxide (21-33) mmol/L Anion Gap (10-20) BUN (7-21) mg/dL Creatinine (0.8-1.5) mg/dl Est GFR ( Amer) Est GFR (Non-Af Amer) POC Glucose (mg/dL) (65-110) mg/dL Random Glucose (70-110) mg/dL Calcium (8.4-10.5) mg/dL Phosphorus (2.5-4.5) mg/dL Magnesium (1.7-2.2) mg/dL Total Bilirubin (0.2-1.3) mg/dL AST (17-59) U/L ALT (7-56) U/L Alkaline Phosphatase (38-126) U/L Troponin I ng/mL Total Protein (5.8-8.3) g/dL Albumin (3.0-4.8) g/dL Globulin gm/dL Albumin/Globulin Ratio (1.1-1.8) Arterial Blood Potassium (3.6-5.2) mmol/L Venous Blood Potassium (3.6-5.2) mmol/L Urine Color Yellow (YELLOW) Urine Appearance Clear (CLEAR) Urine pH 5.5 (4.7-8.0) Ur Specific [place] >= 1.030 (1.005-1.035) Urine Protein Negative (<30 mg/dL) mg/dL Urine Glucose (UA) Negative (NEGATIVE) mg/dL Urine Ketones Negative (NEGATIVE) mg/dL Urine Blood Negative (NEGATIVE) Urine Nitrate Negative (NEGATIVE) Urine Bilirubin Negative (NEGATIVE) Urine Urobilinogen 0.2 (<1 E.U./dL) E.U./dL Ur Leukocyte Esterase Negative (NEGATIVE) Brenna/uL Urine Osmolality 476 (300-1000) mosm/kg Ur Random Creatinine 48 mg/dL Ur Random Sodium 84 meq/L Stool Occult Blood (NEGATIVE) ANCA Screen (NEGATIVE) c-ANCA Titer p-ANCA Titer Atypical p-ANCA Titer Blood Type Blood Type Confirm Antibody Screen Crossmatch BBK History Checked 04/05/18 04/05/18 04/04/18 Range/Units 00:05 00:05 16:40 WBC 14.8 H D (4.5-11.0) 10^3/uL RBC 3.41 L (3.5-6.1) 10^6/uL Hgb 9.5 L (14.0-18.0) g/dL Hct 29.2 L (42.0-52.0) % MCV 85.6 (80.0-105.0) fl MCH 27.9 (25.0-35.0) pg MCHC 32.5 (31.0-37.0) g/dl RDW 19.1 H (11.5-14.5) % Plt Count 115 L (120.0-450.0) 10^3/uL MPV (7.0-11.0) fl Neut % (Auto) 81.1 H (50.0-68.0) % Lymph % (Auto) 14.4 L (22.0-35.0) % [place] % (Auto) 4.3 (1.0-6.0) % Eos % (Auto) 0.1 L (1.5-5.0) % Baso % (Auto) 0.1 (0.0-3.0) % Lymph # (Auto) 2.1 (1.2-3.4) [place] # (Auto) 0.6 (0.1-0.6) Eos # (Auto) 0.0 (0.0-0.7) Baso # (Auto) 0.01 (0.0-2.0) K/mm3 Absolute Neuts (auto) 11.97 H (1.4-6.5) Neutrophils % (Manual) (50.0-70.0) % Band Neutrophils % (0-2) % Lymphocytes % (Manual) (22.0-35.0) % Monocytes % (Manual) (1.0-6.0) % Eosinophils % (Manual) (0.0-3.0) % Platelet Evaluation (NORMAL) Large Platelets Hypochromasia Poikilocytosis (manual Anisocytosis (manual) Microcytosis (manual) Target Cells Acanthocytes (Spur) Schistocytes PT (9.4-12.5) SECONDS INR APTT (26.9-38.3) Seconds pCO2 35 (35-45) mm/Hg pO2 571.0 H (80-100) mm/Hg HCO3 22.2 (21-28) mmol/L ABG pH 7.41 (7.35-7.45) ABG Total CO2 23.3 (22-28) mmol.L ABG O2 Saturation 100.4 H (95-98) % ABG O2 Content 13.5 L (15-23) ML/dl ABG Base Excess -2.1 L (-2.0-3.0) mmol/L ABG Hemoglobin 8.6 L (11.7-17.4) g/dL ABG Carboxyhemoglobin 1.7 H (0.5-1.5) % POC ABG HHb (Measured) -0.4 L (0-5) % ABG Methemoglobin 0.9 (0.0-3.0) % ABG O2 Capacity 13.4 L (16-24) mL/dl ABG Potassium (3.6-5.2) mmol/L VBG pH (7.32-7.43) VBG pCO2 (40-60) VBG HCO3 (21-28) mmol/l VBG Total CO2 (22-28) mmol.L VBG O2 Sat (Calc) (40-65) % VBG Base Excess (0.0-2.0) mmol/L VBG Potassium (3.6-5.2) mmol/L Hgb O2 Saturation 97.7 (95.0-98.0) % Glucose (75-110) mg/dl Lactate (0.7-2.1) mmol/L Mechanical Rate FiO2 100.0 % Tidal Volume PEEP Crit Value Called To Crit Value Called By Blood Gas Notified Time Sodium 166 H* (132-148) mmol/L Potassium 4.1 (3.6-5.0) mmol/L Chloride 142 H (98-107) mmol/L Carbon Dioxide 22 (21-33) mmol/L Anion Gap 6 L (10-20) BUN 60 H (7-21) mg/dL Creatinine 1.8 H (0.8-1.5) mg/dl Est GFR ( Amer) 45 Est GFR (Non-Af Amer) 37 POC Glucose (mg/dL) (65-110) mg/dL Random Glucose 151 H (70-110) mg/dL Calcium 8.2 L (8.4-10.5) mg/dL Phosphorus (2.5-4.5) mg/dL Magnesium (1.7-2.2) mg/dL Total Bilirubin 0.4 (0.2-1.3) mg/dL AST 39 (17-59) U/L ALT 30 (7-56) U/L Alkaline Phosphatase 131 H (38-126) U/L Troponin I 0.11 D ng/mL Total Protein 4.3 L (5.8-8.3) g/dL Albumin 1.7 L (3.0-4.8) g/dL Globulin 2.6 gm/dL Albumin/Globulin Ratio 0.7 L (1.1-1.8) Arterial Blood Potassium (3.6-5.2) mmol/L Venous Blood Potassium (3.6-5.2) mmol/L Urine Color (YELLOW) Urine Appearance (CLEAR) Urine pH (4.7-8.0) Ur Specific [place] (1.005-1.035) Urine Protein (<30 mg/dL) mg/dL Urine Glucose (UA) (NEGATIVE) mg/dL Urine Ketones (NEGATIVE) mg/dL Urine Blood (NEGATIVE) Urine Nitrate (NEGATIVE) Urine Bilirubin (NEGATIVE) Urine Urobilinogen (<1 E.U./dL) E.U./dL Ur Leukocyte Esterase (NEGATIVE) Brenna/uL Urine Osmolality (300-1000) mosm/kg Ur Random Creatinine mg/dL Ur Random Sodium meq/L Stool Occult Blood (NEGATIVE) ANCA Screen (NEGATIVE) c-ANCA Titer p-ANCA Titer Atypical p-ANCA Titer Blood Type Blood Type Confirm Antibody Screen Crossmatch BBK History Checked 04/04/18 04/04/18 04/04/18 Range/Units 16:00 15:30 15:30 WBC 11.1 H (4.5-11.0) 10^3/uL RBC 2.96 L (3.5-6.1) 10^6/uL Hgb 7.9 L (14.0-18.0) g/dL Hct 25.4 L (42.0-52.0) % MCV 85.8 (80.0-105.0) fl MCH 26.7 (25.0-35.0) pg MCHC 31.1 (31.0-37.0) g/dl RDW 20.0 H (11.5-14.5) % Plt Count 121 (120.0-450.0) 10^3/uL MPV (7.0-11.0) fl Neut % (Auto) 74.0 H (50.0-68.0) % Lymph % (Auto) 19.2 L (22.0-35.0) % [place] % (Auto) 5.5 (1.0-6.0) % Eos % (Auto) 1.1 L (1.5-5.0) % Baso % (Auto) 0.2 (0.0-3.0) % Lymph # (Auto) 2.1 (1.2-3.4) [place] # (Auto) 0.6 (0.1-0.6) Eos # (Auto) 0.1 (0.0-0.7) Baso # (Auto) 0.02 (0.0-2.0) K/mm3 Absolute Neuts (auto) 8.21 H (1.4-6.5) Neutrophils % (Manual) (50.0-70.0) % Band Neutrophils % (0-2) % Lymphocytes % (Manual) (22.0-35.0) % Monocytes % (Manual) (1.0-6.0) % Eosinophils % (Manual) (0.0-3.0) % Platelet Evaluation (NORMAL) Large Platelets Hypochromasia Poikilocytosis (manual Anisocytosis (manual) Microcytosis (manual) Target Cells Acanthocytes (Spur) Schistocytes PT 16.1 H (9.4-12.5) SECONDS INR 1.45 APTT 39.1 H (26.9-38.3) Seconds pCO2 (35-45) mm/Hg pO2 147 H (80-100) mm/Hg HCO3 (21-28) mmol/L ABG pH (7.35-7.45) ABG Total CO2 (22-28) mmol.L ABG O2 Saturation (95-98) % ABG O2 Content (15-23) ML/dl ABG Base Excess (-2.0-3.0) mmol/L ABG Hemoglobin (11.7-17.4) g/dL ABG Carboxyhemoglobin (0.5-1.5) % POC ABG HHb (Measured) (0-5) % ABG Methemoglobin (0.0-3.0) % ABG O2 Capacity (16-24) mL/dl ABG Potassium (3.6-5.2) mmol/L VBG pH 7.30 L (7.32-7.43) VBG pCO2 44.0 (40-60) VBG HCO3 21.6 (21-28) mmol/l VBG Total CO2 23.0 (22-28) mmol.L VBG O2 Sat (Calc) 99.6 H (40-65) % VBG Base Excess -4.8 L (0.0-2.0) mmol/L VBG Potassium 4.0 (3.6-5.2) mmol/L Hgb O2 Saturation (95.0-98.0) % Glucose 109 (75-110) mg/dl Lactate 3.2 H (0.7-2.1) mmol/L Mechanical Rate FiO2 21.0 % Tidal Volume PEEP Crit Value Called To Petrona hernández Crit Value Called By Atc Blood Gas Notified Time 1614 Sodium 173.0 H* (132-148) mmol/L Potassium (3.6-5.0) mmol/L Chloride 143.0 H (98-107) mmol/L Carbon Dioxide (21-33) mmol/L Anion Gap (10-20) BUN (7-21) mg/dL Creatinine (0.8-1.5) mg/dl Est GFR ( Amer) Est GFR (Non-Af Amer) POC Glucose (mg/dL) (65-110) mg/dL Random Glucose (70-110) mg/dL Calcium (8.4-10.5) mg/dL Phosphorus (2.5-4.5) mg/dL Magnesium (1.7-2.2) mg/dL Total Bilirubin (0.2-1.3) mg/dL AST (17-59) U/L ALT (7-56) U/L Alkaline Phosphatase (38-126) U/L Troponin I ng/mL Total Protein (5.8-8.3) g/dL Albumin (3.0-4.8) g/dL Globulin gm/dL Albumin/Globulin Ratio (1.1-1.8) Arterial Blood Potassium (3.6-5.2) mmol/L Venous Blood Potassium 4.0 (3.6-5.2) mmol/L Urine Color (YELLOW) Urine Appearance (CLEAR) Urine pH (4.7-8.0) Ur Specific [place] (1.005-1.035) Urine Protein (<30 mg/dL) mg/dL Urine Glucose (UA) (NEGATIVE) mg/dL Urine Ketones (NEGATIVE) mg/dL Urine Blood (NEGATIVE) Urine Nitrate (NEGATIVE) Urine Bilirubin (NEGATIVE) Urine Urobilinogen (<1 E.U./dL) E.U./dL Ur Leukocyte Esterase (NEGATIVE) Brenna/uL Urine Osmolality (300-1000) mosm/kg Ur Random Creatinine mg/dL Ur Random Sodium meq/L Stool Occult Blood (NEGATIVE) ANCA Screen (NEGATIVE) c-ANCA Titer p-ANCA Titer Atypical p-ANCA Titer Blood Type Blood Type Confirm Antibody Screen Crossmatch BBK History Checked 04/04/18 04/04/18 04/04/18 Range/Units 15:00 14:45 13:59 WBC (4.5-11.0) 10^3/uL RBC (3.5-6.1) 10^6/uL Hgb (14.0-18.0) g/dL Hct (42.0-52.0) % MCV (80.0-105.0) fl MCH (25.0-35.0) pg MCHC (31.0-37.0) g/dl RDW (11.5-14.5) % Plt Count (120.0-450.0) 10^3/uL MPV (7.0-11.0) fl Neut % (Auto) (50.0-68.0) % Lymph % (Auto) (22.0-35.0) % [place] % (Auto) (1.0-6.0) % Eos % (Auto) (1.5-5.0) % Baso % (Auto) (0.0-3.0) % Lymph # (Auto) (1.2-3.4) [place] # (Auto) (0.1-0.6) Eos # (Auto) (0.0-0.7) Baso # (Auto) (0.0-2.0) K/mm3 Absolute Neuts (auto) (1.4-6.5) Neutrophils % (Manual) (50.0-70.0) % Band Neutrophils % (0-2) % Lymphocytes % (Manual) (22.0-35.0) % Monocytes % (Manual) (1.0-6.0) % Eosinophils % (Manual) (0.0-3.0) % Platelet Evaluation (NORMAL) Large Platelets Hypochromasia Poikilocytosis (manual Anisocytosis (manual) Microcytosis (manual) Target Cells Acanthocytes (Spur) Schistocytes PT (9.4-12.5) SECONDS INR APTT (26.9-38.3) Seconds pCO2 (35-45) mm/Hg pO2 (80-100) mm/Hg HCO3 (21-28) mmol/L ABG pH (7.35-7.45) ABG Total CO2 (22-28) mmol.L ABG O2 Saturation (95-98) % ABG O2 Content (15-23) ML/dl ABG Base Excess (-2.0-3.0) mmol/L ABG Hemoglobin (11.7-17.4) g/dL ABG Carboxyhemoglobin (0.5-1.5) % POC ABG HHb (Measured) (0-5) % ABG Methemoglobin (0.0-3.0) % ABG O2 Capacity (16-24) mL/dl ABG Potassium (3.6-5.2) mmol/L VBG pH (7.32-7.43) VBG pCO2 (40-60) VBG HCO3 (21-28) mmol/l VBG Total CO2 (22-28) mmol.L VBG O2 Sat (Calc) (40-65) % VBG Base Excess (0.0-2.0) mmol/L VBG Potassium (3.6-5.2) mmol/L Hgb O2 Saturation (95.0-98.0) % Glucose (75-110) mg/dl Lactate (0.7-2.1) mmol/L Mechanical Rate FiO2 % Tidal Volume PEEP Crit Value Called To Crit Value Called By Blood Gas Notified Time Sodium 166 H* (132-148) mmol/L Potassium 4.3 (3.6-5.0) mmol/L Chloride 143 H (98-107) mmol/L Carbon Dioxide 23 (21-33) mmol/L Anion Gap 6 L (10-20) BUN 52 H (7-21) mg/dL Creatinine 1.7 H (0.8-1.5) mg/dl Est GFR ( Amer) 48 Est GFR (Non-Af Amer) 40 POC Glucose (mg/dL) (65-110) mg/dL Random Glucose 88 (70-110) mg/dL Calcium 7.5 L (8.4-10.5) mg/dL Phosphorus 3.3 (2.5-4.5) mg/dL Magnesium 1.9 (1.7-2.2) mg/dL Total Bilirubin 0.2 (0.2-1.3) mg/dL AST 19 (17-59) U/L ALT 20 (7-56) U/L Alkaline Phosphatase 119 (38-126) U/L Troponin I 0.14 H* ng/mL Total Protein 3.1 L (5.8-8.3) g/dL Albumin 1.3 L (3.0-4.8) g/dL Globulin 1.8 gm/dL Albumin/Globulin Ratio 0.7 L (1.1-1.8) Arterial Blood Potassium (3.6-5.2) mmol/L Venous Blood Potassium (3.6-5.2) mmol/L Urine Color (YELLOW) Urine Appearance (CLEAR) Urine pH (4.7-8.0) Ur Specific [place] (1.005-1.035) Urine Protein (<30 mg/dL) mg/dL Urine Glucose (UA) (NEGATIVE) mg/dL Urine Ketones (NEGATIVE) mg/dL Urine Blood (NEGATIVE) Urine Nitrate (NEGATIVE) Urine Bilirubin (NEGATIVE) Urine Urobilinogen (<1 E.U./dL) E.U./dL Ur Leukocyte Esterase (NEGATIVE) Brenna/uL Urine Osmolality (300-1000) mosm/kg Ur Random Creatinine mg/dL Ur Random Sodium meq/L Stool Occult Blood (NEGATIVE) ANCA Screen (NEGATIVE) c-ANCA Titer p-ANCA Titer Atypical p-ANCA Titer Blood Type O POSITIVE Blood Type Confirm O POSITIVE Antibody Screen Negative Crossmatch See Detail BBK History Checked No verified bt 04/04/18 04/04/18 04/04/18 Range/Units 11:45 11:31 11:30 WBC (4.5-11.0) 10^3/uL RBC (3.5-6.1) 10^6/uL Hgb (14.0-18.0) g/dL Hct (42.0-52.0) % MCV (80.0-105.0) fl MCH (25.0-35.0) pg MCHC (31.0-37.0) g/dl RDW (11.5-14.5) % Plt Count (120.0-450.0) 10^3/uL MPV (7.0-11.0) fl Neut % (Auto) (50.0-68.0) % Lymph % (Auto) (22.0-35.0) % [place] % (Auto) (1.0-6.0) % Eos % (Auto) (1.5-5.0) % Baso % (Auto) (0.0-3.0) % Lymph # (Auto) (1.2-3.4) [place] # (Auto) (0.1-0.6) Eos # (Auto) (0.0-0.7) Baso # (Auto) (0.0-2.0) K/mm3 Absolute Neuts (auto) (1.4-6.5) Neutrophils % (Manual) (50.0-70.0) % Band Neutrophils % (0-2) % Lymphocytes % (Manual) (22.0-35.0) % Monocytes % (Manual) (1.0-6.0) % Eosinophils % (Manual) (0.0-3.0) % Platelet Evaluation (NORMAL) Large Platelets Hypochromasia Poikilocytosis (manual Anisocytosis (manual) Microcytosis (manual) Target Cells Acanthocytes (Spur) Schistocytes PT (9.4-12.5) SECONDS INR APTT (26.9-38.3) Seconds pCO2 25 L (35-45) mm/Hg pO2 277.0 H (80-100) mm/Hg HCO3 18.2 L (21-28) mmol/L ABG pH 7.47 H (7.35-7.45) ABG Total CO2 19.0 L (22-28) mmol.L ABG O2 Saturation 100.5 H (95-98) % ABG O2 Content (15-23) ML/dl ABG Base Excess -3.8 L (-2.0-3.0) mmol/L ABG Hemoglobin (11.7-17.4) g/dL ABG Carboxyhemoglobin (0.5-1.5) % POC ABG HHb (Measured) (0-5) % ABG Methemoglobin (0.0-3.0) % ABG O2 Capacity (16-24) mL/dl ABG Potassium 3.4 L (3.6-5.2) mmol/L VBG pH (7.32-7.43) VBG pCO2 (40-60) VBG HCO3 (21-28) mmol/l VBG Total CO2 (22-28) mmol.L VBG O2 Sat (Calc) (40-65) % VBG Base Excess (0.0-2.0) mmol/L VBG Potassium (3.6-5.2) mmol/L Hgb O2 Saturation (95.0-98.0) % Glucose 60 L (75-110) mg/dl Lactate 3.2 H (0.7-2.1) mmol/L Mechanical Rate FiO2 100.0 % Tidal Volume PEEP Crit Value Called To Md Crit Value Called By Ga Blood Gas Notified Time 1137 Sodium 173.0 H* 168 H* (132-148) mmol/L Potassium 4.9 (3.6-5.0) mmol/L Chloride 145.0 H 140 H (98-107) mmol/L Carbon Dioxide 25 (21-33) mmol/L Anion Gap 6 L (10-20) BUN 57 H (7-21) mg/dL Creatinine 1.9 H (0.8-1.5) mg/dl Est GFR ( Amer) 42 Est GFR (Non-Af Amer) 35 POC Glucose (mg/dL) (65-110) mg/dL Random Glucose 69 L (70-110) mg/dL Calcium 9.1 (8.4-10.5) mg/dL Phosphorus 3.4 (2.5-4.5) mg/dL Magnesium 2.1 (1.7-2.2) mg/dL Total Bilirubin 0.3 (0.2-1.3) mg/dL AST 19 (17-59) U/L ALT 19 (7-56) U/L Alkaline Phosphatase 149 H (38-126) U/L Troponin I 0.15 H* D ng/mL Total Protein 4.2 L (5.8-8.3) g/dL Albumin 1.7 L (3.0-4.8) g/dL Globulin 2.4 gm/dL Albumin/Globulin Ratio 0.7 L (1.1-1.8) Arterial Blood Potassium 3.4 L (3.6-5.2) mmol/L Venous Blood Potassium (3.6-5.2) mmol/L Urine Color (YELLOW) Urine Appearance (CLEAR) Urine pH (4.7-8.0) Ur Specific [place] (1.005-1.035) Urine Protein (<30 mg/dL) mg/dL Urine Glucose (UA) (NEGATIVE) mg/dL Urine Ketones (NEGATIVE) mg/dL Urine Blood (NEGATIVE) Urine Nitrate (NEGATIVE) Urine Bilirubin (NEGATIVE) Urine Urobilinogen (<1 E.U./dL) E.U./dL Ur Leukocyte Esterase (NEGATIVE) Brenna/uL Urine Osmolality (300-1000) mosm/kg Ur Random Creatinine mg/dL Ur Random Sodium meq/L Stool Occult Blood Positive H (NEGATIVE) ANCA Screen (NEGATIVE) c-ANCA Titer p-ANCA Titer Atypical p-ANCA Titer Blood Type Blood Type Confirm Antibody Screen Crossmatch BBK History Checked 04/04/18 04/04/18 03/31/18 Range/Units 11:30 10:57 13:19 WBC 12.7 H (4.5-11.0) 10^3/uL RBC 3.04 L (3.5-6.1) 10^6/uL Hgb 8.1 L (14.0-18.0) g/dL Hct 26.2 L (42.0-52.0) % MCV 86.2 (80.0-105.0) fl MCH 26.6 (25.0-35.0) pg MCHC 30.9 L (31.0-37.0) g/dl RDW 20.9 H (11.5-14.5) % Plt Count 187 (120.0-450.0) 10^3/uL MPV 12.4 H (7.0-11.0) fl Neut % (Auto) 74.5 H (50.0-68.0) % Lymph % (Auto) 18.9 L (22.0-35.0) % [place] % (Auto) 5.2 (1.0-6.0) % Eos % (Auto) 1.2 L (1.5-5.0) % Baso % (Auto) 0.2 (0.0-3.0) % Lymph # (Auto) 2.4 (1.2-3.4) [place] # (Auto) 0.7 H (0.1-0.6) Eos # (Auto) 0.2 (0.0-0.7) Baso # (Auto) 0.02 (0.0-2.0) K/mm3 Absolute Neuts (auto) 9.44 H (1.4-6.5) Neutrophils % (Manual) 79 H (50.0-70.0) % Band Neutrophils % 5 H (0-2) % Lymphocytes % (Manual) 9 L (22.0-35.0) % Monocytes % (Manual) 5 (1.0-6.0) % Eosinophils % (Manual) 2 (0.0-3.0) % Platelet Evaluation Normal (NORMAL) Large Platelets Present Hypochromasia 2+ Poikilocytosis (manual 1+ Anisocytosis (manual) 1+ Microcytosis (manual) Slight Target Cells 2+ Acanthocytes (Spur) Slight Schistocytes Slight PT (9.4-12.5) SECONDS INR APTT (26.9-38.3) Seconds pCO2 (35-45) mm/Hg pO2 (80-100) mm/Hg HCO3 (21-28) mmol/L ABG pH (7.35-7.45) ABG Total CO2 (22-28) mmol.L ABG O2 Saturation (95-98) % ABG O2 Content (15-23) ML/dl ABG Base Excess (-2.0-3.0) mmol/L ABG Hemoglobin (11.7-17.4) g/dL ABG Carboxyhemoglobin (0.5-1.5) % POC ABG HHb (Measured) (0-5) % ABG Methemoglobin (0.0-3.0) % ABG O2 Capacity (16-24) mL/dl ABG Potassium (3.6-5.2) mmol/L VBG pH (7.32-7.43) VBG pCO2 (40-60) VBG HCO3 (21-28) mmol/l VBG Total CO2 (22-28) mmol.L VBG O2 Sat (Calc) (40-65) % VBG Base Excess (0.0-2.0) mmol/L VBG Potassium (3.6-5.2) mmol/L Hgb O2 Saturation (95.0-98.0) % Glucose (75-110) mg/dl Lactate (0.7-2.1) mmol/L Mechanical Rate FiO2 % Tidal Volume PEEP Crit Value Called To Crit Value Called By Blood Gas Notified Time Sodium (132-148) mmol/L Potassium (3.6-5.0) mmol/L Chloride (98-107) mmol/L Carbon Dioxide (21-33) mmol/L Anion Gap (10-20) BUN (7-21) mg/dL Creatinine (0.8-1.5) mg/dl Est GFR ( Amer) Est GFR (Non-Af Amer) POC Glucose (mg/dL) 74 (65-110) mg/dL Random Glucose (70-110) mg/dL Calcium (8.4-10.5) mg/dL Phosphorus (2.5-4.5) mg/dL Magnesium (1.7-2.2) mg/dL Total Bilirubin (0.2-1.3) mg/dL AST (17-59) U/L ALT (7-56) U/L Alkaline Phosphatase (38-126) U/L Troponin I ng/mL Total Protein (5.8-8.3) g/dL Albumin (3.0-4.8) g/dL Globulin gm/dL Albumin/Globulin Ratio (1.1-1.8) Arterial Blood Potassium (3.6-5.2) mmol/L Venous Blood Potassium (3.6-5.2) mmol/L Urine Color (YELLOW) Urine Appearance (CLEAR) Urine pH (4.7-8.0) Ur Specific [place] (1.005-1.035) Urine Protein (<30 mg/dL) mg/dL Urine Glucose (UA) (NEGATIVE) mg/dL Urine Ketones (NEGATIVE) mg/dL Urine Blood (NEGATIVE) Urine Nitrate (NEGATIVE) Urine Bilirubin (NEGATIVE) Urine Urobilinogen (<1 E.U./dL) E.U./dL Ur Leukocyte Esterase (NEGATIVE) Brenna/uL Urine Osmolality (300-1000) mosm/kg Ur Random Creatinine mg/dL Ur Random Sodium meq/L Stool Occult Blood (NEGATIVE) ANCA Screen Negative (NEGATIVE) c-ANCA Titer TNP p-ANCA Titer TNP Atypical p-ANCA Titer TNP Blood Type Blood Type Confirm Antibody Screen Crossmatch BBK History Checked Laboratory Results - last 24 hr 03/31/18 04/04/18 04/04/18 13:19 10:57 11:30 WBC 12.7 H RBC 3.04 L Hgb 8.1 L Hct 26.2 L MCV 86.2 MCH 26.6 MCHC 30.9 L RDW 20.9 H Plt Count 187 MPV 12.4 H Neut % (Auto) 74.5 H Lymph % (Auto) 18.9 L [place] % (Auto) 5.2 Eos % (Auto) 1.2 L Baso % (Auto) 0.2 Lymph # (Auto) 2.4 [place] # (Auto) 0.7 H Eos # (Auto) 0.2 Baso # (Auto) 0.02 Absolute Neuts (auto) 9.44 H Neutrophils % (Manual) 79 H Band Neutrophils % 5 H Lymphocytes % (Manual) 9 L Monocytes % (Manual) 5 Eosinophils % (Manual) 2 Platelet Evaluation Normal Large Platelets Present Hypochromasia 2+ Poikilocytosis (manual 1+ Anisocytosis (manual) 1+ Microcytosis (manual) Slight Target Cells 2+ Acanthocytes (Spur) Slight Schistocytes Slight PT INR APTT pCO2 pO2 HCO3 ABG pH ABG Total CO2 ABG O2 Saturation ABG O2 Content ABG Base Excess ABG Hemoglobin ABG Carboxyhemoglobin POC ABG HHb (Measured) ABG Methemoglobin ABG O2 Capacity ABG Potassium VBG pH VBG pCO2 VBG HCO3 VBG Total CO2 VBG O2 Sat (Calc) VBG Base Excess VBG Potassium Hgb O2 Saturation Glucose Lactate Mechanical Rate FiO2 Tidal Volume PEEP Crit Value Called To Crit Value Called By Blood Gas Notified Time Sodium Potassium Chloride Carbon Dioxide Anion Gap BUN Creatinine Est GFR ( Amer) Est GFR (Non-Af Amer) POC Glucose (mg/dL) 74 Random Glucose Calcium Phosphorus Magnesium Total Bilirubin AST ALT Alkaline Phosphatase Troponin I Total Protein Albumin Globulin Albumin/Globulin Ratio Arterial Blood Potassium Venous Blood Potassium Urine Color Urine Appearance Urine pH Ur Specific [place] Urine Protein Urine Glucose (UA) Urine Ketones Urine Blood Urine Nitrate Urine Bilirubin Urine Urobilinogen Ur Leukocyte Esterase Urine Osmolality Ur Random Creatinine Ur Random Sodium Stool Occult Blood ANCA Screen Negative c-ANCA Titer TNP p-ANCA Titer TNP Atypical p-ANCA Titer TNP Blood Type Blood Type Confirm Antibody Screen Crossmatch BBK History Checked 04/04/18 04/04/18 04/04/18 11:30 11:31 11:45 WBC RBC Hgb Hct MCV MCH MCHC RDW Plt Count MPV Neut % (Auto) Lymph % (Auto) [place] % (Auto) Eos % (Auto) Baso % (Auto) Lymph # (Auto) [place] # (Auto) Eos # (Auto) Baso # (Auto) Absolute Neuts (auto) Neutrophils % (Manual) Band Neutrophils % Lymphocytes % (Manual) Monocytes % (Manual) Eosinophils % (Manual) Platelet Evaluation Large Platelets Hypochromasia Poikilocytosis (manual Anisocytosis (manual) Microcytosis (manual) Target Cells Acanthocytes (Spur) Schistocytes PT INR APTT pCO2 25 L pO2 277.0 H HCO3 18.2 L ABG pH 7.47 H ABG Total CO2 19.0 L ABG O2 Saturation 100.5 H ABG O2 Content ABG Base Excess -3.8 L ABG Hemoglobin ABG Carboxyhemoglobin POC ABG HHb (Measured) ABG Methemoglobin ABG O2 Capacity ABG Potassium 3.4 L VBG pH VBG pCO2 VBG HCO3 VBG Total CO2 VBG O2 Sat (Calc) VBG Base Excess VBG Potassium Hgb O2 Saturation Glucose 60 L Lactate 3.2 H Mechanical Rate FiO2 100.0 Tidal Volume PEEP Crit Value Called To Md Crit Value Called By Ga Blood Gas Notified Time 1137 Sodium 168 H* 173.0 H* Potassium 4.9 Chloride 140 H 145.0 H Carbon Dioxide 25 Anion Gap 6 L BUN 57 H Creatinine 1.9 H Est GFR ( Amer) 42 Est GFR (Non-Af Amer) 35 POC Glucose (mg/dL) Random Glucose 69 L Calcium 9.1 Phosphorus 3.4 Magnesium 2.1 Total Bilirubin 0.3 AST 19 ALT 19 Alkaline Phosphatase 149 H Troponin I 0.15 H* D Total Protein 4.2 L Albumin 1.7 L Globulin 2.4 Albumin/Globulin Ratio 0.7 L Arterial Blood Potassium 3.4 L Venous Blood Potassium Urine Color Urine Appearance Urine pH Ur Specific [place] Urine Protein Urine Glucose (UA) Urine Ketones Urine Blood Urine Nitrate Urine Bilirubin Urine Urobilinogen Ur Leukocyte Esterase Urine Osmolality Ur Random Creatinine Ur Random Sodium Stool Occult Blood Positive H ANCA Screen c-ANCA Titer p-ANCA Titer Atypical p-ANCA Titer Blood Type Blood Type Confirm Antibody Screen Crossmatch BBK History Checked 04/04/18 04/04/18 04/04/18 13:59 14:45 15:00 WBC RBC Hgb Hct MCV MCH MCHC RDW Plt Count MPV Neut % (Auto) Lymph % (Auto) [place] % (Auto) Eos % (Auto) Baso % (Auto) Lymph # (Auto) [place] # (Auto) Eos # (Auto) Baso # (Auto) Absolute Neuts (auto) Neutrophils % (Manual) Band Neutrophils % Lymphocytes % (Manual) Monocytes % (Manual) Eosinophils % (Manual) Platelet Evaluation Large Platelets Hypochromasia Poikilocytosis (manual Anisocytosis (manual) Microcytosis (manual) Target Cells Acanthocytes (Spur) Schistocytes PT INR APTT pCO2 pO2 HCO3 ABG pH ABG Total CO2 ABG O2 Saturation ABG O2 Content ABG Base Excess ABG Hemoglobin ABG Carboxyhemoglobin POC ABG HHb (Measured) ABG Methemoglobin ABG O2 Capacity ABG Potassium VBG pH VBG pCO2 VBG HCO3 VBG Total CO2 VBG O2 Sat (Calc) VBG Base Excess VBG Potassium Hgb O2 Saturation Glucose Lactate Mechanical Rate FiO2 Tidal Volume PEEP Crit Value Called To Crit Value Called By Blood Gas Notified Time Sodium 166 H* Potassium 4.3 Chloride 143 H Carbon Dioxide 23 Anion Gap 6 L BUN 52 H Creatinine 1.7 H Est GFR ( Amer) 48 Est GFR (Non-Af Amer) 40 POC Glucose (mg/dL) Random Glucose 88 Calcium 7.5 L Phosphorus 3.3 Magnesium 1.9 Total Bilirubin 0.2 AST 19 ALT 20 Alkaline Phosphatase 119 Troponin I 0.14 H* Total Protein 3.1 L Albumin 1.3 L Globulin 1.8 Albumin/Globulin Ratio 0.7 L Arterial Blood Potassium Venous Blood Potassium Urine Color Urine Appearance Urine pH Ur Specific [place] Urine Protein Urine Glucose (UA) Urine Ketones Urine Blood Urine Nitrate Urine Bilirubin Urine Urobilinogen Ur Leukocyte Esterase Urine Osmolality Ur Random Creatinine Ur Random Sodium Stool Occult Blood ANCA Screen c-ANCA Titer p-ANCA Titer Atypical p-ANCA Titer Blood Type O POSITIVE Blood Type Confirm O POSITIVE Antibody Screen Negative Crossmatch See Detail BBK History Checked No verified bt 01/04/04/18 04/04/18 15:30 15:30 16:00 WBC 11.1 H RBC 2.96 L Hgb 7.9 L Hct 25.4 L MCV 85.8 MCH 26.7 MCHC 31.1 RDW 20.0 H Plt Count 121 MPV Neut % (Auto) 74.0 H Lymph % (Auto) 19.2 L [place] % (Auto) 5.5 Eos % (Auto) 1.1 L Baso % (Auto) 0.2 Lymph # (Auto) 2.1 [place] # (Auto) 0.6 Eos # (Auto) 0.1 Baso # (Auto) 0.02 Absolute Neuts (auto) 8.21 H Neutrophils % (Manual) Band Neutrophils % Lymphocytes % (Manual) Monocytes % (Manual) Eosinophils % (Manual) Platelet Evaluation Large Platelets Hypochromasia Poikilocytosis (manual Anisocytosis (manual) Microcytosis (manual) Target Cells Acanthocytes (Spur) Schistocytes PT 16.1 H INR 1.45 APTT 39.1 H pCO2 pO2 147 H HCO3 ABG pH ABG Total CO2 ABG O2 Saturation ABG O2 Content ABG Base Excess ABG Hemoglobin ABG Carboxyhemoglobin POC ABG HHb (Measured) ABG Methemoglobin ABG O2 Capacity ABG Potassium VBG pH 7.30 L VBG pCO2 44.0 VBG HCO3 21.6 VBG Total CO2 23.0 VBG O2 Sat (Calc) 99.6 H VBG Base Excess -4.8 L VBG Potassium 4.0 Hgb O2 Saturation Glucose 109 Lactate 3.2 H Mechanical Rate FiO2 21.0 Tidal Volume PEEP Crit Value Called To Petrona hernández Crit Value Called By [facility] Blood Gas Notified Time 1614 Sodium 173.0 H* Potassium Chloride 143.0 H Carbon Dioxide Anion Gap BUN Creatinine Est GFR ( Amer) Est GFR (Non-Af Amer) POC Glucose (mg/dL) Random Glucose Calcium Phosphorus Magnesium Total Bilirubin AST ALT Alkaline Phosphatase Troponin I Total Protein Albumin Globulin Albumin/Globulin Ratio Arterial Blood Potassium Venous Blood Potassium 4.0 Urine Color Urine Appearance Urine pH Ur Specific [place] Urine Protein Urine Glucose (UA) Urine Ketones Urine Blood Urine Nitrate Urine Bilirubin Urine Urobilinogen Ur Leukocyte Esterase Urine Osmolality Ur Random Creatinine Ur Random Sodium Stool Occult Blood ANCA Screen c-ANCA Titer p-ANCA Titer Atypical p-ANCA Titer Blood Type Blood Type Confirm Antibody Screen Crossmatch BBK History Checked 04/04/18 04/05/18 04/05/18 16:40 00:05 00:05 WBC 14.8 H D RBC 3.41 L Hgb 9.5 L Hct 29.2 L MCV 85.6 MCH 27.9 MCHC 32.5 RDW 19.1 H Plt Count 115 L MPV Neut % (Auto) 81.1 H Lymph % (Auto) 14.4 L [place] % (Auto) 4.3 Eos % (Auto) 0.1 L Baso % (Auto) 0.1 Lymph # (Auto) 2.1 [place] # (Auto) 0.6 Eos # (Auto) 0.0 Baso # (Auto) 0.01 Absolute Neuts (auto) 11.97 H Neutrophils % (Manual) Band Neutrophils % Lymphocytes % (Manual) Monocytes % (Manual) Eosinophils % (Manual) Platelet Evaluation Large Platelets Hypochromasia Poikilocytosis (manual Anisocytosis (manual) Microcytosis (manual) Target Cells Acanthocytes (Spur) Schistocytes PT INR APTT pCO2 35 pO2 571.0 H HCO3 22.2 ABG pH 7.41 ABG Total CO2 23.3 ABG O2 Saturation 100.4 H ABG O2 Content 13.5 L ABG Base Excess -2.1 L ABG Hemoglobin 8.6 L ABG Carboxyhemoglobin 1.7 H POC ABG HHb (Measured) -0.4 L ABG Methemoglobin 0.9 ABG O2 Capacity 13.4 L ABG Potassium VBG pH VBG pCO2 VBG HCO3 VBG Total CO2 VBG O2 Sat (Calc) VBG Base Excess VBG Potassium Hgb O2 Saturation 97.7 Glucose Lactate Mechanical Rate FiO2 100.0 Tidal Volume PEEP Crit Value Called To Crit Value Called By Blood Gas Notified Time Sodium 166 H* Potassium 4.1 Chloride 142 H Carbon Dioxide 22 Anion Gap 6 L BUN 60 H Creatinine 1.8 H Est GFR ( Amer) 45 Est GFR (Non-Af Amer) 37 POC Glucose (mg/dL) Random Glucose 151 H Calcium 8.2 L Phosphorus Magnesium Total Bilirubin 0.4 AST 39 ALT 30 Alkaline Phosphatase 131 H Troponin I 0.11 D Total Protein 4.3 L Albumin 1.7 L Globulin 2.6 Albumin/Globulin Ratio 0.7 L Arterial Blood Potassium Venous Blood Potassium Urine Color Urine Appearance Urine pH Ur Specific [place] Urine Protein Urine Glucose (UA) Urine Ketones Urine Blood Urine Nitrate Urine Bilirubin Urine Urobilinogen Ur Leukocyte Esterase Urine Osmolality Ur Random Creatinine Ur Random Sodium Stool Occult Blood ANCA Screen c-ANCA Titer p-ANCA Titer Atypical p-ANCA Titer Blood Type Blood Type Confirm Antibody Screen Crossmatch BBK History Checked 04/05/18 04/05/18 04/05/18 04:00 04:00 04:00 WBC RBC Hgb Hct MCV MCH MCHC RDW Plt Count MPV Neut % (Auto) Lymph % (Auto) [place] % (Auto) Eos % (Auto) Baso % (Auto) Lymph # (Auto) [place] # (Auto) Eos # (Auto) Baso # (Auto) Absolute Neuts (auto) Neutrophils % (Manual) Band Neutrophils % Lymphocytes % (Manual) Monocytes % (Manual) Eosinophils % (Manual) Platelet Evaluation Large Platelets Hypochromasia Poikilocytosis (manual Anisocytosis (manual) Microcytosis (manual) Target Cells Acanthocytes (Spur) Schistocytes PT INR APTT pCO2 pO2 HCO3 ABG pH ABG Total CO2 ABG O2 Saturation ABG O2 Content ABG Base Excess ABG Hemoglobin ABG Carboxyhemoglobin POC ABG HHb (Measured) ABG Methemoglobin ABG O2 Capacity ABG Potassium VBG pH VBG pCO2 VBG HCO3 VBG Total CO2 VBG O2 Sat (Calc) VBG Base Excess VBG Potassium Hgb O2 Saturation Glucose Lactate Mechanical Rate FiO2 Tidal Volume PEEP Crit Value Called To Crit Value Called By Blood Gas Notified Time Sodium Potassium Chloride Carbon Dioxide Anion Gap BUN Creatinine Est GFR ( Amer) Est GFR (Non-Af Amer) POC Glucose (mg/dL) Random Glucose Calcium Phosphorus Magnesium Total Bilirubin AST ALT Alkaline Phosphatase Troponin I Total Protein Albumin Globulin Albumin/Globulin Ratio Arterial Blood Potassium Venous Blood Potassium Urine Color Yellow Urine Appearance Clear Urine pH 5.5 Ur Specific [place] >= 1.030 Urine Protein Negative Urine Glucose (UA) Negative Urine Ketones Negative Urine Blood Negative Urine Nitrate Negative Urine Bilirubin Negative Urine Urobilinogen 0.2 Ur Leukocyte Esterase Negative Urine Osmolality 476 Ur Random Creatinine 48 Ur Random Sodium 84 Stool Occult Blood ANCA Screen c-ANCA Titer p-ANCA Titer Atypical p-ANCA Titer Blood Type Blood Type Confirm Antibody Screen Crossmatch BBK History Checked 04/05/18 04/05/18 04/05/18 06:00 06:00 07:45 WBC 16.6 H RBC 3.55 Hgb 9.8 L Hct 30.1 L MCV 84.8 MCH 27.6 MCHC 32.6 RDW 19.0 H Plt Count 125 MPV Neut % (Auto) 83.7 H Lymph % (Auto) 13.1 L [place] % (Auto) 3.1 Eos % (Auto) 0.0 L Baso % (Auto) 0.1 Lymph # (Auto) 2.2 [place] # (Auto) 0.5 Eos # (Auto) 0.0 Baso # (Auto) 0.02 Absolute Neuts (auto) 13.84 H Neutrophils % (Manual) Band Neutrophils % Lymphocytes % (Manual) Monocytes % (Manual) Eosinophils % (Manual) Platelet Evaluation Large Platelets Hypochromasia Poikilocytosis (manual Anisocytosis (manual) Microcytosis (manual) Target Cells Acanthocytes (Spur) Schistocytes PT INR APTT pCO2 29 L pO2 198.0 H HCO3 18.4 L ABG pH 7.41 ABG Total CO2 19.3 L ABG O2 Saturation 99.5 H ABG O2 Content ABG Base Excess -5.0 L ABG Hemoglobin ABG Carboxyhemoglobin POC ABG HHb (Measured) ABG Methemoglobin ABG O2 Capacity ABG Potassium 3.8 VBG pH VBG pCO2 VBG HCO3 VBG Total CO2 VBG O2 Sat (Calc) VBG Base Excess VBG Potassium Hgb O2 Saturation Glucose 198 H Lactate 2.1 Mechanical Rate 16 FiO2 50.0 Tidal Volume 500 PEEP 5 Crit Value Called To Dr oneal Crit Value Called By Chon funes Blood Gas Notified Time 855 Sodium 166 H* 172.0 H* Potassium 4.3 Chloride 142 H 142.0 H Carbon Dioxide 21 Anion Gap 8 L BUN 62 H Creatinine 1.8 H Est GFR ( Amer) 45 Est GFR (Non-Af Amer) 37 POC Glucose (mg/dL) Random Glucose 194 H Calcium 8.2 L Phosphorus Magnesium Total Bilirubin 0.4 AST 44 ALT 26 Alkaline Phosphatase 143 H Troponin I Total Protein 4.6 L Albumin 1.9 L Globulin 2.8 Albumin/Globulin Ratio 0.7 L Arterial Blood Potassium 3.8 Venous Blood Potassium Urine Color Urine Appearance Urine pH Ur Specific [place] Urine Protein Urine Glucose (UA) Urine Ketones Urine Blood Urine Nitrate Urine Bilirubin Urine Urobilinogen Ur Leukocyte Esterase Urine Osmolality Ur Random Creatinine Ur Random Sodium Stool Occult Blood ANCA Screen c-ANCA Titer p-ANCA Titer Atypical p-ANCA Titer Blood Type Blood Type Confirm Antibody Screen Crossmatch BBK History Checked Radiology Impressions: Radiology Impressions Chest X-Ray 04/04/18 11:11 IMPRESSION: Minimal left pleural effusion Bladder Ultrasound 04/04/18 12:53 IMPRESSION: Nondiagnostic study of the urinary bladder. Chest X-Ray 04/04/18 14:05 IMPRESSION: NG tube terminates well proximal to the esophagogastric junction. Advancement into the stomach followed by confirmation radiography is recommended as discussed in lung section above. ET tube in good apparent position. Small pleural effusion and limited left basilar atelectasis or infiltrate unchanged. Abdomen X-Ray 04/04/18 14:14 IMPRESSION: Probable right femoral venous catheter. Otherwise unremarkable. 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 Patient monitored on medical floor when noticed to have acute episode of melena and increased respiratory distress. Patient was transferred to ICU and started on pressors. S/p 2 units PRBC on 04/04. EGD 04/04 showed multiple non bleeding gastric and duodenal ulcers. Extubated today. Plan: Neuro: -lethargic, alert, limited movement of extremities -Head CT when stable -maintain normothermia -Brain MRI(03/28/2018): Age-related degenerative changes are identified which appear age-appropriate. no acute intracranial findings as per standard MR criteria -Extremity US(03/30/18):Normal BARRY and PVR examination at rest Cardio: Hemorrhagic shock 2/2 GI bleed -IVF bolus given, started levophed for pressure support -s/p 2 unis PRBC on 04/04 -phenylephrine turned off today morning -Maintain hemodynamic stability with continued IVF Elevated troponin -Trop 0.15, 0.14, 0.11, , likely type 2 demand ischemia -EKG showing t wave inversions in lateral leads, unseen in previous EKG -Will hold anticoagulation in setting of apparent GI bleed -Echocardiogram(03/24/18): EF 46%, normal LV wall thickness, lateral wall hypokinesis HTN -Holding coreg and cozaar secondary to hypotension -Maintian MAP >65mmHg Pulm: Respiratory distress, respiratory alkalosis, moderate pleural effusions -ABG today // -Patient intubated on 04/04, extubated on 04/05 -Daily Chest xray -HOB 35 degrees. weaning trial daily -Protective oral hygiene, conservative fluid management -Pulmonology with Dr. Perkins consulted and following, continue with recommended therapy -Maintain SaO2 >90% with supplemental O2 as needed -CXR (03/23/18): Inflitrate at left lung base, small bilateral pleurla effusiosn, mild cardiomegaly GI: Active Melena -elevated BUN, hypotension -Protonix gtt -NPO, monitor CBC Q4H -Goal Hgb >7 -EGD 04/04 showed multiple non bleeding gastric and duodenal ulcers -Dr. Stoddard with GI consulted f/u recs -Chest/Abdomen/Pelvis CT(03/27/18): moderate size bilateral pleural effusions with some adjacent consolidation, small stones noted in bladder -GI ppx with IV protonix Renal: Hypernatremia, hyperchloridemia, DIA -likely secondary to volume depletion -UA with specific gravity 1.025 -Nephrology with Dr. Segovia consulted -f/u random urine sodium and Cr, urine osmolality -Monitor with BMP Q4H -IVF as per nephrology, Continue with D5W at 100mL/Hr Maintain euvolemia, replete lytes as needed Endo: Hypoglycemia episodes, Thyroid autoimmunity -HgA1c wnl -TSH 3.36, Free T4 0.90, Thyroxine 5.3 (low) -Cortsol AM samole 03/30, 3.36 wnl -Endo with Dr. 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 Padilla <Suhail Padilla - Last Filed: 04/05/18 18:20> CCU Objective - Vital Signs / Intake & Output Vital Signs (Last 4 hours): Vital Signs Temp Pulse Resp BP Pulse Ox 04/05/18 17:00 93.2 F L 82 18 113/43 L 100 04/05/18 16:00 94.1 F L 77 18 126/61 100 04/05/18 15:00 82 25 H 124/55 L Intake and Output (Last 8hrs): Intake & Output 04/05/18 04/05/18 04/05/18 06:59 14:59 22:59 Intake Total 654 250 Balance 654 250 Intake: IV 654 250 - Medications Active Medications: Active Medications Generic Name Dose Route Start Last Admin Trade Name Freq PRN Reason Stop Dose Admin Aspirin 81 mg 03/26/18 10:00 04/04/18 18:59 Aspirin Chewable PO Not Given DAILY RIYA Carbamide Peroxide 0 ml 04/02/18 18:00 04/05/18 10:46 Debrox Ear Drops AU Not Given BID RIYA Carvedilol 3.125 mg 03/25/18 18:00 04/04/18 19:00 Coreg PO Not Given BID RIYA Clotrimazole 0 gm 03/28/18 10:00 04/02/18 09:40 Lotrimin 1% TOP 1 applic BID PRN Administration Rash Amino Acids 1,000 mls @ 42 mls/hr 04/04/18 18:00 04/04/18 21:31 Clinimix 4.25/5 % (1000 Ml) IV 42 mls/hr .[id number] RIYA Administration Fat Emulsion-Soy/MCT/Gans/Fish Oil 250 mls @ 21 mls/hr 04/05/18 18:00 Smoflipid 20% IV MWF@1800 RIYA Phenylephrine HCl 40 mg/ 254 mls @ 38.1 mls/hr 04/04/18 14:38 04/05/18 05:31 Sodium Chloride IV 100 mcg/min .Q6H40M PRN 38.1 mls/hr TITRATE PER MD ORDER Administration Protocol 100 MCG/MIN Vasopressin 20 units/ Sodium 101 mls @ 9.09 mls/hr 04/04/18 14:45 04/05/18 03:19 Chloride IV Not Given .Q11H7M RIYA Protocol 0.03 U/MIN Fentanyl Citrate 1,000 mcg in 100 mls @ 2 mls/hr 04/04/18 16:15 Fentanyl Citrate/Sodium Chloride 1 Mg/100 Ml IV .Q24H PRN TITRATE PER MD ORDER Protocol 20 MCG/HR Norepinephrine Bitartrate 8 mg 500 mls @ 112.5 mls/hr 04/04/18 19:00 04/05/18 09:00 / Sodium Chloride IV 10 mcg/min .Q4H27M RIYA 37.5 mls/hr Titration Protocol 30 MCG/MIN Meropenem/Sodium Chloride 500 mg in 50 mls @ 100 mls/hr 04/05/18 07:00 04/05/18 09:18 Merrem Iv 500 Mg/Ns 50 Ml IVPB 04/12/18 07:01 100 mls/hr Q12 RIYA Administration Protocol Dextrose 1,000 mls @ 125 mls/hr 04/05/18 09:15 04/05/18 10:51 Dextrose 5% In Water 1000 Ml IV 125 mls/hr .Q8H RIYA Administration Pantoprazole Sodium 40 mg in 100 mls @ 20 mls/hr 04/05/18 10:15 04/05/18 10:29 Protonix 40mg Ivpb IVPB 20 mls/hr .Q5H RIYA Administration Insulin Human Regular 0 units 04/05/18 09:00 04/05/18 12:26 Humulin R Low SC 2 unit Q6 RIYA Administration Protocol Lactic Acid 0 ea 03/28/18 10:00 04/03/18 10:01 Lac-Hydrin 12% Cream (140 G) TOP 1 applic TID PRN Administration Dry skin Losartan Potassium 12.5 mg 03/26/18 10:00 04/04/18 19:00 Cozaar PO Not Given DAILY RIYA Methylprednisolone 40 mg 04/04/18 16:00 04/05/18 05:26 Solu-Medrol IVP 40 mg Q8 RIYA Administration Multi-Ingredient Cream 0 ea 03/31/18 10:00 04/05/18 12:27 Hydrocerin Cream TOP 2 applic 1000,2200 RIYA Administration Silver Sulfadiazine 0 gm 03/28/18 10:00 04/05/18 05:03 Silvadene 1% 25 Gm TP 25 gm BID PRN Administration Dry skin - Patient Studies Lab Studies: Microbiology Studies 04/04/18 14:30 Blood Culture - Preliminary Blood-Venous NO GROWTH AFTER 24 HOURS 04/04/18 14:00 Blood Culture - Preliminary Blood-Venous NO GROWTH AFTER 24 HOURS Lab Studies 04/05/18 04/05/18 04/05/18 Range/Units 17:00 11:30 09:30 WBC (4.5-11.0) 10^3/uL RBC (3.5-6.1) 10^6/uL Hgb (14.0-18.0) g/dL Hct (42.0-52.0) % MCV (80.0-105.0) fl MCH (25.0-35.0) pg MCHC (31.0-37.0) g/dl RDW (11.5-14.5) % Plt Count (120.0-450.0) 10^3/uL Neut % (Auto) (50.0-68.0) % Lymph % (Auto) (22.0-35.0) % [place] % (Auto) (1.0-6.0) % Eos % (Auto) (1.5-5.0) % Baso % (Auto) (0.0-3.0) % Lymph # (Auto) (1.2-3.4) [place] # (Auto) (0.1-0.6) Eos # (Auto) (0.0-0.7) Baso # (Auto) (0.0-2.0) K/mm3 Absolute Neuts (auto) (1.4-6.5) pCO2 30 L (35-45) mm/Hg pO2 264 H 193.0 H (80-100) mm/Hg HCO3 19.5 L (21-28) mmol/L ABG pH 7.42 (7.35-7.45) ABG Total CO2 20.4 L (22-28) mmol.L ABG O2 Saturation 100.1 H (95-98) % ABG Base Excess -3.9 L (-2.0-3.0) mmol/L ABG Potassium 3.9 (3.6-5.2) mmol/L VBG pH 7.43 (7.32-7.43) VBG pCO2 31.0 L (40-60) VBG HCO3 20.6 L (21-28) mmol/l VBG Total CO2 21.6 L (22-28) mmol.L VBG O2 Sat (Calc) 100.2 H (40-65) % VBG Base Excess -2.7 L (0.0-2.0) mmol/L VBG Potassium 3.7 (3.6-5.2) mmol/L Glucose 199 H 217 H (75-110) mg/dl Lactate 1.8 1.9 (0.7-2.1) mmol/L Mechanical Rate FiO2 21.0 50.0 % Tidal Volume PEEP 5 Pressure Support 5 Crit Value Called To Mary Kay padilla Crit Value Called By Ab Chon funes Blood Gas Notified Time 1150 945 Sodium 166 H* 170.0 H* 171.0 H* (132-148) mmol/L Potassium 3.8 (3.6-5.0) mmol/L Chloride 142 H 145.0 H 142.0 H (98-107) mmol/L Carbon Dioxide 22 (21-33) mmol/L Anion Gap 6 L (10-20) BUN 58 H (7-21) mg/dL Creatinine 1.7 H (0.8-1.5) mg/dl Est GFR ( Amer) 48 Est GFR (Non-Af Amer) 40 Random Glucose 159 H (70-110) mg/dL Calcium 7.7 L (8.4-10.5) mg/dL Total Bilirubin 0.3 (0.2-1.3) mg/dL AST 23 (17-59) U/L ALT 28 (7-56) U/L Alkaline Phosphatase 118 (38-126) U/L Troponin I ng/mL Total Protein 4.3 L (5.8-8.3) g/dL Albumin 2.0 L (3.0-4.8) g/dL Globulin 2.4 gm/dL Albumin/Globulin Ratio 0.8 L (1.1-1.8) Arterial Blood Potassium 3.9 (3.6-5.2) mmol/L Venous Blood Potassium 3.7 (3.6-5.2) mmol/L Urine Color (YELLOW) Urine Appearance (CLEAR) Urine pH (4.7-8.0) Ur Specific [place] (1.005-1.035) Urine Protein (<30 mg/dL) mg/dL Urine Glucose (UA) (NEGATIVE) mg/dL Urine Ketones (NEGATIVE) mg/dL Urine Blood (NEGATIVE) Urine Nitrate (NEGATIVE) Urine Bilirubin (NEGATIVE) Urine Urobilinogen (<1 E.U./dL) E.U./dL Ur Leukocyte Esterase (NEGATIVE) Brenna/uL Urine Osmolality (300-1000) mosm/kg Ur Random Creatinine mg/dL Ur Random Sodium meq/L ANCA Screen (NEGATIVE) c-ANCA Titer p-ANCA Titer Atypical p-ANCA Titer Blood Type Antibody Screen Crossmatch BBK History Checked 04/05/18 04/05/18 04/05/18 Range/Units 09:30 09:30 07:45 WBC 16.9 H (4.5-11.0) 10^3/uL RBC 3.35 L (3.5-6.1) 10^6/uL Hgb 9.3 L (14.0-18.0) g/dL Hct 28.5 L (42.0-52.0) % MCV 85.1 (80.0-105.0) fl MCH 27.8 (25.0-35.0) pg MCHC 32.6 (31.0-37.0) g/dl RDW 19.1 H (11.5-14.5) % Plt Count 107 L (120.0-450.0) 10^3/uL Neut % (Auto) 85.3 H (50.0-68.0) % Lymph % (Auto) 11.2 L (22.0-35.0) % [place] % (Auto) 3.4 (1.0-6.0) % Eos % (Auto) 0.0 L (1.5-5.0) % Baso % (Auto) 0.1 (0.0-3.0) % Lymph # (Auto) 1.9 (1.2-3.4) [place] # (Auto) 0.6 (0.1-0.6) Eos # (Auto) 0.0 (0.0-0.7) Baso # (Auto) 0.02 (0.0-2.0) K/mm3 Absolute Neuts (auto) 14.42 H (1.4-6.5) pCO2 29 L (35-45) mm/Hg pO2 198.0 H (80-100) mm/Hg HCO3 18.4 L (21-28) mmol/L ABG pH 7.41 (7.35-7.45) ABG Total CO2 19.3 L (22-28) mmol.L ABG O2 Saturation 99.5 H (95-98) % ABG Base Excess -5.0 L (-2.0-3.0) mmol/L ABG Potassium 3.8 (3.6-5.2) mmol/L VBG pH (7.32-7.43) VBG pCO2 (40-60) VBG HCO3 (21-28) mmol/l VBG Total CO2 (22-28) mmol.L VBG O2 Sat (Calc) (40-65) % VBG Base Excess (0.0-2.0) mmol/L VBG Potassium (3.6-5.2) mmol/L Glucose 198 H (75-110) mg/dl Lactate 2.1 (0.7-2.1) mmol/L Mechanical Rate 16 FiO2 50.0 % Tidal Volume 500 PEEP 5 Pressure Support Crit Value Called To Dr oneal Crit Value Called By Chon funes Blood Gas Notified Time 855 Sodium 165 H* 172.0 H* (132-148) mmol/L Potassium 4.2 (3.6-5.0) mmol/L Chloride 141 H 142.0 H (98-107) mmol/L Carbon Dioxide 22 (21-33) mmol/L Anion Gap 6 L (10-20) BUN 60 H (7-21) mg/dL Creatinine 1.8 H (0.8-1.5) mg/dl Est GFR ( Amer) 45 Est GFR (Non-Af Amer) 37 Random Glucose 217 H (70-110) mg/dL Calcium 7.9 L (8.4-10.5) mg/dL Total Bilirubin 0.3 (0.2-1.3) mg/dL AST 33 (17-59) U/L ALT 28 (7-56) U/L Alkaline Phosphatase 138 H (38-126) U/L Troponin I ng/mL Total Protein 4.3 L (5.8-8.3) g/dL Albumin 1.8 L (3.0-4.8) g/dL Globulin 2.5 gm/dL Albumin/Globulin Ratio 0.7 L (1.1-1.8) Arterial Blood Potassium 3.8 (3.6-5.2) mmol/L Venous Blood Potassium (3.6-5.2) mmol/L Urine Color (YELLOW) Urine Appearance (CLEAR) Urine pH (4.7-8.0) Ur Specific [place] (1.005-1.035) Urine Protein (<30 mg/dL) mg/dL Urine Glucose (UA) (NEGATIVE) mg/dL Urine Ketones (NEGATIVE) mg/dL Urine Blood (NEGATIVE) Urine Nitrate (NEGATIVE) Urine Bilirubin (NEGATIVE) Urine Urobilinogen (<1 E.U./dL) E.U./dL Ur Leukocyte Esterase (NEGATIVE) Brenna/uL Urine Osmolality (300-1000) mosm/kg Ur Random Creatinine mg/dL Ur Random Sodium meq/L ANCA Screen (NEGATIVE) c-ANCA Titer p-ANCA Titer Atypical p-ANCA Titer Blood Type Antibody Screen Crossmatch BBK History Checked 04/05/18 04/05/18 04/05/18 Range/Units 06:00 06:00 04:00 WBC 16.6 H (4.5-11.0) 10^3/uL RBC 3.55 (3.5-6.1) 10^6/uL Hgb 9.8 L (14.0-18.0) g/dL Hct 30.1 L (42.0-52.0) % MCV 84.8 (80.0-105.0) fl MCH 27.6 (25.0-35.0) pg MCHC 32.6 (31.0-37.0) g/dl RDW 19.0 H (11.5-14.5) % Plt Count 125 (120.0-450.0) 10^3/uL Neut % (Auto) 83.7 H (50.0-68.0) % Lymph % (Auto) 13.1 L (22.0-35.0) % [place] % (Auto) 3.1 (1.0-6.0) % Eos % (Auto) 0.0 L (1.5-5.0) % Baso % (Auto) 0.1 (0.0-3.0) % Lymph # (Auto) 2.2 (1.2-3.4) [place] # (Auto) 0.5 (0.1-0.6) Eos # (Auto) 0.0 (0.0-0.7) Baso # (Auto) 0.02 (0.0-2.0) K/mm3 Absolute Neuts (auto) 13.84 H (1.4-6.5) pCO2 (35-45) mm/Hg pO2 (80-100) mm/Hg HCO3 (21-28) mmol/L ABG pH (7.35-7.45) ABG Total CO2 (22-28) mmol.L ABG O2 Saturation (95-98) % ABG Base Excess (-2.0-3.0) mmol/L ABG Potassium (3.6-5.2) mmol/L VBG pH (7.32-7.43) VBG pCO2 (40-60) VBG HCO3 (21-28) mmol/l VBG Total CO2 (22-28) mmol.L VBG O2 Sat (Calc) (40-65) % VBG Base Excess (0.0-2.0) mmol/L VBG Potassium (3.6-5.2) mmol/L Glucose (75-110) mg/dl Lactate (0.7-2.1) mmol/L Mechanical Rate FiO2 % Tidal Volume PEEP Pressure Support Crit Value Called To Crit Value Called By Blood Gas Notified Time Sodium 166 H* (132-148) mmol/L Potassium 4.3 (3.6-5.0) mmol/L Chloride 142 H (98-107) mmol/L Carbon Dioxide 21 (21-33) mmol/L Anion Gap 8 L (10-20) BUN 62 H (7-21) mg/dL Creatinine 1.8 H (0.8-1.5) mg/dl Est GFR ( Amer) 45 Est GFR (Non-Af Amer) 37 Random Glucose 194 H (70-110) mg/dL Calcium 8.2 L (8.4-10.5) mg/dL Total Bilirubin 0.4 (0.2-1.3) mg/dL AST 44 (17-59) U/L ALT 26 (7-56) U/L Alkaline Phosphatase 143 H (38-126) U/L Troponin I ng/mL Total Protein 4.6 L (5.8-8.3) g/dL Albumin 1.9 L (3.0-4.8) g/dL Globulin 2.8 gm/dL Albumin/Globulin Ratio 0.7 L (1.1-1.8) Arterial Blood Potassium (3.6-5.2) mmol/L Venous Blood Potassium (3.6-5.2) mmol/L Urine Color (YELLOW) Urine Appearance (CLEAR) Urine pH (4.7-8.0) Ur Specific [place] (1.005-1.035) Urine Protein (<30 mg/dL) mg/dL Urine Glucose (UA) (NEGATIVE) mg/dL Urine Ketones (NEGATIVE) mg/dL Urine Blood (NEGATIVE) Urine Nitrate (NEGATIVE) Urine Bilirubin (NEGATIVE) Urine Urobilinogen (<1 E.U./dL) E.U./dL Ur Leukocyte Esterase (NEGATIVE) Brenna/uL Urine Osmolality (300-1000) mosm/kg Ur Random Creatinine 48 mg/dL Ur Random Sodium meq/L ANCA Screen (NEGATIVE) c-ANCA Titer p-ANCA Titer Atypical p-ANCA Titer Blood Type Antibody Screen Crossmatch BBK History Checked 04/05/18 04/05/18 04/05/18 Range/Units 04:00 04:00 00:05 WBC 14.8 H D (4.5-11.0) 10^3/uL RBC 3.41 L (3.5-6.1) 10^6/uL Hgb 9.5 L (14.0-18.0) g/dL Hct 29.2 L (42.0-52.0) % MCV 85.6 (80.0-105.0) fl MCH 27.9 (25.0-35.0) pg MCHC 32.5 (31.0-37.0) g/dl RDW 19.1 H (11.5-14.5) % Plt Count 115 L (120.0-450.0) 10^3/uL Neut % (Auto) 81.1 H (50.0-68.0) % Lymph % (Auto) 14.4 L (22.0-35.0) % [place] % (Auto) 4.3 (1.0-6.0) % Eos % (Auto) 0.1 L (1.5-5.0) % Baso % (Auto) 0.1 (0.0-3.0) % Lymph # (Auto) 2.1 (1.2-3.4) [place] # (Auto) 0.6 (0.1-0.6) Eos # (Auto) 0.0 (0.0-0.7) Baso # (Auto) 0.01 (0.0-2.0) K/mm3 Absolute Neuts (auto) 11.97 H (1.4-6.5) pCO2 (35-45) mm/Hg pO2 (80-100) mm/Hg HCO3 (21-28) mmol/L ABG pH (7.35-7.45) ABG Total CO2 (22-28) mmol.L ABG O2 Saturation (95-98) % ABG Base Excess (-2.0-3.0) mmol/L ABG Potassium (3.6-5.2) mmol/L VBG pH (7.32-7.43) VBG pCO2 (40-60) VBG HCO3 (21-28) mmol/l VBG Total CO2 (22-28) mmol.L VBG O2 Sat (Calc) (40-65) % VBG Base Excess (0.0-2.0) mmol/L VBG Potassium (3.6-5.2) mmol/L Glucose (75-110) mg/dl Lactate (0.7-2.1) mmol/L Mechanical Rate FiO2 % Tidal Volume PEEP Pressure Support Crit Value Called To Crit Value Called By Blood Gas Notified Time Sodium (132-148) mmol/L Potassium (3.6-5.0) mmol/L Chloride (98-107) mmol/L Carbon Dioxide (21-33) mmol/L Anion Gap (10-20) BUN (7-21) mg/dL Creatinine (0.8-1.5) mg/dl Est GFR ( Amer) Est GFR (Non-Af Amer) Random Glucose (70-110) mg/dL Calcium (8.4-10.5) mg/dL Total Bilirubin (0.2-1.3) mg/dL AST (17-59) U/L ALT (7-56) U/L Alkaline Phosphatase (38-126) U/L Troponin I ng/mL Total Protein (5.8-8.3) g/dL Albumin (3.0-4.8) g/dL Globulin gm/dL Albumin/Globulin Ratio (1.1-1.8) Arterial Blood Potassium (3.6-5.2) mmol/L Venous Blood Potassium (3.6-5.2) mmol/L Urine Color Yellow (YELLOW) Urine Appearance Clear (CLEAR) Urine pH 5.5 (4.7-8.0) Ur Specific [place] >= 1.030 (1.005-1.035) Urine Protein Negative (<30 mg/dL) mg/dL Urine Glucose (UA) Negative (NEGATIVE) mg/dL Urine Ketones Negative (NEGATIVE) mg/dL Urine Blood Negative (NEGATIVE) Urine Nitrate Negative (NEGATIVE) Urine Bilirubin Negative (NEGATIVE) Urine Urobilinogen 0.2 (<1 E.U./dL) E.U./dL Ur Leukocyte Esterase Negative (NEGATIVE) Brenna/uL Urine Osmolality 476 (300-1000) mosm/kg Ur Random Creatinine mg/dL Ur Random Sodium 84 meq/L ANCA Screen (NEGATIVE) c-ANCA Titer p-ANCA Titer Atypical p-ANCA Titer Blood Type Antibody Screen Crossmatch BBK History Checked 04/05/18 04/04/18 03/31/18 Range/Units 00:05 13:59 13:19 WBC (4.5-11.0) 10^3/uL RBC (3.5-6.1) 10^6/uL Hgb (14.0-18.0) g/dL Hct (42.0-52.0) % MCV (80.0-105.0) fl MCH (25.0-35.0) pg MCHC (31.0-37.0) g/dl RDW (11.5-14.5) % Plt Count (120.0-450.0) 10^3/uL Neut % (Auto) (50.0-68.0) % Lymph % (Auto) (22.0-35.0) % [place] % (Auto) (1.0-6.0) % Eos % (Auto) (1.5-5.0) % Baso % (Auto) (0.0-3.0) % Lymph # (Auto) (1.2-3.4) [place] # (Auto) (0.1-0.6) Eos # (Auto) (0.0-0.7) Baso # (Auto) (0.0-2.0) K/mm3 Absolute Neuts (auto) (1.4-6.5) pCO2 (35-45) mm/Hg pO2 (80-100) mm/Hg HCO3 (21-28) mmol/L ABG pH (7.35-7.45) ABG Total CO2 (22-28) mmol.L ABG O2 Saturation (95-98) % ABG Base Excess (-2.0-3.0) mmol/L ABG Potassium (3.6-5.2) mmol/L VBG pH (7.32-7.43) VBG pCO2 (40-60) VBG HCO3 (21-28) mmol/l VBG Total CO2 (22-28) mmol.L VBG O2 Sat (Calc) (40-65) % VBG Base Excess (0.0-2.0) mmol/L VBG Potassium (3.6-5.2) mmol/L Glucose (75-110) mg/dl Lactate (0.7-2.1) mmol/L Mechanical Rate FiO2 % Tidal Volume PEEP Pressure Support Crit Value Called To Crit Value Called By Blood Gas Notified Time Sodium 166 H* (132-148) mmol/L Potassium 4.1 (3.6-5.0) mmol/L Chloride 142 H (98-107) mmol/L Carbon Dioxide 22 (21-33) mmol/L Anion Gap 6 L (10-20) BUN 60 H (7-21) mg/dL Creatinine 1.8 H (0.8-1.5) mg/dl Est GFR ( Amer) 45 Est GFR (Non-Af Amer) 37 Random Glucose 151 H (70-110) mg/dL Calcium 8.2 L (8.4-10.5) mg/dL Total Bilirubin 0.4 (0.2-1.3) mg/dL AST 39 (17-59) U/L ALT 30 (7-56) U/L Alkaline Phosphatase 131 H (38-126) U/L Troponin I 0.11 D ng/mL Total Protein 4.3 L (5.8-8.3) g/dL Albumin 1.7 L (3.0-4.8) g/dL Globulin 2.6 gm/dL Albumin/Globulin Ratio 0.7 L (1.1-1.8) Arterial Blood Potassium (3.6-5.2) mmol/L Venous Blood Potassium (3.6-5.2) mmol/L Urine Color (YELLOW) Urine Appearance (CLEAR) Urine pH (4.7-8.0) Ur Specific [place] (1.005-1.035) Urine Protein (<30 mg/dL) mg/dL Urine Glucose (UA) (NEGATIVE) mg/dL Urine Ketones (NEGATIVE) mg/dL Urine Blood (NEGATIVE) Urine Nitrate (NEGATIVE) Urine Bilirubin (NEGATIVE) Urine Urobilinogen (<1 E.U./dL) E.U./dL Ur Leukocyte Esterase (NEGATIVE) Brenna/uL Urine Osmolality (300-1000) mosm/kg Ur Random Creatinine mg/dL Ur Random Sodium meq/L ANCA Screen Negative (NEGATIVE) c-ANCA Titer TNP p-ANCA Titer TNP Atypical p-ANCA Titer TNP Blood Type O POSITIVE Antibody Screen Negative Crossmatch See Detail BBK History Checked No verified bt Laboratory Results - last 24 hr 03/31/18 04/04/18 04/05/18 13:19 13:59 00:05 WBC RBC Hgb Hct MCV MCH MCHC RDW Plt Count Neut % (Auto) Lymph % (Auto) [place] % (Auto) Eos % (Auto) Baso % (Auto) Lymph # (Auto) [place] # (Auto) Eos # (Auto) Baso # (Auto) Absolute Neuts (auto) pCO2 pO2 HCO3 ABG pH ABG Total CO2 ABG O2 Saturation ABG Base Excess ABG Potassium VBG pH VBG pCO2 VBG HCO3 VBG Total CO2 VBG O2 Sat (Calc) VBG Base Excess VBG Potassium Glucose Lactate Mechanical Rate FiO2 Tidal Volume PEEP Pressure Support Crit Value Called To Crit Value Called By Blood Gas Notified Time Sodium 166 H* Potassium 4.1 Chloride 142 H Carbon Dioxide 22 Anion Gap 6 L BUN 60 H Creatinine 1.8 H Est GFR ( Amer) 45 Est GFR (Non-Af Amer) 37 Random Glucose 151 H Calcium 8.2 L Total Bilirubin 0.4 AST 39 ALT 30 Alkaline Phosphatase 131 H Troponin I 0.11 D Total Protein 4.3 L Albumin 1.7 L Globulin 2.6 Albumin/Globulin Ratio 0.7 L Arterial Blood Potassium Venous Blood Potassium Urine Color Urine Appearance Urine pH Ur Specific [place] Urine Protein Urine Glucose (UA) Urine Ketones Urine Blood Urine Nitrate Urine Bilirubin Urine Urobilinogen Ur Leukocyte Esterase Urine Osmolality Ur Random Creatinine Ur Random Sodium ANCA Screen Negative c-ANCA Titer TNP p-ANCA Titer TNP Atypical p-ANCA Titer TNP Blood Type O POSITIVE Antibody Screen Negative Crossmatch See Detail BBK History Checked No verified bt 04/05/18 04/05/18 04/05/18 00:05 04:00 04:00 WBC 14.8 H D RBC 3.41 L Hgb 9.5 L Hct 29.2 L MCV 85.6 MCH 27.9 MCHC 32.5 RDW 19.1 H Plt Count 115 L Neut % (Auto) 81.1 H Lymph % (Auto) 14.4 L [place] % (Auto) 4.3 Eos % (Auto) 0.1 L Baso % (Auto) 0.1 Lymph # (Auto) 2.1 [place] # (Auto) 0.6 Eos # (Auto) 0.0 Baso # (Auto) 0.01 Absolute Neuts (auto) 11.97 H pCO2 pO2 HCO3 ABG pH ABG Total CO2 ABG O2 Saturation ABG Base Excess ABG Potassium VBG pH VBG pCO2 VBG HCO3 VBG Total CO2 VBG O2 Sat (Calc) VBG Base Excess VBG Potassium Glucose Lactate Mechanical Rate FiO2 Tidal Volume PEEP Pressure Support Crit Value Called To Crit Value Called By Blood Gas Notified Time Sodium Potassium Chloride Carbon Dioxide Anion Gap BUN Creatinine Est GFR ( Amer) Est GFR (Non-Af Amer) Random Glucose Calcium Total Bilirubin AST ALT Alkaline Phosphatase Troponin I Total Protein Albumin Globulin Albumin/Globulin Ratio Arterial Blood Potassium Venous Blood Potassium Urine Color Yellow Urine Appearance Clear Urine pH 5.5 Ur Specific [place] >= 1.030 Urine Protein Negative Urine Glucose (UA) Negative Urine Ketones Negative Urine Blood Negative Urine Nitrate Negative Urine Bilirubin Negative Urine Urobilinogen 0.2 Ur Leukocyte Esterase Negative Urine Osmolality 476 Ur Random Creatinine Ur Random Sodium 84 ANCA Screen c-ANCA Titer p-ANCA Titer Atypical p-ANCA Titer Blood Type Antibody Screen Crossmatch BBK History Checked 04/05/18 04/05/1819 04:00 06:00 06:00 WBC 16.6 H RBC 3.55 Hgb 9.8 L Hct 30.1 L MCV 84.8 MCH 27.6 MCHC 32.6 RDW 19.0 H Plt Count 125 Neut % (Auto) 83.7 H Lymph % (Auto) 13.1 L [place] % (Auto) 3.1 Eos % (Auto) 0.0 L Baso % (Auto) 0.1 Lymph # (Auto) 2.2 [place] # (Auto) 0.5 Eos # (Auto) 0.0 Baso # (Auto) 0.02 Absolute Neuts (auto) 13.84 H pCO2 pO2 HCO3 ABG pH ABG Total CO2 ABG O2 Saturation ABG Base Excess ABG Potassium VBG pH VBG pCO2 VBG HCO3 VBG Total CO2 VBG O2 Sat (Calc) VBG Base Excess VBG Potassium Glucose Lactate Mechanical Rate FiO2 Tidal Volume PEEP Pressure Support Crit Value Called To Crit Value Called By Blood Gas Notified Time Sodium 166 H* Potassium 4.3 Chloride 142 H Carbon Dioxide 21 Anion Gap 8 L BUN 62 H Creatinine 1.8 H Est GFR ( Amer) 45 Est GFR (Non-Af Amer) 37 Random Glucose 194 H Calcium 8.2 L Total Bilirubin 0.4 AST 44 ALT 26 Alkaline Phosphatase 143 H Troponin I Total Protein 4.6 L Albumin 1.9 L Globulin 2.8 Albumin/Globulin Ratio 0.7 L Arterial Blood Potassium Venous Blood Potassium Urine Color Urine Appearance Urine pH Ur Specific [place] Urine Protein Urine Glucose (UA) Urine Ketones Urine Blood Urine Nitrate Urine Bilirubin Urine Urobilinogen Ur Leukocyte Esterase Urine Osmolality Ur Random Creatinine 48 Ur Random Sodium ANCA Screen c-ANCA Titer p-ANCA Titer Atypical p-ANCA Titer Blood Type Antibody Screen Crossmatch BBK History Checked 04/05/18 04/05/18 04/05/18 07:45 09:30 09:30 WBC 16.9 H RBC 3.35 L Hgb 9.3 L Hct 28.5 L MCV 85.1 MCH 27.8 MCHC 32.6 RDW 19.1 H Plt Count 107 L Neut % (Auto) 85.3 H Lymph % (Auto) 11.2 L [place] % (Auto) 3.4 Eos % (Auto) 0.0 L Baso % (Auto) 0.1 Lymph # (Auto) 1.9 [place] # (Auto) 0.6 Eos # (Auto) 0.0 Baso # (Auto) 0.02 Absolute Neuts (auto) 14.42 H pCO2 29 L pO2 198.0 H HCO3 18.4 L ABG pH 7.41 ABG Total CO2 19.3 L ABG O2 Saturation 99.5 H ABG Base Excess -5.0 L ABG Potassium 3.8 VBG pH VBG pCO2 VBG HCO3 VBG Total CO2 VBG O2 Sat (Calc) VBG Base Excess VBG Potassium Glucose 198 H Lactate 2.1 Mechanical Rate 16 FiO2 50.0 Tidal Volume 500 PEEP 5 Pressure Support Crit Value Called To Dr oneal Crit Value Called By Chon funes Blood Gas Notified Time 855 Sodium 172.0 H* 165 H* Potassium 4.2 Chloride 142.0 H 141 H Carbon Dioxide 22 Anion Gap 6 L BUN 60 H Creatinine 1.8 H Est GFR ( Amer) 45 Est GFR (Non-Af Amer) 37 Random Glucose 217 H Calcium 7.9 L Total Bilirubin 0.3 AST 33 ALT 28 Alkaline Phosphatase 138 H Troponin I Total Protein 4.3 L Albumin 1.8 L Globulin 2.5 Albumin/Globulin Ratio 0.7 L Arterial Blood Potassium 3.8 Venous Blood Potassium Urine Color Urine Appearance Urine pH Ur Specific [place] Urine Protein Urine Glucose (UA) Urine Ketones Urine Blood Urine Nitrate Urine Bilirubin Urine Urobilinogen Ur Leukocyte Esterase Urine Osmolality Ur Random Creatinine Ur Random Sodium ANCA Screen c-ANCA Titer p-ANCA Titer Atypical p-ANCA Titer Blood Type Antibody Screen Crossmatch BBK History Checked 04/05/18 04/05/18 04/05/18 09:30 11:30 17:00 WBC RBC Hgb Hct MCV MCH MCHC RDW Plt Count Neut % (Auto) Lymph % (Auto) [place] % (Auto) Eos % (Auto) Baso % (Auto) Lymph # (Auto) [place] # (Auto) Eos # (Auto) Baso # (Auto) Absolute Neuts (auto) pCO2 30 L pO2 193.0 H 264 H HCO3 19.5 L ABG pH 7.42 ABG Total CO2 20.4 L ABG O2 Saturation 100.1 H ABG Base Excess -3.9 L ABG Potassium 3.9 VBG pH 7.43 VBG pCO2 31.0 L VBG HCO3 20.6 L VBG Total CO2 21.6 L VBG O2 Sat (Calc) 100.2 H VBG Base Excess -2.7 L VBG Potassium 3.7 Glucose 217 H 199 H Lactate 1.9 1.8 Mechanical Rate FiO2 50.0 21.0 Tidal Volume PEEP 5 Pressure Support 5 Crit Value Called To Dr aleksander wren Crit Value Called By Chon funes Ab Blood Gas Notified Time 945 1150 Sodium 171.0 H* 170.0 H* 166 H* Potassium 3.8 Chloride 142.0 H 145.0 H 142 H Carbon Dioxide 22 Anion Gap 6 L BUN 58 H Creatinine 1.7 H Est GFR ( Amer) 48 Est GFR (Non-Af Amer) 40 Random Glucose 159 H Calcium 7.7 L Total Bilirubin 0.3 AST 23 ALT 28 Alkaline Phosphatase 118 Troponin I Total Protein 4.3 L Albumin 2.0 L Globulin 2.4 Albumin/Globulin Ratio 0.8 L Arterial Blood Potassium 3.9 Venous Blood Potassium 3.7 Urine Color Urine Appearance Urine pH Ur Specific [place] Urine Protein Urine Glucose (UA) Urine Ketones Urine Blood Urine Nitrate Urine Bilirubin Urine Urobilinogen Ur Leukocyte Esterase Urine Osmolality Ur Random Creatinine Ur Random Sodium ANCA Screen c-ANCA Titer p-ANCA Titer Atypical p-ANCA Titer Blood Type Antibody Screen Crossmatch BBK History Checked Radiology Impressions: Radiology Impressions Bladder Ultrasound 04/04/18 12:53 IMPRESSION: Nondiagnostic study of the urinary bladder. Critical Care Progress Note - Nutrition Nutrition: Nutrition Category Date Time Status NPO Diet [DIET] Diets 04/05/18 Breakfast Ordered Attending/Attestation - Attestation I have personally seen and examined this patient.: Yes I have fully participated in the care of the patient.: Yes I have reviewed all pertinent clinical information: Yes Notes (Text): 04/05/18 18:[address] Padilla note
[2018-04-05] MEDS ORDERED: Insulin Reg-LOW-Coverage SC SCH ×3 (09:12→12:00)
[2018-04-05] MEDS: Albumin Human 5% (12.5 gm/250 ml) IV SCH ×2 (09:16→12:16)
[2018-04-05] MEDS: MEROPENEM 500 MG in NS 500 MG/50 ML BAG IVPB SCH ×2 (09:18→22:50)
[2018-04-05] MEDS: Insulin Reg-LOW-Coverage SC SCH ×3 (09:22→18:27)
[2018-04-05 09:40] LABS: ARTERIAL BLOOD GAS HCO3 19.5 mmol/L (21-28); ARTERIAL BLOOD GAS O2 SAT 100.1 % (95-98); ARTERIAL BLOOD GAS PCO2 30 mm/Hg (35-45); ARTERIAL BLOOD GAS PH 7.42 (7.35-7.45); ARTERIAL BLOOD GAS TCO2 20.4 mmol.L (22-28)
[2018-04-05 09:44] LABS: BASO # 0.02 K/mm3 (0.0-2.0); BASO % 0.1 % (0.0-3.0); HEMOGLOBIN 9.3 g/dL (14.0-18.0); LYMPH # 1.9 (1.2-3.4); LYMPH % 11.2 % (22.0-35.0); MEAN CELL VOLUME 85.1 fl (80.0-105.0); MEAN CORPUSCULAR HEMOGLOBIN 27.8 pg (25.0-35.0); MEAN CORPUSCULAR HGB CONC 32.6 g/dl (31.0-37.0); MONO # 0.6 (0.1-0.6); MONO % 3.4 % (1.0-6.0); PLATELET COUNT 107 10^3/uL (120.0-450.0); RBC 3.35 10^6/uL (3.5-6.1); RED CELL DISTRIBUTION WIDTH 19.1 % (11.5-14.5); WHITE BLOOD COUNT 16.9 10^3/uL (4.5-11.0)
[2018-04-05 10:07] LABS: ALBUMIN 1.8 g/dL (3.0-4.8); CALCIUM 7.9 mg/dL (8.4-10.5)
--- NOTE | 2018-04-05 10:07 | CP.PCM.PN ---
Subjective - Date & Time of Evaluation Date of Evaluation: 04/05/18 Time of Evaluation: 10:03 - Subjective Subjective: Surgery Pt seen and examined. Pt intubated and on levo 10mcg. On Pressure support. Underwent EGD yesterday. Received PRBC. Objective - Vital Signs/Intake and Output Vital Signs (last 24 hours): Temp Pulse Resp BP Pulse Ox 98.4 F 80 20 74/32 L 94 L 04/04/18 06:00 04/05/18 06:00 04/05/18 07:24 04/04/18 15:00 04/05/18 07:24 Intake and Output: 04/05/18 04/05/18 06:59 18:59 Intake Total 754 Balance 754 - Medications Medications: Current Medications Albumin Human (Albumin Human 5% (12.5 Gm/250 Ml)) 12.5 gm IV Q1H [facility] Stop: 04/05/18 11:01 Last Admin: 04/05/18 09:16 Dose: 12.5 gm Aspirin (Aspirin Chewable) 81 mg PO DAILY [facility] Last Admin: 04/04/18 18:59 Dose: Not Given Carbamide Peroxide (Debrox Ear Drops) 0 ml AU BID [facility] Last Admin: 04/03/18 17:55 Dose: 5 drop Carvedilol (Coreg) 3.125 mg PO BID [facility] Last Admin: 04/04/18 19:00 Dose: Not Given Clotrimazole (Lotrimin 1%) 0 gm TOP BID PRN PRN Reason: Rash Last Admin: 04/02/18 09:40 Dose: 1 applic Amino Acids (Clinimix 4.25/5 % (1000 Ml)) 1,000 mls @ 42 mls/hr IV .[id number] [facility] Last Admin: 04/04/18 21:31 Dose: 42 mls/hr Fat Emulsion-Soy/MCT/[place]/Fish Oil (Smoflipid 20%) 250 mls @ 21 mls/hr IV MWF@1800 [facility] Pantoprazole Sodium (Protonix 40mg Ivpb) 40 mg in 100 mls @ 20 mls/hr IVPB .Q5H [facility] Last Admin: 04/05/18 05:27 Dose: 20 mls/hr Phenylephrine HCl 40 mg/ (Sodium Chloride) 254 mls @ 38.1 mls/hr IV .Q6H40M PRN; Protocol PRN Reason: TITRATE PER MD ORDER Last Admin: 04/05/18 05:31 Dose: 100 mcg/min, 38.1 mls/hr Vasopressin 20 units/ Sodium (Chloride) 101 mls @ 9.09 mls/hr IV .Q11H7M [facility]; Protocol Last Admin: 04/05/18 03:19 Dose: Not Given Fentanyl Citrate (Fentanyl Citrate/Sodium Chloride 1 Mg/100 Ml) 1,000 mcg in 100 mls @ 2 mls/hr IV .Q24H PRN; Protocol PRN Reason: TITRATE PER MD ORDER Norepinephrine Bitartrate 8 mg (/ Sodium Chloride) 500 mls @ 112.5 mls/hr IV .Q4H27M [facility]; Protocol Last Admin: 04/05/18 05:21 Dose: 15 mcg/min, 56.25 mls/hr Meropenem/Sodium Chloride (Merrem Iv 500 Mg/Ns 50 Ml) 500 mg in 50 mls @ 100 mls/hr IVPB Q12 [facility]; Protocol Stop: 04/12/18 07:01 Last Admin: 04/05/18 09:18 Dose: 100 mls/hr Vancomycin HCl 2 gm/ Sodium (Chloride) 500 mls @ 170 mls/hr IVPB ONCE ONE; Protocol Stop: 04/05/18 10:56 Dextrose (Dextrose 5% In Water 1000 Ml) 1,000 mls @ 125 mls/hr IV .Q8H [facility] Insulin Human Regular (Humulin R Low) 0 units SC Q6 [facility]; Protocol Last Admin: 04/05/18 09:22 Dose: 4 unit Lactic Acid (Lac-Hydrin 12% Cream (140 G)) 0 ea TOP TID PRN PRN Reason: Dry skin Last Admin: 04/03/18 10:01 Dose: 1 applic Losartan Potassium (Cozaar) 12.5 mg PO DAILY [facility] Last Admin: 04/04/18 19:00 Dose: Not Given Methylprednisolone (Solu-Medrol) 40 mg IVP Q8 [facility] Last Admin: 04/05/18 05:26 Dose: 40 mg Multi-Ingredient Cream (Hydrocerin Cream) 0 ea TOP 1000,2200 [facility] Last Admin: 04/04/18 23:40 Dose: 1 applic Silver Sulfadiazine (Silvadene 1% 25 Gm) 0 gm TP BID PRN PRN Reason: Dry skin Last Admin: 04/05/18 05:03 Dose: 25 gm - Labs Labs: 04/05/18 09:30 04/05/18 06:00 PT 16.1 SECONDS (9.4-12.5) H 04/04/18 16:00 INR 1.45 04/04/18 16:00 APTT 39.1 Seconds (26.9-38.3) H 04/04/18 16:00 - Constitutional Appears: No Acute Distress - Head Exam Head Exam: ATRAUMATIC, NORMAL INSPECTION, NORMOCEPHALIC - Eye Exam Eye Exam: EOMI, Normal appearance, PERRL Pupil Exam: NORMAL ACCOMODATION, PERRL - ENT Exam ENT Exam: Mucous Membranes Moist, Normal Exam - Neck Exam Neck Exam: Full ROM - Respiratory Exam Respiratory Exam: NORMAL BREATHING PATTERN - Cardiovascular Exam Cardiovascular Exam: REGULAR RHYTHM - GI/Abdominal Exam GI & Abdominal Exam: Soft. absent: Tenderness - Extremities Exam Extremities Exam: absent: Full ROM - Neurological Exam Neurological Exam: Awake. 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 EGD: gastritis, duodenitis, non bleeding ulcers. Plan: - colonoscopy in October 2016 showed rectal varices, patent end to side anastomosis, benign polyp - recommended DDAVP in setting of DIA and active bleeding - a line - titrate pressors as needed - wean to extubate - correct hypernatremia - strict Is and Os - followup GI recs - further management per primary - further recommendations per Dr. Caal
[2018-04-05 10:12] LABS: ALB/GLOB RATIO 0.7 (1.1-1.8)
--- NOTE | 2018-04-05 10:40 | PN ---
DATE: 04/05/2018 SUBJECTIVE: The patient seen and examined at bedside. He is not on sedation. The phenylephrine, vasopressin was weaned off. The patient is on norepinephrine 10 mcg per minute. On that, his blood pressure is 122/53 with mean arterial pressure of 78. The patient is on pressure support 5/5 with FIO2 of 50%, which he tolerates very well. Tidal volume of 440, fluctuates up to 460, rapid shallow breathing index of 39. The patient is comfortable, following commands. The patient is on Protonix drip and D5 at 100 mL/hour (sodium 166). OBJECTIVE: VITAL SIGNS: Heart rate 82, respiratory rate 19, end-tidal CO2 on the monitor is 24, oxygen saturation 91%-95% on 50% FIO2. HEENT: Head and neck atraumatic. Intubated. LUNGS: Clear to auscultation bilaterally. HEART: Regular rate and rhythm. S1, S2 distant. ABDOMEN: Soft, nontender, nondistended. MUSCULOSKELETAL: Trace to 1+ bilateral pedal and ankle edema. NEUROLOGIC: The patient moves all extremities spontaneously. SKIN: The patient does have scaling throughout the body; however, no mucosal lesions in the mouth and no conjunctivitis. PSYCHIATRIC: The patient is alert, awake and following commands. LABORATORY DATA: WBC 16.6, hemoglobin 9.8, platelet count 125. Sodium 166, potassium 4.3, chloride 142, BUN 62, creatinine 1.8, glucose 194, AST 44, ALT 26, total bilirubin 0.4. Troponin 0.11. ABG showed lactic acid 2.1, down from 3.2, pH 7.41/29/198. MEDICATIONS: TPN, D5 at 100 mL/hour, fentanyl drip now off, meropenem, Solu-Medrol 40 mg IV every 8 hours, norepinephrine, Protonix drip, vancomycin, vasopressin. The patient had endoscopy yesterday that showed duodenal ulcer with clean base. Esophagitis. ASSESSMENT AND PLAN: This is a 73-year-old gentleman who presented yesterday with hemorrhagic shock secondary to upper gastrointestinal bleed, now resolved, status post upper EGD. The patient tolerates pressure support trial and will be extubated if passed it. We will continue with head of bed elevated more than 35 degrees, oral hygiene. Once shock completely resolved, we will continue with conservative fluid and oxygen management. The patient is off of phenylephrine, vasopressin and norepinephrine requirement is going down. The patient is on Protonix drip and GI service is following him as well. EGD yesterday showed no bleeding ulcer. His hemoglobin remained stable. We will maintain mean arterial pressure more than 65, avoid hyperchloremia (the patient is on D5), we will try to get his albumin above 2 (currently it is 1.9). We will maintain euvolemia and euglycemia. We will continue with tapering steroids. It does not appear that the patient has Tommy Danilo syndrome as there are no mucosal and conjunctival lesions. We will continue with DVT, GI prophylaxis. Cezare syndrome (T-cell cutaneous lymphoma) should be considered, provided skin manifestation and hypernatriemia. will get hem/onc on board ccm time 40 min Suhail Padilla MD MTDFatimah
--- NOTE | 2018-04-05 10:47 | CP.PCM.PN ---
<Peterson Houser - Last Filed: 04/05/18 13:21> Subjective - Date & Time of Evaluation Date of Evaluation: 04/05/18 Time of Evaluation: 07:00 - Subjective Subjective: ID Progress Note Patient seen and examined at bedside. Patient intubated in ICU, responding to commands appropriately. No fevers overnight. Remains hypothermic. Objective - Vital Signs/Intake and Output Vital Signs (last 24 hours): Temp Pulse Resp BP Pulse Ox 98.4 F 80 20 74/32 L 94 L 04/04/18 06:00 04/05/18 06:00 04/05/18 07:24 04/04/18 15:00 04/05/18 07:24 Intake and Output: 04/05/18 04/05/18 06:59 18:59 Intake Total 1254 Balance 1254 - Medications Medications: Current Medications Albumin Human (Albumin Human 5% (12.5 Gm/250 Ml)) 12.5 gm IV Q1H [facility] Stop: 04/05/18 11:01 Last Admin: 04/05/18 09:16 Dose: 12.5 gm Aspirin (Aspirin Chewable) 81 mg PO DAILY [facility] Last Admin: 04/04/18 18:59 Dose: Not Given Carbamide Peroxide (Debrox Ear Drops) 0 ml AU BID [facility] Last Admin: 04/03/18 17:55 Dose: 5 drop Carvedilol (Coreg) 3.125 mg PO BID [facility] Last Admin: 04/04/18 19:00 Dose: Not Given Clotrimazole (Lotrimin 1%) 0 gm TOP BID PRN PRN Reason: Rash Last Admin: 04/02/18 09:40 Dose: 1 applic Amino Acids (Clinimix 4.25/5 % (1000 Ml)) 1,000 mls @ 42 mls/hr IV .[id number] [facility] Last Admin: 04/04/18 21:31 Dose: 42 mls/hr Fat Emulsion-Soy/MCT/[place]/Fish Oil (Smoflipid 20%) 250 mls @ 21 mls/hr IV MWF@1800 [facility] Phenylephrine HCl 40 mg/ (Sodium Chloride) 254 mls @ 38.1 mls/hr IV .Q6H40M PRN; Protocol PRN Reason: TITRATE PER MD ORDER Last Admin: 04/05/18 05:31 Dose: 100 mcg/min, 38.1 mls/hr Vasopressin 20 units/ Sodium (Chloride) 101 mls @ 9.09 mls/hr IV .Q11H7M [facility]; Protocol Last Admin: 04/05/18 03:19 Dose: Not Given Fentanyl Citrate (Fentanyl Citrate/Sodium Chloride 1 Mg/100 Ml) 1,000 mcg in 100 mls @ 2 mls/hr IV .Q24H PRN; Protocol PRN Reason: TITRATE PER MD ORDER Norepinephrine Bitartrate 8 mg (/ Sodium Chloride) 500 mls @ 112.5 mls/hr IV .Q4H27M [facility]; Protocol Last Titration: 04/05/18 06:00 Dose: Infused Meropenem/Sodium Chloride (Merrem Iv 500 Mg/Ns 50 Ml) 500 mg in 50 mls @ 100 mls/hr IVPB Q12 [facility]; Protocol Stop: 04/12/18 07:01 Last Admin: 04/05/18 09:18 Dose: 100 mls/hr Vancomycin HCl 2 gm/ Sodium (Chloride) 500 mls @ 170 mls/hr IVPB ONCE ONE; Protocol Stop: 04/05/18 10:56 Dextrose (Dextrose 5% In Water 1000 Ml) 1,000 mls @ 125 mls/hr IV .Q8H [facility] Pantoprazole Sodium (Protonix 40mg Ivpb) 40 mg in 100 mls @ 20 mls/hr IVPB .Q5H [facility] Last Admin: 04/05/18 10:29 Dose: 20 mls/hr Insulin Human Regular (Humulin R Low) 0 units SC Q6 [facility]; Protocol Last Admin: 04/05/18 09:22 Dose: 4 unit Lactic Acid (Lac-Hydrin 12% Cream (140 G)) 0 ea TOP TID PRN PRN Reason: Dry skin Last Admin: 04/03/18 10:01 Dose: 1 applic Losartan Potassium (Cozaar) 12.5 mg PO DAILY [facility] Last Admin: 04/04/18 19:00 Dose: Not Given Methylprednisolone (Solu-Medrol) 40 mg IVP Q8 [facility] Last Admin: 04/05/18 05:26 Dose: 40 mg Multi-Ingredient Cream (Hydrocerin Cream) 0 ea TOP 1000,2200 [facility] Last Admin: 04/04/18 23:40 Dose: 1 applic Silver Sulfadiazine (Silvadene 1% 25 Gm) 0 gm TP BID PRN PRN Reason: Dry skin Last Admin: 04/05/18 05:03 Dose: 25 gm - Labs Labs: 04/05/18 09:30 04/05/18 09:30 PT 16.1 SECONDS (9.4-12.5) H 04/04/18 16:00 INR 1.45 04/04/18 16:00 APTT 39.1 Seconds (26.9-38.3) H 04/04/18 16:00 - Constitutional Appears: Toxic, No Acute Distress - Head Exam Head Exam: ATRAUMATIC, NORMAL INSPECTION, NORMOCEPHALIC - Eye Exam Eye Exam: Normal appearance - ENT Exam ENT Exam: Mucous Membranes Dry - Respiratory Exam Respiratory Exam: Decreased Breath Sounds, Respiratory Distress. absent: Rales, Rhonchi, Wheezes - Cardiovascular Exam Cardiovascular Exam: RRR, +S1, +S2 - GI/Abdominal Exam GI & Abdominal Exam: Soft, Normal Bowel Sounds. absent: Tenderness - Extremities Exam Extremities Exam: Pedal Edema (+2 b/l) - Neurological Exam Neurological Exam: Alert, Awake - Psychiatric Exam Psychiatric exam: Normal Affect, Normal Mood - Skin Skin Exam: Warm Additional comments: Exfoliative dermatitis throughout entire body Assessment and Plan - Assessment and Plan (Free Text) Plan: Acute upper GI bleed Hypernatremia Sepsis from left sided HAP, improving exfoliative dermatitis, consider eczema or psoriasis Hx of HTN Hx of prolymphocytic leukemia Plan Patient restarted on Merrem and Vancomycin Consider repeat skin biopsy Repeat blood, urine, and sputum cultures Endoscopic report reviewed, demonstrates duodenal and gastric non-bleeding ulcers Hypothermia potentially related to exfoliative dermatitis will continue to monitor clinically Mik, PGY-3 <Zhou Leos - Last Filed: 04/05/18 16:29> Objective - Vital Signs/Intake and Output Vital Signs (last 24 hours): Temp Pulse Resp BP Pulse Ox 98.4 F 79 20 74/32 L 94 L 04/04/18 06:00 04/05/18 07:30 04/05/18 07:24 04/04/18 15:00 04/05/18 07:24 Intake and Output: 04/05/18 04/05/18 06:59 18:59 Intake Total 754 250 Balance 754 250 - Medications Medications: Current Medications Aspirin (Aspirin Chewable) 81 mg PO DAILY [facility] Last Admin: 04/04/18 18:59 Dose: Not Given Carbamide Peroxide (Debrox Ear Drops) 0 ml AU BID [facility] Last Admin: 04/05/18 10:46 Dose: Not Given Carvedilol (Coreg) 3.125 mg PO BID [facility] Last Admin: 04/04/18 19:00 Dose: Not Given Clotrimazole (Lotrimin 1%) 0 gm TOP BID PRN PRN Reason: Rash Last Admin: 04/02/18 09:40 Dose: 1 applic Amino Acids (Clinimix 4.25/5 % (1000 Ml)) 1,000 mls @ 42 mls/hr IV .[id number] [facility] Last Admin: 04/04/18 21:31 Dose: 42 mls/hr Fat Emulsion-Soy/MCT/[place]/Fish Oil (Smoflipid 20%) 250 mls @ 21 mls/hr IV MWF@1800 [facility] Phenylephrine HCl 40 mg/ (Sodium Chloride) 254 mls @ 38.1 mls/hr IV .Q6H40M PRN; Protocol PRN Reason: TITRATE PER MD ORDER Last Admin: 04/05/18 05:31 Dose: 100 mcg/min, 38.1 mls/hr Vasopressin 20 units/ Sodium (Chloride) 101 mls @ 9.09 mls/hr IV .Q11H7M [facility]; Protocol Last Admin: 04/05/18 03:19 Dose: Not Given Fentanyl Citrate (Fentanyl Citrate/Sodium Chloride 1 Mg/100 Ml) 1,000 mcg in 100 mls @ 2 mls/hr IV .Q24H PRN; Protocol PRN Reason: TITRATE PER MD ORDER Norepinephrine Bitartrate 8 mg (/ Sodium Chloride) 500 mls @ 112.5 mls/hr IV .Q4H27M [facility]; Protocol Last Titration: 04/05/18 09:00 Dose: 10 mcg/min, 37.5 mls/hr Meropenem/Sodium Chloride (Merrem Iv 500 Mg/Ns 50 Ml) 500 mg in 50 mls @ 100 mls/hr IVPB Q12 [facility]; Protocol Stop: 04/12/18 07:01 Last Admin: 04/05/18 09:18 Dose: 100 mls/hr Dextrose (Dextrose 5% In Water 1000 Ml) 1,000 mls @ 125 mls/hr IV .Q8H [facility] Last Admin: 04/05/18 10:51 Dose: 125 mls/hr Pantoprazole Sodium (Protonix 40mg Ivpb) 40 mg in 100 mls @ 20 mls/hr IVPB .Q5H [facility] Last Admin: 04/05/18 10:29 Dose: 20 mls/hr Insulin Human Regular (Humulin R Low) 0 units SC Q6 [facility]; Protocol Last Admin: 04/05/18 12:26 Dose: 2 unit Lactic Acid (Lac-Hydrin 12% Cream (140 G)) 0 ea TOP TID PRN PRN Reason: Dry skin Last Admin: 04/03/18 10:01 Dose: 1 applic Losartan Potassium (Cozaar) 12.5 mg PO DAILY [facility] Last Admin: 04/04/18 19:00 Dose: Not Given Methylprednisolone (Solu-Medrol) 40 mg IVP Q8 [facility] Last Admin: 04/05/18 05:26 Dose: 40 mg Multi-Ingredient Cream (Hydrocerin Cream) 0 ea TOP 1000,2200 [facility] Last Admin: 04/05/18 12:27 Dose: 2 applic Silver Sulfadiazine (Silvadene 1% 25 Gm) 0 gm TP BID PRN PRN Reason: Dry skin Last Admin: 04/05/18 05:03 Dose: 25 gm - Labs Labs: 04/05/18 09:30 04/05/18 09:30 PT 16.1 SECONDS (9.4-12.5) H 04/04/18 16:00 INR 1.45 04/04/18 16:00 APTT 39.1 Seconds (26.9-38.3) H 04/04/18 16:00 Assessment and Plan - Assessment and Plan (Free Text) Plan: Infectious diseases Attending Physician Attestation Patient seen and examined, discussed with medical technologist prn. I have reviewed the patient's history of present illness, past medical, social, personal and family histories, pertinent physical exam findings, course so far in this hospital admission, pertinent laboratory and imaging results. I agree with the above findings, assessment and plan. In addition, gave a dose of IV Vancomycin and continue renally-adjusted Merrem for patient with new onset SIRS S/P VDRF probably from hypernatremia and GI bleed, R/O infection, S/P treatment for HCAP. Follow up repeat blood, urine cx. Patient has been on steroids as per PMD and it was started by PMD, possibly treat the exfoliative dermatitis, but should consider Dermatology consult, consider repeat skin biopsy. Follow up further plans of GI. Overall prognosis is poor.
--- NOTE | 2018-04-05 11:21 | CP.PCM.PN ---
<Sundar Ochoa - Last Filed: 04/05/18 11:26> Subjective - Date & Time of Evaluation Date of Evaluation: 04/05/18 Time of Evaluation: 09:15 - Subjective Subjective: PGY-4 GI Fellow Prog Note Pt lying in bed, intubated during encounter. Nodded to understanding events of yesterday. Unable to obtain full ROS due to clinical condition Objective - Vital Signs/Intake and Output Vital Signs (last 24 hours): Temp Pulse Resp BP Pulse Ox 98.4 F 80 20 74/32 L 94 L 04/04/18 06:00 04/05/18 06:00 04/05/18 07:24 04/04/18 15:00 04/05/18 07:24 Intake and Output: 04/05/18 04/05/18 06:59 18:59 Intake Total 754 250 Balance 754 250 - Medications Medications: Current Medications Aspirin (Aspirin Chewable) 81 mg PO DAILY [facility] Last Admin: 04/04/18 18:59 Dose: Not Given Carbamide Peroxide (Debrox Ear Drops) 0 ml AU BID [facility] Last Admin: 04/05/18 10:46 Dose: Not Given Carvedilol (Coreg) 3.125 mg PO BID [facility] Last Admin: 04/04/18 19:00 Dose: Not Given Clotrimazole (Lotrimin 1%) 0 gm TOP BID PRN PRN Reason: Rash Last Admin: 04/02/18 09:40 Dose: 1 applic Amino Acids (Clinimix 4.25/5 % (1000 Ml)) 1,000 mls @ 42 mls/hr IV .[id number] [facility] Last Admin: 04/04/18 21:31 Dose: 42 mls/hr Fat Emulsion-Soy/MCT/[place]/Fish Oil (Smoflipid 20%) 250 mls @ 21 mls/hr IV MWF@1800 [facility] Phenylephrine HCl 40 mg/ (Sodium Chloride) 254 mls @ 38.1 mls/hr IV .Q6H40M PRN; Protocol PRN Reason: TITRATE PER MD ORDER Last Admin: 04/05/18 05:31 Dose: 100 mcg/min, 38.1 mls/hr Vasopressin 20 units/ Sodium (Chloride) 101 mls @ 9.09 mls/hr IV .Q11H7M [facility]; Protocol Last Admin: 04/05/18 03:19 Dose: Not Given Fentanyl Citrate (Fentanyl Citrate/Sodium Chloride 1 Mg/100 Ml) 1,000 mcg in 100 mls @ 2 mls/hr IV .Q24H PRN; Protocol PRN Reason: TITRATE PER MD ORDER Norepinephrine Bitartrate 8 mg (/ Sodium Chloride) 500 mls @ 112.5 mls/hr IV .Q4H27M [facility]; Protocol Last Titration: 04/05/18 09:00 Dose: 10 mcg/min, 37.5 mls/hr Meropenem/Sodium Chloride (Merrem Iv 500 Mg/Ns 50 Ml) 500 mg in 50 mls @ 100 mls/hr IVPB Q12 [facility]; Protocol Stop: 04/12/18 07:01 Last Admin: 04/05/18 09:18 Dose: 100 mls/hr Dextrose (Dextrose 5% In Water 1000 Ml) 1,000 mls @ 125 mls/hr IV .Q8H [facility] Last Admin: 04/05/18 10:51 Dose: 125 mls/hr Pantoprazole Sodium (Protonix 40mg Ivpb) 40 mg in 100 mls @ 20 mls/hr IVPB .Q5H [facility] Last Admin: 04/05/18 10:29 Dose: 20 mls/hr Insulin Human Regular (Humulin R Low) 0 units SC Q6 [facility]; Protocol Last Admin: 04/05/18 09:22 Dose: 4 unit Lactic Acid (Lac-Hydrin 12% Cream (140 G)) 0 ea TOP TID PRN PRN Reason: Dry skin Last Admin: 04/03/18 10:01 Dose: 1 applic Losartan Potassium (Cozaar) 12.5 mg PO DAILY [facility] Last Admin: 04/04/18 19:00 Dose: Not Given Methylprednisolone (Solu-Medrol) 40 mg IVP Q8 [facility] Last Admin: 04/05/18 05:26 Dose: 40 mg Multi-Ingredient Cream (Hydrocerin Cream) 0 ea TOP 1000,2200 [facility] Last Admin: 04/04/18 23:40 Dose: 1 applic Silver Sulfadiazine (Silvadene 1% 25 Gm) 0 gm TP BID PRN PRN Reason: Dry skin Last Admin: 04/05/18 05:03 Dose: 25 gm - Labs Labs: 04/05/18 09:30 01/30/19 09:30 PT 16.1 SECONDS (9.4-12.5) H 04/04/18 16:00 INR 1.45 04/04/18 16:00 APTT 39.1 Seconds (26.9-38.3) H 04/04/18 16:00 - Constitutional Appears: Chronically Ill, Other (intubted, NAD) - ENT Exam ENT Exam: Mucous Membranes Dry. absent: Mucous Membranes Moist - Respiratory Exam Respiratory Exam: absent: Accessory Muscle Use, Respiratory Distress - Cardiovascular Exam Cardiovascular Exam: REGULAR RHYTHM, RRR - GI/Abdominal Exam GI & Abdominal Exam: Soft, Tenderness, Normal Bowel Sounds. absent: Bruit, Distended, Firm, Guarding, Rigid, Mass (mildly diffusely ttp w/o guarding), Organomegaly, Pulsatile Mass Assessment and Plan - Assessment and Plan (Free Text) Assessment: 73 yo BM with PML, DM, CHF found to have dark tarry stools # Melena: Due to large duodenal ulcer, gastric ulcers and erosion (see report for further details) likely related to ischemic, hypotension/hypovelemia. No active bleeding at time of endoscopy # HyperNatremia, DIA # CHF: EF 40% # Severe Psoriasis/Desquamating rash Plan: - Cont PPI gtt x 72 hr total - Recommend Speech eval for PO diet - Cont antibiotics - Monitor Hgb - Treatment of Hypotension/DIA/Hypernatremia per primary/consultants Pt discussed with Dr. Stoddard; please see attestation for further recs/changes. <Shady Stoddard - Last Filed: 04/05/18 12:18> Objective - Vital Signs/Intake and Output Vital Signs (last 24 hours): Temp Pulse Resp BP Pulse Ox 98.4 F 80 20 74/32 L 94 L 04/04/18 06:00 04/05/18 06:00 04/05/18 07:24 04/04/18 15:00 04/05/18 07:24 Intake and Output: 04/05/18 04/05/18 06:59 18:59 Intake Total 754 250 Balance 754 250 - Medications Medications: Current Medications Aspirin (Aspirin Chewable) 81 mg PO DAILY [facility] Last Admin: 04/04/18 18:59 Dose: Not Given Carbamide Peroxide (Debrox Ear Drops) 0 ml AU BID [facility] Last Admin: 04/05/18 10:46 Dose: Not Given Carvedilol (Coreg) 3.125 mg PO BID [facility] Last Admin: 04/04/18 19:00 Dose: Not Given Clotrimazole (Lotrimin 1%) 0 gm TOP BID PRN PRN Reason: Rash Last Admin: 04/02/18 09:40 Dose: 1 applic Amino Acids (Clinimix 4.25/5 % (1000 Ml)) 1,000 mls @ 42 mls/hr IV .[id number] [facility] Last Admin: 04/04/18 21:31 Dose: 42 mls/hr Fat Emulsion-Soy/MCT/[place]/Fish Oil (Smoflipid 20%) 250 mls @ 21 mls/hr IV MWF@1800 [facility] Phenylephrine HCl 40 mg/ (Sodium Chloride) 254 mls @ 38.1 mls/hr IV .Q6H40M PRN; Protocol PRN Reason: TITRATE PER MD ORDER Last Admin: 04/05/18 05:31 Dose: 100 mcg/min, 38.1 mls/hr Vasopressin 20 units/ Sodium (Chloride) 101 mls @ 9.09 mls/hr IV .Q11H7M [facility]; Protocol Last Admin: 04/05/18 03:19 Dose: Not Given Fentanyl Citrate (Fentanyl Citrate/Sodium Chloride 1 Mg/100 Ml) 1,000 mcg in 100 mls @ 2 mls/hr IV .Q24H PRN; Protocol PRN Reason: TITRATE PER MD ORDER Norepinephrine Bitartrate 8 mg (/ Sodium Chloride) 500 mls @ 112.5 mls/hr IV .Q4H27M [facility]; Protocol Last Titration: 04/05/18 09:00 Dose: 10 mcg/min, 37.5 mls/hr Meropenem/Sodium Chloride (Merrem Iv 500 Mg/Ns 50 Ml) 500 mg in 50 mls @ 100 mls/hr IVPB Q12 [facility]; Protocol Stop: 04/12/18 07:01 Last Admin: 04/05/18 09:18 Dose: 100 mls/hr Dextrose (Dextrose 5% In Water 1000 Ml) 1,000 mls @ 125 mls/hr IV .Q8H [facility] Last Admin: 04/05/18 10:51 Dose: 125 mls/hr Pantoprazole Sodium (Protonix 40mg Ivpb) 40 mg in 100 mls @ 20 mls/hr IVPB .Q5H [facility] Last Admin: 04/05/18 10:29 Dose: 20 mls/hr Insulin Human Regular (Humulin R Low) 0 units SC Q6 [facility]; Protocol Last Admin: 04/05/18 09:22 Dose: 4 unit Lactic Acid (Lac-Hydrin 12% Cream (140 G)) 0 ea TOP TID PRN PRN Reason: Dry skin Last Admin: 04/03/18 10:01 Dose: 1 applic Losartan Potassium (Cozaar) 12.5 mg PO DAILY [facility] Last Admin: 04/04/18 19:00 Dose: Not Given Methylprednisolone (Solu-Medrol) 40 mg IVP Q8 [facility] Last Admin: 04/05/18 05:26 Dose: 40 mg Multi-Ingredient Cream (Hydrocerin Cream) 0 ea TOP 1000,2200 [facility] Last Admin: 04/04/18 23:40 Dose: 1 applic Silver Sulfadiazine (Silvadene 1% 25 Gm) 0 gm TP BID PRN PRN Reason: Dry skin Last Admin: 04/05/18 05:03 Dose: 25 gm - Labs Labs: 04/05/18 09:30 04/05/18 09:30 PT 16.1 SECONDS (9.4-12.5) H 04/04/18 16:00 INR 1.45 04/04/18 16:00 APTT 39.1 Seconds (26.9-38.3) H 04/04/18 16:00 Attending/Attestation - Attestation I have fully participated in the care of the patient.: Yes I have reviewed all pertinent clinical information, including history, physical exam and plan: Yes Notes (Text): 04/05/18 12:15 DM CHF Psoriasis Respiratory failure, s/p intubation, extubated today Anemia NSTEMI s/p EGD yesterday showing ischemic changes in duodenum and stomach with diffuse and focal ulceration - NPO - Suggest swallow evaluation following recent extubation, may start on clear liquids as tolerated - H/H stable, continue to monitor - Continue with IV PPI infusion for additional 48 hours - Vasopressor management as per critical care team - Continue with antibiotic therapy - Will continue to monitor patient clinical course
[2018-04-05 11:46] LABS: VENOUS BLOOD GAS BASE EXCESS -2.7 mmol/L (0.0-2.0); VENOUS BLOOD GAS PO2 264 mm/Hg (30-55); VENOUS BLOOD PH 7.43 (7.32-7.43)
[2018-04-05] MEDS: Hydrocerin(120 gm) TOP SCH ×2 (12:27→22:56)
--- NOTE | 2018-04-05 12:47 | PN ---
DATE: 04/05/2018(302pm-476hm) SUBJECTIVE: The patient is now in the ICU and on a ventilator. He is lethargic, but easily arousable. PHYSICAL EXAMINATION: VITAL SIGNS: Temperature 98.4, pulse on the monitor 88, respiratory rate 20/16, blood pressure 94/50 HEENT: Normocephalic, atraumatic. NECK: No JVD. CARDIOVASCULAR: Positive S1, S2. No S3 gallop. LUNGS: Minimal crackles at both bases. No rhonchi. No wheezing. EXTREMITIES: Minimal edema. No cyanosis. No clubbing. Calves are nontender to palpation. GI: Abdomen is soft, nontender and nondistended. Bowel sounds are positive. SKIN: There is diffuse erythematous rash on his extremities and torso. NEUROLOGIC: Exam limited at the present time. PERTINENT LABORATORY DATA: Chest x-ray was done yesterday and reviewed. The chest x-ray continues to improve with only a minimal infiltrate at the left lower lobe and a decrease in the very small left pleural effusion. Arterial blood gas was done on PRVC 16, tidal volume 500, FiO2 50%. Results are: PH 7.41, pCO2 of 29, pO2 of 198. IMPRESSION: 1. Respiratory failure. 2. Left lower lobe pneumonia - resolving. 3. Bilateral pleural effusions. 4. Anemia. 5. Rule out congestive heart failure. 6. [id number] myocardial infarction. 7. Multiple electrolyte abnormalities. PLAN: The patient is currently on a ventilator and in the ICU. I did discuss the case with the night nurse at length. Apparently, yesterday, a rapid response was called, as the patient was found lethargic and with agonal respirations. He was subsequently intubated and transferred to the medical ICU for additional management. I did review the chest x-ray as above. The chest x-ray reveals a resolving left lower lobe infiltrate, as well as a resolving left pleural effusion. I would continue with the antibiotic coverage as per Infectious Disease. Input by Dr. Leos is noted. I have also reviewed the arterial blood gas. The arterial blood gas is much improved with normalization of the pH and a significant decrease in the alveolar-arterial gradient. I will discuss possible weaning trials with the ICU team later this morning. Inputs by Cardiology and Endocrine are also noted. The patient is somewhat improved from yesterday, but remains critically ill. His overall future status/prognosis is very guarded at best/poor. I will discuss the above with the entire ICU team in the next few moments. I will also discuss the above with the attending physician later this morning. Nathan Perkins MD MTDD
--- NOTE | 2018-04-05 12:48 | CARD ---
APPROVED REPORT Date of service: 04/04/2018 EKG Measurement Heart [id number] <Conclusion> Normal sinus rhythm T wave abnormality, consider inferior ischemia Prolonged QT Abnormal ECG
--- NOTE | 2018-04-05 15:03 | CP.PCM.PN ---
Subjective - Date & Time of Evaluation Date of Evaluation: 04/05/18 Time of Evaluation: 15:01 - Subjective Subjective: Nephrology Consultation Note: Assessment: critical Acute Kidney Injury (N17.9) likely due to ATN, hypotension. Hypothermia Hypernatremia, dehydration ? increase loss of fluid from skin Severe malnutrition with hypoalbuminemia HCAP skin rash ? etiology sysCHF LVEF 45% small bladder stones AMS, respi failure leukaemia, HTN hx Plan No acute need for renal replacement therapy at this time. Maintain hemodynamics stable. Avoid hypotension. Patient not on ACEI/ARB due to recent DIA. hold BP meds. Monitor Input/Output, daily weights and renal function with basic metabolic panel Increased D5W @ 125 ml/hr getting TPN GI, ID following Dose meds/antibiotics for reduced GFR. Avoid fleets enema/magnesium based laxatives. Avoid nephrotoxins/NSAIDs/ iodinated contrast (unless needed emergently) Glycemic control Further work up/management as per primary team Thanks for allowing me to participate in care of your patient. Will follow patient with you. Please call if any Qs. had d/w team and family bedside Dr Kana Segovia Office: [phone] Chief Complaint; Unable to obtain source of info EMR Reason for consult: Acute Kidney Injury Hypernatremia HPI: Pt is a 73 M with hx of leukemia s/p chemo, hypertension (years) presented with complaints of SOB and cough initially and being treated for HCAP. he also had diffuse skin desqamation and hypothermia, hypernatremia, and DIA. transferred to ICU for respi failure and AMS Denies OTC/herbal meds or NSAIDs No recent iodinated contrast exposure. Noted obvious episodes of low BP (90s). ROS: pt unable to provide. on pressor Physical Examination: General Appearance: ill appearing non communicative mostly Vitals reviewed and noted as below Head; Atraumatic, normocephalic ENT: unable EYES: Pupils are equal, round and reactive to light accommodation. Eye muscles and extraocular movement intact. Sclera is anicteric. Neck; supple no lymphadenopathy, no thyromegaly or bruit Lungs: Increased respiratory rate/effort. Breath sounds bilateral reduced at bases Heart: Normal rate. s1s2 normal. No rub or gallop. Extremities: 1+ edema. No varicose veins Neurological: Patient is AMS and non communicating Skin: Warm and dry. diffuse skin desquamation changes Abdomen: Abdomen is soft. Bowel sounds +. There is no abdominal tenderness, no guarding/rigidity no organomegaly Psych: unable MSK: no joint tenderness or swelling. Digits and nails normal, no deformity : kidney or bladder not palpable Labs/imaging reviewed. Past medical history, past surgical history, family history, social history, allergy reviewed and noted as below Family hx: no hx of CKD. Rest non-contributory SUN and ANCA neg Objective - Vital Signs/Intake and Output Vital Signs (last 24 hours): Temp Pulse Resp BP Pulse Ox 98.4 F 80 20 74/32 L 94 L 04/04/18 06:00 04/05/18 06:00 04/05/18 07:24 04/04/18 15:00 04/05/18 07:24 Intake and Output: 04/05/18 04/05/18 06:59 18:59 Intake Total 754 250 Balance 754 250 - Medications Medications: Current Medications Aspirin (Aspirin Chewable) 81 mg PO DAILY [facility] Last Admin: 04/04/18 18:59 Dose: Not Given Carbamide Peroxide (Debrox Ear Drops) 0 ml AU BID [facility] Last Admin: 04/05/18 10:46 Dose: Not Given Carvedilol (Coreg) 3.125 mg PO BID [facility] Last Admin: 04/04/18 19:00 Dose: Not Given Clotrimazole (Lotrimin 1%) 0 gm TOP BID PRN PRN Reason: Rash Last Admin: 04/02/18 09:40 Dose: 1 applic Amino Acids (Clinimix 4.25/5 % (1000 Ml)) 1,000 mls @ 42 mls/hr IV .[id number] [facility] Last Admin: 04/04/18 21:31 Dose: 42 mls/hr Fat Emulsion-Soy/MCT/[place]/Fish Oil (Smoflipid 20%) 250 mls @ 21 mls/hr IV MWF@1800 [facility] Phenylephrine HCl 40 mg/ (Sodium Chloride) 254 mls @ 38.1 mls/hr IV .Q6H40M [facility]; Protocol PRN Reason: TITRATE PER MD ORDER Last Admin: 04/05/18 05:31 Dose: 100 mcg/min, 38.1 mls/hr Vasopressin 20 units/ Sodium (Chloride) 101 mls @ 9.09 mls/hr IV .Q11H7M [facility]; Protocol Last Admin: 04/05/18 03:19 Dose: Not Given Fentanyl Citrate (Fentanyl Citrate/Sodium Chloride 1 Mg/100 Ml) 1,000 mcg in 100 mls @ 2 mls/hr IV .Q24H [facility]; Protocol PRN Reason: TITRATE PER MD ORDER Norepinephrine Bitartrate 8 mg (/ Sodium Chloride) 500 mls @ 112.5 mls/hr IV .Q4H27M [facility]; Protocol Last Titration: 04/05/18 09:00 Dose: 10 mcg/min, 37.5 mls/hr Meropenem/Sodium Chloride (Merrem Iv 500 Mg/Ns 50 Ml) 500 mg in 50 mls @ 100 mls/hr IVPB Q12 [facility]; Protocol Stop: 04/12/18 07:01 Last Admin: 04/05/18 09:18 Dose: 100 mls/hr Dextrose (Dextrose 5% In Water 1000 Ml) 1,000 mls @ 125 mls/hr IV .Q8H [facility] Last Admin: 04/05/18 10:51 Dose: 125 mls/hr Pantoprazole Sodium (Protonix 40mg Ivpb) 40 mg in 100 mls @ 20 mls/hr IVPB .Q5H [facility] Last Admin: 04/05/18 10:29 Dose: 20 mls/hr Insulin Human Regular (Humulin R Low) 0 units SC Q6 [facility]; Protocol Last Admin: 04/05/18 12:26 Dose: 2 unit Lactic Acid (Lac-Hydrin 12% Cream (140 G)) 0 ea TOP TID PRN PRN Reason: Dry skin Last Admin: 04/03/18 10:01 Dose: 1 applic Losartan Potassium (Cozaar) 12.5 mg PO DAILY [facility] Last Admin: 04/04/18 19:00 Dose: Not Given Methylprednisolone (Solu-Medrol) 40 mg IVP Q8 [facility] Last Admin: 04/05/18 05:26 Dose: 40 mg Multi-Ingredient Cream (Hydrocerin Cream) 0 ea TOP 1000,2200 [facility] Last Admin: 04/05/18 12:27 Dose: 2 applic Silver Sulfadiazine (Silvadene 1% 25 Gm) 0 gm TP BID PRN PRN Reason: Dry skin Last Admin: 04/05/18 05:03 Dose: 25 gm - Labs Labs: 04/05/18 09:30 04/05/18 09:30 PT 16.1 SECONDS (9.4-12.5) H 04/04/18 16:00 INR 1.45 04/04/18 16:00 APTT 39.1 Seconds (26.9-38.3) H 04/04/18 16:00
--- NOTE | 2018-04-05 15:32 | PN ---
DATE: 04/05/2018 SUBJECTIVE: I am very worried about him. He is now in the intensive care unit on a ventilator. Also, he is on a heating blanket, a warming blanket, a Mike Hugger. He is alert, is uncomfortable. He is on dextrose IV, fentanyl patch, insulin coverage, Hydrocerin cream, Lac-Hydrin, Lotrimin, Merrem IV, norepinephrine, phenylephrine, pantoprazole, Silvadene cream, fat emulsion, methylprednisolone, and vasopressin. I did start him on TPN which he was not able to swallow and was worried about him losing nutrients and food. PHYSICAL EXAMINATION: VITAL SIGNS: He has 98.4 temperature; 98 pulse; 147/127 blood pressure, it came down to 74/32; 100% O2 sat on mechanical ventilator. HEENT: Head is atraumatic, normocephalic. HEART: Regular rate, tachy. LUNGS: Decreased breath sounds. ABDOMEN: Soft. EXTREMITIES: Trace edema. SKIN: He has got excoriation of the skin all over his body. LABORATORY DATA: He has a 16.9 white count elevated, 9.3 hemoglobin, 28.5 hematocrit with 107 platelets. He has 165 sodium, still very high, 4.2 potassium. BUN 60, creatinine 1.8, GFR is 37, sugar is 217, calcium 7.9. Total bili is 0.3, AST is 33, ALT is 28, alk phos 138. ASSESSMENT AND PLAN: He is being seen by GI, Pulmonary, trouble lineman, Surgery, rotary driller helper. He is really in trouble, also the travel registered nurse oncology is on the case. He is just truly not responding to treatment and he is slowly failing and I am very upset. He has got somewhat response to the antibiotics and improved and he also had some melena. We will keep on trying the best we can. Kirill Alcazar DO
--- NOTE | 2018-04-05 15:55 | PN ---
DATE: 04/05/2018 CARDIOLOGY FOLLOWUP SUBJECTIVE: The patient remains on a ventilator. PHYSICAL EXAMINATION: VITAL SIGNS: Blood pressure varies from 70s to 100 on tapering ionotropic and pressors. NECK: Negative JVD. LUNGS: Decreased breath sounds. HEART: S1, S2. EXTREMITIES: Without change. LABORATORY DATA: Hemoglobin is 9.3. Chemistries: The sodium is 165, BUN and creatinine 60 and 1.8. IMPRESSION: 1. Hypothermia. 2. Status post respiratory failure. 3. Pneumonia. 4. Wda-UI-vqmooeux myocardial infarction. 5. Coronary artery disease. 6. Anemia. Given these findings, we will need to continue weaning the patient off pressors. We will continue the steroids. Christoph Bustamante MD
[2018-04-05 17:39] LABS: ALB/GLOB RATIO 0.8 (1.1-1.8); CALCIUM 7.7 mg/dL (8.4-10.5)
[2018-04-05] MEDS: Amino/Dext 4.25/5 1,000 ML IV SCH (18:41)
[2018-04-05] MEDS: FAT EMULSION 20% IV SCH (18:47)
[2018-04-05 18:53] LABS: BASO # 0.01 K/mm3 (0.0-2.0); BASO % 0.1 % (0.0-3.0); LYMPH # 2.5 (1.2-3.4); MEAN CELL VOLUME 85.9 fl (80.0-105.0); MEAN CORPUSCULAR HEMOGLOBIN 27.8 pg (25.0-35.0); MEAN CORPUSCULAR HGB CONC 32.3 g/dl (31.0-37.0); MONO # 0.9 (0.1-0.6); PLATELET COUNT 84 10^3/uL (120.0-450.0); RED CELL DISTRIBUTION WIDTH 19.6 % (11.5-14.5); WHITE BLOOD COUNT 17.9 10^3/uL (4.5-11.0)
[2018-04-05 18:55] LABS: HEMOGLOBIN 7.5 g/dL (14.0-18.0)
[2018-04-05 20:33] LABS: ALB/GLOB RATIO 0.9 (1.1-1.8); ALBUMIN 1.9 g/dL (3.0-4.8)
--- NOTE | 2018-04-05 22:05 | PN ---
DATE: 04/05/2018 ENDOCRINOLOGY FOLLOWUP NOTE LOCATION: ICU 128, room 2. SUBJECTIVE: This is a 73-year-old male with recent admission for acute pneumonitis and is also now being followed closely for metabolic management. He also has acute exacerbation of COPD, currently on Solu-Medrol at 40 mg IV every 8 hours as given. His glycemic levels are fluctuating, but improved and the glucose values have ranged from 194 to 217 mg/dL. LABORATORY DATA: His chemistries showed a BUN of 60, sodium 165, potassium 4.2, chloride 141, CO2 of 22, glucose 217, and creatinine 1.8. His thyroid study showed a T4 of 5.3 with a TSH of 3.36. ASSESSMENT: This is a 73-year-old male with acute sick euthyroid syndrome, presenting here with acute pneumonitis and acute exacerbation of chronic obstructive pulmonary disease with supervening hypernatremia, most likely related to volume depletion with so-called hypovolemic hypernatremia as noted thereof. PLAN OF MANAGEMENT: The patient has been started on vasopressin infusion as noted, but could also suggest dextrose infusion to other delusional effects on the hypernatremia with added dextrose infusion. Would discontinue all normal saline infusion at this time. Would continue the present coverage scale as ordered and so far no need for basal insulin as noted otherwise. We will obtain serial chemistries and supplement accordingly as needed. We will follow. Maria Luisa Ray MD
[2018-04-05 22:30] LABS: BAND 4 % (0-2); LYMPHOCYTE 7 % (22.0-35.0); MONOCYTE 2 % (1.0-6.0); NEUTROPHIL 87 % (50.0-70.0)
[2018-04-05 22:31] LABS: ANISOCYTOSIS 1+; HYPOCHROMIA 1+; MICROCYTOSIS SLIGHT; NUCLEATED RED BLOOD CELL 5 %; PLATELET ESTIMATE LOW (NORMAL); POIKILOCYTOSIS 1+; SCHISTOCYTES SLIGHT
[2018-04-05 22:32] LABS: OVALOCYTES SLIGHT; TARGET CELLS SLIGHT
[2018-04-06] MEDS: Insulin Reg-LOW-Coverage SC SCH ×4 (00:13→18:01)
[2018-04-06 01:27] LABS: BASO # 0.02 K/mm3 (0.0-2.0); BASO % 0.1 % (0.0-3.0); EOS % 0.1 % (1.5-5.0); HEMOGLOBIN 7.6 g/dL (14.0-18.0); LYMPH # 2.1 (1.2-3.4); LYMPH % 10.6 % (22.0-35.0); MEAN CELL VOLUME 86.7 fl (80.0-105.0); MEAN CORPUSCULAR HEMOGLOBIN 28.8 pg (25.0-35.0); MEAN CORPUSCULAR HGB CONC 33.2 g/dl (31.0-37.0); MONO # 1.1 (0.1-0.6); MONO % 5.6 % (1.0-6.0); PLATELET COUNT 78 10^3/uL (120.0-450.0); RBC 2.64 10^6/uL (3.5-6.1); RED CELL DISTRIBUTION WIDTH 19.5 % (11.5-14.5); WHITE BLOOD COUNT 19.7 10^3/uL (4.5-11.0)
[2018-04-06 01:54] LABS: ALB/GLOB RATIO 0.8 (1.1-1.8); ALBUMIN 1.9 g/dL (3.0-4.8)
[2018-04-06] MEDS: Pantoprazole 40mg/100mL NS 40 MG/100 ML BAG IVPB SCH ×4 (03:10→18:00)
[2018-04-06] MEDS: MethylPREDNISolone 40 mg Vial IVP SCH (05:36)
[2018-04-06 07:33] LABS: ARTERIAL BLOOD GAS HEMOGLOBIN 3.8 g/dL (11.7-17.4); ARTERIAL BLOOD GAS O2 CAPACITY 5.5 mL/dl (16-24); ARTERIAL BLOOD GAS O2 CONTENT 5.5 ML/dl (15-23); ARTERIAL BLOOD GAS O2 SAT 99.5 % (95-98); ARTERIAL BLOOD GAS PCO2 14 mm/Hg (35-45); ARTERIAL BLOOD GAS PH 7.31 (7.35-7.45); ARTERIAL BLOOD GAS TCO2 7.4 mmol.L (22-28)
--- NOTE | 2018-04-06 07:34 | RAD ---
Date of service: 04/06/2018 HISTORY: follow up COMPARISON: Frontal chest radiograph 04/04/2018. FINDINGS: LUNGS: Interval infiltrate is identified in the right infrahilar space and left perihilar region with ET and tubes now removed. PLEURA: Mild bilateral pleural effusions are appreciated, slightly increased at the left and new at the right. No pneumothorax bilaterally. CARDIOVASCULAR: Calcific atherosclerotic changes are seen related to the thoracic aorta. Normal cardiac size. No pulmonary vascular congestion. OSSEOUS STRUCTURES: No significant abnormalities. VISUALIZED UPPER ABDOMEN: Normal. OTHER FINDINGS: None. IMPRESSION: Limited bilateral infiltrates are identified in the interval as discussed above as well as new mild right pleural effusion and increased mild left pleural effusion. Status post extubation and removal of nasogastric tube apparent.
[2018-04-06 08:05] LABS: ALB/GLOB RATIO 0.9 (1.1-1.8)
--- NOTE | 2018-04-06 08:17 | CP.CCUPN ---
<Sonja Garcia - Last Filed: 04/06/18 14:43> CCU Subjective - Physician Review Subjective (Free Text): Sonja Garcia PGY1 Critical Care Progress Note Patient seen and examined at bedside this morning. No acute events overnight. S/p extubation yesterday. O2 sat overnight 92-95% while on 3L NC. Patient is alert and admits to pain in his feet. Currently on genoveva hugger. Denies CP, SOB, nausea, vomiting, abdominal pain, numbness and tingling. 12 point ROS limited due to patient status. S/p 1 unit PRBC this morning. BP stable off of pressors. Swallow eval pending. CCU Objective - Vital Signs / Intake & Output Vital Signs (Last 4 hours): Vital Signs Temp Pulse Resp BP 04/06/18 07:32 98.2 F 74 20 126/56 L 04/06/18 05:19 96.8 F L 94 H 24 116/58 L 04/06/18 04:40 96.1 F L 91 H 28 H 116/55 L 04/06/18 04:20 96.1 F L 82 26 H 112/56 L Intake and Output (Last 8hrs): Intake & Output 04/05/18 04/06/18 04/06/18 22:59 06:59 14:59 Intake Total 250 Output Total 650 Balance -400 Intake: IV 250 Output: Urine 350 Urethral (Bautista) 350 Stool 300 - Physical Exam Head: Positive for: Atraumatic, Normocephalic Pupils: Positive for: PERRL Extroacular Muscles: Positive for: EOMI Conjunctiva: Positive for: Normal Mouth: Positive for: Dry, Other (oropharngeal secretions noted ) Neck: Positive for: Normal Range of Motion Respiratory/Chest: Positive for: Rhonchi (Diffuse rhonchi). Negative for: Respiratory Distress, Accessory Muscle Use Cardiovascular: Positive for: Regular Rate and Rhythm, Normal S1, S2. Negative for: Murmurs Abdomen: Negative for: Tenderness, Distention, Peritoneal Signs Back: Positive for: Normal Inspection Upper Extremity: Positive for: Normal Inspection. Negative for: Cyanosis, Edema Lower Extremity: Positive for: Edema (2+ pitting eddema bilaterally) Skin: Positive for: Warm, Dry, Other (gross exfoliative skin lesions present throughout body, no active bleeding appreciated ). Negative for: Rashes Psychiatric: Positive for: Alert Other physical findings (Free Text): AO to person and place, moving extremities spontaneously - Medications Active Medications: Active Medications Generic Name Dose Route Start Last Admin Trade Name Freq PRN Reason Stop Dose Admin Aspirin 81 mg 03/26/18 10:00 04/04/18 18:59 Aspirin Chewable PO Not Given DAILY RIYA Carbamide Peroxide 0 ml 04/02/18 18:00 04/05/18 18:43 Debrox Ear Drops AU Not Given BID RIYA Carvedilol 3.125 mg 03/25/18 18:00 04/04/18 19:00 Coreg PO Not Given BID RIYA Clotrimazole 0 gm 03/28/18 10:00 04/02/18 09:40 Lotrimin 1% TOP 1 applic BID PRN Administration Rash Amino Acids 1,000 mls @ 42 mls/hr 04/04/18 18:00 04/05/18 18:41 Clinimix 4.25/5 % (1000 Ml) IV 42 mls/hr .[id number] RIYA Administration Fat Emulsion-Soy/MCT/Bristow/Fish Oil 250 mls @ 21 mls/hr 04/05/18 18:00 04/05/18 18:47 Smoflipid 20% IV 21 mls/hr MWF@1800 RIYA Administration Phenylephrine HCl 40 mg/ 254 mls @ 38.1 mls/hr 04/04/18 14:38 04/05/18 09:30 Sodium Chloride IV 0 mcg/min .Q6H40M PRN 0 mls/hr TITRATE PER MD ORDER Titration Protocol 100 MCG/MIN Vasopressin 20 units/ Sodium 101 mls @ 9.09 mls/hr 04/04/18 14:45 04/05/18 03:19 Chloride IV Not Given .Q11H7M RIYA Protocol 0.03 U/MIN Fentanyl Citrate 1,000 mcg in 100 mls @ 2 mls/hr 04/04/18 16:15 Fentanyl Citrate/Sodium Chloride 1 Mg/100 Ml IV .Q24H PRN TITRATE PER MD ORDER Protocol 20 MCG/HR Norepinephrine Bitartrate 8 mg 500 mls @ 112.5 mls/hr 04/04/18 19:00 04/05/18 18:49 / Sodium Chloride IV 2 mcg/min .Q4H27M RIYA 7.5 mls/hr Administration Protocol 30 MCG/MIN Meropenem/Sodium Chloride 500 mg in 50 mls @ 100 mls/hr 04/05/18 07:00 04/05/18 22:50 Merrem Iv 500 Mg/Ns 50 Ml IVPB 04/12/18 07:01 100 mls/hr Q12 RIYA Administration Protocol Pantoprazole Sodium 40 mg in 100 mls @ 20 mls/hr 04/05/18 10:15 04/06/18 03:10 Protonix 40mg Ivpb IVPB 20 mls/hr .Q5H RIYA Administration Dextrose 1,000 mls @ 150 mls/hr 04/06/18 06:16 Dextrose 5% In Water 1000 Ml IV .Q6H40M RIYA Insulin Human Regular 0 units 04/05/18 09:00 04/06/18 00:13 Humulin R Low SC Not Given Q6 [facility] Protocol Lactic Acid 0 ea 03/28/18 10:00 04/03/18 10:01 Lac-Hydrin 12% Cream (140 G) TOP 1 applic TID PRN Administration Dry skin Losartan Potassium 12.5 mg 03/26/18 10:00 04/04/18 19:00 Cozaar PO Not Given DAILY [facility] Methylprednisolone 40 mg 04/04/18 16:00 04/06/18 05:36 Solu-Medrol IVP 40 mg Q8 RIYA Administration Multi-Ingredient Cream 0 ea 03/31/18 10:00 04/05/18 22:56 Hydrocerin Cream TOP 2 applic 1000,2200 RIYA Administration Silver Sulfadiazine 0 gm 03/28/18 10:00 04/05/18 05:03 Silvadene 1% 25 Gm TP 25 gm BID PRN Administration Dry skin - Patient Studies Lab Studies: Microbiology Studies 04/04/18 14:30 Blood Culture - Preliminary Blood-Venous NO GROWTH AFTER 24 HOURS 04/04/18 14:00 Blood Culture - Preliminary Blood-Venous NO GROWTH AFTER 24 HOURS Lab Studies 04/06/18 04/06/18 04/06/18 Range/Units 07:00 07:00 01:00 WBC 19.7 H (4.5-11.0) 10^3/uL RBC 2.64 L (3.5-6.1) 10^6/uL Hgb 7.6 L (14.0-18.0) g/dL Hct 22.9 L (42.0-52.0) % MCV 86.7 (80.0-105.0) fl MCH 28.8 (25.0-35.0) pg MCHC 33.2 (31.0-37.0) g/dl RDW 19.5 H (11.5-14.5) % Plt Count 78 L (120.0-450.0) 10^3/uL Neut % (Auto) 83.6 H (50.0-68.0) % Lymph % (Auto) 10.6 L (22.0-35.0) % [place] % (Auto) 5.6 (1.0-6.0) % Eos % (Auto) 0.1 L (1.5-5.0) % Baso % (Auto) 0.1 (0.0-3.0) % Lymph # (Auto) 2.1 (1.2-3.4) [place] # (Auto) 1.1 H (0.1-0.6) Eos # (Auto) 0.0 (0.0-0.7) Baso # (Auto) 0.02 (0.0-2.0) K/mm3 Absolute Neuts (auto) 16.45 H (1.4-6.5) Corrected WBC (Man) (4.5-11.0) K/mm3 Neutrophils % (Manual) (50.0-70.0) % Band Neutrophils % (0-2) % Lymphocytes % (Manual) (22.0-35.0) % Monocytes % (Manual) (1.0-6.0) % Nucleated RBC % % Platelet Evaluation (NORMAL) Hypochromasia Poikilocytosis (manual Anisocytosis (manual) Microcytosis (manual) Target Cells Ovalocytes Schistocytes pCO2 14 L* (35-45) mm/Hg pO2 133.0 H (80-100) mm/Hg HCO3 7.0 L* (21-28) mmol/L ABG pH 7.31 L (7.35-7.45) ABG Total CO2 7.4 L (22-28) mmol.L ABG O2 Saturation 99.5 H (95-98) % ABG O2 Content 5.5 L (15-23) ML/dl ABG Base Excess -18.0 L (-2.0-3.0) mmol/L ABG Hemoglobin 3.8 L (11.7-17.4) g/dL ABG Carboxyhemoglobin 1.7 H (0.5-1.5) % POC ABG HHb (Measured) 0.5 (0-5) % ABG Methemoglobin 2.0 (0.0-3.0) % ABG O2 Capacity 5.5 L (16-24) mL/dl ABG Potassium (3.6-5.2) mmol/L VBG pH (7.32-7.43) VBG pCO2 (40-60) VBG HCO3 (21-28) mmol/l VBG Total CO2 (22-28) mmol.L VBG O2 Sat (Calc) (40-65) % VBG Base Excess (0.0-2.0) mmol/L VBG Potassium (3.6-5.2) mmol/L Hgb O2 Saturation 95.7 (95.0-98.0) % Sodium 165 H* (132-148) mmol/L Chloride 142 H (98-107) mmol/L Glucose (75-110) mg/dl Lactate (0.7-2.1) mmol/L FiO2 32.0 % PEEP Pressure Support Crit Value Called To Johann gautam (assistant manager) Crit Value Called By [facility] Blood Gas Notified Time 707 Potassium 3.7 (3.6-5.0) mmol/L Carbon Dioxide 22 (21-33) mmol/L Anion Gap 8 L (10-20) BUN 57 H (7-21) mg/dL Creatinine 1.8 H (0.8-1.5) mg/dl Est GFR ( Amer) 45 Est GFR (Non-Af Amer) 37 POC Glucose (mg/dL) (65-110) mg/dL Random Glucose 141 H (70-110) mg/dL Calcium 8.0 L (8.4-10.5) mg/dL Total Bilirubin 0.2 (0.2-1.3) mg/dL AST 17 (17-59) U/L ALT 22 (7-56) U/L Alkaline Phosphatase 163 H (38-126) U/L Total Protein 4.3 L (5.8-8.3) g/dL Albumin 2.0 L (3.0-4.8) g/dL Globulin 2.3 gm/dL Albumin/Globulin Ratio 0.9 L (1.1-1.8) Arterial Blood Potassium (3.6-5.2) mmol/L Venous Blood Potassium (3.6-5.2) mmol/L Urine Osmolality (300-1000) mosm/kg Blood Type Antibody Screen Crossmatch BBK History Checked 04/06/18 04/05/18 04/05/18 Range/Units 01:00 23:49 19:40 WBC (4.5-11.0) 10^3/uL RBC (3.5-6.1) 10^6/uL Hgb (14.0-18.0) g/dL Hct (42.0-52.0) % MCV (80.0-105.0) fl MCH (25.0-35.0) pg MCHC (31.0-37.0) g/dl RDW (11.5-14.5) % Plt Count (120.0-450.0) 10^3/uL Neut % (Auto) (50.0-68.0) % Lymph % (Auto) (22.0-35.0) % [place] % (Auto) (1.0-6.0) % Eos % (Auto) (1.5-5.0) % Baso % (Auto) (0.0-3.0) % Lymph # (Auto) (1.2-3.4) [place] # (Auto) (0.1-0.6) Eos # (Auto) (0.0-0.7) Baso # (Auto) (0.0-2.0) K/mm3 Absolute Neuts (auto) (1.4-6.5) Corrected WBC (Man) (4.5-11.0) K/mm3 Neutrophils % (Manual) (50.0-70.0) % Band Neutrophils % (0-2) % Lymphocytes % (Manual) (22.0-35.0) % Monocytes % (Manual) (1.0-6.0) % Nucleated RBC % % Platelet Evaluation (NORMAL) Hypochromasia Poikilocytosis (manual Anisocytosis (manual) Microcytosis (manual) Target Cells Ovalocytes Schistocytes pCO2 (35-45) mm/Hg pO2 (80-100) mm/Hg HCO3 (21-28) mmol/L ABG pH (7.35-7.45) ABG Total CO2 (22-28) mmol.L ABG O2 Saturation (95-98) % ABG O2 Content (15-23) ML/dl ABG Base Excess (-2.0-3.0) mmol/L ABG Hemoglobin (11.7-17.4) g/dL ABG Carboxyhemoglobin (0.5-1.5) % POC ABG HHb (Measured) (0-5) % ABG Methemoglobin (0.0-3.0) % ABG O2 Capacity (16-24) mL/dl ABG Potassium (3.6-5.2) mmol/L VBG pH (7.32-7.43) VBG pCO2 (40-60) VBG HCO3 (21-28) mmol/l VBG Total CO2 (22-28) mmol.L VBG O2 Sat (Calc) (40-65) % VBG Base Excess (0.0-2.0) mmol/L VBG Potassium (3.6-5.2) mmol/L Hgb O2 Saturation (95.0-98.0) % Sodium 164 H* 165 H* (132-148) mmol/L Chloride 141 H 142 H (98-107) mmol/L Glucose (75-110) mg/dl Lactate (0.7-2.1) mmol/L FiO2 % PEEP Pressure Support Crit Value Called To Crit Value Called By Blood Gas Notified Time Potassium 3.6 4.0 (3.6-5.0) mmol/L Carbon Dioxide 23 22 (21-33) mmol/L Anion Gap 4 L 5 L (10-20) BUN 59 H 61 H (7-21) mg/dL Creatinine 1.8 H 1.7 H (0.8-1.5) mg/dl Est GFR ( Amer) 45 48 Est GFR (Non-Af Amer) 37 40 POC Glucose (mg/dL) 202 H (65-110) mg/dL Random Glucose 189 H 159 H (70-110) mg/dL Calcium 8.0 L 8.0 L (8.4-10.5) mg/dL Total Bilirubin 0.3 0.3 (0.2-1.3) mg/dL AST 19 23 (17-59) U/L ALT 22 23 (7-56) U/L Alkaline Phosphatase 161 H D 120 (38-126) U/L Total Protein 4.3 L 4.1 L (5.8-8.3) g/dL Albumin 1.9 L 1.9 L (3.0-4.8) g/dL Globulin 2.3 2.2 gm/dL Albumin/Globulin Ratio 0.8 L 0.9 L (1.1-1.8) Arterial Blood Potassium (3.6-5.2) mmol/L Venous Blood Potassium (3.6-5.2) mmol/L Urine Osmolality (300-1000) mosm/kg Blood Type Antibody Screen Crossmatch BBK History Checked 04/05/18 04/05/18 04/05/18 Range/Units 18:50 17:55 17:00 WBC 17.9 H (4.5-11.0) 10^3/uL RBC 2.70 L (3.5-6.1) 10^6/uL Hgb 7.5 L (14.0-18.0) g/dL Hct 23.2 L (42.0-52.0) % MCV 85.9 (80.0-105.0) fl MCH 27.8 (25.0-35.0) pg MCHC 32.3 (31.0-37.0) g/dl RDW 19.6 H (11.5-14.5) % Plt Count 84 L (120.0-450.0) 10^3/uL Neut % (Auto) 80.9 H (50.0-68.0) % Lymph % (Auto) 14.0 L (22.0-35.0) % [place] % (Auto) 5.0 (1.0-6.0) % Eos % (Auto) 0.0 L (1.5-5.0) % Baso % (Auto) 0.1 (0.0-3.0) % Lymph # (Auto) 2.5 (1.2-3.4) [place] # (Auto) 0.9 H (0.1-0.6) Eos # (Auto) 0.0 (0.0-0.7) Baso # (Auto) 0.01 (0.0-2.0) K/mm3 Absolute Neuts (auto) 14.47 H (1.4-6.5) Corrected WBC (Man) 17.0 H (4.5-11.0) K/mm3 Neutrophils % (Manual) 87 H (50.0-70.0) % Band Neutrophils % 4 H (0-2) % Lymphocytes % (Manual) 7 L (22.0-35.0) % Monocytes % (Manual) 2 (1.0-6.0) % Nucleated RBC % 5 % Platelet Evaluation Low (NORMAL) Hypochromasia 1+ Poikilocytosis (manual 1+ Anisocytosis (manual) 1+ Microcytosis (manual) Slight Target Cells Slight Ovalocytes Slight Schistocytes Slight pCO2 (35-45) mm/Hg pO2 (80-100) mm/Hg HCO3 (21-28) mmol/L ABG pH (7.35-7.45) ABG Total CO2 (22-28) mmol.L ABG O2 Saturation (95-98) % ABG O2 Content (15-23) ML/dl ABG Base Excess (-2.0-3.0) mmol/L ABG Hemoglobin (11.7-17.4) g/dL ABG Carboxyhemoglobin (0.5-1.5) % POC ABG HHb (Measured) (0-5) % ABG Methemoglobin (0.0-3.0) % ABG O2 Capacity (16-24) mL/dl ABG Potassium (3.6-5.2) mmol/L VBG pH (7.32-7.43) VBG pCO2 (40-60) VBG HCO3 (21-28) mmol/l VBG Total CO2 (22-28) mmol.L VBG O2 Sat (Calc) (40-65) % VBG Base Excess (0.0-2.0) mmol/L VBG Potassium (3.6-5.2) mmol/L Hgb O2 Saturation (95.0-98.0) % Sodium 166 H* (132-148) mmol/L Chloride 142 H (98-107) mmol/L Glucose (75-110) mg/dl Lactate (0.7-2.1) mmol/L FiO2 % PEEP Pressure Support Crit Value Called To Crit Value Called By Blood Gas Notified Time Potassium 3.8 (3.6-5.0) mmol/L Carbon Dioxide 22 (21-33) mmol/L Anion Gap 6 L (10-20) BUN 58 H (7-21) mg/dL Creatinine 1.7 H (0.8-1.5) mg/dl Est GFR ( Amer) 48 Est GFR (Non-Af Amer) 40 POC Glucose (mg/dL) 213 H (65-110) mg/dL Random Glucose 159 H (70-110) mg/dL Calcium 7.7 L (8.4-10.5) mg/dL Total Bilirubin 0.3 (0.2-1.3) mg/dL AST 23 (17-59) U/L ALT 28 (7-56) U/L Alkaline Phosphatase 118 (38-126) U/L Total Protein 4.3 L (5.8-8.3) g/dL Albumin 2.0 L (3.0-4.8) g/dL Globulin 2.4 gm/dL Albumin/Globulin Ratio 0.8 L (1.1-1.8) Arterial Blood Potassium (3.6-5.2) mmol/L Venous Blood Potassium (3.6-5.2) mmol/L Urine Osmolality (300-1000) mosm/kg Blood Type Antibody Screen Crossmatch BBK History Checked 04/05/18 04/05/18 04/05/18 Range/Units 12:22 11:30 09:30 WBC (4.5-11.0) 10^3/uL RBC (3.5-6.1) 10^6/uL Hgb (14.0-18.0) g/dL Hct (42.0-52.0) % MCV (80.0-105.0) fl MCH (25.0-35.0) pg MCHC (31.0-37.0) g/dl RDW (11.5-14.5) % Plt Count (120.0-450.0) 10^3/uL Neut % (Auto) (50.0-68.0) % Lymph % (Auto) (22.0-35.0) % [place] % (Auto) (1.0-6.0) % Eos % (Auto) (1.5-5.0) % Baso % (Auto) (0.0-3.0) % Lymph # (Auto) (1.2-3.4) [place] # (Auto) (0.1-0.6) Eos # (Auto) (0.0-0.7) Baso # (Auto) (0.0-2.0) K/mm3 Absolute Neuts (auto) (1.4-6.5) Corrected WBC (Man) (4.5-11.0) K/mm3 Neutrophils % (Manual) (50.0-70.0) % Band Neutrophils % (0-2) % Lymphocytes % (Manual) (22.0-35.0) % Monocytes % (Manual) (1.0-6.0) % Nucleated RBC % % Platelet Evaluation (NORMAL) Hypochromasia Poikilocytosis (manual Anisocytosis (manual) Microcytosis (manual) Target Cells Ovalocytes Schistocytes pCO2 30 L (35-45) mm/Hg pO2 264 H 193.0 H (80-100) mm/Hg HCO3 19.5 L (21-28) mmol/L ABG pH 7.42 (7.35-7.45) ABG Total CO2 20.4 L (22-28) mmol.L ABG O2 Saturation 100.1 H (95-98) % ABG O2 Content (15-23) ML/dl ABG Base Excess -3.9 L (-2.0-3.0) mmol/L ABG Hemoglobin (11.7-17.4) g/dL ABG Carboxyhemoglobin (0.5-1.5) % POC ABG HHb (Measured) (0-5) % ABG Methemoglobin (0.0-3.0) % ABG O2 Capacity (16-24) mL/dl ABG Potassium 3.9 (3.6-5.2) mmol/L VBG pH 7.43 (7.32-7.43) VBG pCO2 31.0 L (40-60) VBG HCO3 20.6 L (21-28) mmol/l VBG Total CO2 21.6 L (22-28) mmol.L VBG O2 Sat (Calc) 100.2 H (40-65) % VBG Base Excess -2.7 L (0.0-2.0) mmol/L VBG Potassium 3.7 (3.6-5.2) mmol/L Hgb O2 Saturation (95.0-98.0) % Sodium 170.0 H* 171.0 H* (132-148) mmol/L Chloride 145.0 H 142.0 H (98-107) mmol/L Glucose 199 H 217 H (75-110) mg/dl Lactate 1.8 1.9 (0.7-2.1) mmol/L FiO2 21.0 50.0 % PEEP 5 Pressure Support 5 Crit Value Called To Mary Kay padilla Crit Value Called By Ab Chon funes Blood Gas Notified Time 1150 945 Potassium (3.6-5.0) mmol/L Carbon Dioxide (21-33) mmol/L Anion Gap (10-20) BUN (7-21) mg/dL Creatinine (0.8-1.5) mg/dl Est GFR ( Amer) Est GFR (Non-Af Amer) POC Glucose (mg/dL) 202 H (65-110) mg/dL Random Glucose (70-110) mg/dL Calcium (8.4-10.5) mg/dL Total Bilirubin (0.2-1.3) mg/dL AST (17-59) U/L ALT (7-56) U/L Alkaline Phosphatase (38-126) U/L Total Protein (5.8-8.3) g/dL Albumin (3.0-4.8) g/dL Globulin gm/dL Albumin/Globulin Ratio (1.1-1.8) Arterial Blood Potassium 3.9 (3.6-5.2) mmol/L Venous Blood Potassium 3.7 (3.6-5.2) mmol/L Urine Osmolality (300-1000) mosm/kg Blood Type Antibody Screen Crossmatch BBK History Checked 04/05/18 04/05/18 04/05/18 Range/Units 09:30 09:30 08:39 WBC 16.9 H (4.5-11.0) 10^3/uL RBC 3.35 L (3.5-6.1) 10^6/uL Hgb 9.3 L (14.0-18.0) g/dL Hct 28.5 L (42.0-52.0) % MCV 85.1 (80.0-105.0) fl MCH 27.8 (25.0-35.0) pg MCHC 32.6 (31.0-37.0) g/dl RDW 19.1 H (11.5-14.5) % Plt Count 107 L (120.0-450.0) 10^3/uL Neut % (Auto) 85.3 H (50.0-68.0) % Lymph % (Auto) 11.2 L (22.0-35.0) % [place] % (Auto) 3.4 (1.0-6.0) % Eos % (Auto) 0.0 L (1.5-5.0) % Baso % (Auto) 0.1 (0.0-3.0) % Lymph # (Auto) 1.9 (1.2-3.4) [place] # (Auto) 0.6 (0.1-0.6) Eos # (Auto) 0.0 (0.0-0.7) Baso # (Auto) 0.02 (0.0-2.0) K/mm3 Absolute Neuts (auto) 14.42 H (1.4-6.5) Corrected WBC (Man) (4.5-11.0) K/mm3 Neutrophils % (Manual) (50.0-70.0) % Band Neutrophils % (0-2) % Lymphocytes % (Manual) (22.0-35.0) % Monocytes % (Manual) (1.0-6.0) % Nucleated RBC % % Platelet Evaluation (NORMAL) Hypochromasia Poikilocytosis (manual Anisocytosis (manual) Microcytosis (manual) Target Cells Ovalocytes Schistocytes pCO2 (35-45) mm/Hg pO2 (80-100) mm/Hg HCO3 (21-28) mmol/L ABG pH (7.35-7.45) ABG Total CO2 (22-28) mmol.L ABG O2 Saturation (95-98) % ABG O2 Content (15-23) ML/dl ABG Base Excess (-2.0-3.0) mmol/L ABG Hemoglobin (11.7-17.4) g/dL ABG Carboxyhemoglobin (0.5-1.5) % POC ABG HHb (Measured) (0-5) % ABG Methemoglobin (0.0-3.0) % ABG O2 Capacity (16-24) mL/dl ABG Potassium (3.6-5.2) mmol/L VBG pH (7.32-7.43) VBG pCO2 (40-60) VBG HCO3 (21-28) mmol/l VBG Total CO2 (22-28) mmol.L VBG O2 Sat (Calc) (40-65) % VBG Base Excess (0.0-2.0) mmol/L VBG Potassium (3.6-5.2) mmol/L Hgb O2 Saturation (95.0-98.0) % Sodium 165 H* (132-148) mmol/L Chloride 141 H (98-107) mmol/L Glucose (75-110) mg/dl Lactate (0.7-2.1) mmol/L FiO2 % PEEP Pressure Support Crit Value Called To Crit Value Called By Blood Gas Notified Time Potassium 4.2 (3.6-5.0) mmol/L Carbon Dioxide 22 (21-33) mmol/L Anion Gap 6 L (10-20) BUN 60 H (7-21) mg/dL Creatinine 1.8 H (0.8-1.5) mg/dl Est GFR ( Amer) 45 Est GFR (Non-Af Amer) 37 POC Glucose (mg/dL) 329 H (65-110) mg/dL Random Glucose 217 H (70-110) mg/dL Calcium 7.9 L (8.4-10.5) mg/dL Total Bilirubin 0.3 (0.2-1.3) mg/dL AST 33 (17-59) U/L ALT 28 (7-56) U/L Alkaline Phosphatase 138 H (38-126) U/L Total Protein 4.3 L (5.8-8.3) g/dL Albumin 1.8 L (3.0-4.8) g/dL Globulin 2.5 gm/dL Albumin/Globulin Ratio 0.7 L (1.1-1.8) Arterial Blood Potassium (3.6-5.2) mmol/L Venous Blood Potassium (3.6-5.2) mmol/L Urine Osmolality (300-1000) mosm/kg Blood Type Antibody Screen Crossmatch BBK History Checked 04/05/18 04/04/1804/04/19 Range/Units 04:00 22:20 13:59 WBC (4.5-11.0) 10^3/uL RBC (3.5-6.1) 10^6/uL Hgb (14.0-18.0) g/dL Hct (42.0-52.0) % MCV (80.0-105.0) fl MCH (25.0-35.0) pg MCHC (31.0-37.0) g/dl RDW (11.5-14.5) % Plt Count (120.0-450.0) 10^3/uL Neut % (Auto) (50.0-68.0) % Lymph % (Auto) (22.0-35.0) % [place] % (Auto) (1.0-6.0) % Eos % (Auto) (1.5-5.0) % Baso % (Auto) (0.0-3.0) % Lymph # (Auto) (1.2-3.4) [place] # (Auto) (0.1-0.6) Eos # (Auto) (0.0-0.7) Baso # (Auto) (0.0-2.0) K/mm3 Absolute Neuts (auto) (1.4-6.5) Corrected WBC (Man) (4.5-11.0) K/mm3 Neutrophils % (Manual) (50.0-70.0) % Band Neutrophils % (0-2) % Lymphocytes % (Manual) (22.0-35.0) % Monocytes % (Manual) (1.0-6.0) % Nucleated RBC % % Platelet Evaluation (NORMAL) Hypochromasia Poikilocytosis (manual Anisocytosis (manual) Microcytosis (manual) Target Cells Ovalocytes Schistocytes pCO2 (35-45) mm/Hg pO2 (80-100) mm/Hg HCO3 (21-28) mmol/L ABG pH (7.35-7.45) ABG Total CO2 (22-28) mmol.L ABG O2 Saturation (95-98) % ABG O2 Content (15-23) ML/dl ABG Base Excess (-2.0-3.0) mmol/L ABG Hemoglobin (11.7-17.4) g/dL ABG Carboxyhemoglobin (0.5-1.5) % POC ABG HHb (Measured) (0-5) % ABG Methemoglobin (0.0-3.0) % ABG O2 Capacity (16-24) mL/dl ABG Potassium (3.6-5.2) mmol/L VBG pH (7.32-7.43) VBG pCO2 (40-60) VBG HCO3 (21-28) mmol/l VBG Total CO2 (22-28) mmol.L VBG O2 Sat (Calc) (40-65) % VBG Base Excess (0.0-2.0) mmol/L VBG Potassium (3.6-5.2) mmol/L Hgb O2 Saturation (95.0-98.0) % Sodium (132-148) mmol/L Chloride (98-107) mmol/L Glucose (75-110) mg/dl Lactate (0.7-2.1) mmol/L FiO2 % PEEP Pressure Support Crit Value Called To Crit Value Called By Blood Gas Notified Time Potassium (3.6-5.0) mmol/L Carbon Dioxide (21-33) mmol/L Anion Gap (10-20) BUN (7-21) mg/dL Creatinine (0.8-1.5) mg/dl Est GFR ( Amer) Est GFR (Non-Af Amer) POC Glucose (mg/dL) 142 H (65-110) mg/dL Random Glucose (70-110) mg/dL Calcium (8.4-10.5) mg/dL Total Bilirubin (0.2-1.3) mg/dL AST (17-59) U/L ALT (7-56) U/L Alkaline Phosphatase (38-126) U/L Total Protein (5.8-8.3) g/dL Albumin (3.0-4.8) g/dL Globulin gm/dL Albumin/Globulin Ratio (1.1-1.8) Arterial Blood Potassium (3.6-5.2) mmol/L Venous Blood Potassium (3.6-5.2) mmol/L Urine Osmolality 476 (300-1000) mosm/kg Blood Type O POSITIVE Antibody Screen Negative Crossmatch See Detail BBK History Checked No verified bt Laboratory Results - last 24 hr 04/04/18 04/04/18 04/05/18 13:59 22:20 04:00 WBC RBC Hgb Hct MCV MCH MCHC RDW Plt Count Neut % (Auto) Lymph % (Auto) [place] % (Auto) Eos % (Auto) Baso % (Auto) Lymph # (Auto) [place] # (Auto) Eos # (Auto) Baso # (Auto) Absolute Neuts (auto) Corrected WBC (Man) Neutrophils % (Manual) Band Neutrophils % Lymphocytes % (Manual) Monocytes % (Manual) Nucleated RBC % Platelet Evaluation Hypochromasia Poikilocytosis (manual Anisocytosis (manual) Microcytosis (manual) Target Cells Ovalocytes Schistocytes pCO2 pO2 HCO3 ABG pH ABG Total CO2 ABG O2 Saturation ABG O2 Content ABG Base Excess ABG Hemoglobin ABG Carboxyhemoglobin POC ABG HHb (Measured) ABG Methemoglobin ABG O2 Capacity ABG Potassium VBG pH VBG pCO2 VBG HCO3 VBG Total CO2 VBG O2 Sat (Calc) VBG Base Excess VBG Potassium Hgb O2 Saturation Sodium Chloride Glucose Lactate FiO2 PEEP Pressure Support Crit Value Called To Crit Value Called By Blood Gas Notified Time Potassium Carbon Dioxide Anion Gap BUN Creatinine Est GFR ( Amer) Est GFR (Non-Af Amer) POC Glucose (mg/dL) 142 H Random Glucose Calcium Total Bilirubin AST ALT Alkaline Phosphatase Total Protein Albumin Globulin Albumin/Globulin Ratio Arterial Blood Potassium Venous Blood Potassium Urine Osmolality 476 Blood Type O POSITIVE Antibody Screen Negative Crossmatch See Detail BBK History Checked No verified bt 04/05/18 04/05/18 04/05/18 08:39 09:30 09:30 WBC 16.9 H RBC 3.35 L Hgb 9.3 L Hct 28.5 L MCV 85.1 MCH 27.8 MCHC 32.6 RDW 19.1 H Plt Count 107 L Neut % (Auto) 85.3 H Lymph % (Auto) 11.2 L [place] % (Auto) 3.4 Eos % (Auto) 0.0 L Baso % (Auto) 0.1 Lymph # (Auto) 1.9 [place] # (Auto) 0.6 Eos # (Auto) 0.0 Baso # (Auto) 0.02 Absolute Neuts (auto) 14.42 H Corrected WBC (Man) Neutrophils % (Manual) Band Neutrophils % Lymphocytes % (Manual) Monocytes % (Manual) Nucleated RBC % Platelet Evaluation Hypochromasia Poikilocytosis (manual Anisocytosis (manual) Microcytosis (manual) Target Cells Ovalocytes Schistocytes pCO2 pO2 HCO3 ABG pH ABG Total CO2 ABG O2 Saturation ABG O2 Content ABG Base Excess ABG Hemoglobin ABG Carboxyhemoglobin POC ABG HHb (Measured) ABG Methemoglobin ABG O2 Capacity ABG Potassium VBG pH VBG pCO2 VBG HCO3 VBG Total CO2 VBG O2 Sat (Calc) VBG Base Excess VBG Potassium Hgb O2 Saturation Sodium 165 H* Chloride 141 H Glucose Lactate FiO2 PEEP Pressure Support Crit Value Called To Crit Value Called By Blood Gas Notified Time Potassium 4.2 Carbon Dioxide 22 Anion Gap 6 L BUN 60 H Creatinine 1.8 H Est GFR ( Amer) 45 Est GFR (Non-Af Amer) 37 POC Glucose (mg/dL) 329 H Random Glucose 217 H Calcium 7.9 L Total Bilirubin 0.3 AST 33 ALT 28 Alkaline Phosphatase 138 H Total Protein 4.3 L Albumin 1.8 L Globulin 2.5 Albumin/Globulin Ratio 0.7 L Arterial Blood Potassium Venous Blood Potassium Urine Osmolality Blood Type Antibody Screen Crossmatch BBK History Checked 04/05/18 04/05/18 04/05/18 09:30 11:30 12:22 WBC RBC Hgb Hct MCV MCH MCHC RDW Plt Count Neut % (Auto) Lymph % (Auto) [place] % (Auto) Eos % (Auto) Baso % (Auto) Lymph # (Auto) [place] # (Auto) Eos # (Auto) Baso # (Auto) Absolute Neuts (auto) Corrected WBC (Man) Neutrophils % (Manual) Band Neutrophils % Lymphocytes % (Manual) Monocytes % (Manual) Nucleated RBC % Platelet Evaluation Hypochromasia Poikilocytosis (manual Anisocytosis (manual) Microcytosis (manual) Target Cells Ovalocytes Schistocytes pCO2 30 L pO2 193.0 H 264 H HCO3 19.5 L ABG pH 7.42 ABG Total CO2 20.4 L ABG O2 Saturation 100.1 H ABG O2 Content ABG Base Excess -3.9 L ABG Hemoglobin ABG Carboxyhemoglobin POC ABG HHb (Measured) ABG Methemoglobin ABG O2 Capacity ABG Potassium 3.9 VBG pH 7.43 VBG pCO2 31.0 L VBG HCO3 20.6 L VBG Total CO2 21.6 L VBG O2 Sat (Calc) 100.2 H VBG Base Excess -2.7 L VBG Potassium 3.7 Hgb O2 Saturation Sodium 171.0 H* 170.0 H* Chloride 142.0 H 145.0 H Glucose 217 H 199 H Lactate 1.9 1.8 FiO2 50.0 21.0 PEEP 5 Pressure Support 5 Crit Value Called To Dr aleksander wren Crit Value Called By Chon funes Ab Blood Gas Notified Time 948 1150 Potassium Carbon Dioxide Anion Gap BUN Creatinine Est GFR ( Amer) Est GFR (Non-Af Amer) POC Glucose (mg/dL) 202 H Random Glucose Calcium Total Bilirubin AST ALT Alkaline Phosphatase Total Protein Albumin Globulin Albumin/Globulin Ratio Arterial Blood Potassium 3.9 Venous Blood Potassium 3.7 Urine Osmolality Blood Type Antibody Screen Crossmatch BBK History Checked 04/05/18 04/05/18 04/05/18 17:00 17:55 18:50 WBC 17.9 H RBC 2.70 L Hgb 7.5 L Hct 23.2 L MCV 85.9 MCH 27.8 MCHC 32.3 RDW 19.6 H Plt Count 84 L Neut % (Auto) 80.9 H Lymph % (Auto) 14.0 L [place] % (Auto) 5.0 Eos % (Auto) 0.0 L Baso % (Auto) 0.1 Lymph # (Auto) 2.5 [place] # (Auto) 0.9 H Eos # (Auto) 0.0 Baso # (Auto) 0.01 Absolute Neuts (auto) 14.47 H Corrected WBC (Man) 17.0 H Neutrophils % (Manual) 87 H Band Neutrophils % 4 H Lymphocytes % (Manual) 7 L Monocytes % (Manual) 2 Nucleated RBC % 5 Platelet Evaluation Low Hypochromasia 1+ Poikilocytosis (manual 1+ Anisocytosis (manual) 1+ Microcytosis (manual) Slight Target Cells Slight Ovalocytes Slight Schistocytes Slight pCO2 pO2 HCO3 ABG pH ABG Total CO2 ABG O2 Saturation ABG O2 Content ABG Base Excess ABG Hemoglobin ABG Carboxyhemoglobin POC ABG HHb (Measured) ABG Methemoglobin ABG O2 Capacity ABG Potassium VBG pH VBG pCO2 VBG HCO3 VBG Total CO2 VBG O2 Sat (Calc) VBG Base Excess VBG Potassium Hgb O2 Saturation Sodium 166 H* Chloride 142 H Glucose Lactate FiO2 PEEP Pressure Support Crit Value Called To Crit Value Called By Blood Gas Notified Time Potassium 3.8 Carbon Dioxide 22 Anion Gap 6 L BUN 58 H Creatinine 1.7 H Est GFR ( Amer) 48 Est GFR (Non-Af Amer) 40 POC Glucose (mg/dL) 213 H Random Glucose 159 H Calcium 7.7 L Total Bilirubin 0.3 AST 23 ALT 28 Alkaline Phosphatase 118 Total Protein 4.3 L Albumin 2.0 L Globulin 2.4 Albumin/Globulin Ratio 0.8 L Arterial Blood Potassium Venous Blood Potassium Urine Osmolality Blood Type Antibody Screen Crossmatch BBK History Checked 04/05/18 04/05/18 04/06/18 19:40 23:49 01:00 WBC RBC Hgb Hct MCV MCH MCHC RDW Plt Count Neut % (Auto) Lymph % (Auto) [place] % (Auto) Eos % (Auto) Baso % (Auto) Lymph # (Auto) [place] # (Auto) Eos # (Auto) Baso # (Auto) Absolute Neuts (auto) Corrected WBC (Man) Neutrophils % (Manual) Band Neutrophils % Lymphocytes % (Manual) Monocytes % (Manual) Nucleated RBC % Platelet Evaluation Hypochromasia Poikilocytosis (manual Anisocytosis (manual) Microcytosis (manual) Target Cells Ovalocytes Schistocytes pCO2 pO2 HCO3 ABG pH ABG Total CO2 ABG O2 Saturation ABG O2 Content ABG Base Excess ABG Hemoglobin ABG Carboxyhemoglobin POC ABG HHb (Measured) ABG Methemoglobin ABG O2 Capacity ABG Potassium VBG pH VBG pCO2 VBG HCO3 VBG Total CO2 VBG O2 Sat (Calc) VBG Base Excess VBG Potassium Hgb O2 Saturation Sodium 165 H* 164 H* Chloride 142 H 141 H Glucose Lactate FiO2 PEEP Pressure Support Crit Value Called To Crit Value Called By Blood Gas Notified Time Potassium 4.0 3.6 Carbon Dioxide 22 23 Anion Gap 5 L 4 L BUN 61 H 59 H Creatinine 1.7 H 1.8 H Est GFR ( Amer) 48 45 Est GFR (Non-Af Amer) 40 37 POC Glucose (mg/dL) 202 H Random Glucose 159 H 189 H Calcium 8.0 L 8.0 L Total Bilirubin 0.3 0.3 AST 23 19 ALT 23 22 Alkaline Phosphatase 120 161 H D Total Protein 4.1 L 4.3 L Albumin 1.9 L 1.9 L Globulin 2.2 2.3 Albumin/Globulin Ratio 0.9 L 0.8 L Arterial Blood Potassium Venous Blood Potassium Urine Osmolality Blood Type Antibody Screen Crossmatch BBK History Checked 04/06/18 04/06/18 04/06/18 01:00 07:00 07:00 WBC 19.7 H RBC 2.64 L Hgb 7.6 L Hct 22.9 L MCV 86.7 MCH 28.8 MCHC 33.2 RDW 19.5 H Plt Count 78 L Neut % (Auto) 83.6 H Lymph % (Auto) 10.6 L [place] % (Auto) 5.6 Eos % (Auto) 0.1 L Baso % (Auto) 0.1 Lymph # (Auto) 2.1 [place] # (Auto) 1.1 H Eos # (Auto) 0.0 Baso # (Auto) 0.02 Absolute Neuts (auto) 16.45 H Corrected WBC (Man) Neutrophils % (Manual) Band Neutrophils % Lymphocytes % (Manual) Monocytes % (Manual) Nucleated RBC % Platelet Evaluation Hypochromasia Poikilocytosis (manual Anisocytosis (manual) Microcytosis (manual) Target Cells Ovalocytes Schistocytes pCO2 14 L* pO2 133.0 H HCO3 7.0 L* ABG pH 7.31 L ABG Total CO2 7.4 L ABG O2 Saturation 99.5 H ABG O2 Content 5.5 L ABG Base Excess -18.0 L ABG Hemoglobin 3.8 L ABG Carboxyhemoglobin 1.7 H POC ABG HHb (Measured) 0.5 ABG Methemoglobin 2.0 ABG O2 Capacity 5.5 L ABG Potassium VBG pH VBG pCO2 VBG HCO3 VBG Total CO2 VBG O2 Sat (Calc) VBG Base Excess VBG Potassium Hgb O2 Saturation 95.7 Sodium 165 H* Chloride 142 H Glucose Lactate FiO2 32.0 PEEP Pressure Support Crit Value Called To Johann gautam (assistant manager) Crit Value Called By [facility] Blood Gas Notified Time 707 Potassium 3.7 Carbon Dioxide 22 Anion Gap 8 L BUN 57 H Creatinine 1.8 H Est GFR ( Amer) 45 Est GFR (Non-Af Amer) 37 POC Glucose (mg/dL) Random Glucose 141 H Calcium 8.0 L Total Bilirubin 0.2 AST 17 ALT 22 Alkaline Phosphatase 163 H Total Protein 4.3 L Albumin 2.0 L Globulin 2.3 Albumin/Globulin Ratio 0.9 L Arterial Blood Potassium Venous Blood Potassium Urine Osmolality Blood Type Antibody Screen Crossmatch BBK History Checked Radiology Impressions: Radiology Impressions Chest X-Ray 04/06/18 06:00 IMPRESSION: Limited bilateral infiltrates are identified in the interval as discussed above as well as new mild right pleural effusion and increased mild left pleural effusion. Status post extubation and removal of nasogastric tube apparent. Fingerstick Blood Sugar Results: 202 Critical Care Progress Note - Nutrition Nutrition: Nutrition Category Date Time Status NPO Diet [DIET] Diets 04/05/18 Breakfast Ordered Assessment/Plan - Assessment and Plan (Free Text) Assessment: Patient is a 73 year old male with past medical history of prolmyelocytic leukemia s/p chemotherapy, HTN with recent discharge from [facility] after being treated for left lower lobe pneumonia with combinent inguinal hernia incarceration who presented with shortness of breath. Patient monitored on medical floor when noticed to have acute episode of melena and increased respiratory distress. Patient was transferred to ICU and started on pressors. S/p 2 units PRBC on 04/04. EGD 04/04 showed multiple non bleeding gastric and duodenal ulcers. Extubated on 04/05 and now off of pressors with hemodynamic stability. Plan: Neuro: -lethargic, alert, limited movement of extremities -maintain normothermia -Brain MRI(03/28/2018): Age-related degenerative changes are identified which appear age-appropriate. no acute intracranial findings as per standard MR cr iteria -Extremity US(03/30/18):Normal BARRY and PVR examination at rest -Head CT when stable Cardio: Hemorrhagic shock 2/2 GI bleed -IVF bolus given, started levophed for pressure support -s/p 3 units PRBC, last unit given this morning -now off of pressors, hemodynamically stable overnight Elevated troponin -Trop 0.15, 0.14, 0.11, likely type 2 demand ischemia -Will hold anticoagulation in setting of apparent GI bleed -Echocardiogram(03/24/18): EF 46%, normal LV wall thickness, lateral wall hypokinesis HTN -Holding coreg and cozaar secondary to hypotension -Maintian MAP >65mmHg Pulm: Respiratory distress, respiratory alkalosis, moderate pleural effusions -ABG repeat today pending -Patient intubated on 04/04, extubated on 04/05 -CXR today shows limited B/L infiltrates, new mild right pleural effusion and increased left mild pleural effusion -HOB 35 degrees -Protective oral hygiene -Pulmonology on consult -Maintain SaO2 >90% with supplemental O2 as needed GI: Active Melena -elevated BUN, hypotension -Protonix gtt -swallow eval pending, advance diet as per GI recommendations -EGD 04/04 showed multiple non bleeding gastric and duodenal ulcers -Dr. Stoddard with GI consulted f/u recs -Chest/Abdomen/Pelvis CT(03/27/18): moderate size bilateral pleural effusions with some adjacent consolidation, small stones noted in bladder -GI ppx with IV protonix Renal: Hypernatremia, hyperchloridemia, DIA -likely secondary to volume depletion -UA with specific gravity 1.025 -Nephrology with Dr. Segovia consulted -Sodium continues to be high, D5 free water increased to 150cc/hr Endo: Hypoglycemia episodes, Thyroid autoimmunity -HgA1c wnl -TSH 3.36, Free T4 0.90, Thyroxine 5.3 (low) -Cortsol AM samole 03/30, 3.36 wnl -Endo with Dr. 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 Padilla <Suhail Padilla - Last Filed: 04/06/18 15:47> CCU Objective - Vital Signs / Intake & Output Vital Signs (Last 4 hours): Vital Signs Pulse BP 04/06/18 14:00 67 144/66 Intake and Output (Last 8hrs): Intake & Output 04/06/18 04/06/18 04/06/18 06:59 14:59 22:59 Intake Total 26 Balance 26 Intake: IV 26 - Medications Active Medications: Active Medications Generic Name Dose Route Start Last Admin Trade Name Freq PRN Reason Stop Dose Admin Aspirin 81 mg 03/26/18 10:00 04/04/18 18:59 Aspirin Chewable PO Not Given DAILY RIYA Carbamide Peroxide 0 ml 04/02/18 18:00 04/06/18 10:00 Debrox Ear Drops AU 5 drop BID RIYA Administration Carvedilol 3.125 mg 03/25/18 18:00 04/04/18 19:00 Coreg PO Not Given BID RIYA Clotrimazole 0 gm 03/28/18 10:00 04/02/18 09:40 Lotrimin 1% TOP 1 applic BID PRN Administration Rash Amino Acids 1,000 mls @ 42 mls/hr 04/04/18 18:00 04/05/18 18:41 Clinimix 4.25/5 % (1000 Ml) IV 42 mls/hr .[id number] RIYA Administration Fat Emulsion-Soy/MCT/Bristow/Fish Oil 250 mls @ 21 mls/hr 04/05/18 18:00 04/05/18 18:47 Smoflipid 20% IV 21 mls/hr MWF@1800 RIYA Administration Phenylephrine HCl 40 mg/ 254 mls @ 38.1 mls/hr 04/04/18 14:38 04/05/18 09:30 Sodium Chloride IV 0 mcg/min .Q6H40M PRN 0 mls/hr TITRATE PER MD ORDER Titration Protocol 100 MCG/MIN Vasopressin 20 units/ Sodium 101 mls @ 9.09 mls/hr 04/04/18 14:45 04/05/18 03:19 Chloride IV Not Given .Q11H7M RIAY Protocol 0.03 U/MIN Fentanyl Citrate 1,000 mcg in 100 mls @ 2 mls/hr 04/04/18 16:15 Fentanyl Citrate/Sodium Chloride 1 Mg/100 Ml IV .Q24H PRN TITRATE PER MD ORDER Protocol 20 MCG/HR Norepinephrine Bitartrate 8 mg 500 mls @ 112.5 mls/hr 04/04/18 19:00 04/06/18 07:30 / Sodium Chloride IV 0 mcg/min .Q4H27M RIYA 0 mls/hr Titration Protocol 30 MCG/MIN Meropenem/Sodium Chloride 500 mg in 50 mls @ 100 mls/hr 04/05/18 07:00 04/06/18 10:47 Merrem Iv 500 Mg/Ns 50 Ml IVPB 04/12/18 07:01 100 mls/hr Q12 RIYA Administration Protocol Pantoprazole Sodium 40 mg in 100 mls @ 20 mls/hr 04/05/18 10:15 04/06/18 12:00 Protonix 40mg Ivpb IVPB 20 mls/hr .Q5H RIYA Administration Dextrose 1,000 mls @ 150 mls/hr 04/06/18 06:16 04/06/18 07:30 Dextrose 5% In Water 1000 Ml IV 150 mls/hr .Q6H40M RIYA Administration Micafungin Sodium 100 mg/ 100 mls @ 100 mls/hr 04/06/18 11:00 04/06/18 12:00 Sodium Chloride IV 04/13/18 11:01 100 mls/hr DAILY RIYA Administration Protocol Insulin Human Regular 0 units 04/05/18 09:00 04/06/18 12:31 Humulin R Low SC Not Given Q6 RIYA Protocol Lactic Acid 0 ea 03/28/18 10:00 04/06/18 08:48 Lac-Hydrin 12% Cream (140 G) TOP 1 applic TID PRN Administration Dry skin Losartan Potassium 12.5 mg 03/26/18 10:00 04/04/18 19:00 Cozaar PO Not Given DAILY RIYA Methylprednisolone 40 mg 04/06/18 10:00 04/06/18 09:39 Solu-Medrol IVP Not Given DAILY [facility] Multi-Ingredient Cream 0 ea 03/31/18 10:00 04/06/18 10:00 Hydrocerin Cream TOP 1 applic 1000,2200 RIYA Administration Silver Sulfadiazine 0 gm 03/28/18 10:00 04/06/18 11:16 Silvadene 1% 25 Gm TP 1 gm BID PRN Administration Dry skin - Patient Studies Lab Studies: Microbiology Studies 04/04/18 14:30 Blood Culture - Preliminary Blood-Venous Yeast Species Gram Stain - Final 04/04/18 14:00 Blood Culture - Preliminary Blood-Venous Yeast Species Gram Stain - Final Lab Studies 04/06/18 04/06/18 04/06/18 Range/Units 12:45 09:10 07:00 WBC 21.1 H (4.5-11.0) 10^3/uL RBC 3.05 L (3.5-6.1) 10^6/uL Hgb 8.6 L (14.0-18.0) g/dL Hct 26.7 L (42.0-52.0) % MCV 87.5 (80.0-105.0) fl MCH 28.2 (25.0-35.0) pg MCHC 32.2 (31.0-37.0) g/dl RDW 18.7 H (11.5-14.5) % Plt Count 73 L (120.0-450.0) 10^3/uL Neut % (Auto) 79.7 H (50.0-68.0) % Lymph % (Auto) 13.8 L (22.0-35.0) % [place] % (Auto) 6.4 H (1.0-6.0) % Eos % (Auto) 0.0 L (1.5-5.0) % Baso % (Auto) 0.1 (0.0-3.0) % Lymph # (Auto) 2.9 (1.2-3.4) [place] # (Auto) 1.4 H (0.1-0.6) Eos # (Auto) 0.0 (0.0-0.7) Baso # (Auto) 0.02 (0.0-2.0) K/mm3 Absolute Neuts (auto) 16.82 H (1.4-6.5) Corrected WBC (Man) (4.5-11.0) K/mm3 Neutrophils % (Manual) 87 H (50.0-70.0) % Band Neutrophils % 3 H (0-2) % Lymphocytes % (Manual) 6 L (22.0-35.0) % Atypical Lymphs % 1 H (0.0-0.0) % Monocytes % (Manual) 3 (1.0-6.0) % Nucleated RBC % 4 % Platelet Evaluation Low (NORMAL) Hypochromasia Poikilocytosis (manual 1+ Anisocytosis (manual) 1+ Microcytosis (manual) Target Cells Slight Ovalocytes Slight Schistocytes pCO2 (35-45) mm/Hg pO2 (80-100) mm/Hg HCO3 (21-28) mmol/L ABG pH (7.35-7.45) ABG Total CO2 (22-28) mmol.L ABG O2 Saturation (95-98) % ABG O2 Content (15-23) ML/dl ABG Base Excess (-2.0-3.0) mmol/L ABG Hemoglobin (11.7-17.4) g/dL ABG Carboxyhemoglobin (0.5-1.5) % POC ABG HHb (Measured) (0-5) % ABG Methemoglobin (0.0-3.0) % ABG O2 Capacity (16-24) mL/dl Hgb O2 Saturation (95.0-98.0) % FiO2 % Crit Value Called To Crit Value Called By Blood Gas Notified Time Sodium 164 H* (132-148) mmol/L Potassium 3.9 (3.6-5.0) mmol/L Chloride 141 H (98-107) mmol/L Carbon Dioxide 23 (21-33) mmol/L Anion Gap 5 L (10-20) BUN 61 H (7-21) mg/dL Creatinine 1.8 H (0.8-1.5) mg/dl Est GFR ( Amer) 45 Est GFR (Non-Af Amer) 37 POC Glucose (mg/dL) (65-110) mg/dL Random Glucose 152 H (70-110) mg/dL Calcium 7.9 L (8.4-10.5) mg/dL Phosphorus 3.4 (2.5-4.5) mg/dL Magnesium 1.7 (1.7-2.2) mg/dL Total Bilirubin (0.2-1.3) mg/dL AST (17-59) U/L ALT (7-56) U/L Alkaline Phosphatase (38-126) U/L Total Protein (5.8-8.3) g/dL Albumin (3.0-4.8) g/dL Globulin gm/dL Albumin/Globulin Ratio (1.1-1.8) Rheumatoid Factor IgG (<=6) U Rheumatoid Factor IgA (<=6) U Rheumatoid Factor IgM (<=6) U Blood Type Antibody Screen Crossmatch BBK History Checked 04/06/18 04/06/18 04/06/18 Range/Units 07:00 07:00 06:47 WBC (4.5-11.0) 10^3/uL RBC (3.5-6.1) 10^6/uL Hgb (14.0-18.0) g/dL Hct (42.0-52.0) % MCV (80.0-105.0) fl MCH (25.0-35.0) pg MCHC (31.0-37.0) g/dl RDW (11.5-14.5) % Plt Count (120.0-450.0) 10^3/uL Neut % (Auto) (50.0-68.0) % Lymph % (Auto) (22.0-35.0) % [place] % (Auto) (1.0-6.0) % Eos % (Auto) (1.5-5.0) % Baso % (Auto) (0.0-3.0) % Lymph # (Auto) (1.2-3.4) [place] # (Auto) (0.1-0.6) Eos # (Auto) (0.0-0.7) Baso # (Auto) (0.0-2.0) K/mm3 Absolute Neuts (auto) (1.4-6.5) Corrected WBC (Man) (4.5-11.0) K/mm3 Neutrophils % (Manual) (50.0-70.0) % Band Neutrophils % (0-2) % Lymphocytes % (Manual) (22.0-35.0) % Atypical Lymphs % (0.0-0.0) % Monocytes % (Manual) (1.0-6.0) % Nucleated RBC % % Platelet Evaluation (NORMAL) Hypochromasia Poikilocytosis (manual Anisocytosis (manual) Microcytosis (manual) Target Cells Ovalocytes Schistocytes pCO2 14 L* (35-45) mm/Hg pO2 133.0 H (80-100) mm/Hg HCO3 7.0 L* (21-28) mmol/L ABG pH 7.31 L (7.35-7.45) ABG Total CO2 7.4 L (22-28) mmol.L ABG O2 Saturation 99.5 H (95-98) % ABG O2 Content 5.5 L (15-23) ML/dl ABG Base Excess -18.0 L (-2.0-3.0) mmol/L ABG Hemoglobin 3.8 L (11.7-17.4) g/dL ABG Carboxyhemoglobin 1.7 H (0.5-1.5) % POC ABG HHb (Measured) 0.5 (0-5) % ABG Methemoglobin 2.0 (0.0-3.0) % ABG O2 Capacity 5.5 L (16-24) mL/dl Hgb O2 Saturation 95.7 (95.0-98.0) % FiO2 32.0 % Crit Value Called To Johann gautam (assistant manager) Crit Value Called By [facility] Blood Gas Notified Time 707 Sodium 165 H* (132-148) mmol/L Potassium 3.7 (3.6-5.0) mmol/L Chloride 142 H (98-107) mmol/L Carbon Dioxide 22 (21-33) mmol/L Anion Gap 8 L (10-20) BUN 57 H (7-21) mg/dL Creatinine 1.8 H (0.8-1.5) mg/dl Est GFR ( Amer) 45 Est GFR (Non-Af Amer) 37 POC Glucose (mg/dL) 173 H (65-110) mg/dL Random Glucose 141 H (70-110) mg/dL Calcium 8.0 L (8.4-10.5) mg/dL Phosphorus (2.5-4.5) mg/dL Magnesium (1.7-2.2) mg/dL Total Bilirubin 0.2 (0.2-1.3) mg/dL AST 17 (17-59) U/L ALT 22 (7-56) U/L Alkaline Phosphatase 163 H (38-126) U/L Total Protein 4.3 L (5.8-8.3) g/dL Albumin 2.0 L (3.0-4.8) g/dL Globulin 2.3 gm/dL Albumin/Globulin Ratio 0.9 L (1.1-1.8) Rheumatoid Factor IgG (<=6) U Rheumatoid Factor IgA (<=6) U Rheumatoid Factor IgM (<=6) U Blood Type Antibody Screen Crossmatch BBK History Checked 04/06/18 04/06/18 04/05/18 Range/Units 01:00 01:00 23:49 WBC 19.7 H (4.5-11.0) 10^3/uL RBC 2.64 L (3.5-6.1) 10^6/uL Hgb 7.6 L (14.0-18.0) g/dL Hct 22.9 L (42.0-52.0) % MCV 86.7 (80.0-105.0) fl MCH 28.8 (25.0-35.0) pg MCHC 33.2 (31.0-37.0) g/dl RDW 19.5 H (11.5-14.5) % Plt Count 78 L (120.0-450.0) 10^3/uL Neut % (Auto) 83.6 H (50.0-68.0) % Lymph % (Auto) 10.6 L (22.0-35.0) % [place] % (Auto) 5.6 (1.0-6.0) % Eos % (Auto) 0.1 L (1.5-5.0) % Baso % (Auto) 0.1 (0.0-3.0) % Lymph # (Auto) 2.1 (1.2-3.4) [place] # (Auto) 1.1 H (0.1-0.6) Eos # (Auto) 0.0 (0.0-0.7) Baso # (Auto) 0.02 (0.0-2.0) K/mm3 Absolute Neuts (auto) 16.45 H (1.4-6.5) Corrected WBC (Man) (4.5-11.0) K/mm3 Neutrophils % (Manual) (50.0-70.0) % Band Neutrophils % (0-2) % Lymphocytes % (Manual) (22.0-35.0) % Atypical Lymphs % (0.0-0.0) % Monocytes % (Manual) (1.0-6.0) % Nucleated RBC % % Platelet Evaluation (NORMAL) Hypochromasia Poikilocytosis (manual Anisocytosis (manual) Microcytosis (manual) Target Cells Ovalocytes Schistocytes pCO2 (35-45) mm/Hg pO2 (80-100) mm/Hg HCO3 (21-28) mmol/L ABG pH (7.35-7.45) ABG Total CO2 (22-28) mmol.L ABG O2 Saturation (95-98) % ABG O2 Content (15-23) ML/dl ABG Base Excess (-2.0-3.0) mmol/L ABG Hemoglobin (11.7-17.4) g/dL ABG Carboxyhemoglobin (0.5-1.5) % POC ABG HHb (Measured) (0-5) % ABG Methemoglobin (0.0-3.0) % ABG O2 Capacity (16-24) mL/dl Hgb O2 Saturation (95.0-98.0) % FiO2 % Crit Value Called To Crit Value Called By Blood Gas Notified Time Sodium 164 H* (132-148) mmol/L Potassium 3.6 (3.6-5.0) mmol/L Chloride 141 H (98-107) mmol/L Carbon Dioxide 23 (21-33) mmol/L Anion Gap 4 L (10-20) BUN 59 H (7-21) mg/dL Creatinine 1.8 H (0.8-1.5) mg/dl Est GFR ( Amer) 45 Est GFR (Non-Af Amer) 37 POC Glucose (mg/dL) 202 H (65-110) mg/dL Random Glucose 189 H (70-110) mg/dL Calcium 8.0 L (8.4-10.5) mg/dL Phosphorus (2.5-4.5) mg/dL Magnesium (1.7-2.2) mg/dL Total Bilirubin 0.3 (0.2-1.3) mg/dL AST 19 (17-59) U/L ALT 22 (7-56) U/L Alkaline Phosphatase 161 H D (38-126) U/L Total Protein 4.3 L (5.8-8.3) g/dL Albumin 1.9 L (3.0-4.8) g/dL Globulin 2.3 gm/dL Albumin/Globulin Ratio 0.8 L (1.1-1.8) Rheumatoid Factor IgG (<=6) U Rheumatoid Factor IgA (<=6) U Rheumatoid Factor IgM (<=6) U Blood Type Antibody Screen Crossmatch BBK History Checked 04/05/18 04/05/18 04/05/18 Range/Units 19:40 18:50 17:55 WBC 17.9 H (4.5-11.0) 10^3/uL RBC 2.70 L (3.5-6.1) 10^6/uL Hgb 7.5 L (14.0-18.0) g/dL Hct 23.2 L (42.0-52.0) % MCV 85.9 (80.0-105.0) fl MCH 27.8 (25.0-35.0) pg MCHC 32.3 (31.0-37.0) g/dl RDW 19.6 H (11.5-14.5) % Plt Count 84 L (120.0-450.0) 10^3/uL Neut % (Auto) 80.9 H (50.0-68.0) % Lymph % (Auto) 14.0 L (22.0-35.0) % [place] % (Auto) 5.0 (1.0-6.0) % Eos % (Auto) 0.0 L (1.5-5.0) % Baso % (Auto) 0.1 (0.0-3.0) % Lymph # (Auto) 2.5 (1.2-3.4) [place] # (Auto) 0.9 H (0.1-0.6) Eos # (Auto) 0.0 (0.0-0.7) Baso # (Auto) 0.01 (0.0-2.0) K/mm3 Absolute Neuts (auto) 14.47 H (1.4-6.5) Corrected WBC (Man) 17.0 H (4.5-11.0) K/mm3 Neutrophils % (Manual) 87 H (50.0-70.0) % Band Neutrophils % 4 H (0-2) % Lymphocytes % (Manual) 7 L (22.0-35.0) % Atypical Lymphs % (0.0-0.0) % Monocytes % (Manual) 2 (1.0-6.0) % Nucleated RBC % 5 % Platelet Evaluation Low (NORMAL) Hypochromasia 1+ Poikilocytosis (manual 1+ Anisocytosis (manual) 1+ Microcytosis (manual) Slight Target Cells Slight Ovalocytes Slight Schistocytes Slight pCO2 (35-45) mm/Hg pO2 (80-100) mm/Hg HCO3 (21-28) mmol/L ABG pH (7.35-7.45) ABG Total CO2 (22-28) mmol.L ABG O2 Saturation (95-98) % ABG O2 Content (15-23) ML/dl ABG Base Excess (-2.0-3.0) mmol/L ABG Hemoglobin (11.7-17.4) g/dL ABG Carboxyhemoglobin (0.5-1.5) % POC ABG HHb (Measured) (0-5) % ABG Methemoglobin (0.0-3.0) % ABG O2 Capacity (16-24) mL/dl Hgb O2 Saturation (95.0-98.0) % FiO2 % Crit Value Called To Crit Value Called By Blood Gas Notified Time Sodium 165 H* (132-148) mmol/L Potassium 4.0 (3.6-5.0) mmol/L Chloride 142 H (98-107) mmol/L Carbon Dioxide 22 (21-33) mmol/L Anion Gap 5 L (10-20) BUN 61 H (7-21) mg/dL Creatinine 1.7 H (0.8-1.5) mg/dl Est GFR ( Amer) 48 Est GFR (Non-Af Amer) 40 POC Glucose (mg/dL) 213 H (65-110) mg/dL Random Glucose 159 H (70-110) mg/dL Calcium 8.0 L (8.4-10.5) mg/dL Phosphorus (2.5-4.5) mg/dL Magnesium (1.7-2.2) mg/dL Total Bilirubin 0.3 (0.2-1.3) mg/dL AST 23 (17-59) U/L ALT 23 (7-56) U/L Alkaline Phosphatase 120 (38-126) U/L Total Protein 4.1 L (5.8-8.3) g/dL Albumin 1.9 L (3.0-4.8) g/dL Globulin 2.2 gm/dL Albumin/Globulin Ratio 0.9 L (1.1-1.8) Rheumatoid Factor IgG (<=6) U Rheumatoid Factor IgA (<=6) U Rheumatoid Factor IgM (<=6) U Blood Type Antibody Screen Crossmatch BBK History Checked 04/05/18 04/05/18 04/05/18 Range/Units 17:00 12:22 08:39 WBC (4.5-11.0) 10^3/uL RBC (3.5-6.1) 10^6/uL Hgb (14.0-18.0) g/dL Hct (42.0-52.0) % MCV (80.0-105.0) fl MCH (25.0-35.0) pg MCHC (31.0-37.0) g/dl RDW (11.5-14.5) % Plt Count (120.0-450.0) 10^3/uL Neut % (Auto) (50.0-68.0) % Lymph % (Auto) (22.0-35.0) % [place] % (Auto) (1.0-6.0) % Eos % (Auto) (1.5-5.0) % Baso % (Auto) (0.0-3.0) % Lymph # (Auto) (1.2-3.4) [place] # (Auto) (0.1-0.6) Eos # (Auto) (0.0-0.7) Baso # (Auto) (0.0-2.0) K/mm3 Absolute Neuts (auto) (1.4-6.5) Corrected WBC (Man) (4.5-11.0) K/mm3 Neutrophils % (Manual) (50.0-70.0) % Band Neutrophils % (0-2) % Lymphocytes % (Manual) (22.0-35.0) % Atypical Lymphs % (0.0-0.0) % Monocytes % (Manual) (1.0-6.0) % Nucleated RBC % % Platelet Evaluation (NORMAL) Hypochromasia Poikilocytosis (manual Anisocytosis (manual) Microcytosis (manual) Target Cells Ovalocytes Schistocytes pCO2 (35-45) mm/Hg pO2 (80-100) mm/Hg HCO3 (21-28) mmol/L ABG pH (7.35-7.45) ABG Total CO2 (22-28) mmol.L ABG O2 Saturation (95-98) % ABG O2 Content (15-23) ML/dl ABG Base Excess (-2.0-3.0) mmol/L ABG Hemoglobin (11.7-17.4) g/dL ABG Carboxyhemoglobin (0.5-1.5) % POC ABG HHb (Measured) (0-5) % ABG Methemoglobin (0.0-3.0) % ABG O2 Capacity (16-24) mL/dl Hgb O2 Saturation (95.0-98.0) % FiO2 % Crit Value Called To Crit Value Called By Blood Gas Notified Time Sodium 166 H* (132-148) mmol/L Potassium 3.8 (3.6-5.0) mmol/L Chloride 142 H (98-107) mmol/L Carbon Dioxide 22 (21-33) mmol/L Anion Gap 6 L (10-20) BUN 58 H (7-21) mg/dL Creatinine 1.7 H (0.8-1.5) mg/dl Est GFR ( Amer) 48 Est GFR (Non-Af Amer) 40 POC Glucose (mg/dL) 202 H 329 H (65-110) mg/dL Random Glucose 159 H (70-110) mg/dL Calcium 7.7 L (8.4-10.5) mg/dL Phosphorus (2.5-4.5) mg/dL Magnesium (1.7-2.2) mg/dL Total Bilirubin 0.3 (0.2-1.3) mg/dL AST 23 (17-59) U/L ALT 28 (7-56) U/L Alkaline Phosphatase 118 (38-126) U/L Total Protein 4.3 L (5.8-8.3) g/dL Albumin 2.0 L (3.0-4.8) g/dL Globulin 2.4 gm/dL Albumin/Globulin Ratio 0.8 L (1.1-1.8) Rheumatoid Factor IgG (<=6) U Rheumatoid Factor IgA (<=6) U Rheumatoid Factor IgM (<=6) U Blood Type Antibody Screen Crossmatch BBK History Checked 04/04/18 04/04/18 03/31/18 Range/Units 22:20 13:59 13:19 WBC (4.5-11.0) 10^3/uL RBC (3.5-6.1) 10^6/uL Hgb (14.0-18.0) g/dL Hct (42.0-52.0) % MCV (80.0-105.0) fl MCH (25.0-35.0) pg MCHC (31.0-37.0) g/dl RDW (11.5-14.5) % Plt Count (120.0-450.0) 10^3/uL Neut % (Auto) (50.0-68.0) % Lymph % (Auto) (22.0-35.0) % [place] % (Auto) (1.0-6.0) % Eos % (Auto) (1.5-5.0) % Baso % (Auto) (0.0-3.0) % Lymph # (Auto) (1.2-3.4) [place] # (Auto) (0.1-0.6) Eos # (Auto) (0.0-0.7) Baso # (Auto) (0.0-2.0) K/mm3 Absolute Neuts (auto) (1.4-6.5) Corrected WBC (Man) (4.5-11.0) K/mm3 Neutrophils % (Manual) (50.0-70.0) % Band Neutrophils % (0-2) % Lymphocytes % (Manual) (22.0-35.0) % Atypical Lymphs % (0.0-0.0) % Monocytes % (Manual) (1.0-6.0) % Nucleated RBC % % Platelet Evaluation (NORMAL) Hypochromasia Poikilocytosis (manual Anisocytosis (manual) Microcytosis (manual) Target Cells Ovalocytes Schistocytes pCO2 (35-45) mm/Hg pO2 (80-100) mm/Hg HCO3 (21-28) mmol/L ABG pH (7.35-7.45) ABG Total CO2 (22-28) mmol.L ABG O2 Saturation (95-98) % ABG O2 Content (15-23) ML/dl ABG Base Excess (-2.0-3.0) mmol/L ABG Hemoglobin (11.7-17.4) g/dL ABG Carboxyhemoglobin (0.5-1.5) % POC ABG HHb (Measured) (0-5) % ABG Methemoglobin (0.0-3.0) % ABG O2 Capacity (16-24) mL/dl Hgb O2 Saturation (95.0-98.0) % FiO2 % Crit Value Called To Crit Value Called By Blood Gas Notified Time Sodium (132-148) mmol/L Potassium (3.6-5.0) mmol/L Chloride (98-107) mmol/L Carbon Dioxide (21-33) mmol/L Anion Gap (10-20) BUN (7-21) mg/dL Creatinine (0.8-1.5) mg/dl Est GFR ( Amer) Est GFR (Non-Af Amer) POC Glucose (mg/dL) 142 H (65-110) mg/dL Random Glucose (70-110) mg/dL Calcium (8.4-10.5) mg/dL Phosphorus (2.5-4.5) mg/dL Magnesium (1.7-2.2) mg/dL Total Bilirubin (0.2-1.3) mg/dL AST (17-59) U/L ALT (7-56) U/L Alkaline Phosphatase (38-126) U/L Total Protein (5.8-8.3) g/dL Albumin (3.0-4.8) g/dL Globulin gm/dL Albumin/Globulin Ratio (1.1-1.8) Rheumatoid Factor IgG <5 (<=6) U Rheumatoid Factor IgA <5 (<=6) U Rheumatoid Factor IgM <5 (<=6) U Blood Type O POSITIVE Antibody Screen Negative Crossmatch See Detail BBK History Checked No verified bt Laboratory Results - last 24 hr 03/31/18 04/04/18 04/04/18 13:19 13:59 22:20 WBC RBC Hgb Hct MCV MCH MCHC RDW Plt Count Neut % (Auto) Lymph % (Auto) [place] % (Auto) Eos % (Auto) Baso % (Auto) Lymph # (Auto) [place] # (Auto) Eos # (Auto) Baso # (Auto) Absolute Neuts (auto) Corrected WBC (Man) Neutrophils % (Manual) Band Neutrophils % Lymphocytes % (Manual) Atypical Lymphs % Monocytes % (Manual) Nucleated RBC % Platelet Evaluation Hypochromasia Poikilocytosis (manual Anisocytosis (manual) Microcytosis (manual) Target Cells Ovalocytes Schistocytes pCO2 pO2 HCO3 ABG pH ABG Total CO2 ABG O2 Saturation ABG O2 Content ABG Base Excess ABG Hemoglobin ABG Carboxyhemoglobin POC ABG HHb (Measured) ABG Methemoglobin ABG O2 Capacity Hgb O2 Saturation FiO2 Crit Value Called To Crit Value Called By Blood Gas Notified Time Sodium Potassium Chloride Carbon Dioxide Anion Gap BUN Creatinine Est GFR ( Amer) Est GFR (Non-Af Amer) POC Glucose (mg/dL) 142 H Random Glucose Calcium Phosphorus Magnesium Total Bilirubin AST ALT Alkaline Phosphatase Total Protein Albumin Globulin Albumin/Globulin Ratio Rheumatoid Factor IgG <5 Rheumatoid Factor IgA <5 Rheumatoid Factor IgM <5 Blood Type O POSITIVE Antibody Screen Negative Crossmatch See Detail BBK History Checked No verified bt 04/05/18 04/05/18 04/05/18 08:39 12:22 17:00 WBC RBC Hgb Hct MCV MCH MCHC RDW Plt Count Neut % (Auto) Lymph % (Auto) [place] % (Auto) Eos % (Auto) Baso % (Auto) Lymph # (Auto) [place] # (Auto) Eos # (Auto) Baso # (Auto) Absolute Neuts (auto) Corrected WBC (Man) Neutrophils % (Manual) Band Neutrophils % Lymphocytes % (Manual) Atypical Lymphs % Monocytes % (Manual) Nucleated RBC % Platelet Evaluation Hypochromasia Poikilocytosis (manual Anisocytosis (manual) Microcytosis (manual) Target Cells Ovalocytes Schistocytes pCO2 pO2 HCO3 ABG pH ABG Total CO2 ABG O2 Saturation ABG O2 Content ABG Base Excess ABG Hemoglobin ABG Carboxyhemoglobin POC ABG HHb (Measured) ABG Methemoglobin ABG O2 Capacity Hgb O2 Saturation FiO2 Crit Value Called To Crit Value Called By Blood Gas Notified Time Sodium 166 H* Potassium 3.8 Chloride 142 H Carbon Dioxide 22 Anion Gap 6 L BUN 58 H Creatinine 1.7 H Est GFR ( Amer) 48 Est GFR (Non-Af Amer) 40 POC Glucose (mg/dL) 329 H 202 H Random Glucose 159 H Calcium 7.7 L Phosphorus Magnesium Total Bilirubin 0.3 AST 23 ALT 28 Alkaline Phosphatase 118 Total Protein 4.3 L Albumin 2.0 L Globulin 2.4 Albumin/Globulin Ratio 0.8 L Rheumatoid Factor IgG Rheumatoid Factor IgA Rheumatoid Factor IgM Blood Type Antibody Screen Crossmatch BBK History Checked 04/05/18 04/05/18 04/05/18 17:55 18:50 19:40 WBC 17.9 H RBC 2.70 L Hgb 7.5 L Hct 23.2 L MCV 85.9 MCH 27.8 MCHC 32.3 RDW 19.6 H Plt Count 84 L Neut % (Auto) 80.9 H Lymph % (Auto) 14.0 L [place] % (Auto) 5.0 Eos % (Auto) 0.0 L Baso % (Auto) 0.1 Lymph # (Auto) 2.5 [place] # (Auto) 0.9 H Eos # (Auto) 0.0 Baso # (Auto) 0.01 Absolute Neuts (auto) 14.47 H Corrected WBC (Man) 17.0 H Neutrophils % (Manual) 87 H Band Neutrophils % 4 H Lymphocytes % (Manual) 7 L Atypical Lymphs % Monocytes % (Manual) 2 Nucleated RBC % 5 Platelet Evaluation Low Hypochromasia 1+ Poikilocytosis (manual 1+ Anisocytosis (manual) 1+ Microcytosis (manual) Slight Target Cells Slight Ovalocytes Slight Schistocytes Slight pCO2 pO2 HCO3 ABG pH ABG Total CO2 ABG O2 Saturation ABG O2 Content ABG Base Excess ABG Hemoglobin ABG Carboxyhemoglobin POC ABG HHb (Measured) ABG Methemoglobin ABG O2 Capacity Hgb O2 Saturation FiO2 Crit Value Called To Crit Value Called By Blood Gas Notified Time Sodium 165 H* Potassium 4.0 Chloride 142 H Carbon Dioxide 22 Anion Gap 5 L BUN 61 H Creatinine 1.7 H Est GFR ( Amer) 48 Est GFR (Non-Af Amer) 40 POC Glucose (mg/dL) 213 H Random Glucose 159 H Calcium 8.0 L Phosphorus Magnesium Total Bilirubin 0.3 AST 23 ALT 23 Alkaline Phosphatase 120 Total Protein 4.1 L Albumin 1.9 L Globulin 2.2 Albumin/Globulin Ratio 0.9 L Rheumatoid Factor IgG Rheumatoid Factor IgA Rheumatoid Factor IgM Blood Type Antibody Screen Crossmatch BBK History Checked 04/05/18 04/06/18 04/06/18 23:49 01:00 01:00 WBC 19.7 H RBC 2.64 L Hgb 7.6 L Hct 22.9 L MCV 86.7 MCH 28.8 MCHC 33.2 RDW 19.5 H Plt Count 78 L Neut % (Auto) 83.6 H Lymph % (Auto) 10.6 L [place] % (Auto) 5.6 Eos % (Auto) 0.1 L Baso % (Auto) 0.1 Lymph # (Auto) 2.1 [place] # (Auto) 1.1 H Eos # (Auto) 0.0 Baso # (Auto) 0.02 Absolute Neuts (auto) 16.45 H Corrected WBC (Man) Neutrophils % (Manual) Band Neutrophils % Lymphocytes % (Manual) Atypical Lymphs % Monocytes % (Manual) Nucleated RBC % Platelet Evaluation Hypochromasia Poikilocytosis (manual Anisocytosis (manual) Microcytosis (manual) Target Cells Ovalocytes Schistocytes pCO2 pO2 HCO3 ABG pH ABG Total CO2 ABG O2 Saturation ABG O2 Content ABG Base Excess ABG Hemoglobin ABG Carboxyhemoglobin POC ABG HHb (Measured) ABG Methemoglobin ABG O2 Capacity Hgb O2 Saturation FiO2 Crit Value Called To Crit Value Called By Blood Gas Notified Time Sodium 164 H* Potassium 3.6 Chloride 141 H Carbon Dioxide 23 Anion Gap 4 L BUN 59 H Creatinine 1.8 H Est GFR ( Amer) 45 Est GFR (Non-Af Amer) 37 POC Glucose (mg/dL) 202 H Random Glucose 189 H Calcium 8.0 L Phosphorus Magnesium Total Bilirubin 0.3 AST 19 ALT 22 Alkaline Phosphatase 161 H D Total Protein 4.3 L Albumin 1.9 L Globulin 2.3 Albumin/Globulin Ratio 0.8 L Rheumatoid Factor IgG Rheumatoid Factor IgA Rheumatoid Factor IgM Blood Type Antibody Screen Crossmatch BBK History Checked 04/06/18 04/06/18 04/06/18 06:47 07:00 07:00 WBC RBC Hgb Hct MCV MCH MCHC RDW Plt Count Neut % (Auto) Lymph % (Auto) [place] % (Auto) Eos % (Auto) Baso % (Auto) Lymph # (Auto) [place] # (Auto) Eos # (Auto) Baso # (Auto) Absolute Neuts (auto) Corrected WBC (Man) Neutrophils % (Manual) Band Neutrophils % Lymphocytes % (Manual) Atypical Lymphs % Monocytes % (Manual) Nucleated RBC % Platelet Evaluation Hypochromasia Poikilocytosis (manual Anisocytosis (manual) Microcytosis (manual) Target Cells Ovalocytes Schistocytes pCO2 14 L* pO2 133.0 H HCO3 7.0 L* ABG pH 7.31 L ABG Total CO2 7.4 L ABG O2 Saturation 99.5 H ABG O2 Content 5.5 L ABG Base Excess -18.0 L ABG Hemoglobin 3.8 L ABG Carboxyhemoglobin 1.7 H POC ABG HHb (Measured) 0.5 ABG Methemoglobin 2.0 ABG O2 Capacity 5.5 L Hgb O2 Saturation 95.7 FiO2 32.0 Crit Value Called To Johann gautam (assistant manager) Crit Value Called By Js Blood Gas Notified Time 707 Sodium 165 H* Potassium 3.7 Chloride 142 H Carbon Dioxide 22 Anion Gap 8 L BUN 57 H Creatinine 1.8 H Est GFR ( Amer) 45 Est GFR (Non-Af Amer) 37 POC Glucose (mg/dL) 173 H Random Glucose 141 H Calcium 8.0 L Phosphorus Magnesium Total Bilirubin 0.2 AST 17 ALT 22 Alkaline Phosphatase 163 H Total Protein 4.3 L Albumin 2.0 L Globulin 2.3 Albumin/Globulin Ratio 0.9 L Rheumatoid Factor IgG Rheumatoid Factor IgA Rheumatoid Factor IgM Blood Type Antibody Screen Crossmatch BBK History Checked 04/06/18 04/06/18 04/06/18 07:00 09:10 12:45 WBC 21.1 H RBC 3.05 L Hgb 8.6 L Hct 26.7 L MCV 87.5 MCH 28.2 MCHC 32.2 RDW 18.7 H Plt Count 73 L Neut % (Auto) 79.7 H Lymph % (Auto) 13.8 L [place] % (Auto) 6.4 H Eos % (Auto) 0.0 L Baso % (Auto) 0.1 Lymph # (Auto) 2.9 [place] # (Auto) 1.4 H Eos # (Auto) 0.0 Baso # (Auto) 0.02 Absolute Neuts (auto) 16.82 H Corrected WBC (Man) Neutrophils % (Manual) 87 H Band Neutrophils % 3 H Lymphocytes % (Manual) 6 L Atypical Lymphs % 1 H Monocytes % (Manual) 3 Nucleated RBC % 4 Platelet Evaluation Low Hypochromasia Poikilocytosis (manual 1+ Anisocytosis (manual) 1+ Microcytosis (manual) Target Cells Slight Ovalocytes Slight Schistocytes pCO2 pO2 HCO3 ABG pH ABG Total CO2 ABG O2 Saturation ABG O2 Content ABG Base Excess ABG Hemoglobin ABG Carboxyhemoglobin POC ABG HHb (Measured) ABG Methemoglobin ABG O2 Capacity Hgb O2 Saturation FiO2 Crit Value Called To Crit Value Called By Blood Gas Notified Time Sodium 164 H* Potassium 3.9 Chloride 141 H Carbon Dioxide 23 Anion Gap 5 L BUN 61 H Creatinine 1.8 H Est GFR ( Amer) 45 Est GFR (Non-Af Amer) 37 POC Glucose (mg/dL) Random Glucose 152 H Calcium 7.9 L Phosphorus 3.4 Magnesium 1.7 Total Bilirubin AST ALT Alkaline Phosphatase Total Protein Albumin Globulin Albumin/Globulin Ratio Rheumatoid Factor IgG Rheumatoid Factor IgA Rheumatoid Factor IgM Blood Type Antibody Screen Crossmatch BBK History Checked Radiology Impressions: Radiology Impressions Chest X-Ray 04/06/18 06:00 IMPRESSION: Limited bilateral infiltrates are identified in the interval as discussed above as well as new mild right pleural effusion and increased mild left pleural effusion. Status post extubation and removal of nasogastric tube apparent. Chest X-Ray 04/06/18 14:39 IMPRESSION: Increasing opacity at the left base with persistent mild opacity at the right base. Probable moderate left pleural effusion and possible small right pleural effusion. Congestive change. Possible pulmonary edema. Critical Care Progress Note - Nutrition Nutrition: Nutrition Category Date Time Status NPO Diet [DIET] Diets 04/05/18 Breakfast Ordered Attending/Attestation - Attestation I have personally seen and examined this patient.: Yes I have fully participated in the care of the patient.: Yes I have reviewed all pertinent clinical information: Yes Notes (Text): 04/06/18 15:[address] Padilla note
--- NOTE | 2018-04-06 08:30 | PN ---
DATE: 04/06/2018 PULMONARY NOTE SUBJECTIVE: The patient is now extubated and off of the ventilator. He appears comfortable. He is not short of breath at rest. PHYSICAL EXAMINATION: VITAL SIGNS: Temperature is 97.2, pulse is 84, respiratory rate 20 and blood pressure 116/58. Oxygen saturation on nasal cannula is 97%. HEENT: Normocephalic and atraumatic. No JVD. CARDIOVASCULAR: Positive S1 and S2. No S3 gallop. LUNGS: Minimal crackles at both bases. No rhonchi. No wheezing. EXTREMITIES: Mild edema. No cyanosis. No clubbing. Calves are nontender to palpation. GI: Abdomen is soft, nontender and nondistended. Bowel sounds are positive. SKIN: Diffuse erythematous rash on his extremities and torso. NEUROLOGIC: Exam limited at the present time. PERTINENT LABORATORY DATA: Chest x-ray was done this morning and reviewed. On today's film, there are bilateral pulmonary infiltrates (hazy) -consistent with pulmonary edema/volume overload. Arterial blood gas is ordered - pending. IMPRESSION: 1. Status post respiratory failure. 2. Left lower lobe pneumonia - resolving. 3. Bilateral pleural effusions. 4. Anemia. 5. Pulmonary edema/volume overload. 6. [id number] myocardial infarction. 7. Multiple electrolyte abnormalities. PLAN: The patient is now off of the ventilator and extubated. He appears awake and alert. He is not short of breath at rest. I did discuss the case to night nurse at length. The night nurse stated the patient had a good night. I did review the chest x-ray as above. There are now bilateral hazy infiltrates - consistent with pulmonary edema/volume overload. The patient has been getting quite a bit of intravenous fluids. Repeat a.m. electrolytes are pending. Depending on the results, a dose of Lasix may be considered. On physical exam, there is no significant bronchospasm noted. In addition, there is no significant alveolar-arterial gradient. Again, the morning arterial blood gas is pending. Clinical status of the patient is certainly improved - compared to a few days ago. However, the patient remains critically ill with very guarded/poor prognosis. I will discuss the above with the entire ICU team the next few moments. I will also discuss the above with the attending physician later this morning. Nathan Perkins MD [email or web address]
--- NOTE | 2018-04-06 08:42 | CP.PCM.PN ---
Subjective - Date & Time of Evaluation Date of Evaluation: 04/06/18 Time of Evaluation: 08:40 - Subjective Subjective: Surgery: Dr. Caal Pt seen and examined. He is extubated. Follows commands. Received 1U PRBC overnight. On low dose levo. Objective - Vital Signs/Intake and Output Vital Signs (last 24 hours): Temp Pulse Resp BP Pulse Ox 98.2 F 74 20 126/56 L 100 04/06/18 07:32 04/06/18 07:32 04/06/18 07:32 04/06/18 07:32 04/05/18 17:00 Intake and Output: 04/06/18 04/06/18 06:59 18:59 Output Total 650 Balance -650 - Medications Medications: Current Medications Aspirin (Aspirin Chewable) 81 mg PO DAILY [facility] Last Admin: 04/04/18 18:59 Dose: Not Given Carbamide Peroxide (Debrox Ear Drops) 0 ml AU BID [facility] Last Admin: 04/05/18 18:43 Dose: Not Given Carvedilol (Coreg) 3.125 mg PO BID [facility] Last Admin: 04/04/18 19:00 Dose: Not Given Clotrimazole (Lotrimin 1%) 0 gm TOP BID PRN PRN Reason: Rash Last Admin: 04/02/18 09:40 Dose: 1 applic Amino Acids (Clinimix 4.25/5 % (1000 Ml)) 1,000 mls @ 42 mls/hr IV .[id number] [facility] Last Admin: 04/05/18 18:41 Dose: 42 mls/hr Fat Emulsion-Soy/MCT/[place]/Fish Oil (Smoflipid 20%) 250 mls @ 21 mls/hr IV MWF@1800 [facility] Last Admin: 04/05/18 18:47 Dose: 21 mls/hr Phenylephrine HCl 40 mg/ (Sodium Chloride) 254 mls @ 38.1 mls/hr IV .Q6H40M PRN; Protocol PRN Reason: TITRATE PER MD ORDER Last Titration: 04/05/18 09:30 Dose: 0 mcg/min, 0 mls/hr Vasopressin 20 units/ Sodium (Chloride) 101 mls @ 9.09 mls/hr IV .Q11H7M [facility]; P rotocol Last Admin: 04/05/18 03:19 Dose: Not Given Fentanyl Citrate (Fentanyl Citrate/Sodium Chloride 1 Mg/100 Ml) 1,000 mcg in 100 mls @ 2 mls/hr IV .Q24H PRN; Protocol PRN Reason: TITRATE PER MD ORDER Norepinephrine Bitartrate 8 mg (/ Sodium Chloride) 500 mls @ 112.5 mls/hr IV .Q4H27M RIYA; Protocol Last Admin: 04/05/18 18:49 Dose: 2 mcg/min, 7.5 mls/hr Meropenem/Sodium Chloride (Merrem Iv 500 Mg/Ns 50 Ml) 500 mg in 50 mls @ 100 mls/hr IVPB Q12 RIYA; Protocol Stop: 04/12/18 07:01 Last Admin: 04/05/18 22:50 Dose: 100 mls/hr Pantoprazole Sodium (Protonix 40mg Ivpb) 40 mg in 100 mls @ 20 mls/hr IVPB .Q5H RIYA Last Admin: 04/06/18 03:10 Dose: 20 mls/hr Dextrose (Dextrose 5% In Water 1000 Ml) 1,000 mls @ 150 mls/hr IV .Q6H40M [facility] Insulin Human Regular (Humulin R Low) 0 units SC Q6 RIYA; Protocol Last Admin: 04/06/18 00:13 Dose: Not Given Lactic Acid (Lac-Hydrin 12% Cream (140 G)) 0 ea TOP TID PRN PRN Reason: Dry skin Last Admin: 04/03/18 10:01 Dose: 1 applic Losartan Potassium (Cozaar) 12.5 mg PO DAILY [facility] Last Admin: 04/04/18 19:00 Dose: Not Given Methylprednisolone (Solu-Medrol) 40 mg IVP Q12 RIYA Multi-Ingredient Cream (Hydrocerin Cream) 0 ea TOP 1000,2200 [facility] Last Admin: 04/05/18 22:56 Dose: 2 applic Silver Sulfadiazine (Silvadene 1% 25 Gm) 0 gm TP BID PRN PRN Reason: Dry skin Last Admin: 04/05/18 05:03 Dose: 25 gm - Labs Labs: 04/06/18 01:00 04/06/18 07:00 PT 16.1 SECONDS (9.4-12.5) H 04/04/18 16:00 INR 1.45 04/04/18 16:00 APTT 39.1 Seconds (26.9-38.3) H 04/04/18 16:00 - Constitutional Appears: No Acute Distress, Chronically Ill - Head Exam Head Exam: ATRAUMATIC, NORMOCEPHALIC - Eye Exam Eye Exam: EOMI - ENT Exam ENT Exam: Mucous Membranes Dry - Neck Exam Neck Exam: Full ROM - Respiratory Exam Respiratory Exam: NORMAL BREATHING PATTERN. absent: Respiratory Distress - Cardiovascular Exam Cardiovascular Exam: RRR - GI/Abdominal Exam GI & Abdominal Exam: Soft. absent: Distended, Firm, Guarding, Rigid, Tenderness, Rebound - Extremities Exam Extremities Exam: absent: Calf Tenderness, Pedal Edema - Neurological Exam Neurological Exam: Alert, Awake - Skin Additional comments: diffuse eczema type rash over entire body Assessment and Plan - Assessment and Plan (Free Text) Assessment: 73M w. UGI bleed 2/2 gastritis/duodenitis -Trend H/H, transfuse PRN, target hgb >7 -c/w protonix gtt -Titrate pressors PRN, target MAP>65 -correct hypernatremia, will defer to ICU team -will continue to follow, no plans for surgical intervention at this time -d/w attending Luiitis PGY4
[2018-04-06] MEDS: Ammonium Lactate 12% Cream (140 g) TOP PRN (08:48)
[2018-04-06 09:19] LABS: BASO # 0.02 K/mm3 (0.0-2.0); BASO % 0.1 % (0.0-3.0); HEMOGLOBIN 8.6 g/dL (14.0-18.0); LYMPH # 2.9 (1.2-3.4); LYMPH % 13.8 % (22.0-35.0); MEAN CELL VOLUME 87.5 fl (80.0-105.0); MEAN CORPUSCULAR HEMOGLOBIN 28.2 pg (25.0-35.0); MEAN CORPUSCULAR HGB CONC 32.2 g/dl (31.0-37.0); MONO # 1.4 (0.1-0.6); MONO % 6.4 % (1.0-6.0); PLATELET COUNT 73 10^3/uL (120.0-450.0); RBC 3.05 10^6/uL (3.5-6.1); RED CELL DISTRIBUTION WIDTH 18.7 % (11.5-14.5); WHITE BLOOD COUNT 21.1 10^3/uL (4.5-11.0)
[2018-04-06] MEDS ORDERED: MethylPREDNISolone 40 mg Vial IVP SCH ×2 (10:00)
[2018-04-06] MEDS: Hydrocerin(120 gm) TOP SCH ×3 (10:00→21:58)
--- NOTE | 2018-04-06 10:02 | CP.PCM.PN ---
Subjective - Date & Time of Evaluation Date of Evaluation: 04/06/18 Time of Evaluation: 08:30 - Subjective Subjective: PGY-4 GI Fellow Prog Note Pt lying in bed when seen this AM. Extuabted but only nods "yes" and "no" mumbling with soft voice. Denied pain. When asked if he wanted to try PO he he seemed to suggest no. ROS limited due to clinical condition Objective - Vital Signs/Intake and Output Vital Signs (last 24 hours): Temp Pulse Resp BP Pulse Ox 98.2 F 74 20 126/56 L 100 04/06/18 07:32 04/06/18 07:32 04/06/18 07:32 04/06/18 07:32 04/05/18 17:00 Intake and Output: 04/06/18 04/06/18 06:59 18:59 Intake Total 25 Output Total 650 Balance -650 25 - Medications Medications: Current Medications Aspirin (Aspirin Chewable) 81 mg PO DAILY [facility] Last Admin: 04/04/18 18:59 Dose: Not Given Carbamide Peroxide (Debrox Ear Drops) 0 ml AU BID [facility] Last Admin: 04/05/18 18:43 Dose: Not Given Carvedilol (Coreg) 3.125 mg PO BID [facility] Last Admin: 04/04/18 19:00 Dose: Not Given Clotrimazole (Lotrimin 1%) 0 gm TOP BID PRN PRN Reason: Rash Last Admin: 04/02/18 09:40 Dose: 1 applic Amino Acids (Clinimix 4.25/5 % (1000 Ml)) 1,000 mls @ 42 mls/hr IV .[id number] [facility] Last Admin: 04/05/18 18:41 Dose: 42 mls/hr Fat Emulsion-Soy/MCT/[place]/Fish Oil (Smoflipid 20%) 250 mls @ 21 mls/hr IV MWF@1800 [facility] Last Admin: 04/05/18 18:47 Dose: 21 mls/hr Phenylephrine HCl 40 mg/ (Sodium Chloride) 254 mls @ 38.1 mls/hr IV .Q6H40M PRN; Protocol PRN Reason: TITRATE PER MD ORDER Last Titration: 04/05/18 09:30 Dose: 0 mcg/min, 0 mls/hr Vasopressin 20 units/ Sodium (Chloride) 101 mls @ 9.09 mls/hr IV .Q11H7M RIYA; Protocol Last Admin: 04/05/18 03:19 Dose: Not Given Fentanyl Citrate (Fentanyl Citrate/Sodium Chloride 1 Mg/100 Ml) 1,000 mcg in 100 mls @ 2 mls/hr IV .Q24H PRN; Protocol PRN Reason: TITRATE PER MD ORDER Norepinephrine Bitartrate 8 mg (/ Sodium Chloride) 500 mls @ 112.5 mls/hr IV .Q4H27M RIYA; Protocol Last Titration: 04/06/18 07:00 Dose: 1 mcg/min, 3.75 mls/hr Meropenem/Sodium Chloride (Merrem Iv 500 Mg/Ns 50 Ml) 500 mg in 50 mls @ 100 mls/hr IVPB Q12 RIYA; Protocol Stop: 04/12/18 07:01 Last Admin: 04/05/18 22:50 Dose: 100 mls/hr Pantoprazole Sodium (Protonix 40mg Ivpb) 40 mg in 100 mls @ 20 mls/hr IVPB .Q5H RIYA Last Admin: 04/06/18 07:00 Dose: 20 mls/hr Dextrose (Dextrose 5% In Water 1000 Ml) 1,000 mls @ 150 mls/hr IV .Q6H40M [facility] Last Admin: 04/06/18 07:30 Dose: 150 mls/hr Insulin Human Regular (Humulin R Low) 0 units SC Q6 RIYA; Protocol Last Admin: 04/06/18 00:13 Dose: Not Given Lactic Acid (Lac-Hydrin 12% Cream (140 G)) 0 ea TOP TID PRN PRN Reason: Dry skin Last Admin: 04/06/18 08:48 Dose: 1 applic Losartan Potassium (Cozaar) 12.5 mg PO DAILY [facility] Last Admin: 04/04/18 19:00 Dose: Not Given Methylprednisolone (Solu-Medrol) 40 mg IVP DAILY [facility] Multi-Ingredient Cream (Hydrocerin Cream) 0 ea TOP 1000,2200 [facility] Last Admin: 04/05/18 22:56 Dose: 2 applic Silver Sulfadiazine (Silvadene 1% 25 Gm) 0 gm TP BID PRN PRN Reason: Dry skin Last Admin: 04/05/18 05:03 Dose: 25 gm - Labs Labs: 04/06/18 09:10 04/06/18 07:00 PT 16.1 SECONDS (9.4-12.5) H 04/04/18 16:00 INR 1.45 04/04/18 16:00 APTT 39.1 Seconds (26.9-38.3) H 04/04/18 16:00 - Constitutional Appears: No Acute Distress, Chronically Ill - Head Exam Head Exam: ATRAUMATIC Additional comments: dry scaley skin - ENT Exam ENT Exam: Mucous Membranes Dry. absent: Mucous Membranes Moist - Respiratory Exam Respiratory Exam: Accessory Muscle Use, Respiratory Distress (mildly accessory use/mild respiratory distress) - GI/Abdominal Exam GI & Abdominal Exam: Soft, Normal Bowel Sounds. absent: Bruit, Distended, Firm, Guarding, Rigid, Tenderness, Mass, Organomegaly, Pulsatile Mass Assessment and Plan - Assessment and Plan (Free Text) Assessment: 73 yo BM with PML, DM, CHF, NSTEMI found to have dark tarry stools # Melena: Due to large duodenal ulcer, gastric ulcers and erosion (see report for further details) likely related to ischemic, hypotension/hypovelemia. No active bleeding at time of endoscopy # HyperNatremia, DIA # CHF: EF 40% # Severe Psoriasis/Desquamating rash Plan: - Cont PPI gtt x 72 hr total, complete on 04/07 - Recommend Speech eval for PO diet, rec Clear Liq diet if OK - Cont antibiotics - Monitor Hgb - Treatment of Hypotension/DIA/Hypernatremia per primary/consultants Pt discussed with Dr. Stoddard; please see attestation for further recs/changes.
--- NOTE | 2018-04-06 10:44 | CP.PCM.PN ---
Subjective - Date & Time of Evaluation Date of Evaluation: 04/06/18 Time of Evaluation: 10:42 - Subjective Subjective: Podiatry progress note for Drs. Flannery/Dilip 73M seen and evaluated this AM with Dr. Flannery. Patient is in distress currently but resting comfortably in bed, not intubated in the ICU. Denies pain to feet at present. Objective - Vital Signs/Intake and Output Vital Signs (last 24 hours): Temp Pulse Resp BP Pulse Ox 98.2 F 74 20 126/56 L 100 04/06/18 07:32 04/06/18 07:32 04/06/18 07:32 04/06/18 07:32 04/05/18 17:00 Intake and Output: 04/06/18 04/06/18 06:59 18:59 Intake Total 25 Output Total 650 Balance -650 25 - Medications Medications: Current Medications Aspirin (Aspirin Chewable) 81 mg PO DAILY [facility] Last Admin: 04/04/18 18:59 Dose: Not Given Carbamide Peroxide (Debrox Ear Drops) 0 ml AU BID [facility] Last Admin: 04/05/18 18:43 Dose: Not Given Carvedilol (Coreg) 3.125 mg PO BID [facility] Last Admin: 04/04/18 19:00 Dose: Not Given Clotrimazole (Lotrimin 1%) 0 gm TOP BID PRN PRN Reason: Rash Last Admin: 04/02/18 09:40 Dose: 1 applic Amino Acids (Clinimix 4.25/5 % (1000 Ml)) 1,000 mls @ 42 mls/hr IV .[id number] [facility] Last Admin: 04/05/18 18:41 Dose: 42 mls/hr Fat Emulsion-Soy/MCT/[place]/Fish Oil (Smoflipid 20%) 250 mls @ 21 mls/hr IV MWF@1800 [facility] Last Admin: 04/05/18 18:47 Dose: 21 mls/hr Phenylephrine HCl 40 mg/ (Sodium Chloride) 254 mls @ 38.1 mls/hr IV .Q6H40M PRN; Protocol PRN Reason: TITRATE PER MD ORDER Last Titration: 04/05/18 09:30 Dose: 0 mcg/min, 0 mls/hr Vasopressin 20 units/ Sodium (Chloride) 101 mls @ 9.09 mls/hr IV .Q11H7M [facility]; Protocol Last Admin: 04/05/18 03:19 Dose: Not Given Fentanyl Citrate (Fentanyl Citrate/Sodium Chloride 1 Mg/100 Ml) 1,000 mcg in 100 mls @ 2 mls/hr IV .Q24H PRN; Protocol PRN Reason: TITRATE PER MD ORDER Norepinephrine Bitartrate 8 mg (/ Sodium Chloride) 500 mls @ 112.5 mls/hr IV .Q4H27M [facility]; Protocol Last Titration: 04/06/18 07:00 Dose: 1 mcg/min, 3.75 mls/hr Meropenem/Sodium Chloride (Merrem Iv 500 Mg/Ns 50 Ml) 500 mg in 50 mls @ 100 mls/hr IVPB Q12 [facility]; Protocol Stop: 04/12/18 07:01 Last Admin: 04/05/18 22:50 Dose: 100 mls/hr Pantoprazole Sodium (Protonix 40mg Ivpb) 40 mg in 100 mls @ 20 mls/hr IVPB .Q5H [facility] Last Admin: 04/06/18 07:00 Dose: 20 mls/hr Dextrose (Dextrose 5% In Water 1000 Ml) 1,000 mls @ 150 mls/hr IV .Q6H40M [facility] Last Admin: 04/06/18 07:30 Dose: 150 mls/hr Insulin Human Regular (Humulin R Low) 0 units SC Q6 [facility]; Protocol Last Admin: 04/06/18 00:13 Dose: Not Given Lactic Acid (Lac-Hydrin 12% Cream (140 G)) 0 ea TOP TID PRN PRN Reason: Dry skin Last Admin: 04/06/18 08:48 Dose: 1 applic Losartan Potassium (Cozaar) 12.5 mg PO DAILY [facility] Last Admin: 04/04/18 19:00 Dose: Not Given Methylprednisolone (Solu-Medrol) 40 mg IVP DAILY [facility] Multi-Ingredient Cream (Hydrocerin Cream) 0 ea TOP 1000,2200 [facility] Last Admin: 04/05/18 22:56 Dose: 2 applic Silver Sulfadiazine (Silvadene 1% 25 Gm) 0 gm TP BID PRN PRN Reason: Dry skin Last Admin: 04/05/18 05:03 Dose: 25 gm - Labs Labs: 04/06/18 09:10 04/06/18 07:00 PT 16.1 SECONDS (9.4-12.5) H 04/04/18 16:00 INR 1.45 04/04/18 16:00 APTT 39.1 Seconds (26.9-38.3) H 04/04/18 16:00 - Constitutional Appears: Non-toxic - Head Exam Head Exam: NORMOCEPHALIC - Extremities Exam Additional comments: LE focused exam VASC: DP and PT pulses palpable; temp gradient warm to warm; pedal hair absent; cap refill <3 seconds to all digits; no edema appreciated ORTHO: pain upon palpation of b/l LE due to severe xerosis and sensitivity NEURO: gross and protective sensation intact b/l DERM: severe xerosis present at b/l LE with scaling and minor evidence of bleeding; flaking skin appreciated; no IDM; dermatitis appreciated; no clinical signs of infection; plantar aspects of feet exhibit most bleeding however currently minor secondary to xerosis and scaling - improved - Neurological Exam Neurological Exam: Alert, Awake - Psychiatric Exam Psychiatric exam: Normal Affect, Normal Mood Assessment and Plan - Assessment and Plan (Free Text) Assessment: 73M with severe xerosis at b/l LE with associated minor superficial plantar ulcerations Plan: Patient seen and evaluated with Dr. Flannery Afebrile, WBC 21.1 Hypothermia precautions Continue local wound care: clotrimazole + aquaphor b/l LE Continue solumedrol per medicine Multipodus boots to be worn at all times in bed No clinical evidence of infection to the LE Follow as outpatient with podiatry upon discharge Podiatry will continue to follow
[2018-04-06] MEDS: MEROPENEM 500 MG in NS 500 MG/50 ML BAG IVPB SCH ×2 (10:47→21:52)
[2018-04-06] MEDS: Silver Sulfadiazine 1% Cream (25 gm) TP PRN (11:16)
[2018-04-06 11:21] LABS: ATYPICAL LYMPHOCYTE 1 % (0.0-0.0); BAND 3 % (0-2); LYMPHOCYTE 6 % (22.0-35.0); NEUTROPHIL 87 % (50.0-70.0)
[2018-04-06 11:22] LABS: ANISOCYTOSIS 1+; MONOCYTE 3 % (1.0-6.0); NUCLEATED RED BLOOD CELL 4 %; OVALOCYTES SLIGHT; PLATELET ESTIMATE LOW (NORMAL); POIKILOCYTOSIS 1+; TARGET CELLS SLIGHT
[2018-04-06] MEDS: Micafungin 100 MG in Sodium Chloride 0.9% 100 ML IV SCH (12:00)
--- NOTE | 2018-04-06 12:11 | CP.PCM.PN ---
<Peterson Houser - Last Filed: 04/06/18 12:07> Subjective - Date & Time of Evaluation Date of Evaluation: 04/06/18 Time of Evaluation: 07:00 - Subjective Subjective: ID progress note Patient seen and examined. Patient extubated. Patient feeling better, complains of cough. Still hypothermic. Objective - Vital Signs/Intake and Output Vital Signs (last 24 hours): Temp Pulse Resp BP Pulse Ox 98.2 F 74 20 126/56 L 100 04/06/18 07:32 04/06/18 10:00 04/06/18 07:32 04/06/18 07:32 04/05/18 17:00 Intake and Output: 04/06/18 04/06/18 06:59 18:59 Intake Total 25 Output Total 650 Balance -650 25 - Medications Medications: Current Medications Aspirin (Aspirin Chewable) 81 mg PO DAILY [facility] Last Admin: 04/04/18 18:59 Dose: Not Given Carbamide Peroxide (Debrox Ear Drops) 0 ml AU BID [facility] Last Admin: 04/06/18 10:00 Dose: 5 drop Carvedilol (Coreg) 3.125 mg PO BID [facility] Last Admin: 04/04/18 19:00 Dose: Not Given Clotrimazole (Lotrimin 1%) 0 gm TOP BID PRN PRN Reason: Rash Last Admin: 04/02/18 09:40 Dose: 1 applic Amino Acids (Clinimix 4.25/5 % (1000 Ml)) 1,000 mls @ 42 mls/hr IV .[id number] [facility] Last Admin: 04/05/18 18:41 Dose: 42 mls/hr Fat Emulsion-Soy/MCT/[place]/Fish Oil (Smoflipid 20%) 250 mls @ 21 mls/hr IV MWF@1800 [facility] Last Admin: 04/05/18 18:47 Dose: 21 mls/hr Phenylephrine HCl 40 mg/ (Sodium Chloride) 254 mls @ 38.1 mls/hr IV .Q6H40M PRN; Protocol PRN Reason: TITRATE PER MD ORDER Last Titration: 04/05/18 09:30 Dose: 0 mcg/min, 0 mls/hr Vasopressin 20 units/ Sodium (Chloride) 101 mls @ 9.09 mls/hr IV .Q11H7M [facility]; Protocol Last Admin: 04/05/18 03:19 Dose: Not Given Fentanyl Citrate (Fentanyl Citrate/Sodium Chloride 1 Mg/100 Ml) 1,000 mcg in 100 mls @ 2 mls/hr IV .Q24H PRN; Protocol PRN Reason: TITRATE PER MD ORDER Norepinephrine Bitartrate 8 mg (/ Sodium Chloride) 500 mls @ 112.5 mls/hr IV .Q4H27M [facility]; Protocol Last Titration: 04/06/18 07:00 Dose: 1 mcg/min, 3.75 mls/hr Meropenem/Sodium Chloride (Merrem Iv 500 Mg/Ns 50 Ml) 500 mg in 50 mls @ 100 mls/hr IVPB Q12 [facility]; Protocol Stop: 04/12/18 07:01 Last Admin: 04/06/18 10:47 Dose: 100 mls/hr Pantoprazole Sodium (Protonix 40mg Ivpb) 40 mg in 100 mls @ 20 mls/hr IVPB .Q5H [facility] Last Admin: 04/06/18 07:00 Dose: 20 mls/hr Dextrose (Dextrose 5% In Water 1000 Ml) 1,000 mls @ 150 mls/hr IV .Q6H40M [facility] Last Admin: 04/06/18 07:30 Dose: 150 mls/hr Micafungin Sodium 100 mg/ (Sodium Chloride) 100 mls @ 100 mls/hr IV DAILY [facility]; Protocol Stop: 04/13/18 11:01 Insulin Human Regular (Humulin R Low) 0 units SC Q6 [facility]; Protocol Last Admin: 04/06/18 00:13 Dose: Not Given Lactic Acid (Lac-Hydrin 12% Cream (140 G)) 0 ea TOP TID PRN PRN Reason: Dry skin Last Admin: 04/06/18 08:48 Dose: 1 applic Losartan Potassium (Cozaar) 12.5 mg PO DAILY [facility] Last Admin: 04/04/18 19:00 Dose: Not Given Methylprednisolone (Solu-Medrol) 40 mg IVP DAILY [facility] Last Admin: 04/06/18 09:39 Dose: Not Given Multi-Ingredient Cream (Hydrocerin Cream) 0 ea TOP 1000,2200 [facility] Last Admin: 04/06/18 10:00 Dose: 1 applic Silver Sulfadiazine (Silvadene 1% 25 Gm) 0 gm TP BID PRN PRN Reason: Dry skin Last Admin: 04/06/18 11:16 Dose: 1 gm - Labs Labs: 04/06/18 09:10 04/06/18 07:00 PT 16.1 SECONDS (9.4-12.5) H 04/04/18 16:00 INR 1.45 04/04/18 16:00 APTT 39.1 Seconds (26.9-38.3) H 04/04/18 16:00 - Constitutional Appears: Non-toxic, No Acute Distress - Head Exam Head Exam: ATRAUMATIC, NORMAL INSPECTION, NORMOCEPHALIC - ENT Exam ENT Exam: Mucous Membranes Moist - Respiratory Exam Respiratory Exam: Decreased Breath Sounds, Rhonchi (b/l), NORMAL BREATHING PATTERN - Cardiovascular Exam Cardiovascular Exam: RRR, +S1, +S2 - GI/Abdominal Exam GI & Abdominal Exam: Soft, Normal Bowel Sounds. 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 Hx of HTN Hx of prolymphocytic leukemia Plan Vancomycin stopped Continue Merrem Yeast found in blood cultures, will start Micafungin Echocardiogram ordered Opthomology consult Consider repeat skin biopsy Hypothermia potentially related to exfoliative dermatitis will continue to monitor clinically Mik, PGY-3 <Zhou Leos - Last Filed: 04/06/18 15:15> Objective - Vital Signs/Intake and Output Vital Signs (last 24 hours): Temp Pulse Resp BP Pulse Ox 98.2 F 67 20 144/66 100 04/06/18 07:32 04/06/18 14:00 04/06/18 07:32 04/06/18 14:00 04/05/18 17:00 Intake and Output: 04/06/18 04/06/18 06:59 18:59 Intake Total 26 Output Total 650 Balance -650 26 - Medications Medications: Current Medications Aspirin (Aspirin Chewable) 81 mg PO DAILY [facility] Last Admin: 04/04/18 18:59 Dose: Not Given Carbamide Peroxide (Debrox Ear Drops) 0 ml AU BID [facility] Last Admin: 04/06/18 10:00 Dose: 5 drop Carvedilol (Coreg) 3.125 mg PO BID [facility] Last Admin: 04/04/18 19:00 Dose: Not Given Clotrimazole (Lotrimin 1%) 0 gm TOP BID PRN PRN Reason: Rash Last Admin: 04/02/18 09:40 Dose: 1 applic Amino Acids (Clinimix 4.25/5 % (1000 Ml)) 1,000 mls @ 42 mls/hr IV .[id number] [facility] Last Admin: 04/05/18 18:41 Dose: 42 mls/hr Fat Emulsion-Soy/MCT/[place]/Fish Oil (Smoflipid 20%) 250 mls @ 21 mls/hr IV MWF@1800 [facility] Last Admin: 04/05/18 18:47 Dose: 21 mls/hr Phenylephrine HCl 40 mg/ (Sodium Chloride) 254 mls @ 38.1 mls/hr IV .Q6H40M PRN; Protocol PRN Reason: TITRATE PER MD ORDER Last Titration: 04/05/18 09:30 Dose: 0 mcg/min, 0 mls/hr Vasopressin 20 units/ Sodium (Chloride) 101 mls @ 9.09 mls/hr IV .Q11H7M [facility]; Protocol Last Admin: 04/05/18 03:19 Dose: Not Given Fentanyl Citrate (Fentanyl Citrate/Sodium Chloride 1 Mg/100 Ml) 1,000 mcg in 10 0 mls @ 2 mls/hr IV .Q24H PRN; Protocol PRN Reason: TITRATE PER MD ORDER Norepinephrine Bitartrate 8 mg (/ Sodium Chloride) 500 mls @ 112.5 mls/hr IV .Q4H27M [facility]; Protocol Last Titration: 04/06/18 07:30 Dose: 0 mcg/min, 0 mls/hr Meropenem/Sodium Chloride (Merrem Iv 500 Mg/Ns 50 Ml) 500 mg in 50 mls @ 100 mls/hr IVPB Q12 [facility]; Protocol Stop: 04/12/18 07:01 Last Admin: 04/06/18 10:47 Dose: 100 mls/hr Pantoprazole Sodium (Protonix 40mg Ivpb) 40 mg in 100 mls @ 20 mls/hr IVPB .Q5H [facility] Last Admin: 04/06/18 12:00 Dose: 20 mls/hr Dextrose (Dextrose 5% In Water 1000 Ml) 1,000 mls @ 150 mls/hr IV .Q6H40M [facility] Last Admin: 04/06/18 07:30 Dose: 150 mls/hr Micafungin Sodium 100 mg/ (Sodium Chloride) 100 mls @ 100 mls/hr IV DAILY [facility]; Protocol Stop: 04/13/18 11:01 Last Admin: 04/06/18 12:00 Dose: 100 mls/hr Insulin Human Regular (Humulin R Low) 0 units SC Q6 [facility]; Protocol Last Admin: 04/06/18 12:31 Dose: Not Given Lactic Acid (Lac-Hydrin 12% Cream (140 G)) 0 ea TOP TID PRN PRN Reason: Dry skin Last Admin: 04/06/18 08:48 Dose: 1 applic Losartan Potassium (Cozaar) 12.5 mg PO DAILY [facility] Last Admin: 04/04/18 19:00 Dose: Not Given Methylprednisolone (Solu-Medrol) 40 mg IVP DAILY [facility] Last Admin: 04/06/18 09:39 Dose: Not Given Multi-Ingredient Cream (Hydrocerin Cream) 0 ea TOP 1000,2200 [facility] Last Admin: 04/06/18 10:00 Dose: 1 applic Silver Sulfadiazine (Silvadene 1% 25 Gm) 0 gm TP BID PRN PRN Reason: Dry skin Last Admin: 04/06/18 11:16 Dose: 1 gm - Labs Labs: 04/06/18 09:10 04/06/18 12:45 PT 16.1 SECONDS (9.4-12.5) H 04/04/18 16:00 INR 1.45 04/04/18 16:00 APTT 39.1 Seconds (26.9-38.3) H 04/04/18 16:00 Assessment and Plan - Assessment and Plan (Free Text) Plan: Infectious diseases Attending Physician Attestation Patient seen and examined, discussed with biomedical engineer. I have reviewed the patient's history of present illness, past medical, social, personal and family histories, pertinent physical exam findings, course so far in this hospital admission, pertinent laboratory and imaging results. I agree with the above findings, assessment and plan. In addition, repeat blood cx are now showing yeast in the blood, with fungemia, source not clear - will start Mycamine and follow up identification and sensitivities. Will repeat blood cx, get 2D echo and will need Ophtho exam. Will review repeat CXR's.
[2018-04-06 13:30] LABS: CALCIUM 7.9 mg/dL (8.4-10.5)
--- NOTE | 2018-04-06 13:44 | CP.PCM.PN ---
Subjective - Date & Time of Evaluation Date of Evaluation: 04/06/18 Time of Evaluation: 13:42 - Subjective Subjective: Nephrology Consultation Note: Assessment: critical Acute Kidney Injury (N17.9) likely due to ATN, hypotension. Hypothermia Hypernatremia, dehydration ? increase loss of fluid from skin Severe malnutrition with hypoalbuminemia HCAP, Fungemia skin rash ? etiology sysCHF LVEF 45% small bladder stones AMS, respi failure leukaemia, HTN hx Peptic ulcer disease s/p EGD Plan No acute need for renal replacement therapy at this time. Maintain hemodynamics stable. Avoid hypotension. Patient not on ACEI/ARB due to recent DIA. hold BP meds. Monitor Input/Output, daily weights and renal function with basic metabolic panel Increased D5W @ 150 ml/hr getting TPN GI, ID following repeat ABG Dose meds/antibiotics for reduced GFR. Avoid fleets enema/magnesium based laxatives. Avoid nephrotoxins/NSAIDs/ iodinated contrast (unless needed emergently) Glycemic control Further work up/management as per primary team Thanks for allowing me to participate in care of your patient. Will follow patient with you. Please call if any Qs. had d/w team and family bedside Dr Kana Seogvia Office: [phone] Chief Complaint; Unable to obtain source of info EMR Reason for consult: Acute Kidney Injury Hypernatremia HPI: Pt is a 73 M with hx of leukemia s/p chemo, hypertension (years) presented with complaints of SOB and cough initially and being treated for HCAP. he also had diffuse skin desqamation and hypothermia, hypernatremia, and DIA. transferred to ICU for respi failure and AMS Denies OTC/herbal meds or NSAIDs No recent iodinated contrast exposure. Noted obvious episodes of low BP (90s). ROS: pt more awake and responsive. don't feel well but not much able to obtain Physical Examination: General Appearance: ill appearing no acute ditress Vitals reviewed and noted as below Head; Atraumatic, normocephalic ENT: oral mucosa dry EYES: Pupils are equal, round and reactive to light accommodation. Eye muscles and extraocular movement intact. Sclera is anicteric. Neck; supple no lymphadenopathy, no thyromegaly or bruit Lungs: Increased respiratory rate/effort. Breath sounds bilateral reduced at bases Heart: Normal rate. s1s2 normal. No rub or gallop. Extremities: 1+ edema. No varicose veins Neurological: Patient is AMS and non communicating Skin: Warm and dry. diffuse skin desquamation changes Abdomen: Abdomen is soft. Bowel sounds +. There is no abdominal tenderness, no guarding/rigidity no organomegaly Psych: unable MSK: no joint tenderness or swelling. Digits and nails normal, no deformity : kidney or bladder not palpable Labs/imaging reviewed. Past medical history, past surgical history, family history, social history, allergy reviewed and noted as below Family hx: no hx of CKD. Rest non-contributory SUN and ANCA neg Objective - Vital Signs/Intake and Output Vital Signs (last 24 hours): Temp Pulse Resp BP Pulse Ox 98.2 F 74 20 126/56 L 100 04/06/18 07:32 04/06/18 10:00 04/06/18 07:32 04/06/18 07:32 04/05/18 17:00 Intake and Output: 04/06/18 04/06/18 06:59 18:59 Intake Total 26 Output Total 650 Balance -650 26 - Medications Medications: Current Medications Aspirin (Aspirin Chewable) 81 mg PO DAILY [facility] Last Admin: 04/04/18 18:59 Dose: Not Given Carbamide Peroxide (Debrox Ear Drops) 0 ml AU BID [facility] Last Admin: 04/06/18 10:00 Dose: 5 drop Carvedilol (Coreg) 3.125 mg PO BID [facility] Last Admin: 04/04/18 19:00 Dose: Not Given Clotrimazole (Lotrimin 1%) 0 gm TOP BID PRN PRN Reason: Rash Last Admin: 04/02/18 09:40 Dose: 1 applic Amino Acids (Clinimix 4.25/5 % (1000 Ml)) 1,000 mls @ 42 mls/hr IV .[id number] [facility] Last Admin: 04/05/18 18:41 Dose: 42 mls/hr Fat Emulsion-Soy/MCT/[place]/Fish Oil (Smoflipid 20%) 250 mls @ 21 mls/hr IV MWF@1800 [facility] Last Admin: 04/05/18 18:47 Dose: 21 mls/hr Phenylephrine HCl 40 mg/ (Sodium Chloride) 254 mls @ 38.1 mls/hr IV .Q6H40M PRN; Protocol PRN Reason: TITRATE PER MD ORDER Last Titration: 04/05/18 09:30 Dose: 0 mcg/min, 0 mls/hr Vasopressin 20 units/ Sodium (Chloride) 101 mls @ 9.09 mls/hr IV .Q11H7M [facility]; Protocol Last Admin: 04/05/18 03:19 Dose: Not Given Fentanyl Citrate (Fentanyl Citrate/Sodium Chloride 1 Mg/100 Ml) 1,000 mcg in 100 mls @ 2 mls/hr IV .Q24H PRN; Protocol PRN Reason: TITRATE PER MD ORDER Norepinephrine Bitartrate 8 mg (/ Sodium Chloride) 500 mls @ 112.5 mls/hr IV .Q4H27M [facility]; Protocol Last Titration: 04/06/18 07:30 Dose: 0 mcg/min, 0 mls/hr Meropenem/Sodium Chloride (Merrem Iv 500 Mg/Ns 50 Ml) 500 mg in 50 mls @ 100 mls/hr IVPB Q12 [facility]; Protocol Stop: 04/12/18 07:01 Last Admin: 04/06/18 10:47 Dose: 100 mls/hr Pantoprazole Sodium (Protonix 40mg Ivpb) 40 mg in 100 mls @ 20 mls/hr IVPB .Q5H [facility] Last Admin: 04/06/18 12:00 Dose: 20 mls/hr Dextrose (Dextrose 5% In Water 1000 Ml) 1,000 mls @ 150 mls/hr IV .Q6H40M [facility] Last Admin: 04/06/18 07:30 Dose: 150 mls/hr Micafungin Sodium 100 mg/ (Sodium Chloride) 100 mls @ 100 mls/hr IV DAILY [facility]; Protocol Stop: 04/13/18 11:01 Last Admin: 04/06/18 12:00 Dose: 100 mls/hr Insulin Human Regular (Humulin R Low) 0 units SC Q6 [facility]; Protocol Last Admin: 04/06/18 12:31 Dose: Not Given Lactic Acid (Lac-Hydrin 12% Cream (140 G)) 0 ea TOP TID PRN PRN Reason: Dry skin Last Admin: 04/06/18 08:48 Dose: 1 applic Losartan Potassium (Cozaar) 12.5 mg PO DAILY [facility] Last Admin: 04/04/18 19:00 Dose: Not Given Methylprednisolone (Solu-Medrol) 40 mg IVP DAILY [facility] Last Admin: 04/06/18 09:39 Dose: Not Given Multi-Ingredient Cream (Hydrocerin Cream) 0 ea TOP 1000,2200 [facility] Last Admin: 04/06/18 10:00 Dose: 1 applic Silver Sulfadiazine (Silvadene 1% 25 Gm) 0 gm TP BID PRN PRN Reason: Dry skin Last Admin: 04/06/18 11:16 Dose: 1 gm - Labs Labs: 04/06/18 09:10 04/06/18 12:45 PT 16.1 SECONDS (9.4-12.5) H 04/04/18 16:00 INR 1.45 04/04/18 16:00 APTT 39.1 Seconds (26.9-38.3) H 04/04/18 16:00
--- NOTE | 2018-04-06 13:47 | PN ---
DATE: 04/06/2018 SUBJECTIVE: He is in the Intensive Care Unit. He is extubated. He is looking at me. He is still not talking that well. His skin is still excoriated with multiple creams on it. He still in very much stress. He is on aspirin, Coreg, Cozaar, Debrox drops, dextrose, fentanyl patch, insulin, Hydrocerin cream, Lac-Hydrin, Lotrimin cream, Merrem IV, norepinephrine, phenylephrine, Protonix, Silvadene cream, Solu-Medrol at 40 and vasopressin. PHYSICAL EXAMINATION VITAL SIGNS: He has a 98.2 temperature, 74 pulse, 126/56 blood pressure and 20 respiratory rate. HEENT: Head is atraumatic and normocephalic. HEART: Regular rate. LUNGS: Decreased breath sounds, but clears. He is off the ventilator, on oxygen. ABDOMEN: Soft. EXTREMITIES: No edema. SKIN: Extremely excoriated and sloughing. LABORATORY DATA: He has a 21.1 white count, 8.6 hemoglobin, little bit better and 26.7 hematocrit with 73 platelets. He has 165 sodium, that should be coming down. I am hoping Renal is on the case. BUN is 57, creatinine 1.8, GFR is 37, sugar is 141, calcium is 8, total bili is 0.2, AST is 17, ALT is 22 and alk phos of 163. He is in deep trouble, continue with aggressive treatment and care by the Teletray Operator, Pulmonary, Infectious Disease, Endocrinology, Cardiology, GI and surgery. Hopefully, he will pull-through. He has got multiple issues and he is in major trouble; high sodium, sepsis, GI bleed, cardiomyopathy, diabetes, anemia and left pneumonia. Kirill Alcazar DO MTDD
--- NOTE | 2018-04-06 14:23 | PN ---
DATE: 04/06/2018 SUBJECTIVE: The patient was seen and examined at the bedside. He is comfortable. He was extubated yesterday and his night was uneventful. He does require some nasopharyngeal suctioning even though it appears that he is able to cough and has strong cough reflex as well. Overnight, he has been transfused 1 unit of blood. He was weaned off of norepinephrine completely and maintained his heart rate and blood pressure well. PHYSICAL EXAMINATION: GENERAL: The patient appears to be comfortable. VITAL SIGNS: Heart rate 71, blood pressure 130/70, oxygen saturation 97% on nasal cannula, respiratory rate 22. ENT: Head and neck atraumatic. LUNGS: Clear to auscultation bilaterally. HEART: Regular rate and rhythm. S1, S2 normal. ABDOMEN: Soft, nontender, nondistended. MUSCULOSKELETAL: 1 to 2+ bilateral pedal and ankle edema. NEURO: The patient moves all extremities spontaneously. SKIN: Moist. The patient does have some skin scaling unchanged compared with yesterday. PSYCH: Patient is alert, awake and oriented, comfortable. LABORATORY DATA: Sodium 165, chloride 142, BUN 57, creatinine 1.8 (stable), glucose 141, AST 17, ALT 22, total bilirubin 0.2, alkaline phosphatase 163. WBC 19.7, hemoglobin 7.6 (after that hemoglobin, the patient was transfused 1 unit of PRBC and repeated hemoglobin is pending), platelet count 78. MEDICATIONS: TPN, D5 150 mL/hour, regular insulin low protocol, meropenem, Solu-Medrol 40 mg IV every 12 hours, Protonix. Vasopressin, phenylephrine, and norepinephrine are weaned off. ASSESSMENT AND PLAN: This is a 73-year-old gentleman with now resolved hemorrhagic shock secondary to upper gastrointestinal bleeding status post esophagogastroduodenoscopy. He did have some melanotic stool and his hemoglobin dropped about 1 g which all may be dilutional and residual. Esophagogastroduodenoscopy showed clean based duodenal ulcer with no active bleed. The patient received 1 unit of PRBC and responded appropriately. Overall, the patient is hemodynamically and respiratory palacios improved. He does require quit a bit of IVF to correct his electrolites to the point that he showed signs of fluid overload. Discussed that with Dr. Segovia-->wanted to continue IVF, but at the same time give a shot of Lasix 40 mg IV. Na is slighly trending down. CXR--worseing of L.lobar infiltrate, bedside ultrasound-->moderate pleural effusion on a left side. Too small of a pocket for bedside US-->will give Lasix as per nephro. History of leukemia also concerning and Dr. Joby Landeros was requested to comment on this part. Skin exam findings combined with hypernatremia and thrombocytopenia may or may not be related to hematologic malignancy. We will continue to target euvolemia, glycemia, normothermia and oxygen saturation more than 90%. We will continue with deep vein thrombosis and gastrointestinal prophylaxis. ccm time 40 min Suhail Padilla MD MTDD
--- NOTE | 2018-04-06 15:09 | RAD ---
Date of service: 04/06/2018 HISTORY: Difficulty breathing COMPARISON: 04/06/2018 at 6:35 a.m. FINDINGS: LUNGS: Extensive left sided consolidation in the mid and lower left lung. There is vague opacity in the lower right lung. This may be due to infiltrate or dependent pleural fluid. PLEURA: Likely moderate left pleural effusion. Possible small right pleural effusion. No pneumothorax. CARDIOVASCULAR: There is atherosclerotic calcification of the aortic arch. Normal cardiac size. Mild congestive change is noted. OSSEOUS STRUCTURES: No significant abnormalities. VISUALIZED UPPER ABDOMEN: Normal. OTHER FINDINGS: None. IMPRESSION: Increasing opacity at the left base with persistent mild opacity at the right base. Probable moderate left pleural effusion and possible small right pleural effusion. Congestive change. Possible pulmonary edema.
--- NOTE | 2018-04-06 16:35 | CARD ---
APPROVED REPORT Date of service: 04/06/2018 EXAM: Two-dimensional and M-mode echocardiogram with Doppler and color Doppler. INDICATION Infection:Rule out subacute bacterial endocarditis 2D DIMENSIONS Left Atrium (2D)4.5 (1.6-4.0cm)IVSd1.0 (0.7-1.1cm) LVDd5.5 (3.9-5.9cm)PWd1.1 (0.7-1.1cm) LVDs3.9 (2.5-4.0cm)FS (%) 29.8 % LVEF (%)56.3 (>50%) Aortic Valve AoV Peak Txpaztdy187.0cm/Deric Peak GR.17mmHg Mitral Valve MV E Dohpwvym643.0cm/sMV A Hskjbnws45.7cm/sE/A ratio1.3 TDI Lateral E' Peak V12.60cm/sMedial E' Peak V7.51cm/sE/Lateral E'10.2 E/Medial E'17.0 Pulmonary Valve PV Peak Eeamcqnb51.0cm/sPV Peak Grad.3mmHg Tricuspid Valve TR Peak Dqynaexb107sp/sRAP [id number] Peak Gr.44mmHg [id number] LEFT VENTRICLE The left ventricle is normal size. There is normal left ventricular wall thickness. The left ventricular function is normal.EF-55% There is normal LV segmental wall motion. The left ventricular diastolic function is normal. No left ventricle thrombus noted on this study. There is no ventricular septal defect visualized. There is no left ventricular aneurysm. There is no mass noted in the left ventricle. RIGHT VENTRICLE The right ventricle is normal size. There is normal right ventricular wall thickness. The right ventricular systolic function is normal. ATRIA The left atrium is mildly dilated. The right atrium size is normal. The interatrial septum is intact with no evidence for an atrial septal defect. AORTIC VALVE The aortic valve is thickened but opens well. There is trace aortic regurgitation. Aortic scelosis Vs mild There is no aortic valvular vegetation. MITRAL VALVE The mitral valve is thickened but opens well. Mitral regurgitation is mild to moderate. There is no mitral valve stenosis. There is no evidence of mitral valve prolapse. TRICUSPID VALVE The tricuspid valve leaflets are thickened , but open well. There is mild to moderate tricuspid regurgitation.RVSP_54 mmof hg. There is no tricuspid valve stenosis. There is no tricuspid valve prolapse or vegetation. PULMONIC VALVE The pulmonary valve is normal in structure. There is trace to mild pulmonic valvular regurgitation. There is no pulmonic valvular stenosis. GREAT VESSELS The aortic root is normal in size. The ascending aorta is normal in size. The pulmonary artery is normal. The IVC is normal in size and collapses >50% with inspiration. PERICARDIAL EFFUSION There is moderate left pleural effusion. There is a trace pericardial effusion. <Conclusion> The left ventricle is normal size. There is normal left ventricular wall thickness. The left ventricular function is normal.EF-55% There is trace aortic regurgitation. Aortic scelosis Vs mild Mitral regurgitation is mild to moderate. There is mild to moderate tricuspid regurgitation.RVSP_54 mmof hg. The IVC is normal in size and collapses >50% with inspiration. There is moderate left pleural effusion. There is a trace pericardial effusion. No vegetation or thrombus noted.
[2018-04-06 18:23] LABS: ARTERIAL BLOOD GAS O2 SAT 99.6 % (95-98); ARTERIAL BLOOD GAS PCO2 48 mm/Hg (35-45); ARTERIAL BLOOD GAS PH 7.25 (7.35-7.45); ARTERIAL BLOOD GAS TCO2 22.5 mmol.L (22-28)
[2018-04-06] MEDS: Amino/Dext 4.25/5 1,000 ML IV SCH (18:43)
--- NOTE | 2018-04-06 18:50 | PN ---
DATE: 04/06/2018 SUBJECTIVE: The patient is in bed, appearing weak, but without shortness of breath. PHYSICAL EXAMINATION: VITAL SIGNS: Blood pressure 126/56, heart rates in the 70s. NECK: Negative JVD. LUNGS: Decreased breath sounds. HEART: Reveal S1, S2. EXTREMITIES: Without edema. LABORATORY DATA: Hemoglobin is 8.6, white count of 21,000. IMPRESSION: 1. Pneumonia. 2. Hypothermia. 3. Cardiomyopathy. 4. Non-ST elevation myocardial infarction. 5. Coronary artery disease. PLAN: Given these findings, the patient's blood pressure is better. Continue weaning off pressors. Christoph Bustamante MD
--- NOTE | 2018-04-06 19:42 | PN ---
DATE: 04/06/2018 The patient is a 73-year-old gentleman, and this is in addition to my note from today on 04/06/2018. The patient was found to have blood culture positive for yeast and sputum positive for Escherichia coli. She does have worsening of the left lobar infiltrate and the patient is on meropenem. ID service is following him. Worsening of pneumonia vs fluid overload. In terms of positive blood culture for yeast/fungemia, the patient is on micafungin, again ID service followed up on that as well. Possibility that his skin lesions are the point of entry for fungal infection is also there. She has severe skin exfoliation. ophthalmology consult and echocardiogram was ordered. Skin biopsy to rule out inflammatory versus malignant origin of the skin condition was requested from general surgical service. I spoke with Dr. Caal. Suhail Padilla MD E[facility]
[2018-04-06 20:31] LABS: CALCIUM 8.1 mg/dL (8.4-10.5)
--- NOTE | 2018-04-06 20:55 | CP.PCM.CON ---
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 The patient was evaluated by me during his last admission for persistent leukocytosis despite antibiotics. Flow cytometery was sent on peripheral blood to rule out a clonal process contributing to the patient leukocytosis. This was negative for a clonal process. Per the patients family in the past, he did have a skin biopsy at [place] but did not know the results. Plan was for the patient to f/u with his primary oncologist for those results. Past medical history: HTN, APL Past surgical history: Colon surgery, inguinal hernia. Family history: Denies hematologic and oncologic problems Social history: Denies tobacco, alcohol, and illicit drug use. Allergies: NKA Review of systems: All remaining review of systems including HEENT, cardiovascular, respiratory, gastrointestinal, genitourinary, musculoskeletal, dermatologic, neurologic, and psychiatric are negative unless mentioned in the HPI. Past Patient History - Infectious Disease Hx of Infectious Diseases: None - Past Social History Smoking Status: Never Smoked - CARDIAC Hx Hypertension: Yes - PULMONARY Hx Pneumonia: Yes - NEUROLOGICAL Hx Neurological Disorder: No - HEENT Hx HEENT Problems: No - RENAL Hx Chronic Kidney Disease: No - ENDOCRINE/METABOLIC Hx Endocrine Disorders: No - HEMATOLOGICAL/ONCOLOGICAL Hx Blood Transfusions: Yes Hx Blood Transfusion Reaction: No - INTEGUMENTARY Hx Dermatological Problems: Yes Hx Eczema: Yes - MUSCULOSKELETAL/RHEUMATOLOGICAL Hx Musculoskeletal Disorders: Yes Hx Falls: Yes Hx Unsteady Gait: Yes (WALKER) - GASTROINTESTINAL Hx Gastrointestinal Disorders: No - GENITOURINARY/GYNECOLOGICAL Hx Genitourinary Disorders: No - PSYCHIATRIC Hx Psychophysiologic Disorder: No - SURGICAL HISTORY Hx Surgeries: Yes - ANESTHESIA Hx Anesthesia Reactions: No Hx Malignant Hyperthermia: No Meds Allergies/Adverse Reactions: Allergies Allergy/AdvReac Type Severity Reaction Status Date / Time No Known Allergies Allergy Verified 03/24/18 11:42 - Medications Medications: Current Medications Aspirin (Aspirin Chewable) 81 mg PO DAILY [facility] Last Admin: 04/04/18 18:59 Dose: Not Given Carbamide Peroxide (Debrox Ear Drops) 0 ml AU BID [facility] Last Admin: 04/06/18 17:37 Dose: 5 drop Carvedilol (Coreg) 3.125 mg PO BID [facility] Last Admin: 04/04/18 19:00 Dose: Not Given Clotrimazole (Lotrimin 1%) 0 gm TOP BID PRN PRN Reason: Rash Last Admin: 04/02/18 09:40 Dose: 1 applic Amino Acids (Clinimix 4.25/5 % (1000 Ml)) 1,000 mls @ 42 mls/hr IV .[id number] [facility] Last Admin: 04/06/18 18:43 Dose: Not Given Fat Emulsion-Soy/MCT/Maybee/Fish Oil (Smoflipid 20%) 250 mls @ 21 mls/hr IV MWF@1800 [facility] Last Admin: 04/05/18 18:47 Dose: 21 mls/hr Phenylephrine HCl 40 mg/ (Sodium Chloride) 254 mls @ 38.1 mls/hr IV .Q6H40M PRN; Protocol PRN Reason: TITRATE PER MD ORDER Last Titration: 04/05/18 09:30 Dose: 0 mcg/min, 0 mls/hr Vasopressin 20 units/ Sodium (Chloride) 101 mls @ 9.09 mls/hr IV .Q11H7M [facility]; Protocol Last Admin: 04/05/18 03:19 Dose: Not Given Fentanyl Citrate (Fentanyl Citrate/Sodium Chloride 1 Mg/100 Ml) 1,000 mcg in 100 mls @ 2 mls/hr IV .Q24H PRN; Protocol PRN Reason: TITRATE PER MD ORDER Norepinephrine Bitartrate 8 mg (/ Sodium Chloride) 500 mls @ 112.5 mls/hr IV .Q4H27M [facility]; Protocol Last Titration: 04/06/18 07:30 Dose: 0 mcg/min, 0 mls/hr Meropenem/Sodium Chloride (Merrem Iv 500 Mg/Ns 50 Ml) 500 mg in 50 mls @ 100 mls/hr IVPB Q12 [facility]; Protocol Stop: 04/12/18 07:01 Last Admin: 04/06/18 10:47 Dose: 100 mls/hr Dextrose (Dextrose 5% In Water 1000 Ml) 1,000 mls @ 150 mls/hr IV .Q6H40M [facility] Last Admin: 04/06/18 07:30 Dose: 150 mls/hr Micafungin Sodium 100 mg/ (Sodium Chloride) 100 mls @ 100 mls/hr IV DAILY [facility]; Protocol Stop: 04/13/18 11:01 Last Admin: 04/06/18 12:00 Dose: 100 mls/hr Insulin Human Regular (Humulin R Low) 0 units SC Q6 [facility]; Protocol Last Admin: 04/06/18 18:01 Dose: 2 unit Lactic Acid (Lac-Hydrin 12% Cream (140 G)) 0 ea TOP TID PRN PRN Reason: Dry skin Last Admin: 04/06/18 08:48 Dose: 1 applic Losartan Potassium (Cozaar) 12.5 mg PO DAILY [facility] Last Admin: 04/04/18 19:00 Dose: Not Given Multi-Ingredient Cream (Hydrocerin Cream) 0 ea TOP 1000,2200 [facility] Last Admin: 04/06/18 10:00 Dose: 1 applic Pantoprazole Sodium (Protonix Inj) 40 mg IVP Q12 [facility] Silver Sulfadiazine (Silvadene 1% 25 Gm) 0 gm TP BID PRN PRN Reason: Dry skin Last Admin: 04/06/18 11:16 Dose: 1 gm Physical Exam - Head Exam Head Exam: ATRAUMATIC - Eye Exam Eye Exam: Normal appearance - ENT Exam ENT Exam: Mucous Membranes Dry - Respiratory Exam Respiratory Exam: Decreased Breath Sounds - Cardiovascular Exam Cardiovascular Exam: +S1, +S2 - GI/Abdominal Exam GI & Abdominal Exam: Normal Bowel Sounds - Neurological Exam Neurological exam: Altered - Psychiatric Exam Psychiatric exam: Normal Affect, Normal Mood - Skin Skin Exam: Warm Results - Vital Signs Recent Vital Signs: Last Vital Signs Temp 97 F L 04/06/18 16:14 Pulse 48 L 04/06/18 18:00 Resp 14 04/06/18 18:00 BP 123/55 L 04/06/18 18:00 Pulse Ox 96 04/06/18 18:00 - Labs Result Diagrams: 04/06/18 09:10 04/06/18 20:10 Labs: Laboratory Results - last 24 hr 03/31/18 04/04/18 04/04/18 13:19 13:59 22:20 WBC RBC Hgb Hct MCV MCH MCHC RDW Plt Count Neut % (Auto) Lymph % (Auto) G[place]rie % (Auto) Eos % (Auto) Baso % (Auto) Lymph # (Auto) Guthrie # (Auto) Eos # (Auto) Baso # (Auto) Absolute Neuts (auto) Corrected WBC (Man) Neutrophils % (Manual) Band Neutrophils % Lymphocytes % (Manual) Atypical Lymphs % Monocytes % (Manual) Nucleated RBC % Platelet Evaluation Hypochromasia Poikilocytosis (manual Anisocytosis (manual) Microcytosis (manual) Target Cells Ovalocytes Schistocytes pCO2 pO2 HCO3 ABG pH ABG Total CO2 ABG O2 Saturation ABG O2 Content ABG Base Excess ABG Hemoglobin ABG Carboxyhemoglobin POC ABG HHb (Measured) ABG Methemoglobin ABG O2 Capacity ABG Potassium Hgb O2 Saturation Glucose Lactate FiO2 Inspiratory BiPAP Blood Gas Comments Crit Value Called To Crit Value Called By Blood Gas Notified Time Sodium Potassium Chloride Carbon Dioxide Anion Gap BUN Creatinine Est GFR ( Amer) Est GFR (Non-Af Amer) POC Glucose (mg/dL) 142 H Random Glucose Calcium Phosphorus Magnesium Total Bilirubin AST ALT Alkaline Phosphatase Total Protein Albumin Globulin Albumin/Globulin Ratio Arterial Blood Potassium Rheumatoid Factor IgG <5 Rheumatoid Factor IgA <5 Rheumatoid Factor IgM <5 Blood Type O POSITIVE Antibody Screen Negative Crossmatch See Detail BBK History Checked No verified bt 04/05/18 04/05/18 04/05/18 08:39 12:22 17:00 WBC RBC Hgb Hct MCV MCH MCHC RDW Plt Count Neut % (Auto) Lymph % (Auto) Guthrie % (Auto) Eos % (Auto) Baso % (Auto) Lymph # (Auto) G[place]rie # (Auto) Eos # (Auto) Baso # (Auto) Absolute Neuts (auto) Corrected WBC (Man) Neutrophils % (Manual) Band Neutrophils % Lymphocytes % (Manual) Atypical Lymphs % Monocytes % (Manual) Nucleated RBC % Platelet Evaluation Hypochromasia Poikilocytosis (manual Anisocytosis (manual) Microcytosis (manual) Target Cells Ovalocytes Schistocytes pCO2 pO2 HCO3 ABG pH ABG Total CO2 ABG O2 Saturation ABG O2 Content ABG Base Excess ABG Hemoglobin ABG Carboxyhemoglobin POC ABG HHb (Measured) ABG Methemoglobin ABG O2 Capacity ABG Potassium Hgb O2 Saturation Glucose Lactate FiO2 Inspiratory BiPAP Blood Gas Comments Crit Value Called To Crit Value Called By Blood Gas Notified Time Sodium 166 H* Potassium 3.8 Chloride 142 H Carbon Dioxide 22 Anion Gap 6 L BUN 58 H Creatinine 1.7 H Est GFR ( Amer) 48 Est GFR (Non-Af Amer) 40 POC Glucose (mg/dL) 329 H 202 H Random Glucose 159 H Calcium 7.7 L Phosphorus Magnesium Total Bilirubin 0.3 AST 23 ALT 28 Alkaline Phosphatase 118 Total Protein 4.3 L Albumin 2.0 L Globulin 2.4 Albumin/Globulin Ratio 0.8 L Arterial Blood Potassium Rheumatoid Factor IgG Rheumatoid Factor IgA Rheumatoid Factor IgM Blood Type Antibody Screen Crossmatch BBK History Checked 04/05/18 04/05/18 04/05/18 17:55 18:50 23:49 WBC RBC Hgb Hct MCV MCH MCHC RDW Plt Count Neut % (Auto) Lymph % (Auto) Guthrie % (Auto) Eos % (Auto) Baso % (Auto) Lymph # (Auto) Guthrie # (Auto) Eos # (Auto) Baso # (Auto) Absolute Neuts (auto) Corrected WBC (Man) 17.0 H Neutrophils % (Manual) 87 H Band Neutrophils % 4 H Lymphocytes % (Manual) 7 L Atypical Lymphs % Monocytes % (Manual) 2 Nucleated RBC % 5 Platelet Evaluation Low Hypochromasia 1+ Poikilocytosis (manual 1+ Anisocytosis (manual) 1+ Microcytosis (manual) Slight Target Cells Slight Ovalocytes Slight Schistocytes Slight pCO2 pO2 HCO3 ABG pH ABG Total CO2 ABG O2 Saturation ABG O2 Content ABG Base Excess ABG Hemoglobin ABG Carboxyhemoglobin POC ABG HHb (Measured) ABG Methemoglobin ABG O2 Capacity ABG Potassium Hgb O2 Saturation Glucose Lactate FiO2 Inspiratory BiPAP Blood Gas Comments Crit Value Called To Crit Value Called By Blood Gas Notified Time Sodium Potassium Chloride Carbon Dioxide Anion Gap BUN Creatinine Est GFR ( Amer) Est GFR (Non-Af Amer) POC Glucose (mg/dL) 213 H 202 H Random Glucose Calcium Phosphorus Magnesium Total Bilirubin AST ALT Alkaline Phosphatase Total Protein Albumin Globulin Albumin/Globulin Ratio Arterial Blood Potassium Rheumatoid Factor IgG Rheumatoid Factor IgA Rheumatoid Factor IgM Blood Type Antibody Screen Crossmatch BBK History Checked 04/06/18 04/06/18 04/06/18 01:00 01:00 06:47 WBC 19.7 H RBC 2.64 L Hgb 7.6 L Hct 22.9 L MCV 86.7 MCH 28.8 MCHC 33.2 RDW 19.5 H Plt Count 78 L Neut % (Auto) 83.6 H Lymph % (Auto) 10.6 L Guthrie % (Auto) 5.6 Eos % (Auto) 0.1 L Baso % (Auto) 0.1 Lymph # (Auto) 2.1 Guthrie # (Auto) 1.1 H Eos # (Auto) 0.0 Baso # (Auto) 0.02 Absolute Neuts (auto) 16.45 H Corrected WBC (Man) Neutrophils % (Manual) Band Neutrophils % Lymphocytes % (Manual) Atypical Lymphs % Monocytes % (Manual) Nucleated RBC % Platelet Evaluation Hypochromasia Poikilocytosis (manual Anisocytosis (manual) Microcytosis (manual) Target Cells Ovalocytes Schistocytes pCO2 pO2 HCO3 ABG pH ABG Total CO2 ABG O2 Saturation ABG O2 Content ABG Base Excess ABG Hemoglobin ABG Carboxyhemoglobin POC ABG HHb (Measured) ABG Methemoglobin ABG O2 Capacity ABG Potassium Hgb O2 Saturation Glucose Lactate FiO2 Inspiratory BiPAP Blood Gas Comments Crit Value Called To Crit Value Called By Blood Gas Notified Time Sodium 164 H* Potassium 3.6 Chloride 141 H Carbon Dioxide 23 Anion Gap 4 L BUN 59 H Creatinine 1.8 H Est GFR ( Amer) 45 Est GFR (Non-Af Amer) 37 POC Glucose (mg/dL) 173 H Random Glucose 189 H Calcium 8.0 L Phosphorus Magnesium Total Bilirubin 0.3 AST 19 ALT 22 Alkaline Phosphatase 161 H D Total Protein 4.3 L Albumin 1.9 L Globulin 2.3 Albumin/Globulin Ratio 0.8 L Arterial Blood Potassium Rheumatoid Factor IgG Rheumatoid Factor IgA Rheumatoid Factor IgM Blood Type Antibody Screen Crossmatch BBK History Checked 04/06/18 04/06/18 04/06/18 07:00 07:00 07:00 WBC RBC Hgb Hct MCV MCH MCHC RDW Plt Count Neut % (Auto) Lymph % (Auto) Guthrie % (Auto) Eos % (Auto) Baso % (Auto) Lymph # (Auto) Guthrie # (Auto) Eos # (Auto) Baso # (Auto) Absolute Neuts (auto) Corrected WBC (Man) Neutrophils % (Manual) Band Neutrophils % Lymphocytes % (Manual) Atypical Lymphs % Monocytes % (Manual) Nucleated RBC % Platelet Evaluation Hypochromasia Poikilocytosis (manual Anisocytosis (manual) Microcytosis (manual) Target Cells Ovalocytes Schistocytes pCO2 14 L* pO2 133.0 H HCO3 7.0 L* ABG pH 7.31 L ABG Total CO2 7.4 L ABG O2 Saturation 99.5 H ABG O2 Content 5.5 L ABG Base Excess -18.0 L ABG Hemoglobin 3.8 L ABG Carboxyhemoglobin 1.7 H POC ABG HHb (Measured) 0.5 ABG Methemoglobin 2.0 ABG O2 Capacity 5.5 L ABG Potassium Hgb O2 Saturation 95.7 Glucose Lactate FiO2 32.0 Inspiratory BiPAP Blood Gas Comments Crit Value Called To Johann gautam (historical records administrator) Crit Value Called By [facility] Blood Gas Notified Time 707 Sodium 165 H* Potassium 3.7 Chloride 142 H Carbon Dioxide 22 Anion Gap 8 L BUN 57 H Creatinine 1.8 H Est GFR ( Amer) 45 Est GFR (Non-Af Amer) 37 POC Glucose (mg/dL) Random Glucose 141 H Calcium 8.0 L Phosphorus 3.4 Magnesium 1.7 Total Bilirubin 0.2 AST 17 ALT 22 Alkaline Phosphatase 163 H Total Protein 4.3 L Albumin 2.0 L Globulin 2.3 Albumin/Globulin Ratio 0.9 L Arterial Blood Potassium Rheumatoid Factor IgG Rheumatoid Factor IgA Rheumatoid Factor IgM Blood Type Antibody Screen Crossmatch BBK History Checked 04/06/18 04/06/18 04/06/18 09:10 11:31 12:45 WBC 21.1 H RBC 3.05 L Hgb 8.6 L Hct 26.7 L MCV 87.5 MCH 28.2 MCHC 32.2 RDW 18.7 H Plt Count 73 L Neut % (Auto) 79.7 H Lymph % (Auto) 13.8 L Guthrie % (Auto) 6.4 H Eos % (Auto) 0.0 L Baso % (Auto) 0.1 Lymph # (Auto) 2.9 Guthrie # (Auto) 1.4 H Eos # (Auto) 0.0 Baso # (Auto) 0.02 Absolute Neuts (auto) 16.82 H Corrected WBC (Man) Neutrophils % (Manual) 87 H Band Neutrophils % 3 H Lymphocytes % (Manual) 6 L Atypical Lymphs % 1 H Monocytes % (Manual) 3 Nucleated RBC % 4 Platelet Evaluation Low Hypochromasia Poikilocytosis (manual 1+ Anisocytosis (manual) 1+ Microcytosis (manual) Target Cells Slight Ovalocytes Slight Schistocytes pCO2 pO2 HCO3 ABG pH ABG Total CO2 ABG O2 Saturation ABG O2 Content ABG Base Excess ABG Hemoglobin ABG Carboxyhemoglobin POC ABG HHb (Measured) ABG Methemoglobin ABG O2 Capacity ABG Potassium Hgb O2 Saturation Glucose Lactate FiO2 Inspiratory BiPAP Blood Gas Comments Crit Value Called To Crit Value Called By Blood Gas Notified Time Sodium 164 H* Potassium 3.9 Chloride 141 H Carbon Dioxide 23 Anion Gap 5 L BUN 61 H Creatinine 1.8 H Est GFR ( Amer) 45 Est GFR (Non-Af Amer) 37 POC Glucose (mg/dL) 152 H Random Glucose 152 H Calcium 7.9 L Phosphorus Magnesium Total Bilirubin AST ALT Alkaline Phosphatase Total Protein Albumin Globulin Albumin/Globulin Ratio Arterial Blood Potassium Rheumatoid Factor IgG Rheumatoid Factor IgA Rheumatoid Factor IgM Blood Type Antibody Screen Crossmatch BBK History Checked 04/06/18 04/06/18 18:17 20:10 WBC RBC Hgb Hct MCV MCH MCHC RDW Plt Count Neut % (Auto) Lymph % (Auto) Guthrie % (Auto) Eos % (Auto) Baso % (Auto) Lymph # (Auto) Guthrie # (Auto) Eos # (Auto) Baso # (Auto) Absolute Neuts (auto) Corrected WBC (Man) Neutrophils % (Manual) Band Neutrophils % Lymphocytes % (Manual) Atypical Lymphs % Monocytes % (Manual) Nucleated RBC % Platelet Evaluation Hypochromasia Poikilocytosis (manual Anisocytosis (manual) Microcytosis (manual) Target Cells Ovalocytes Schistocytes pCO2 48 H pO2 153.0 H HCO3 21.0 ABG pH 7.25 L ABG Total CO2 22.5 ABG O2 Saturation 99.6 H ABG O2 Content ABG Base Excess -6.4 L ABG Hemoglobin ABG Carboxyhemoglobin POC ABG HHb (Measured) ABG Methemoglobin ABG O2 Capacity ABG Potassium 3.4 L Hgb O2 Saturation Glucose 196 H Lactate 1.1 FiO2 50.0 Inspiratory BiPAP 14 Blood Gas Comments Cl141 na 170 Crit Value Called To Dr. armijo Crit Value Called By Rst Blood Gas Notified Time 1720 Sodium 170.0 H* 163 H* Potassium 3.5 L Chloride 141.0 H 138 H Carbon Dioxide 23 Anion Gap 6 L BUN 58 H Creatinine 1.9 H Est GFR ( Amer) 42 Est GFR (Non-Af Amer) 35 POC Glucose (mg/dL) Random Glucose 225 H Calcium 8.1 L Phosphorus Magnesium Total Bilirubin AST ALT Alkaline Phosphatase Total Protein Albumin Globulin Albumin/Globulin Ratio Arterial Blood Potassium 3.4 L Rheumatoid Factor IgG Rheumatoid Factor IgA Rheumatoid Factor IgM Blood Type Antibody Screen Crossmatch BBK History Checked Assessment & Plan (1) Skin abnormalities Assessment and Plan: recommend obtaining prior skin biopsy records if the patient did not have a skin biopsy, recommend surgical evaluation for biopsy ? eczema ?malignant infiltration of skin antibiotics and supportive care Status: Acute (2) Leukocytosis Assessment and Plan: on antibiotics reactive by flow cytometery in the past Status: Acute (3) Anemia Assessment and Plan: chronic disease transfusion support PRN Status: Acute (4) Thrombocytopenia Assessment and Plan: suspect infection related rule out DIC; check fibrinogen Status: Acute (5) History of leukemia Assessment and Plan: hx of APL s/p treatment 10 years ago at [place] peripheral blood flow cytometery negative for recurrence last month Thank you for this interesting consult. Status: Acute
--- NOTE | 2018-04-06 21:58 | PN ---
DATE: 04/06/2018 ENDOCRINE FOLLOWUP NOTE LOCATION: ICU 128, room 2. SUBJECTIVE: This is a 73-year-old male with recent admission for acute pneumonitis and is also now being followed closely for metabolic management. He is still on IV steroid therapy with Solu-Medrol 40 mg IV given every 8 hours as noted. His latest glucose levels have ranged from 141-173 mg/dL. His chemistry showed BUN of 57, sodium 165, potassium 3.7, chloride 142, CO2 of 22, glucose 141, creatinine 1.8. His thyroid studies were normal with a T4 of 10.9 and a TSH of 3.36. ASSESSMENT AND PLAN: He remains clinically and biochemically euthyroid at this time. No indication for any kind of basal bulbous insulin regimen at this time, and we will continue all the low-dose correction scale using regular insulin as ordered. We will obtain serial chemistries and supplement accordingly as needed. We will follow. Maria Luisa Ray MD
[2018-04-06] MEDS ORDERED: Albuterol-Ipratrop 3 mg / 0.5 (3 ml) UD IH PRN (23:34)
[2018-04-07] MEDS: Insulin Reg-LOW-Coverage SC SCH ×4 (00:59→19:19)
[2018-04-07 01:14] LABS: HEMOGLOBIN 8.5 g/dL (14.0-18.0); MEAN CELL VOLUME 88.6 fl (80.0-105.0); MEAN CORPUSCULAR HEMOGLOBIN 28.6 pg (25.0-35.0); MEAN CORPUSCULAR HGB CONC 32.3 g/dl (31.0-37.0); PLATELET COUNT 58 10^3/uL (120.0-450.0); RBC 2.97 10^6/uL (3.5-6.1); RED CELL DISTRIBUTION WIDTH 19.4 % (11.5-14.5); WHITE BLOOD COUNT 14.9 10^3/uL (4.5-11.0)
[2018-04-07 01:55] LABS: CALCIUM 8.1 mg/dL (8.4-10.5)
[2018-04-07 05:10] LABS: HEMOGLOBIN 8.2 g/dL (14.0-18.0); MEAN CORPUSCULAR HEMOGLOBIN 28.2 pg (25.0-35.0); PLATELET COUNT 60 10^3/uL (120.0-450.0); RBC 2.91 10^6/uL (3.5-6.1); RED CELL DISTRIBUTION WIDTH 19.2 % (11.5-14.5); WHITE BLOOD COUNT 13.4 10^3/uL (4.5-11.0)
[2018-04-07 05:28] LABS: ARTERIAL BLOOD GAS HCO3 19.8 mmol/L (21-28); ARTERIAL BLOOD GAS HEMOGLOBIN 8.4 g/dL (11.7-17.4); ARTERIAL BLOOD GAS O2 CAPACITY 11.6 mL/dl (16-24); ARTERIAL BLOOD GAS O2 CONTENT 11.5 ML/dl (15-23); ARTERIAL BLOOD GAS O2 SAT 99.2 % (95-98); ARTERIAL BLOOD GAS PCO2 32 mm/Hg (35-45); ARTERIAL BLOOD GAS TCO2 20.8 mmol.L (22-28)
[2018-04-07 07:05] LABS: ALB/GLOB RATIO 0.8 (1.1-1.8); ALBUMIN 1.9 g/dL (3.0-4.8); CALCIUM 8.2 mg/dL (8.4-10.5)
--- NOTE | 2018-04-07 07:50 | PN ---
DATE: 04/07/2018 PULMONARY NOTE SUBJECTIVE: The patient appears comfortable this morning. He is not short of breath at rest. PHYSICAL EXAMINATION: VITALS: Temperature is 97.2, pulse is 68, respiratory rate 20, blood pressure 113/46. Oxygen saturation on BiPAP is 95%. HEENT: Normocephalic, atraumatic. No JVD. CARDIOVASCULAR: Positive S1, S2. No S3 gallop. LUNGS: Minimal crackles at both bases. Minimal rhonchi. No wheezing. EXTREMITIES: Mild edema. No cyanosis or clubbing. Calves are nontender to palpation. GASTROINTESTINAL: Abdomen is soft, nontender, and nondistended. Bowel sounds are positive. SKIN: Diffuse erythematous rash on his extremities and torso. NEUROLOGIC: Exam limited at the present time. PERTINENT LABORATORY DATA: Chest x-ray was done and reviewed. There is now a hazy infiltrate throughout the left lung. There may also be a small left pleural effusion noted. IMPRESSION: 1. Status post respiratory failure. 2. Left lower lobe pneumonia. 3. Bilateral pleural effusions. 4. Anemia. 5. Pulmonary edema/volume overload. 6. [id number] myocardial infarction. 7. Multiple electrolyte abnormalities. PLAN: The patient appears comfortable this morning. He is not short of breath at rest. He is currently on BiPAP. I did discuss the case with the night nurse at length. The night nurse stated that the patient had a mostly uneventful night. I did review the chest x-ray from this morning. There is now an increasing infiltrate noted to the left chest. I would continue the antibiotic coverage as per Infectious Disease. Input by Dr. Leos is noted. The patient remains with periods of hypothermia. However, the leukocytosis is now resolving. Repeat a.m. electrolytes are pending. Inputs by Renal and Cardiology are also noted. The patient remains critically ill with overall very guarded/poor prognosis. I will discuss the above with the entire ICU team in the next few moments. I will discuss the above with the attending physician later this morning. Nathan Perkins MD [facility]
[2018-04-07] MEDS: Acetylcysteine 20% Inhal Soln (4ml) IH SCH ×2 (08:14→19:55)
[2018-04-07] MEDS: Levalbuterol 1.25 MG/3 ML Inhal Soln UD IH SCH ×3 (08:14→19:54)
[2018-04-07 08:51] LABS: HEMOGLOBIN 8.6 g/dL (14.0-18.0); MEAN CELL VOLUME 87.9 fl (80.0-105.0); MEAN CORPUSCULAR HEMOGLOBIN 28.1 pg (25.0-35.0); PLATELET COUNT 63 10^3/uL (120.0-450.0); RBC 3.06 10^6/uL (3.5-6.1); RED CELL DISTRIBUTION WIDTH 19.4 % (11.5-14.5); WHITE BLOOD COUNT 13.3 10^3/uL (4.5-11.0)
--- NOTE | 2018-04-07 08:54 | CP.PCM.PN ---
<Sundar Ochoa - Last Filed: 04/07/18 10:02> Subjective - Date & Time of Evaluation Date of Evaluation: 04/07/18 Time of Evaluation: 07:15 - Subjective Subjective: PGY-4 GI Fellow Prog Note Pt lying in bed when seen this AM. Wearing BiPAP limiting history. Some increase work of breathing overnight. Nursing reports no sig melena overnight. Unable to obtain ROS due to clinical condition Objective - Vital Signs/Intake and Output Vital Signs (last 24 hours): Temp Pulse Resp BP Pulse Ox 94.8 F L 64 21 115/53 L 94 L 04/07/18 04:00 04/07/18 04:29 04/07/18 04:00 04/07/18 07:14 04/07/18 04:00 Intake and Output: 04/07/18 04/07/18 06:59 18:59 Intake Total 2150 Output Total 400 Balance 1750 - Medications Medications: Current Medications Acetylcysteine (Acetylcysteine 20%) 4 ml IH BIDRESP [facility] Last Admin: 04/07/18 08:14 Dose: 4 ml Aspirin (Aspirin Chewable) 81 mg PO DAILY [facility] Last Admin: 04/04/18 18:59 Dose: Not Given Carbamide Peroxide (Debrox Ear Drops) 0 ml AU BID [facility] Last Admin: 04/06/18 17:37 Dose: 5 drop Carvedilol (Coreg) 3.125 mg PO BID [facility] Last Admin: 04/04/18 19:00 Dose: Not Given Clotrimazole (Lotrimin 1%) 0 gm TOP BID PRN PRN Reason: Rash Last Admin: 04/02/18 09:40 Dose: 1 applic Amino Acids (Clinimix 4.25/5 % (1000 Ml)) 1,000 mls @ 42 mls/hr IV .[id number] [facility] Last Admin: 04/06/18 18:43 Dose: Not Given Fat Emulsion-Soy/MCT/Miles/Fish Oil (Smoflipid 20%) 250 mls @ 21 mls/hr IV MWF@1800 [facility] Last Admin: 04/05/18 18:47 Dose: 21 mls/hr Phenylephrine HCl 40 mg/ (Sodium Chloride) 254 mls @ 38.1 mls/hr IV .Q6H40M PRN; Protocol PRN Reason: TITRATE PER MD ORDER Last Titration: 04/05/18 09:30 Dose: 0 mcg/min, 0 mls/hr Vasopressin 20 units/ Sodium (Chloride) 101 mls @ 9.09 mls/hr IV .Q11H7M [facility]; Protocol Last Admin: 04/05/18 03:19 Dose: Not Given Fentanyl Citrate (Fentanyl Citrate/Sodium Chloride 1 Mg/100 Ml) 1,000 mcg in 100 mls @ 2 mls/hr IV .Q24H PRN; Protocol PRN Reason: TITRATE PER MD ORDER Norepinephrine Bitartrate 8 mg (/ Sodium Chloride) 500 mls @ 112.5 mls/hr IV .Q4H27M [facility]; Protocol Last Titration: 04/06/18 07:30 Dose: 0 mcg/min, 0 mls/hr Meropenem/Sodium Chloride (Merrem Iv 500 Mg/Ns 50 Ml) 500 mg in 50 mls @ 100 mls/hr IVPB Q12 [facility]; Protocol Stop: 04/12/18 07:01 Last Admin: 04/06/18 21:52 Dose: 100 mls/hr Dextrose (Dextrose 5% In Water 1000 Ml) 1,000 mls @ 150 mls/hr IV .Q6H40M [facility] Last Admin: 04/07/18 06:53 Dose: 150 mls/hr Micafungin Sodium 100 mg/ (Sodium Chloride) 100 mls @ 100 mls/hr IV DAILY [facility]; Protocol Stop: 04/13/18 11:01 Last Admin: 04/06/18 12:00 Dose: 100 mls/hr Potassium Chloride (Potassium Chloride 10 Meq/100 Ml) 10 meq in 100 mls @ 50 mls/hr IVPB Q2H [facility] Stop: 04/07/18 08:59 Last Admin: 04/07/18 06:39 Dose: 50 mls/hr Insulin Human Regular (Humulin R Low) 0 units SC Q6 [facility]; Protocol Last Admin: 04/07/18 06:34 Dose: Not Given Lactic Acid (Lac-Hydrin 12% Cream (140 G)) 0 ea TOP TID PRN PRN Reason: Dry skin Last Admin: 04/06/18 08:48 Dose: 1 applic Levalbuterol HCl (Xopenex) 1.25 mg IH [id number] [facility] Last Admin: 04/07/18 08:14 Dose: 1.25 mg Losartan Potassium (Cozaar) 12.5 mg PO DAILY [facility] Last Admin: 04/04/18 19:00 Dose: Not Given Multi-Ingredient Cream (Hydrocerin Cream) 0 ea TOP 1000,2200 [facility] Last Admin: 04/06/18 21:58 Dose: 1 applic Pantoprazole Sodium (Protonix Inj) 40 mg IVP Q12 [facility] Last Admin: 04/06/18 21:55 Dose: 40 mg Silver Sulfadiazine (Silvadene 1% 25 Gm) 0 gm TP BID PRN PRN Reason: Dry skin Last Admin: 04/06/18 11:16 Dose: 1 gm Tobramycin Sulfate (Tobrex 0.3% Ophth Soln) 1 drop OU Q4 [facility] - Labs Labs: 04/07/18 04:00 04/07/18 04:00 PT 16.1 SECONDS (9.4-12.5) H 04/04/18 16:00 INR 1.45 04/04/18 16:00 APTT 39.1 Seconds (26.9-38.3) H 04/04/18 16:00 - Constitutional Appears: In Acute Distress, Chronically Ill - Head Exam Head Exam: ATRAUMATIC Additional comments: dry scaly skin - ENT Exam ENT Exam: Mucous Membranes Dry. absent: Mucous Membranes Moist - GI/Abdominal Exam GI & Abdominal Exam: Soft, Normal Bowel Sounds. absent: Bruit, Distended, Firm, Guarding, Rigid, Tenderness, Mass, Organomegaly, Pulsatile Mass - Skin Additional comments: diffuse, dry scaly skin over entire body Assessment and Plan - Assessment and Plan (Free Text) Assessment: 73 yo BM with PML, DM, CHF, NSTEMI found to have dark tarry stools # Melena: Improved. Due to large duodenal ulcer, gastric ulcers and erosions (see report for further details) likely related to ischemia, hypotension/hypovelemia. No active bleeding at time of endoscopy # HyperNatremia, DIA # CHF: EF 40% # Severe Psoriasis/Desquamating rash/vs other # Thrombocytopenia: Declining. No cirrhosis on imaging. DIC? Plan: - Complete PPI gtt today, transition to PPI IV QD - Recommend Speech eval when clinically improved for PO diet - Cont antibiotics per ID/Primary - Monitor Hgb - Treatment of Hypotension/DIA/Hypernatremia per primary/consultants - Agree with Heme consult Thank you for the consult; will sign off. Please call if questions. Pt discussed with Dr. Stoddard; please see attestation for further recs/changes. <Shady Stoddard - Last Filed: 04/07/18 11:46> Objective - Vital Signs/Intake and Output Vital Signs (last 24 hours): Temp Pulse Resp BP Pulse Ox 97.7 F 74 21 111/50 L 95 04/07/18 10:00 04/07/18 10:00 04/07/18 10:00 04/07/18 10:00 04/07/18 10:00 Intake and Output: 04/07/18 04/07/18 06:59 18:59 Intake Total 2150 Output Total 400 Balance 1750 - Medications Medications: Current Medications Acetylcysteine (Acetylcysteine 20%) 4 ml IH BIDRESP [facility] Last Admin: 04/07/18 08:14 Dose: 4 ml Aspirin (Aspirin Chewable) 81 mg PO DAILY [facility] Last Admin: 04/04/18 18:59 Dose: Not Given Carbamide Peroxide (Debrox Ear Drops) 0 ml AU BID [facility] Last Admin: 04/07/18 09:10 Dose: 5 drop Carvedilol (Coreg) 3.125 mg PO BID [facility] Last Admin: 04/04/18 19:00 Dose: Not Given Clotrimazole (Lotrimin 1%) 0 gm TOP BID PRN PRN Reason: Rash Last Admin: 04/02/18 09:40 Dose: 1 applic Amino Acids (Clinimix 4.25/5 % (1000 Ml)) 1,000 mls @ 42 mls/hr IV .[id number] [facility] Last Admin: 04/06/18 18:43 Dose: Not Given Fat Emulsion-Soy/MCT/Miles/Fish Oil (Smoflipid 20%) 250 mls @ 21 mls/hr IV MWF@1800 [facility] Last Admin: 04/05/18 18:47 Dose: 21 mls/hr Phenylephrine HCl 40 mg/ (Sodium Chloride) 254 mls @ 38.1 mls/hr IV .Q6H40M PRN; Protocol PRN Reason: TITRATE PER MD ORDER Last Titration: 04/05/18 09:30 Dose: 0 mcg/min, 0 mls/hr Vasopressin 20 units/ Sodium (Chloride) 101 mls @ 9.09 mls/hr IV .Q11H7M [facility]; Protocol Last Admin: 04/05/18 03:19 Dose: Not Given Fentanyl Citrate (Fentanyl Citrate/Sodium Chloride 1 Mg/100 Ml) 1,000 mcg in 100 mls @ 2 mls/hr IV .Q24H PRN; Protocol PRN Reason: TITRATE PER MD ORDER Norepinephrine Bitartrate 8 mg (/ Sodium Chloride) 500 mls @ 112.5 mls/hr IV .Q4H27M [facility]; Protocol Last Titration: 04/06/18 07:30 Dose: 0 mcg/min, 0 mls/hr Meropenem/Sodium Chloride (Merrem Iv 500 Mg/Ns 50 Ml) 500 mg in 50 mls @ 100 mls/hr IVPB Q12 [facility]; Protocol Stop: 04/12/18 07:01 Last Admin: 04/07/18 09:07 Dose: 100 mls/hr Micafungin Sodium 100 mg/ (Sodium Chloride) 100 mls @ 100 mls/hr IV DAILY [facility]; Protocol Stop: 04/13/18 11:01 Last Admin: 04/07/18 09:11 Dose: 100 mls/hr Sodium Chloride (Sodium Chloride 0.45%) 1,000 mls @ 150 mls/hr IV .Q6H40M [facility] Last Admin: 04/07/18 11:31 Dose: 150 mls/hr Insulin Human Regular (Humulin R Low) 0 units SC Q6 [facility]; Protocol Last Admin: 04/07/18 11:39 Dose: Not Given Lactic Acid (Lac-Hydrin 12% Cream (140 G)) 0 ea TOP TID PRN PRN Reason: Dry skin Last Admin: 04/06/18 08:48 Dose: 1 applic Levalbuterol HCl (Xopenex) 1.25 mg IH [id number] [facility] Last Admin: 04/07/18 08:14 Dose: 1.25 mg Losartan Potassium (Cozaar) 12.5 mg PO DAILY [facility] Last Admin: 04/04/18 19:00 Dose: Not Given Multi-Ingredient Cream (Hydrocerin Cream) 0 ea TOP 1000,2200 [facility] Last Admin: 04/07/18 09:07 Dose: 1 applic Pantoprazole Sodium (Protonix Inj) 40 mg IVP Q12 [facility] Last Admin: 04/07/18 09:10 Dose: 40 mg Silver Sulfadiazine (Silvadene 1% 25 Gm) 0 gm TP BID PRN PRN Reason: Dry skin Last Admin: 04/06/18 11:16 Dose: 1 gm Tobramycin Sulfate (Tobrex 0.3% Ophth Soln) 1 drop OU Q4 [facility] Last Admin: 04/07/18 11:40 Dose: 1 drop - Labs Labs: 04/07/18 08:20 04/07/18 08:20 PT 16.1 SECONDS (9.4-12.5) H 04/04/18 16:00 INR 1.45 04/04/18 16:00 APTT 39.1 Seconds (26.9-38.3) H 04/04/18 16:00 Attending/Attestation - Attestation I have personally seen and examined this patient.: Yes I have fully participated in the care of the patient.: Yes I have reviewed all pertinent clinical information, including history, physical exam and plan: Yes Notes (Text): 04/07/18 11:43 I have seen and examined patient with GI fellow. No acute events overnight, he remains in critical care unit, on BIPAP therapy. He has not required vasopressor support over the past 24 hours. There is no reported abdominal pain, vomiting, rectal bleeding. Review of vitals from today are normal. DM CHF NSTEMI Psoriasis Respiratory failure, s/p intubation and now extubated Anemia, melena - s/p EGD showing diffuse duodenal and gastric ulceration without active bleeding - NPO, awaiting swallow evaluation - H/H stable, continue to monitor - Continue with PPI therapy - Continue with antibiotic therapy - No further planned GI interventions at the time being, will sign off case. Please reconsult as necessary, thank you.
[2018-04-07 08:58] LABS: CALCIUM 8.1 mg/dL (8.4-10.5)
--- NOTE | 2018-04-07 09:04 | CON ---
DATE: 04/07/2018 HISTORY OF PRESENT ILLNESS: Mr. Sarkar is a 73-year-old black male who was admitted to the [facility] and when I see him he is comatose on the respirator and visual acuity could not be obtained. His conjunctiva is injected in both eyes. Cornea is clear, lens shows nuclear sclerosis +2 could not test extraocular movement. Dilated fundus exam is normal. ASSESSMENT: Mr. Sarkar has no evidence of fungemia, I put him on Tobrex ophthalmic solution one drop to both eyes 4 times a day. Uri Horowitz MD
[2018-04-07] MEDS: Hydrocerin(120 gm) TOP SCH ×2 (09:07→23:28)
[2018-04-07] MEDS: MEROPENEM 500 MG in NS 500 MG/50 ML BAG IVPB SCH ×2 (09:07→23:28)
[2018-04-07] MEDS: Tobramycin 0.3% OPHT SOLN OU SCH ×3 (09:11→16:15)
[2018-04-07] MEDS: Micafungin 100 MG in Sodium Chloride 0.9% 100 ML IV SCH (09:11)
--- NOTE | 2018-04-07 09:39 | RAD ---
Date of service: 04/07/2018 HISTORY: follow up COMPARISON: No prior. FINDINGS: LUNGS: Increased opacification left hemithorax likely due to a combination of large effusion and atelectasis and/or infiltrate. Mild right basilar atelectasis. Mild right basilar atelectasis on and suspected right-sided effusion slightly improved. PLEURA: As above. No pneumothorax apparent. CARDIOVASCULAR: Mild aortic atherosclerotic calcification present. Heart size difficult to assess due to silhouetting left cardiac border. OSSEOUS STRUCTURES: No significant abnormalities. VISUALIZED UPPER ABDOMEN: Normal. OTHER FINDINGS: None. IMPRESSION: Increased opacification left hemithorax likely due to a combination of large effusion and atelectasis and/or infiltrate. Mild right basilar atelectasis. Mild right basilar atelectasis on and suspected right-sided effusion slightly improved.
--- NOTE | 2018-04-07 10:11 | PCM.PROC ---
Addendum Addendum: 04/04/18 20:08 ARTERIAL LINE (A-Line) PLACEMENT Indication: Hemodynamic monitoring A time-out was completed verifying correct patient, procedure, site, positioning. The patients right groin was prepped and draped in sterile fashion. 1% Lidocaine was used to anesthetize the area. A Arrow arterial line was introduced into the femora artery. The catheter was threaded over the guide wire and the needle was removed with appropriate pulsatile blood return. The catheter was then sutured in place to the skin and a sterile dressing applied. Perfusion to the extremity distal to the point of catheter insertion was checked and found to be adequate. Estimated Blood Loss: minimal The patient tolerated the procedure well and there were no complications.
[2018-04-07] MEDS ORDERED: Sodium Chloride 0.45% 1,000 ML IV SCH (11:30)
[2018-04-07] MEDS ORDERED: Lidocaine 1% Inj (20ml) IJ STA (12:24)
--- NOTE | 2018-04-07 13:12 | PN ---
DATE: 04/07/2018 SUBJECTIVE: I saw him in the Intensive Care Unit. He still off the ventilator. He is on high oxygen. He is on the heating blanket still, Mike phillips. MEDICATIONS: He is on acetylcysteine, aspirin, , Cozaar, Coreg, ear drops, dextrose, fentanyl, insulin, Hydrocerin cream, Lac-Hydrin cream, Lotrimin cream, Merrem IV, Micafungin IV, norepinephrine, phenylephrine, Protonix, Silvadene cream, fat emulsion, Tobradex, vasopressin, and Xopenex. PHYSICAL EXAMINATION: VITAL SIGNS: He is a 94.8 temperature, 64 pulse, 21 respiratory rate, 115/53 blood pressure. He is on 94% on BiPAP. HEENT: His head is atraumatic and normocephalic. HEART: Regular rate. LUNGS: Decreased breath sounds bilaterally. ABDOMEN: Soft. EXTREMITIES: No edema. SKIN: Excoriated and flaky and shedding. LABORATORY DATA: He has 13.3 white count, best it has been; 8.6 hemoglobin; 26.9 hematocrit, with a 63 platelets. Sodium 163, it is come down slowly; 3.7 potassium; BUN 69; creatinine 1.9; GFR is 35; calcium is 8.1. ASSESSMENT AND PLAN: He has got multiple issues going on. We trying to address each one of them. He is very ill. He has hypothermia, high sodium, sepsis, pneumonia, gastrointestinal bleed, anemia, diabetes. I will continue with aggressive treatment and care. He has been seen by numerous specialist Media Supervisor, Pulmonary, Ear, Nose and Throat, Ophthalmology, Endocrinology, Renal, Cardiology, Infectious Disease, Podiatry, GI and Surgery. We will continue aggressive treatment and care . Kirill Alcazar DO MTDD
--- NOTE | 2018-04-07 13:29 | PCM.SURG1 ---
Surgeon's Initial Post Op Note - Surgeon's Notes Surgeon: Ck Caal Joint Special Operations: Jos Carballo Type of Anesthesia: Local Anesthesia Administered By: Jos Carballo Pre-Operative Diagnosis: Rash Operative Findings: see operative dictation Post-Operative Diagnosis: Rash Operation Performed: skin biopsy Specimen/Specimens Removed: tissue specimens from right arm, right thigh, left thigh Estimated Blood Loss: EBL {In ML}: 1 Date of Surgery/Procedure: 04/07/18 Time of Surgery/Procedure: 13:00
--- NOTE | 2018-04-07 13:45 | CP.PCM.PN ---
<Peterson Houser - Last Filed: 04/07/18 13:36> Subjective - Date & Time of Evaluation Date of Evaluation: 04/07/18 Time of Evaluation: 07:00 - Subjective Subjective: ID Progress Note Patient seen and examined. Patient appears confused, not able to answer questions appropriately. Hypothermic overnight. Objective - Vital Signs/Intake and Output Vital Signs (last 24 hours): Temp Pulse Resp BP Pulse Ox 99.0 F 94 H 27 H 137/53 L 85 L 04/07/18 13:00 04/07/18 13:00 04/07/18 13:00 04/07/18 12:00 04/07/18 13:00 Intake and Output: 04/07/18 04/07/18 06:59 18:59 Intake Total 2150 Output Total 400 Balance 1750 - Medications Medications: Current Medications Acetylcysteine (Acetylcysteine 20%) 4 ml IH BIDRESP [facility] Last Admin: 04/07/18 08:14 Dose: 4 ml Aspirin (Aspirin Chewable) 81 mg PO DAILY [facility] Last Admin: 04/04/18 18:59 Dose: Not Given Carbamide Peroxide (Debrox Ear Drops) 0 ml AU BID [facility] Last Admin: 04/07/18 09:10 Dose: 5 drop Carvedilol (Coreg) 3.125 mg PO BID [facility] Last Admin: 04/04/18 19:00 Dose: Not Given Clotrimazole (Lotrimin 1%) 0 gm TOP BID PRN PRN Reason: Rash Last Admin: 04/02/18 09:40 Dose: 1 applic Amino Acids (Clinimix 4.25/5 % (1000 Ml)) 1,000 mls @ 42 mls/hr IV .[id number] [facility] Last Admin: 04/06/18 18:43 Dose: Not Given Fat Emulsion-Soy/MCT/[place]/Fish Oil (Smoflipid 20%) 250 mls @ 21 mls/hr IV MWF@1800 [facility] Last Admin: 04/05/18 18:47 Dose: 21 mls/hr Phenylephrine HCl 40 mg/ (Sodium Chloride) 254 mls @ 38.1 mls/hr IV .Q6H40M PRN; Protocol PRN Reason: TITRATE PER MD ORDER Last Titration: 04/05/18 09:30 Dose: 0 mcg/min, 0 mls/hr Vasopressin 20 units/ Sodium (Chloride) 101 mls @ 9.09 mls/hr IV .Q11H7M [facility]; Protocol Last Admin: 04/05/18 03:19 Dose: Not Given Fentanyl Citrate (Fentanyl Citrate/Sodium Chloride 1 Mg/100 Ml) 1,000 mcg in 100 mls @ 2 mls/hr IV .Q24H PRN; Protocol PRN Reason: TITRATE PER MD ORDER Norepinephrine Bitartrate 8 mg (/ Sodium Chloride) 500 mls @ 112.5 mls/hr IV .Q4H27M [facility]; Protocol Last Titration: 04/06/18 07:30 Dose: 0 mcg/min, 0 mls/hr Meropenem/Sodium Chloride (Merrem Iv 500 Mg/Ns 50 Ml) 500 mg in 50 mls @ 100 mls/hr IVPB Q12 [facility]; Protocol Stop: 04/12/18 07:01 Last Admin: 04/07/18 09:07 Dose: 100 mls/hr Micafungin Sodium 100 mg/ (Sodium Chloride) 100 mls @ 100 mls/hr IV DAILY [facility]; Protocol Stop: 04/13/18 11:01 Last Admin: 04/07/18 09:11 Dose: 100 mls/hr Sodium Chloride (Sodium Chloride 0.45%) 1,000 mls @ 150 mls/hr IV .Q6H40M [facility] Last Admin: 04/07/18 11:31 Dose: 150 mls/hr Insulin Human Regular (Humulin R Low) 0 units SC Q6 [facility]; Protocol Last Admin: 04/07/18 11:39 Dose: Not Given Lactic Acid (Lac-Hydrin 12% Cream (140 G)) 0 ea TOP TID PRN PRN Reason: Dry skin Last Admin: 04/06/18 08:48 Dose: 1 applic Levalbuterol HCl (Xopenex) 1.25 mg IH [id number] [facility] Last Admin: 04/07/18 08:14 Dose: 1.25 mg Losartan Potassium (Cozaar) 12.5 mg PO DAILY [facility] Last Admin: 04/04/18 19:00 Dose: Not Given Multi-Ingredient Cream (Hydrocerin Cream) 0 ea TOP 1000,2200 [facility] Last Admin: 04/07/18 09:07 Dose: 1 applic Pantoprazole Sodium (Protonix Inj) 40 mg IVP Q12 [facility] Last Admin: 04/07/18 09:10 Dose: 40 mg Silver Sulfadiazine (Silvadene 1% 25 Gm) 0 gm TP BID PRN PRN Reason: Dry skin Last Admin: 04/06/18 11:16 Dose: 1 gm Tobramycin Sulfate (Tobrex 0.3% Ophth Soln) 1 drop OU Q4 [facility] Last Admin: 04/07/18 11:40 Dose: 1 drop - Labs Labs: 04/07/18 08:20 04/07/18 08:20 PT 16.1 SECONDS (9.4-12.5) H 04/04/18 16:00 INR 1.45 04/04/18 16:00 APTT 39.1 Seconds (26.9-38.3) H 04/04/18 16:00 - Constitutional Appears: Non-toxic, No Acute Distress - Head Exam Head Exam: ATRAUMATIC, NORMAL INSPECTION, NORMOCEPHALIC - Respiratory Exam Respiratory Exam: Decreased Breath Sounds, Rhonchi (Improving), NORMAL BREATHING PATTERN - Cardiovascular Exam Cardiovascular Exam: RRR, +S1, +S2 - GI/Abdominal Exam GI & Abdominal Exam: Soft, Normal Bowel Sounds. absent: Tenderness - Extremities Exam Extremities Exam: Pedal Edema (+1 b/l) - Neurological Exam Neurological Exam: Alert, Awake - Skin Skin Exam: Dry Additional comments: Diffuse, full body exfoliative dermatitis. Improving. 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 Hx of HTN Hx of prolymphocytic leukemia Plan Continue Merrem and Micafungin Awaiting blood culture yeast identification Echocardiogram negative for endocarditis Patient seen by opthamology, no further intervention needed Skin biopsy today Hypothermia potentially related to exfoliative dermatitis will continue to monitor clinically Mik, PGY-3 <Zhou Leos - Last Filed: 04/07/18 16:38> Objective - Vital Signs/Intake and Output Vital Signs (last 24 hours): Temp Pulse Resp BP Pulse Ox 96.1 F L 86 30 H 105/47 L 75 L 04/07/18 15:00 04/07/18 15:00 04/07/18 15:00 04/07/18 15:00 04/07/18 15:00 Intake and Output: 04/07/18 04/07/18 06:59 18:59 Intake Total 2150 Output Total 400 Balance 1750 - Medications Medications: Current Medications Acetylcysteine (Acetylcysteine 20%) 4 ml IH BIDRESP [facility] Last Admin: 04/07/18 08:14 Dose: 4 ml Aspirin (Aspirin Chewable) 81 mg PO DAILY [facility] Last Admin: 04/04/18 18:59 Dose: Not Given Carbamide Peroxide (Debrox Ear Drops) 0 ml AU BID [facility] Last Admin: 04/07/18 09:10 Dose: 5 drop Carvedilol (Coreg) 3.125 mg PO BID [facility] Last Admin: 04/04/18 19:00 Dose: Not Given Clotrimazole (Lotrimin 1%) 0 gm TOP BID PRN PRN Reason: Rash Last Admin: 04/02/18 09:40 Dose: 1 applic Fat Emulsion-Soy/MCT/[place]/Fish Oil (Smoflipid 20%) 250 mls @ 21 mls/hr IV MWF@1800 [facility] Last Admin: 04/05/18 18:47 Dose: 21 mls/hr Phenylephrine HCl 40 mg/ (Sodium Chloride) 254 mls @ 38.1 mls/hr IV .Q6H40M PRN; Protocol PRN Reason: TITRATE PER MD ORDER Last Titration: 04/05/18 09:30 Dose: 0 mcg/min, 0 mls/hr Vasopressin 20 units/ Sodium (Chloride) 101 mls @ 9.09 mls/hr IV .Q11H7M [facility]; Protocol Last Admin: 04/05/18 03:19 Dose: Not Given Fentanyl Citrate (Fentanyl Citrate/Sodium Chloride 1 Mg/100 Ml) 1,000 mcg in 100 mls @ 2 mls/hr IV .Q24H PRN; Protocol PRN Reason: TITRATE PER MD ORDER Norepinephrine Bitartrate 8 mg (/ Sodium Chloride) 500 mls @ 112.5 mls/hr IV .Q4H27M [facility]; Protocol Last Titration: 04/06/18 07:30 Dose: 0 mcg/min, 0 mls/hr Meropenem/Sodium Chloride (Merrem Iv 500 Mg/Ns 50 Ml) 500 mg in 50 mls @ 100 mls/hr IVPB Q12 [facility]; Protocol Stop: 04/12/18 07:01 Last Admin: 04/07/18 09:07 Dose: 100 mls/hr Micafungin Sodium 100 mg/ (Sodium Chloride) 100 mls @ 100 mls/hr IV DAILY [facility]; Protocol Stop: 04/13/18 11:01 Last Admin: 04/07/18 09:11 Dose: 100 mls/hr Dextrose (Dextrose 5% In Water 1000 Ml) 1,000 mls @ 100 mls/hr IV .Q10H [facility] Last Admin: 04/07/18 14:44 Dose: 100 mls/hr Insulin Human Regular (Humulin R Low) 0 units SC Q6 [facility]; Protocol Last Admin: 04/07/18 11:39 Dose: Not Given Lactic Acid (Lac-Hydrin 12% Cream (140 G)) 0 ea TOP TID PRN PRN Reason: Dry skin Last Admin: 04/06/18 08:48 Dose: 1 applic Levalbuterol HCl (Xopenex) 1.25 mg IH [id number] [facility] Last Admin: 04/07/18 14:20 Dose: 1.25 mg Losartan Potassium (Cozaar) 12.5 mg PO DAILY [facility] Last Admin: 04/04/18 19:00 Dose: Not Given Multi-Ingredient Cream (Hydrocerin Cream) 0 ea TOP 1000,2200 [facility] Last Admin: 04/07/18 09:07 Dose: 1 applic Pantoprazole Sodium (Protonix Inj) 40 mg IVP Q12 [facility] Last Admin: 04/07/18 09:10 Dose: 40 mg Silver Sulfadiazine (Silvadene 1% 25 Gm) 0 gm TP BID PRN PRN Reason: Dry skin Last Admin: 04/06/18 11:16 Dose: 1 gm Tobramycin Sulfate (Tobrex 0.3% Oph Soln) 1 drop OU Q4 [facility] Last Admin: 04/07/18 16:15 Dose: 1 drop - Labs Labs: 04/07/18 08:20 04/07/18 15:19 PT 16.1 SECONDS (9.4-12.5) H 04/04/18 16:00 INR 1.45 04/04/18 16:00 APTT 39.1 Seconds (26.9-38.3) H 04/04/18 16:00 Assessment and Plan - Assessment and Plan (Free Text) Plan: Infectious diseases Attending Physician Attestation Patient seen and examined, discussed with veterinary medical officer. I have reviewed the patient's history of present illness, past medical, social, personal and family histories, pertinent physical exam findings, course so far in this hospital admission, pertinent laboratory and imaging results. I agree with the above findings, assessment and plan. In addition, continue Mycamine for sepsis due to fungemia, source not clear. 2D echo does not show vegetations. Patient has been treated for left sided HCAP, but cannot rule out intra-abdominal infection - should consider CT A/P. Follow up repeat blood cx and final identification and sensitivities. Follow up Ophtho exam. Overall prognosis is poor.
--- NOTE | 2018-04-07 13:45 | CP.CCUPN ---
<Sonja Garcia - Last Filed: 04/07/18 14:00> CCU Subjective - Physician Review Subjective (Free Text): Sonja Garcia PGY1 Critical Care Progress Note Patient seen and examined at bedside this morning. No acute events overnight. S/p extubation on 04/05, with current oxygen saturation 92-94% on NC 5L and weaning off Bipap. CXR shows increasing left opacities. Started on CLD with nectar thick as per swallow eval. Patient denies CP, SOB, abdominal pain, numbness and tingling. CCU Objective - Vital Signs / Intake & Output Vital Signs (Last 4 hours): Vital Signs Temp Pulse Resp BP Pulse Ox 04/07/18 13:00 99.0 F 94 H 27 H 85 L 04/07/18 12:00 98.6 F 90 22 137/53 L 79 L 04/07/18 11:00 98.2 F 96 H 25 H 159/69 H 81 L 04/07/18 10:00 97.7 F 74 21 111/50 L 95 Intake and Output (Last 8hrs): Intake & Output 04/06/18 04/07/18 04/07/18 22:59 06:59 14:59 Intake Total 2300 2150 Output Total 660 400 Balance 1640 1750 Weight 160 lb 160 lb Intake: IV 2000 2150 Right Femoral 1999 2150 Oral 0 TPN/PPN 300 Output: Urine 640 400 Urethral (Bautista) 640 400 Stool 20 Emesis 0 - Physical Exam Head: Positive for: Atraumatic, Normocephalic Pupils: Positive for: PERRL Extroacular Muscles: Positive for: EOMI Conjunctiva: Positive for: Normal Mouth: Positive for: Dry, Other (oropharngeal secretions noted ) Neck: Positive for: Normal Range of Motion Respiratory/Chest: Positive for: Rhonchi (Diffuse rhonchi). Negative for: Respiratory Distress, Accessory Muscle Use Cardiovascular: Positive for: Regular Rate and Rhythm, Normal S1, S2. Negative for: Murmurs Abdomen: Negative for: Tenderness, Distention, Peritoneal Signs Back: Positive for: Normal Inspection Upper Extremity: Positive for: Normal Inspection. Negative for: Cyanosis, Edema Lower Extremity: Positive for: Edema (2+ pitting eddema bilaterally) Neurological: Positive for: Other (lethargic ) Skin: Positive for: Warm, Dry, Other (gross exfoliative skin lesions present throughout body, no active bleeding appreciated ). Negative for: Rashes Psychiatric: Positive for: Alert - Medications Active Medications: Active Medications Generic Name Dose Route Start Last Admin Trade Name Freq PRN Reason Stop Dose Admin Acetylcysteine 4 ml 04/07/18 08:00 04/07/18 08:14 Acetylcysteine 20% IH 4 ml BIDRESP RIYA Administration Aspirin 81 mg 03/26/18 10:00 04/04/18 18:59 Aspirin Chewable PO Not Given DAILY RIYA Carbamide Peroxide 0 ml 04/02/18 18:00 04/07/18 09:10 Debrox Ear Drops AU 5 drop BID RIYA Administration Carvedilol 3.125 mg 03/25/18 18:00 04/04/18 19:00 Coreg PO Not Given BID RIYA Clotrimazole 0 gm 03/28/18 10:00 04/02/18 09:40 Lotrimin 1% TOP 1 applic BID PRN Administration Rash Amino Acids 1,000 mls @ 42 mls/hr 04/04/18 18:00 04/06/18 18:43 Clinimix 4.25/5 % (1000 Ml) IV Not Given .[id number] RIYA Fat Emulsion-Soy/MCT/Banco/Fish Oil 250 mls @ 21 mls/hr 04/05/18 18:00 04/05/18 18:47 Smoflipid 20% IV 21 mls/hr MWF@1800 RIYA Administration Phenylephrine HCl 40 mg/ 254 mls @ 38.1 mls/hr 04/04/18 14:38 04/05/18 09:30 Sodium Chloride IV 0 mcg/min .Q6H40M PRN 0 mls/hr TITRATE PER MD ORDER Titration Protocol 100 MCG/MIN Vasopressin 20 units/ Sodium 101 mls @ 9.09 mls/hr 04/04/18 14:45 04/05/18 03:19 Chloride IV Not Given .Q11H7M RIYA Protocol 0.03 U/MIN Fentanyl Citrate 1,000 mcg in 100 mls @ 2 mls/hr 04/04/18 16:15 Fentanyl Citrate/Sodium Chloride 1 Mg/100 Ml IV .Q24H PRN TITRATE PER MD ORDER Protocol 20 MCG/HR Norepinephrine Bitartrate 8 mg 500 mls @ 112.5 mls/hr 04/04/18 19:00 04/06/18 07:30 / Sodium Chloride IV 0 mcg/min .Q4H27M RIYA 0 mls/hr Titration Protocol 30 MCG/MIN Meropenem/Sodium Chloride 500 mg in 50 mls @ 100 mls/hr 04/05/18 07:00 04/07/18 09:07 Merrem Iv 500 Mg/Ns 50 Ml IVPB 04/12/18 07:01 100 mls/hr Q12 RIYA Administration Protocol Micafungin Sodium 100 mg/ 100 mls @ 100 mls/hr 04/06/18 11:00 04/07/18 09:11 Sodium Chloride IV 04/13/18 11:01 100 mls/hr DAILY RIYA Administration Protocol Sodium Chloride 1,000 mls @ 150 mls/hr 04/07/18 11:30 04/07/18 11:31 Sodium Chloride 0.45% IV 150 mls/hr .Q6H40M RIYA Administration Insulin Human Regular 0 units 04/05/18 09:00 04/07/18 11:39 Humulin R Low SC Not Given Q6 RIYA Protocol Lactic Acid 0 ea 03/28/18 10:00 04/06/18 08:48 Lac-Hydrin 12% Cream (140 G) TOP 1 applic TID PRN Administration Dry skin Levalbuterol HCl 1.25 mg 04/07/18 08:00 04/07/18 08:14 Xopenex IH 1.25 mg [id number] RIYA Administration Losartan Potassium 12.5 mg 03/26/18 10:00 04/04/18 19:00 Cozaar PO Not Given DAILY RIYA Multi-Ingredient Cream 0 ea 03/31/18 10:00 04/07/18 09:07 Hydrocerin Cream TOP 1 applic 1000,2200 RIYA Administration Pantoprazole Sodium 40 mg 04/06/18 22:00 04/07/18 09:10 Protonix Inj IVP 40 mg Q12 RIYA Administration Silver Sulfadiazine 0 gm 03/28/18 10:00 04/06/18 11:16 Silvadene 1% 25 Gm TP 1 gm BID PRN Administration Dry skin Tobramycin Sulfate 1 drop 04/07/18 08:00 04/07/18 11:40 Tobrex 0.3% Ophth Soln OU 1 drop Q4 RIYA Administration - Patient Studies Lab Studies: Microbiology Studies 04/04/18 14:30 Blood Culture - Preliminary Blood-Venous Yeast Species Gram Stain - Final 04/04/18 14:00 Blood Culture - Preliminary Blood-Venous Yeast Species Gram Stain - Final 04/05/18 11:10 MRSA Culture (Admit) - Final Naris MRSA NOT DETECTED Lab Studies 04/07/18 04/07/18 04/07/18 Range/Units 08:20 08:20 06:10 WBC 13.3 H (4.5-11.0) 10^3/uL RBC 3.06 L (3.5-6.1) 10^6/uL Hgb 8.6 L (14.0-18.0) g/dL Hct 26.9 L (42.0-52.0) % MCV 87.9 (80.0-105.0) fl MCH 28.1 (25.0-35.0) pg MCHC 32.0 (31.0-37.0) g/dl RDW 19.4 H (11.5-14.5) % Plt Count 63 L (120.0-450.0) 10^3/uL Neut % (Auto) (50.0-68.0) % Lymph % (Auto) (22.0-35.0) % Wilcox % (Auto) (1.0-6.0) % Eos % (Auto) (1.5-5.0) % Baso % (Auto) (0.0-3.0) % Lymph # (Auto) (1.2-3.4) Wilcox # (Auto) (0.1-0.6) Eos # (Auto) (0.0-0.7) Baso # (Auto) (0.0-2.0) K/mm3 Absolute Neuts (auto) (1.4-6.5) Neutrophils % (Manual) (50.0-70.0) % Band Neutrophils % (0-2) % Lymphocytes % (Manual) (22.0-35.0) % Atypical Lymphs % (0.0-0.0) % Monocytes % (Manual) (1.0-6.0) % Nucleated RBC % % Differential Comment Platelet Evaluation (NORMAL) Poikilocytosis (manual Anisocytosis (manual) Target Cells Ovalocytes pCO2 (35-45) mm/Hg pO2 (80-100) mm/Hg HCO3 (21-28) mmol/L ABG pH (7.35-7.45) ABG Total CO2 (22-28) mmol.L ABG O2 Saturation (95-98) % ABG O2 Content (15-23) ML/dl ABG Base Excess (-2.0-3.0) mmol/L ABG Hemoglobin (11.7-17.4) g/dL ABG Carboxyhemoglobin (0.5-1.5) % POC ABG HHb (Measured) (0-5) % ABG Methemoglobin (0.0-3.0) % ABG O2 Capacity (16-24) mL/dl ABG Potassium (3.6-5.2) mmol/L Hgb O2 Saturation (95.0-98.0) % Sodium 163 H* (132-148) mmol/L Chloride 138 H (98-107) mmol/L Glucose (75-110) mg/dl Lactate (0.7-2.1) mmol/L FiO2 % Inspiratory BiPAP Blood Gas Comments Crit Value Called To Crit Value Called By Blood Gas Notified Time Potassium 3.7 (3.6-5.0) mmol/L Carbon Dioxide 22 (21-33) mmol/L Anion Gap 8 L (10-20) BUN 59 H (7-21) mg/dL Creatinine 1.9 H (0.8-1.5) mg/dl Est GFR ( Amer) 42 Est GFR (Non-Af Amer) 35 POC Glucose (mg/dL) 131 H (65-110) mg/dL Random Glucose 97 (70-110) mg/dL Calcium 8.1 L (8.4-10.5) mg/dL Total Bilirubin (0.2-1.3) mg/dL AST (17-59) U/L ALT (7-56) U/L Alkaline Phosphatase (38-126) U/L Total Protein (5.8-8.3) g/dL Albumin (3.0-4.8) g/dL Globulin gm/dL Albumin/Globulin Ratio (1.1-1.8) Arterial Blood Potassium (3.6-5.2) mmol/L Rheumatoid Factor IgM (<=6) U Cryptococcus Ag Screen (Not Detected) Crossmatch 04/07/18 04/07/18 04/07/18 Range/Units 05:00 04:00 04:00 WBC 13.4 H (4.5-11.0) 10^3/uL RBC 2.91 L (3.5-6.1) 10^6/uL Hgb 8.2 L (14.0-18.0) g/dL Hct 25.6 L (42.0-52.0) % MCV 88.0 (80.0-105.0) fl MCH 28.2 (25.0-35.0) pg MCHC 32.0 (31.0-37.0) g/dl RDW 19.2 H (11.5-14.5) % Plt Count 60 L (120.0-450.0) 10^3/uL Neut % (Auto) (50.0-68.0) % Lymph % (Auto) (22.0-35.0) % Wilcox % (Auto) (1.0-6.0) % Eos % (Auto) (1.5-5.0) % Baso % (Auto) (0.0-3.0) % Lymph # (Auto) (1.2-3.4) Wilcox # (Auto) (0.1-0.6) Eos # (Auto) (0.0-0.7) Baso # (Auto) (0.0-2.0) K/mm3 Absolute Neuts (auto) (1.4-6.5) Neutrophils % (Manual) (50.0-70.0) % Band Neutrophils % (0-2) % Lymphocytes % (Manual) (22.0-35.0) % Atypical Lymphs % (0.0-0.0) % Monocytes % (Manual) (1.0-6.0) % Nucleated RBC % % Differential Comment Platelet Evaluation (NORMAL) Poikilocytosis (manual Anisocytosis (manual) Target Cells Ovalocytes pCO2 32 L (35-45) mm/Hg pO2 85.0 (80-100) mm/Hg HCO3 19.8 L (21-28) mmol/L ABG pH 7.40 (7.35-7.45) ABG Total CO2 20.8 L (22-28) mmol.L ABG O2 Saturation 99.2 H (95-98) % ABG O2 Content 11.5 L (15-23) ML/dl ABG Base Excess -4.4 L (-2.0-3.0) mmol/L ABG Hemoglobin 8.4 L (11.7-17.4) g/dL ABG Carboxyhemoglobin 1.9 H (0.5-1.5) % POC ABG HHb (Measured) 0.8 (0-5) % ABG Methemoglobin 1.2 (0.0-3.0) % ABG O2 Capacity 11.6 L (16-24) mL/dl ABG Potassium (3.6-5.2) mmol/L Hgb O2 Saturation 96.2 (95.0-98.0) % Sodium 164 H* (132-148) mmol/L Chloride 139 H (98-107) mmol/L Glucose (75-110) mg/dl Lactate (0.7-2.1) mmol/L FiO2 40.0 % Inspiratory BiPAP Blood Gas Comments Crit Value Called To Crit Value Called By Blood Gas Notified Time Potassium 3.3 L (3.6-5.0) mmol/L Carbon Dioxide 23 (21-33) mmol/L Anion Gap 6 L (10-20) BUN 58 H (7-21) mg/dL Creatinine 1.9 H (0.8-1.5) mg/dl Est GFR ( Amer) 42 Est GFR (Non-Af Amer) 35 POC Glucose (mg/dL) (65-110) mg/dL Random Glucose 143 H (70-110) mg/dL Calcium 8.2 L (8.4-10.5) mg/dL Total Bilirubin 0.2 (0.2-1.3) mg/dL AST 14 L (17-59) U/L ALT 9 (7-56) U/L Alkaline Phosphatase 211 H D (38-126) U/L Total Protein 4.1 L (5.8-8.3) g/dL Albumin 1.9 L (3.0-4.8) g/dL Globulin 2.2 gm/dL Albumin/Globulin Ratio 0.8 L (1.1-1.8) Arterial Blood Potassium (3.6-5.2) mmol/L Rheumatoid Factor IgM (<=6) U Cryptococcus Ag Screen (Not Detected) Crossmatch 04/07/18 04/07/18 04/07/18 Range/Units 01:00 01:00 00:53 WBC 14.9 H D (4.5-11.0) 10^3/uL RBC 2.97 L (3.5-6.1) 10^6/uL Hgb 8.5 L (14.0-18.0) g/dL Hct 26.3 L (42.0-52.0) % MCV 88.6 (80.0-105.0) fl MCH 28.6 (25.0-35.0) pg MCHC 32.3 (31.0-37.0) g/dl RDW 19.4 H (11.5-14.5) % Plt Count 58 L (120.0-450.0) 10^3/uL Neut % (Auto) (50.0-68.0) % Lymph % (Auto) (22.0-35.0) % Wilcox % (Auto) (1.0-6.0) % Eos % (Auto) (1.5-5.0) % Baso % (Auto) (0.0-3.0) % Lymph # (Auto) (1.2-3.4) Wilcox # (Auto) (0.1-0.6) Eos # (Auto) (0.0-0.7) Baso # (Auto) (0.0-2.0) K/mm3 Absolute Neuts (auto) (1.4-6.5) Neutrophils % (Manual) (50.0-70.0) % Band Neutrophils % (0-2) % Lymphocytes % (Manual) (22.0-35.0) % Atypical Lymphs % (0.0-0.0) % Monocytes % (Manual) (1.0-6.0) % Nucleated RBC % % Differential Comment Platelet Evaluation (NORMAL) Poikilocytosis (manual Anisocytosis (manual) Target Cells Ovalocytes pCO2 (35-45) mm/Hg pO2 (80-100) mm/Hg HCO3 (21-28) mmol/L ABG pH (7.35-7.45) ABG Total CO2 (22-28) mmol.L ABG O2 Saturation (95-98) % ABG O2 Content (15-23) ML/dl ABG Base Excess (-2.0-3.0) mmol/L ABG Hemoglobin (11.7-17.4) g/dL ABG Carboxyhemoglobin (0.5-1.5) % POC ABG HHb (Measured) (0-5) % ABG Methemoglobin (0.0-3.0) % ABG O2 Capacity (16-24) mL/dl ABG Potassium (3.6-5.2) mmol/L Hgb O2 Saturation (95.0-98.0) % Sodium 164 H* (132-148) mmol/L Chloride 139 H (98-107) mmol/L Glucose (75-110) mg/dl Lactate (0.7-2.1) mmol/L FiO2 % Inspiratory BiPAP Blood Gas Comments Crit Value Called To Crit Value Called By Blood Gas Notified Time Potassium 3.5 L (3.6-5.0) mmol/L Carbon Dioxide 22 (21-33) mmol/L Anion Gap 6 L (10-20) BUN 57 H (7-21) mg/dL Creatinine 2.0 H (0.8-1.5) mg/dl Est GFR ( Amer) 40 Est GFR (Non-Af Amer) 33 POC Glucose (mg/dL) 163 H (65-110) mg/dL Random Glucose 159 H (70-110) mg/dL Calcium 8.1 L (8.4-10.5) mg/dL Total Bilirubin (0.2-1.3) mg/dL AST (17-59) U/L ALT (7-56) U/L Alkaline Phosphatase (38-126) U/L Total Protein (5.8-8.3) g/dL Albumin (3.0-4.8) g/dL Globulin gm/dL Albumin/Globulin Ratio (1.1-1.8) Arterial Blood Potassium (3.6-5.2) mmol/L Rheumatoid Factor IgM (<=6) U Cryptococcus Ag Screen (Not Detected) Crossmatch 04/06/18 04/06/18 04/06/18 Range/Units 20:10 18:17 17:49 WBC (4.5-11.0) 10^3/uL RBC (3.5-6.1) 10^6/uL Hgb (14.0-18.0) g/dL Hct (42.0-52.0) % MCV (80.0-105.0) fl MCH (25.0-35.0) pg MCHC (31.0-37.0) g/dl RDW (11.5-14.5) % Plt Count (120.0-450.0) 10^3/uL Neut % (Auto) (50.0-68.0) % Lymph % (Auto) (22.0-35.0) % Wilcox % (Auto) (1.0-6.0) % Eos % (Auto) (1.5-5.0) % Baso % (Auto) (0.0-3.0) % Lymph # (Auto) (1.2-3.4) Wilcox # (Auto) (0.1-0.6) Eos # (Auto) (0.0-0.7) Baso # (Auto) (0.0-2.0) K/mm3 Absolute Neuts (auto) (1.4-6.5) Neutrophils % (Manual) (50.0-70.0) % Band Neutrophils % (0-2) % Lymphocytes % (Manual) (22.0-35.0) % Atypical Lymphs % (0.0-0.0) % Monocytes % (Manual) (1.0-6.0) % Nucleated RBC % % Differential Comment Platelet Evaluation (NORMAL) Poikilocytosis (manual Anisocytosis (manual) Target Cells Ovalocytes pCO2 48 H (35-45) mm/Hg pO2 153.0 H (80-100) mm/Hg HCO3 21.0 (21-28) mmol/L ABG pH 7.25 L (7.35-7.45) ABG Total CO2 22.5 (22-28) mmol.L ABG O2 Saturation 99.6 H (95-98) % ABG O2 Content (15-23) ML/dl ABG Base Excess -6.4 L (-2.0-3.0) mmol/L ABG Hemoglobin (11.7-17.4) g/dL ABG Carboxyhemoglobin (0.5-1.5) % POC ABG HHb (Measured) (0-5) % ABG Methemoglobin (0.0-3.0) % ABG O2 Capacity (16-24) mL/dl ABG Potassium 3.4 L (3.6-5.2) mmol/L Hgb O2 Saturation (95.0-98.0) % Sodium 163 H* 170.0 H* (132-148) mmol/L Chloride 138 H 141.0 H (98-107) mmol/L Glucose 196 H (75-110) mg/dl Lactate 1.1 (0.7-2.1) mmol/L FiO2 50.0 % Inspiratory BiPAP 14 Blood Gas Comments Cl141 na 170 Crit Value Called To Dr. armijo Crit Value Called By Rst Blood Gas Notified Time 1720 Potassium 3.5 L (3.6-5.0) mmol/L Carbon Dioxide 23 (21-33) mmol/L Anion Gap 6 L (10-20) BUN 58 H (7-21) mg/dL Creatinine 1.9 H (0.8-1.5) mg/dl Est GFR ( Amer) 42 Est GFR (Non-Af Amer) 35 POC Glucose (mg/dL) 207 H (65-110) mg/dL Random Glucose 225 H (70-110) mg/dL Calcium 8.1 L (8.4-10.5) mg/dL Total Bilirubin (0.2-1.3) mg/dL AST (17-59) U/L ALT (7-56) U/L Alkaline Phosphatase (38-126) U/L Total Protein (5.8-8.3) g/dL Albumin (3.0-4.8) g/dL Globulin gm/dL Albumin/Globulin Ratio (1.1-1.8) Arterial Blood Potassium 3.4 L (3.6-5.2) mmol/L Rheumatoid Factor IgM (<=6) U Cryptococcus Ag Screen (Not Detected) Crossmatch 04/06/18 04/06/18 04/06/18 Range/Units 12:45 11:31 09:10 WBC 21.1 H (4.5-11.0) 10^3/uL RBC 3.05 L (3.5-6.1) 10^6/uL Hgb 8.6 L (14.0-18.0) g/dL Hct 26.7 L (42.0-52.0) % MCV 87.5 (80.0-105.0) fl MCH 28.2 (25.0-35.0) pg MCHC 32.2 (31.0-37.0) g/dl RDW 18.7 H (11.5-14.5) % Plt Count 73 L (120.0-450.0) 10^3/uL Neut % (Auto) 79.7 H (50.0-68.0) % Lymph % (Auto) 13.8 L (22.0-35.0) % Wilcox % (Auto) 6.4 H (1.0-6.0) % Eos % (Auto) 0.0 L (1.5-5.0) % Baso % (Auto) 0.1 (0.0-3.0) % Lymph # (Auto) 2.9 (1.2-3.4) Wilcox # (Auto) 1.4 H (0.1-0.6) Eos # (Auto) 0.0 (0.0-0.7) Baso # (Auto) 0.02 (0.0-2.0) K/mm3 Absolute Neuts (auto) 16.82 H (1.4-6.5) Neutrophils % (Manual) 87 H (50.0-70.0) % Band Neutrophils % 3 H (0-2) % Lymphocytes % (Manual) 6 L (22.0-35.0) % Atypical Lymphs % 1 H (0.0-0.0) % Monocytes % (Manual) 3 (1.0-6.0) % Nucleated RBC % 4 % Differential Comment See pathology report Platelet Evaluation Low (NORMAL) Poikilocytosis (manual 1+ Anisocytosis (manual) 1+ Target Cells Slight Ovalocytes Slight pCO2 (35-45) mm/Hg pO2 (80-100) mm/Hg HCO3 (21-28) mmol/L ABG pH (7.35-7.45) ABG Total CO2 (22-28) mmol.L ABG O2 Saturation (95-98) % ABG O2 Content (15-23) ML/dl ABG Base Excess (-2.0-3.0) mmol/L ABG Hemoglobin (11.7-17.4) g/dL ABG Carboxyhemoglobin (0.5-1.5) % POC ABG HHb (Measured) (0-5) % ABG Methemoglobin (0.0-3.0) % ABG O2 Capacity (16-24) mL/dl ABG Potassium (3.6-5.2) mmol/L Hgb O2 Saturation (95.0-98.0) % Sodium (132-148) mmol/L Chloride (98-107) mmol/L Glucose (75-110) mg/dl Lactate (0.7-2.1) mmol/L FiO2 % Inspiratory BiPAP Blood Gas Comments Crit Value Called To Crit Value Called By Blood Gas Notified Time Potassium (3.6-5.0) mmol/L Carbon Dioxide (21-33) mmol/L Anion Gap (10-20) BUN (7-21) mg/dL Creatinine (0.8-1.5) mg/dl Est GFR ( Amer) Est GFR (Non-Af Amer) POC Glucose (mg/dL) 152 H (65-110) mg/dL Random Glucose (70-110) mg/dL Calcium (8.4-10.5) mg/dL Total Bilirubin (0.2-1.3) mg/dL AST (17-59) U/L ALT (7-56) U/L Alkaline Phosphatase (38-126) U/L Total Protein (5.8-8.3) g/dL Albumin (3.0-4.8) g/dL Globulin gm/dL Albumin/Globulin Ratio (1.1-1.8) Arterial Blood Potassium (3.6-5.2) mmol/L Rheumatoid Factor IgM (<=6) U Cryptococcus Ag Screen Not detected (Not Detected) Crossmatch 04/04/18 03/31/18 Range/Units 13:59 13:19 WBC (4.5-11.0) 10^3/uL RBC (3.5-6.1) 10^6/uL Hgb (14.0-18.0) g/dL Hct (42.0-52.0) % MCV (80.0-105.0) fl MCH (25.0-35.0) pg MCHC (31.0-37.0) g/dl RDW (11.5-14.5) % Plt Count (120.0-450.0) 10^3/uL Neut % (Auto) (50.0-68.0) % Lymph % (Auto) (22.0-35.0) % Wilcox % (Auto) (1.0-6.0) % Eos % (Auto) (1.5-5.0) % Baso % (Auto) (0.0-3.0) % Lymph # (Auto) (1.2-3.4) Wilcox # (Auto) (0.1-0.6) Eos # (Auto) (0.0-0.7) Baso # (Auto) (0.0-2.0) K/mm3 Absolute Neuts (auto) (1.4-6.5) Neutrophils % (Manual) (50.0-70.0) % Band Neutrophils % (0-2) % Lymphocytes % (Manual) (22.0-35.0) % Atypical Lymphs % (0.0-0.0) % Monocytes % (Manual) (1.0-6.0) % Nucleated RBC % % Differential Comment Platelet Evaluation (NORMAL) Poikilocytosis (manual Anisocytosis (manual) Target Cells Ovalocytes pCO2 (35-45) mm/Hg pO2 (80-100) mm/Hg HCO3 (21-28) mmol/L ABG pH (7.35-7.45) ABG Total CO2 (22-28) mmol.L ABG O2 Saturation (95-98) % ABG O2 Content (15-23) ML/dl ABG Base Excess (-2.0-3.0) mmol/L ABG Hemoglobin (11.7-17.4) g/dL ABG Carboxyhemoglobin (0.5-1.5) % POC ABG HHb (Measured) (0-5) % ABG Methemoglobin (0.0-3.0) % ABG O2 Capacity (16-24) mL/dl ABG Potassium (3.6-5.2) mmol/L Hgb O2 Saturation (95.0-98.0) % Sodium (132-148) mmol/L Chloride (98-107) mmol/L Glucose (75-110) mg/dl Lactate (0.7-2.1) mmol/L FiO2 % Inspiratory BiPAP Blood Gas Comments Crit Value Called To Crit Value Called By Blood Gas Notified Time Potassium (3.6-5.0) mmol/L Carbon Dioxide (21-33) mmol/L Anion Gap (10-20) BUN (7-21) mg/dL Creatinine (0.8-1.5) mg/dl Est GFR ( Amer) Est GFR (Non-Af Amer) POC Glucose (mg/dL) (65-110) mg/dL Random Glucose (70-110) mg/dL Calcium (8.4-10.5) mg/dL Total Bilirubin (0.2-1.3) mg/dL AST (17-59) U/L ALT (7-56) U/L Alkaline Phosphatase (38-126) U/L Total Protein (5.8-8.3) g/dL Albumin (3.0-4.8) g/dL Globulin gm/dL Albumin/Globulin Ratio (1.1-1.8) Arterial Blood Potassium (3.6-5.2) mmol/L Rheumatoid Factor IgM <5 (<=6) U Cryptococcus Ag Screen (Not Detected) Crossmatch See Detail Laboratory Results - last 24 hr 03/31/18 04/04/18 04/06/18 13:19 13:59 09:10 WBC 21.1 H RBC 3.05 L Hgb 8.6 L Hct 26.7 L MCV 87.5 MCH 28.2 MCHC 32.2 RDW 18.7 H Plt Count 73 L Neut % (Auto) 79.7 H Lymph % (Auto) 13.8 L Wilcox % (Auto) 6.4 H Eos % (Auto) 0.0 L Baso % (Auto) 0.1 Lymph # (Auto) 2.9 Wilcox # (Auto) 1.4 H Eos # (Auto) 0.0 Baso # (Auto) 0.02 Absolute Neuts (auto) 16.82 H Neutrophils % (Manual) 87 H Band Neutrophils % 3 H Lymphocytes % (Manual) 6 L Atypical Lymphs % 1 H Monocytes % (Manual) 3 Nucleated RBC % 4 Differential Comment See pathology report Platelet Evaluation Low Poikilocytosis (manual 1+ Anisocytosis (manual) 1+ Target Cells Slight Ovalocytes Slight pCO2 pO2 HCO3 ABG pH ABG Total CO2 ABG O2 Saturation ABG O2 Content ABG Base Excess ABG Hemoglobin ABG Carboxyhemoglobin POC ABG HHb (Measured) ABG Methemoglobin ABG O2 Capacity ABG Potassium Hgb O2 Saturation Sodium Chloride Glucose Lactate FiO2 Inspiratory BiPAP Blood Gas Comments Crit Value Called To Crit Value Called By Blood Gas Notified Time Potassium Carbon Dioxide Anion Gap BUN Creatinine Est GFR ( Amer) Est GFR (Non-Af Amer) POC Glucose (mg/dL) Random Glucose Calcium Total Bilirubin AST ALT Alkaline Phosphatase Total Protein Albumin Globulin Albumin/Globulin Ratio Arterial Blood Potassium Rheumatoid Factor IgM <5 Cryptococcus Ag Screen Crossmatch See Detail 04/06/18 04/06/18 04/06/18 11:31 12:45 17:49 WBC RBC Hgb Hct MCV MCH MCHC RDW Plt Count Neut % (Auto) Lymph % (Auto) Wilcox % (Auto) Eos % (Auto) Baso % (Auto) Lymph # (Auto) Wilcox # (Auto) Eos # (Auto) Baso # (Auto) Absolute Neuts (auto) Neutrophils % (Manual) Band Neutrophils % Lymphocytes % (Manual) Atypical Lymphs % Monocytes % (Manual) Nucleated RBC % Differential Comment Platelet Evaluation Poikilocytosis (manual Anisocytosis (manual) Target Cells Ovalocytes pCO2 pO2 HCO3 ABG pH ABG Total CO2 ABG O2 Saturation ABG O2 Content ABG Base Excess ABG Hemoglobin ABG Carboxyhemoglobin POC ABG HHb (Measured) ABG Methemoglobin ABG O2 Capacity ABG Potassium Hgb O2 Saturation Sodium Chloride Glucose Lactate FiO2 Inspiratory BiPAP Blood Gas Comments Crit Value Called To Crit Value Called By Blood Gas Notified Time Potassium Carbon Dioxide Anion Gap BUN Creatinine Est GFR ( Amer) Est GFR (Non-Af Amer) POC Glucose (mg/dL) 152 H 207 H Random Glucose Calcium Total Bilirubin AST ALT Alkaline Phosphatase Total Protein Albumin Globulin Albumin/Globulin Ratio Arterial Blood Potassium Rheumatoid Factor IgM Cryptococcus Ag Screen Not detected Crossmatch 04/06/18 04/06/18 04/07/18 18:17 20:10 00:53 WBC RBC Hgb Hct MCV MCH MCHC RDW Plt Count Neut % (Auto) Lymph % (Auto) Wilcox % (Auto) Eos % (Auto) Baso % (Auto) Lymph # (Auto) Wilcox # (Auto) Eos # (Auto) Baso # (Auto) Absolute Neuts (auto) Neutrophils % (Manual) Band Neutrophils % Lymphocytes % (Manual) Atypical Lymphs % Monocytes % (Manual) Nucleated RBC % Differential Comment Platelet Evaluation Poikilocytosis (manual Anisocytosis (manual) Target Cells Ovalocytes pCO2 48 H pO2 153.0 H HCO3 21.0 ABG pH 7.25 L ABG Total CO2 22.5 ABG O2 Saturation 99.6 H ABG O2 Content ABG Base Excess -6.4 L ABG Hemoglobin ABG Carboxyhemoglobin POC ABG HHb (Measured) ABG Methemoglobin ABG O2 Capacity ABG Potassium 3.4 L Hgb O2 Saturation Sodium 170.0 H* 163 H* Chloride 141.0 H 138 H Glucose 196 H Lactate 1.1 FiO2 50.0 Inspiratory BiPAP 14 Blood Gas Comments Cl141 na 170 Crit Value Called To Dr. armijo Crit Value Called By Rst Blood Gas Notified Time 1720 Potassium 3.5 L Carbon Dioxide 23 Anion Gap 6 L BUN 58 H Creatinine 1.9 H Est GFR ( Amer) 42 Est GFR (Non-Af Amer) 35 POC Glucose (mg/dL) 163 H Random Glucose 225 H Calcium 8.1 L Total Bilirubin AST ALT Alkaline Phosphatase Total Protein Albumin Globulin Albumin/Globulin Ratio Arterial Blood Potassium 3.4 L Rheumatoid Factor IgM Cryptococcus Ag Screen Crossmatch 04/07/18 04/07/18 04/07/18 01:00 01:00 04:00 WBC 14.9 H D 13.4 H RBC 2.97 L 2.91 L Hgb 8.5 L 8.2 L Hct 26.3 L 25.6 L MCV 88.6 88.0 MCH 28.6 28.2 MCHC 32.3 32.0 RDW 19.4 H 19.2 H Plt Count 58 L 60 L Neut % (Auto) Lymph % (Auto) Wilcox % (Auto) Eos % (Auto) Baso % (Auto) Lymph # (Auto) Wilcox # (Auto) Eos # (Auto) Baso # (Auto) Absolute Neuts (auto) Neutrophils % (Manual) Band Neutrophils % Lymphocytes % (Manual) Atypical Lymphs % Monocytes % (Manual) Nucleated RBC % Differential Comment Platelet Evaluation Poikilocytosis (manual Anisocytosis (manual) Target Cells Ovalocytes pCO2 pO2 HCO3 ABG pH ABG Total CO2 ABG O2 Saturation ABG O2 Content ABG Base Excess ABG Hemoglobin ABG Carboxyhemoglobin POC ABG HHb (Measured) ABG Methemoglobin ABG O2 Capacity ABG Potassium Hgb O2 Saturation Sodium 164 H* Chloride 139 H Glucose Lactate FiO2 Inspiratory BiPAP Blood Gas Comments Crit Value Called To Crit Value Called By Blood Gas Notified Time Potassium 3.5 L Carbon Dioxide 22 Anion Gap 6 L BUN 57 H Creatinine 2.0 H Est GFR ( Amer) 40 Est GFR (Non-Af Amer) 33 POC Glucose (mg/dL) Random Glucose 159 H Calcium 8.1 L Total Bilirubin AST ALT Alkaline Phosphatase Total Protein Albumin Globulin Albumin/Globulin Ratio Arterial Blood Potassium Rheumatoid Factor IgM Cryptococcus Ag Screen Crossmatch 04/07/18 04/07/18 04/07/18 04:00 05:00 06:10 WBC RBC Hgb Hct MCV MCH MCHC RDW Plt Count Neut % (Auto) Lymph % (Auto) Wilcox % (Auto) Eos % (Auto) Baso % (Auto) Lymph # (Auto) Wilcox # (Auto) Eos # (Auto) Baso # (Auto) Absolute Neuts (auto) Neutrophils % (Manual) Band Neutrophils % Lymphocytes % (Manual) Atypical Lymphs % Monocytes % (Manual) Nucleated RBC % Differential Comment Platelet Evaluation Poikilocytosis (manual Anisocytosis (manual) Target Cells Ovalocytes pCO2 32 L pO2 85.0 HCO3 19.8 L ABG pH 7.40 ABG Total CO2 20.8 L ABG O2 Saturation 99.2 H ABG O2 Content 11.5 L ABG Base Excess -4.4 L ABG Hemoglobin 8.4 L ABG Carboxyhemoglobin 1.9 H POC ABG HHb (Measured) 0.8 ABG Methemoglobin 1.2 ABG O2 Capacity 11.6 L ABG Potassium Hgb O2 Saturation 96.2 Sodium 164 H* Chloride 139 H Glucose Lactate FiO2 40.0 Inspiratory BiPAP Blood Gas Comments Crit Value Called To Crit Value Called By Blood Gas Notified Time Potassium 3.3 L Carbon Dioxide 23 Anion Gap 6 L BUN 58 H Creatinine 1.9 H Est GFR ( Amer) 42 Est GFR (Non-Af Amer) 35 POC Glucose (mg/dL) 131 H Random Glucose 143 H Calcium 8.2 L Total Bilirubin 0.2 AST 14 L ALT 9 Alkaline Phosphatase 211 H D Total Protein 4.1 L Albumin 1.9 L Globulin 2.2 Albumin/Globulin Ratio 0.8 L Arterial Blood Potassium Rheumatoid Factor IgM Cryptococcus Ag Screen Crossmatch 04/07/18 04/07/18 08:20 08:20 WBC 13.3 H RBC 3.06 L Hgb 8.6 L Hct 26.9 L MCV 87.9 MCH 28.1 MCHC 32.0 RDW 19.4 H Plt Count 63 L Neut % (Auto) Lymph % (Auto) Wilcox % (Auto) Eos % (Auto) Baso % (Auto) Lymph # (Auto) Wilcox # (Auto) Eos # (Auto) Baso # (Auto) Absolute Neuts (auto) Neutrophils % (Manual) Band Neutrophils % Lymphocytes % (Manual) Atypical Lymphs % Monocytes % (Manual) Nucleated RBC % Differential Comment Platelet Evaluation Poikilocytosis (manual Anisocytosis (manual) Target Cells Ovalocytes pCO2 pO2 HCO3 ABG pH ABG Total CO2 ABG O2 Saturation ABG O2 Content ABG Base Excess ABG Hemoglobin ABG Carboxyhemoglobin POC ABG HHb (Measured) ABG Methemoglobin ABG O2 Capacity ABG Potassium Hgb O2 Saturation Sodium 163 H* Chloride 138 H Glucose Lactate FiO2 Inspiratory BiPAP Blood Gas Comments Crit Value Called To Crit Value Called By Blood Gas Notified Time Potassium 3.7 Carbon Dioxide 22 Anion Gap 8 L BUN 59 H Creatinine 1.9 H Est GFR ( Amer) 42 Est GFR (Non-Af Amer) 35 POC Glucose (mg/dL) Random Glucose 97 Calcium 8.1 L Total Bilirubin AST ALT Alkaline Phosphatase Total Protein Albumin Globulin Albumin/Globulin Ratio Arterial Blood Potassium Rheumatoid Factor IgM Cryptococcus Ag Screen Crossmatch Radiology Impressions: Radiology Impressions Chest X-Ray 04/06/18 14:39 IMPRESSION: Increasing opacity at the left base with persistent mild opacity at the right base. Probable moderate left pleural effusion and possible small right pleural effusion. Congestive change. Possible pulmonary edema. Chest X-Ray 04/07/18 06:00 IMPRESSION: Increased opacification left hemithorax likely due to a combination of large effusion and atelectasis and/or infiltrate. Mild right basilar atelectasis. Mild right basilar atelectasis on and suspected right-sided effusion slightly improved. Fingerstick Blood Sugar Results: 94 Critical Care Progress Note - Nutrition Nutrition: Nutrition Category Date Time Status Liquid Diet [DIET] Diets 04/07/18 Lunch Ordered Assessment/Plan - Assessment and Plan (Free Text) Assessment: Patient is a 73 year old male with past medical history of prolmyelocytic leukemia s/p chemotherapy, HTN with recent discharge from [facility] after being treated for left lower lobe pneumonia with combinent inguinal hernia incarceration who presented with shortness of breath. Patient monitored on medical floor when noticed to have acute episode of melena and increased respiratory distress. Patient was transferred to ICU and started on pressors. S/p 2 units PRBC on 04/04. EGD 04/04 showed multiple non bleeding gastric and duodenal ulcers. Extubated on 04/05 and off of pressors for 48 hours with hemodynamic stability. Started on 03/08 NS at 150cc/hr for hypernatremia. Plan: Neuro: -lethargic, alert, limited movement of extremities -maintain normothermia -Brain MRI(03/28/2018): Age-related degenerative changes are identified which a ppear age-appropriate. no acute intracranial findings as per standard MR criteria -Extremity US(03/30/18):Normal BARRY and PVR examination at rest Cardio: Hemorrhagic shock 2/2 GI bleed -off of pressors for 48 hours -s/p 3 units PRBC -now off of pressors, hemodynamically stable overnight Elevated troponin -Trop 0.15, 0.14, 0.11, likely type 2 demand ischemia -Will hold anticoagulation in setting of apparent GI bleed -Echocardiogram(03/24/18): EF 46%, normal LV wall thickness, lateral wall hypokinesis HTN -Holding coreg and cozaar secondary to hypotension -Maintian MAP >65mmHg Pulm: Respiratory distress, respiratory alkalosis, moderate pleural effusions -ABG today shows pH/CO2/O2/bicarb of 7.4/32/85/22 -Patient intubated on 04/04, extubated on 04/05 -CXR 04/06 shows limited B/L infiltrates, new mild right pleural effusion and increased left mild pleural effusion -HOB 35 degrees -Protective oral hygiene -Pulmonology on consult -Maintain SaO2 >90% with supplemental O2 as needed GI: Active Melena -elevated BUN, hypotension -Protonix gtt -swallow eval pending, advance diet as per GI recommendations -EGD 04/04 showed multiple non bleeding gastric and duodenal ulcers -Dr. Stoddard with GI consulted f/u recs -Chest/Abdomen/Pelvis CT(03/27/18): moderate size bilateral pleural effusions with some adjacent consolidation, small stones noted in bladder -GI ppx with IV protonix Renal: Hypernatremia, hyperchloridemia, DIA -likely secondary to volume depletion -UA with specific gravity 1.025 -Nephrology with Dr. Segovia consulted -1/2 NS at 150cc Endo: Hypoglycemia episodes, Thyroid autoimmunity -HgA1c wnl -TSH 3.36, Free T4 0.90, Thyroxine 5.3 (low) -Cortsol AM samole 03/30, 3.36 wnl -Endo with Dr. 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 psoriasis -biopsy taken today, will follow up results -unlikely karen's hany syndrome as no conjuctival/oral lesions Patient seen, case and plan discussed with attending, Dr. Michael <Atul Michael - Last Filed: 04/07/18 15:49> CCU Objective - Vital Signs / Intake & Output Vital Signs (Last 4 hours): Vital Signs Temp Pulse Resp BP Pulse Ox 04/07/18 15:00 96.1 F L 86 30 H 105/47 L 75 L 04/07/18 14:00 98.2 F 93 H 20 118/55 L 78 L 04/07/18 13:00 99.0 F 94 H 27 H 125/54 L 85 L 04/07/18 12:00 98.6 F 90 22 137/53 L 79 L Intake and Output (Last 8hrs): Intake & Output 04/07/18 04/07/18 04/07/18 06:59 14:59 22:59 Intake Total 2150 Output Total 400 Balance 1750 Weight 160 lb 160 lb Intake: IV 2150 Right Femoral 2150 Oral 0 Output: Urine 400 Urethral (Bautista) 400 Emesis 0 - Medications Active Medications: Active Medications Generic Name Dose Route Start Last Admin Trade Name Freq PRN Reason Stop Dose Admin Acetylcysteine 4 ml 04/07/18 08:00 04/07/18 08:14 Acetylcysteine 20% IH 4 ml BIDRESP RIYA Administration Aspirin 81 mg 03/26/18 10:00 04/04/18 18:59 Aspirin Chewable PO Not Given DAILY RIYA Carbamide Peroxide 0 ml 04/02/18 18:00 04/07/18 09:10 Debrox Ear Drops AU 5 drop BID RIYA Administration Carvedilol 3.125 mg 03/25/18 18:00 04/04/18 19:00 Coreg PO Not Given BID RIYA Clotrimazole 0 gm 03/28/18 10:00 04/02/18 09:40 Lotrimin 1% TOP 1 applic BID PRN Administration Rash Amino Acids 1,000 mls @ 42 mls/hr 04/04/18 18:00 04/06/18 18:43 Clinimix 4.25/5 % (1000 Ml) IV Not Given .[id number] RIYA Fat Emulsion-Soy/MCT/Banco/Fish Oil 250 mls @ 21 mls/hr 04/05/18 18:00 04/05/18 18:47 Smoflipid 20% IV 21 mls/hr MWF@1800 RIYA Administration Phenylephrine HCl 40 mg/ 254 mls @ 38.1 mls/hr 04/04/18 14:38 04/05/18 09:30 Sodium Chloride IV 0 mcg/min .Q6H40M PRN 0 mls/hr TITRATE PER MD ORDER Titration Protocol 100 MCG/MIN Vasopressin 20 units/ Sodium 101 mls @ 9.09 mls/hr 04/04/18 14:45 04/05/18 03:19 Chloride IV Not Given .Q11H7M RIYA Protocol 0.03 U/MIN Fentanyl Citrate 1,000 mcg in 100 mls @ 2 mls/hr 04/04/18 16:15 Fentanyl Citrate/Sodium Chloride 1 Mg/100 Ml IV .Q24H PRN TITRATE PER MD ORDER Protocol 20 MCG/HR Norepinephrine Bitartrate 8 mg 500 mls @ 112.5 mls/hr 04/04/18 19:00 04/06/18 07:30 / Sodium Chloride IV 0 mcg/min .Q4H27M RIYA 0 mls/hr Titration Protocol 30 MCG/MIN Meropenem/Sodium Chloride 500 mg in 50 mls @ 100 mls/hr 04/05/18 07:00 04/07/18 09:07 Merrem Iv 500 Mg/Ns 50 Ml IVPB 04/12/18 07:01 100 mls/hr Q12 RIYA Administration Protocol Micafungin Sodium 100 mg/ 100 mls @ 100 mls/hr 04/06/18 11:00 04/07/18 09:11 Sodium Chloride IV 04/13/18 11:01 100 mls/hr DAILY RIYA Administration Protocol Dextrose 1,000 mls @ 100 mls/hr 04/07/18 14:15 04/07/18 14:44 Dextrose 5% In Water 1000 Ml IV 100 mls/hr .Q10H RIYA Administration Insulin Human Regular 0 units 04/05/18 09:00 04/07/18 11:39 Humulin R Low SC Not Given Q6 RIYA Protocol Lactic Acid 0 ea 03/28/18 10:00 04/06/18 08:48 Lac-Hydrin 12% Cream (140 G) TOP 1 applic TID PRN Administration Dry skin Levalbuterol HCl 1.25 mg 04/07/18 08:00 04/07/18 14:20 Xopenex IH 1.25 mg [id number] RIYA Administration Losartan Potassium 12.5 mg 03/26/18 10:00 04/04/18 19:00 Cozaar PO Not Given DAILY RIYA Multi-Ingredient Cream 0 ea 03/31/18 10:00 04/07/18 09:07 Hydrocerin Cream TOP 1 applic 1000,2200 RIYA Administration Pantoprazole Sodium 40 mg 04/06/18 22:00 04/07/18 09:10 Protonix Inj IVP 40 mg Q12 RIYA Administration Silver Sulfadiazine 0 gm 03/28/18 10:00 04/06/18 11:16 Silvadene 1% 25 Gm TP 1 gm BID PRN Administration Dry skin Tobramycin Sulfate 1 drop 04/07/18 08:00 04/07/18 11:40 Tobrex 0.3% Ophth Soln OU 1 drop Q4 RIYA Administration - Patient Studies Lab Studies: Microbiology Studies 04/04/18 14:30 Blood Culture - Preliminary Blood-Venous Yeast Species Gram Stain - Final 04/04/18 14:00 Blood Culture - Preliminary Blood-Venous Yeast Species Gram Stain - Final 04/05/18 11:10 MRSA Culture (Admit) - Final Naris MRSA NOT DETECTED Lab Studies 04/07/18 04/07/18 04/07/18 Range/Units 08:20 08:20 06:10 WBC 13.3 H (4.5-11.0) 10^3/uL RBC 3.06 L (3.5-6.1) 10^6/uL Hgb 8.6 L (14.0-18.0) g/dL Hct 26.9 L (42.0-52.0) % MCV 87.9 (80.0-105.0) fl MCH 28.1 (25.0-35.0) pg MCHC 32.0 (31.0-37.0) g/dl RDW 19.4 H (11.5-14.5) % Plt Count 63 L (120.0-450.0) 10^3/uL Differential Comment pCO2 (35-45) mm/Hg pO2 (80-100) mm/Hg HCO3 (21-28) mmol/L ABG pH (7.35-7.45) ABG Total CO2 (22-28) mmol.L ABG O2 Saturation (95-98) % ABG O2 Content (15-23) ML/dl ABG Base Excess (-2.0-3.0) mmol/L ABG Hemoglobin (11.7-17.4) g/dL ABG Carboxyhemoglobin (0.5-1.5) % POC ABG HHb (Measured) (0-5) % ABG Methemoglobin (0.0-3.0) % ABG O2 Capacity (16-24) mL/dl ABG Potassium (3.6-5.2) mmol/L Hgb O2 Saturation (95.0-98.0) % Sodium 163 H* (132-148) mmol/L Chloride 138 H (98-107) mmol/L Glucose (75-110) mg/dl Lactate (0.7-2.1) mmol/L FiO2 % Inspiratory BiPAP Blood Gas Comments Crit Value Called To Crit Value Called By Blood Gas Notified Time Potassium 3.7 (3.6-5.0) mmol/L Carbon Dioxide 22 (21-33) mmol/L Anion Gap 8 L (10-20) BUN 59 H (7-21) mg/dL Creatinine 1.9 H (0.8-1.5) mg/dl Est GFR ( Amer) 42 Est GFR (Non-Af Amer) 35 POC Glucose (mg/dL) 131 H (65-110) mg/dL Random Glucose 97 (70-110) mg/dL Calcium 8.1 L (8.4-10.5) mg/dL Total Bilirubin (0.2-1.3) mg/dL AST (17-59) U/L ALT (7-56) U/L Alkaline Phosphatase (38-126) U/L Total Protein (5.8-8.3) g/dL Albumin (3.0-4.8) g/dL Globulin gm/dL Albumin/Globulin Ratio (1.1-1.8) Arterial Blood Potassium (3.6-5.2) mmol/L Cryptococcus Ag Screen (Not Detected) Crossmatch 04/07/18 04/07/18 04/07/18 Range/Units 05:00 04:00 04:00 WBC 13.4 H (4.5-11.0) 10^3/uL RBC 2.91 L (3.5-6.1) 10^6/uL Hgb 8.2 L (14.0-18.0) g/dL Hct 25.6 L (42.0-52.0) % MCV 88.0 (80.0-105.0) fl MCH 28.2 (25.0-35.0) pg MCHC 32.0 (31.0-37.0) g/dl RDW 19.2 H (11.5-14.5) % Plt Count 60 L (120.0-450.0) 10^3/uL Differential Comment pCO2 32 L (35-45) mm/Hg pO2 85.0 (80-100) mm/Hg HCO3 19.8 L (21-28) mmol/L ABG pH 7.40 (7.35-7.45) ABG Total CO2 20.8 L (22-28) mmol.L ABG O2 Saturation 99.2 H (95-98) % ABG O2 Content 11.5 L (15-23) ML/dl ABG Base Excess -4.4 L (-2.0-3.0) mmol/L ABG Hemoglobin 8.4 L (11.7-17.4) g/dL ABG Carboxyhemoglobin 1.9 H (0.5-1.5) % POC ABG HHb (Measured) 0.8 (0-5) % ABG Methemoglobin 1.2 (0.0-3.0) % ABG O2 Capacity 11.6 L (16-24) mL/dl ABG Potassium (3.6-5.2) mmol/L Hgb O2 Saturation 96.2 (95.0-98.0) % Sodium 164 H* (132-148) mmol/L Chloride 139 H (98-107) mmol/L Glucose (75-110) mg/dl Lactate (0.7-2.1) mmol/L FiO2 40.0 % Inspiratory BiPAP Blood Gas Comments Crit Value Called To Crit Value Called By Blood Gas Notified Time Potassium 3.3 L (3.6-5.0) mmol/L Carbon Dioxide 23 (21-33) mmol/L Anion Gap 6 L (10-20) BUN 58 H (7-21) mg/dL Creatinine 1.9 H (0.8-1.5) mg/dl Est GFR ( Amer) 42 Est GFR (Non-Af Amer) 35 POC Glucose (mg/dL) (65-110) mg/dL Random Glucose 143 H (70-110) mg/dL Calcium 8.2 L (8.4-10.5) mg/dL Total Bilirubin 0.2 (0.2-1.3) mg/dL AST 14 L (17-59) U/L ALT 9 (7-56) U/L Alkaline Phosphatase 211 H D (38-126) U/L Total Protein 4.1 L (5.8-8.3) g/dL Albumin 1.9 L (3.0-4.8) g/dL Globulin 2.2 gm/dL Albumin/Globulin Ratio 0.8 L (1.1-1.8) Arterial Blood Potassium (3.6-5.2) mmol/L Cryptococcus Ag Screen (Not Detected) Crossmatch 04/07/18 04/07/18 04/07/18 Range/Units 01:00 01:00 00:53 WBC 14.9 H D (4.5-11.0) 10^3/uL RBC 2.97 L (3.5-6.1) 10^6/uL Hgb 8.5 L (14.0-18.0) g/dL Hct 26.3 L (42.0-52.0) % MCV 88.6 (80.0-105.0) fl MCH 28.6 (25.0-35.0) pg MCHC 32.3 (31.0-37.0) g/dl RDW 19.4 H (11.5-14.5) % Plt Count 58 L (120.0-450.0) 10^3/uL Differential Comment pCO2 (35-45) mm/Hg pO2 (80-100) mm/Hg HCO3 (21-28) mmol/L ABG pH (7.35-7.45) ABG Total CO2 (22-28) mmol.L ABG O2 Saturation (95-98) % ABG O2 Content (15-23) ML/dl ABG Base Excess (-2.0-3.0) mmol/L ABG Hemoglobin (11.7-17.4) g/dL ABG Carboxyhemoglobin (0.5-1.5) % POC ABG HHb (Measured) (0-5) % ABG Methemoglobin (0.0-3.0) % ABG O2 Capacity (16-24) mL/dl ABG Potassium (3.6-5.2) mmol/L Hgb O2 Saturation (95.0-98.0) % Sodium 164 H* (132-148) mmol/L Chloride 139 H (98-107) mmol/L Glucose (75-110) mg/dl Lactate (0.7-2.1) mmol/L FiO2 % Inspiratory BiPAP Blood Gas Comments Crit Value Called To Crit Value Called By Blood Gas Notified Time Potassium 3.5 L (3.6-5.0) mmol/L Carbon Dioxide 22 (21-33) mmol/L Anion Gap 6 L (10-20) BUN 57 H (7-21) mg/dL Creatinine 2.0 H (0.8-1.5) mg/dl Est GFR ( Amer) 40 Est GFR (Non-Af Amer) 33 POC Glucose (mg/dL) 163 H (65-110) mg/dL Random Glucose 159 H (70-110) mg/dL Calcium 8.1 L (8.4-10.5) mg/dL Total Bilirubin (0.2-1.3) mg/dL AST (17-59) U/L ALT (7-56) U/L Alkaline Phosphatase (38-126) U/L Total Protein (5.8-8.3) g/dL Albumin (3.0-4.8) g/dL Globulin gm/dL Albumin/Globulin Ratio (1.1-1.8) Arterial Blood Potassium (3.6-5.2) mmol/L Cryptococcus Ag Screen (Not Detected) Crossmatch 04/06/18 04/06/18 04/06/18 Range/Units 20:10 18:17 17:49 WBC (4.5-11.0) 10^3/uL RBC (3.5-6.1) 10^6/uL Hgb (14.0-18.0) g/dL Hct (42.0-52.0) % MCV (80.0-105.0) fl MCH (25.0-35.0) pg MCHC (31.0-37.0) g/dl RDW (11.5-14.5) % Plt Count (120.0-450.0) 10^3/uL Differential Comment pCO2 48 H (35-45) mm/Hg pO2 153.0 H (80-100) mm/Hg HCO3 21.0 (21-28) mmol/L ABG pH 7.25 L (7.35-7.45) ABG Total CO2 22.5 (22-28) mmol.L ABG O2 Saturation 99.6 H (95-98) % ABG O2 Content (15-23) ML/dl ABG Base Excess -6.4 L (-2.0-3.0) mmol/L ABG Hemoglobin (11.7-17.4) g/dL ABG Carboxyhemoglobin (0.5-1.5) % POC ABG HHb (Measured) (0-5) % ABG Methemoglobin (0.0-3.0) % ABG O2 Capacity (16-24) mL/dl ABG Potassium 3.4 L (3.6-5.2) mmol/L Hgb O2 Saturation (95.0-98.0) % Sodium 163 H* 170.0 H* (132-148) mmol/L Chloride 138 H 141.0 H (98-107) mmol/L Glucose 196 H (75-110) mg/dl Lactate 1.1 (0.7-2.1) mmol/L FiO2 50.0 % Inspiratory BiPAP 14 Blood Gas Comments Cl141 na 170 Crit Value Called To Dr. armijo Crit Value Called By Rst Blood Gas Notified Time 1720 Potassium 3.5 L (3.6-5.0) mmol/L Carbon Dioxide 23 (21-33) mmol/L Anion Gap 6 L (10-20) BUN 58 H (7-21) mg/dL Creatinine 1.9 H (0.8-1.5) mg/dl Est GFR ( Amer) 42 Est GFR (Non-Af Amer) 35 POC Glucose (mg/dL) 207 H (65-110) mg/dL Random Glucose 225 H (70-110) mg/dL Calcium 8.1 L (8.4-10.5) mg/dL Total Bilirubin (0.2-1.3) mg/dL AST (17-59) U/L ALT (7-56) U/L Alkaline Phosphatase (38-126) U/L Total Protein (5.8-8.3) g/dL Albumin (3.0-4.8) g/dL Globulin gm/dL Albumin/Globulin Ratio (1.1-1.8) Arterial Blood Potassium 3.4 L (3.6-5.2) mmol/L Cryptococcus Ag Screen (Not Detected) Crossmatch 04/06/18 04/06/18 04/06/18 Range/Units 12:45 11:31 09:10 WBC (4.5-11.0) 10^3/uL RBC (3.5-6.1) 10^6/uL Hgb (14.0-18.0) g/dL Hct (42.0-52.0) % MCV (80.0-105.0) fl MCH (25.0-35.0) pg MCHC (31.0-37.0) g/dl RDW (11.5-14.5) % Plt Count (120.0-450.0) 10^3/uL Differential Comment See pathology report pCO2 (35-45) mm/Hg pO2 (80-100) mm/Hg HCO3 (21-28) mmol/L ABG pH (7.35-7.45) ABG Total CO2 (22-28) mmol.L ABG O2 Saturation (95-98) % ABG O2 Content (15-23) ML/dl ABG Base Excess (-2.0-3.0) mmol/L ABG Hemoglobin (11.7-17.4) g/dL ABG Carboxyhemoglobin (0.5-1.5) % POC ABG HHb (Measured) (0-5) % ABG Methemoglobin (0.0-3.0) % ABG O2 Capacity (16-24) mL/dl ABG Potassium (3.6-5.2) mmol/L Hgb O2 Saturation (95.0-98.0) % Sodium (132-148) mmol/L Chloride (98-107) mmol/L Glucose (75-110) mg/dl Lactate (0.7-2.1) mmol/L FiO2 % Inspiratory BiPAP Blood Gas Comments Crit Value Called To Crit Value Called By Blood Gas Notified Time Potassium (3.6-5.0) mmol/L Carbon Dioxide (21-33) mmol/L Anion Gap (10-20) BUN (7-21) mg/dL Creatinine (0.8-1.5) mg/dl Est GFR ( Amer) Est GFR (Non-Af Amer) POC Glucose (mg/dL) 152 H (65-110) mg/dL Random Glucose (70-110) mg/dL Calcium (8.4-10.5) mg/dL Total Bilirubin (0.2-1.3) mg/dL AST (17-59) U/L ALT (7-56) U/L Alkaline Phosphatase (38-126) U/L Total Protein (5.8-8.3) g/dL Albumin (3.0-4.8) g/dL Globulin gm/dL Albumin/Globulin Ratio (1.1-1.8) Arterial Blood Potassium (3.6-5.2) mmol/L Cryptococcus Ag Screen Not detected (Not Detected) Crossmatch 04/04/18 Range/Units 13:59 WBC (4.5-11.0) 10^3/uL RBC (3.5-6.1) 10^6/uL Hgb (14.0-18.0) g/dL Hct (42.0-52.0) % MCV (80.0-105.0) fl MCH (25.0-35.0) pg MCHC (31.0-37.0) g/dl RDW (11.5-14.5) % Plt Count (120.0-450.0) 10^3/uL Differential Comment pCO2 (35-45) mm/Hg pO2 (80-100) mm/Hg HCO3 (21-28) mmol/L ABG pH (7.35-7.45) ABG Total CO2 (22-28) mmol.L ABG O2 Saturation (95-98) % ABG O2 Content (15-23) ML/dl ABG Base Excess (-2.0-3.0) mmol/L ABG Hemoglobin (11.7-17.4) g/dL ABG Carboxyhemoglobin (0.5-1.5) % POC ABG HHb (Measured) (0-5) % ABG Methemoglobin (0.0-3.0) % ABG O2 Capacity (16-24) mL/dl ABG Potassium (3.6-5.2) mmol/L Hgb O2 Saturation (95.0-98.0) % Sodium (132-148) mmol/L Chloride (98-107) mmol/L Glucose (75-110) mg/dl Lactate (0.7-2.1) mmol/L FiO2 % Inspiratory BiPAP Blood Gas Comments Crit Value Called To Crit Value Called By Blood Gas Notified Time Potassium (3.6-5.0) mmol/L Carbon Dioxide (21-33) mmol/L Anion Gap (10-20) BUN (7-21) mg/dL Creatinine (0.8-1.5) mg/dl Est GFR ( Amer) Est GFR (Non-Af Amer) POC Glucose (mg/dL) (65-110) mg/dL Random Glucose (70-110) mg/dL Calcium (8.4-10.5) mg/dL Total Bilirubin (0.2-1.3) mg/dL AST (17-59) U/L ALT (7-56) U/L Alkaline Phosphatase (38-126) U/L Total Protein (5.8-8.3) g/dL Albumin (3.0-4.8) g/dL Globulin gm/dL Albumin/Globulin Ratio (1.1-1.8) Arterial Blood Potassium (3.6-5.2) mmol/L Cryptococcus Ag Screen (Not Detected) Crossmatch See Detail Laboratory Results - last 24 hr 04/04/18 04/06/18 04/06/18 13:59 09:10 11:31 WBC RBC Hgb Hct MCV MCH MCHC RDW Plt Count Differential Comment See pathology report pCO2 pO2 HCO3 ABG pH ABG Total CO2 ABG O2 Saturation ABG O2 Content ABG Base Excess ABG Hemoglobin ABG Carboxyhemoglobin POC ABG HHb (Measured) ABG Methemoglobin ABG O2 Capacity ABG Potassium Hgb O2 Saturation Sodium Chloride Glucose Lactate FiO2 Inspiratory BiPAP Blood Gas Comments Crit Value Called To Crit Value Called By Blood Gas Notified Time Potassium Carbon Dioxide Anion Gap BUN Creatinine Est GFR ( Amer) Est GFR (Non-Af Amer) POC Glucose (mg/dL) 152 H Random Glucose Calcium Total Bilirubin AST ALT Alkaline Phosphatase Total Protein Albumin Globulin Albumin/Globulin Ratio Arterial Blood Potassium Cryptococcus Ag Screen Crossmatch See Detail 04/06/18 04/06/18 04/06/18 12:45 17:49 18:17 WBC RBC Hgb Hct MCV MCH MCHC RDW Plt Count Differential Comment pCO2 48 H pO2 153.0 H HCO3 21.0 ABG pH 7.25 L ABG Total CO2 22.5 ABG O2 Saturation 99.6 H ABG O2 Content ABG Base Excess -6.4 L ABG Hemoglobin ABG Carboxyhemoglobin POC ABG HHb (Measured) ABG Methemoglobin ABG O2 Capacity ABG Potassium 3.4 L Hgb O2 Saturation Sodium 170.0 H* Chloride 141.0 H Glucose 196 H Lactate 1.1 FiO2 50.0 Inspiratory BiPAP 14 Blood Gas Comments Cl141 na 170 Crit Value Called To Dr. armijo Crit Value Called By Rst Blood Gas Notified Time 1720 Potassium Carbon Dioxide Anion Gap BUN Creatinine Est GFR ( Amer) Est GFR (Non-Af Amer) POC Glucose (mg/dL) 207 H Random Glucose Calcium Total Bilirubin AST ALT Alkaline Phosphatase Total Protein Albumin Globulin Albumin/Globulin Ratio Arterial Blood Potassium 3.4 L Cryptococcus Ag Screen Not detected Crossmatch 04/06/18 04/07/18 04/07/18 20:10 00:53 01:00 WBC RBC Hgb Hct MCV MCH MCHC RDW Plt Count Differential Comment pCO2 pO2 HCO3 ABG pH ABG Total CO2 ABG O2 Saturation ABG O2 Content ABG Base Excess ABG Hemoglobin ABG Carboxyhemoglobin POC ABG HHb (Measured) ABG Methemoglobin ABG O2 Capacity ABG Potassium Hgb O2 Saturation Sodium 163 H* 164 H* Chloride 138 H 139 H Glucose Lactate FiO2 Inspiratory BiPAP Blood Gas Comments Crit Value Called To Crit Value Called By Blood Gas Notified Time Potassium 3.5 L 3.5 L Carbon Dioxide 23 22 Anion Gap 6 L 6 L BUN 58 H 57 H Creatinine 1.9 H 2.0 H Est GFR ( Amer) 42 40 Est GFR (Non-Af Amer) 35 33 POC Glucose (mg/dL) 163 H Random Glucose 225 H 159 H Calcium 8.1 L 8.1 L Total Bilirubin AST ALT Alkaline Phosphatase Total Protein Albumin Globulin Albumin/Globulin Ratio Arterial Blood Potassium Cryptococcus Ag Screen Crossmatch 04/07/18 04/07/18 04/07/18 01:00 04:00 04:00 WBC 14.9 H D 13.4 H RBC 2.97 L 2.91 L Hgb 8.5 L 8.2 L Hct 26.3 L 25.6 L MCV 88.6 88.0 MCH 28.6 28.2 MCHC 32.3 32.0 RDW 19.4 H 19.2 H Plt Count 58 L 60 L Differential Comment pCO2 pO2 HCO3 ABG pH ABG Total CO2 ABG O2 Saturation ABG O2 Content ABG Base Excess ABG Hemoglobin ABG Carboxyhemoglobin POC ABG HHb (Measured) ABG Methemoglobin ABG O2 Capacity ABG Potassium Hgb O2 Saturation Sodium 164 H* Chloride 139 H Glucose Lactate FiO2 Inspiratory BiPAP Blood Gas Comments Crit Value Called To Crit Value Called By Blood Gas Notified Time Potassium 3.3 L Carbon Dioxide 23 Anion Gap 6 L BUN 58 H Creatinine 1.9 H Est GFR ( Amer) 42 Est GFR (Non-Af Amer) 35 POC Glucose (mg/dL) Random Glucose 143 H Calcium 8.2 L Total Bilirubin 0.2 AST 14 L ALT 9 Alkaline Phosphatase 211 H D Total Protein 4.1 L Albumin 1.9 L Globulin 2.2 Albumin/Globulin Ratio 0.8 L Arterial Blood Potassium Cryptococcus Ag Screen Crossmatch 04/07/18 04/07/18 04/07/18 05:00 06:10 08:20 WBC RBC Hgb Hct MCV MCH MCHC RDW Plt Count Differential Comment pCO2 32 L pO2 85.0 HCO3 19.8 L ABG pH 7.40 ABG Total CO2 20.8 L ABG O2 Saturation 99.2 H ABG O2 Content 11.5 L ABG Base Excess -4.4 L ABG Hemoglobin 8.4 L ABG Carboxyhemoglobin 1.9 H POC ABG HHb (Measured) 0.8 ABG Methemoglobin 1.2 ABG O2 Capacity 11.6 L ABG Potassium Hgb O2 Saturation 96.2 Sodium 163 H* Chloride 138 H Glucose Lactate FiO2 40.0 Inspiratory BiPAP Blood Gas Comments Crit Value Called To Crit Value Called By Blood Gas Notified Time Potassium 3.7 Carbon Dioxide 22 Anion Gap 8 L BUN 59 H Creatinine 1.9 H Est GFR ( Amer) 42 Est GFR (Non-Af Amer) 35 POC Glucose (mg/dL) 131 H Random Glucose 97 Calcium 8.1 L Total Bilirubin AST ALT Alkaline Phosphatase Total Protein Albumin Globulin Albumin/Globulin Ratio Arterial Blood Potassium Cryptococcus Ag Screen Crossmatch 04/07/18 08:20 WBC 13.3 H RBC 3.06 L Hgb 8.6 L Hct 26.9 L MCV 87.9 MCH 28.1 MCHC 32.0 RDW 19.4 H Plt Count 63 L Differential Comment pCO2 pO2 HCO3 ABG pH ABG Total CO2 ABG O2 Saturation ABG O2 Content ABG Base Excess ABG Hemoglobin ABG Carboxyhemoglobin POC ABG HHb (Measured) ABG Methemoglobin ABG O2 Capacity ABG Potassium Hgb O2 Saturation Sodium Chloride Glucose Lactate FiO2 Inspiratory BiPAP Blood Gas Comments Crit Value Called To Crit Value Called By Blood Gas Notified Time Potassium Carbon Dioxide Anion Gap BUN Creatinine Est GFR ( Amer) Est GFR (Non-Af Amer) POC Glucose (mg/dL) Random Glucose Calcium Total Bilirubin AST ALT Alkaline Phosphatase Total Protein Albumin Globulin Albumin/Globulin Ratio Arterial Blood Potassium Cryptococcus Ag Screen Crossmatch Radiology Impressions: Radiology Impressions Chest X-Ray 04/06/18 14:39 IMPRESSION: Increasing opacity at the left base with persistent mild opacity at the right base. Probable moderate left pleural effusion and possible small right pleural effusion. Congestive change. Possible pulmonary edema. Chest X-Ray 04/07/18 06:00 IMPRESSION: Increased opacification left hemithorax likely due to a combination of large effusion and atelectasis and/or infiltrate. Mild right basilar atelectasis. Mild right basilar atelectasis on and suspected right-sided effusion slightly improved. Critical Care Progress Note - Nutrition Nutrition: Nutrition Category Date Time Status Liquid Diet [DIET] Diets 04/07/18 Lunch Ordered Assessment/Plan - Assessment and Plan (Free Text) Assessment: Patient seen and examined on rounds, with resident, agree with note with following additions/exceptions; Patient is 73yo male with PMhx of prolmyelocytic leukemia s/p chemotherapy, HTN with recent discharge from [facility] for pneumonia with inguinal hernia incarceration admitted to MICU for resp failure, hemorrhagic shock 2/2 GIB, had EGD on 04/04 showed multiple non bleeding gastric and duodenal ulcers. subsequently extubated on 04/05 Patient currently afebrile, BP stable, off vasopressor support, OFF bipap Na still difficult to control, renal following, on D5W IVF; unlikely DI, as UOP is not large enough Patient with exfoliative dermatitis, ?? etiology, dermatology consult placed Resp status currently sable Resp failure, resolved GIB Hemorhaghic shock, resolved AMS Prolmyelocytic leukemia s/p chemotherapy Skin lesions Hypernatremia Hypothermia Severe Sepsis Recommend: - supp o2 as needed, duonebs PRN, BIPAP as needed - Broad spectrum abx as per ID, follow upcultures - IVF D5W at 150cc/hr, Q12hr BMP - follow up rneal - follow up dermatology - U/S lung - monitor HH - Protonix BID - Bear hugger - FS control - Stress dose steroids - GI ppx - DVT ppx, SCDs - Monitor in MICU Critical care time 40 minutes
--- NOTE | 2018-04-07 14:57 | CP.PCM.PN ---
Subjective - Date & Time of Evaluation Date of Evaluation: 04/07/18 Time of Evaluation: 14:54 - Subjective Subjective: Nephrology Consultation Note: Assessment: critical Acute Kidney Injury (N17.9) likely due to ATN, hypotension. Hypothermia Hypernatremia, dehydration ? increase loss of fluid from skin Severe malnutrition with hypoalbuminemia HCAP, Fungemia skin rash ? etiology sysCHF LVEF 45% small bladder stones AMS, respi failure leukaemia, HTN hx Peptic ulcer disease s/p EGD Plan No acute need for renal replacement therapy at this time. Maintain hemodynamics stable. Avoid hypotension. Patient not on ACEI/ARB due to recent DIA. hold BP meds. Monitor Input/Output, daily weights and renal function with basic metabolic panel persistent hypernatremia: instead of 0.45% saline, favor D5W lower @ 100 ml/hr [rate lowered due to pleural effusions] getting TPN lasix as needed Dose meds/antibiotics for reduced GFR. Avoid fleets enema/magnesium based laxatives. Avoid nephrotoxins/NSAIDs/ iodinated contrast (unless needed emergently) Glycemic control. overall prognosis poor Further work up/management as per primary team Thanks for allowing me to participate in care of your patient. Will follow patie nt with you. Please call if any Qs. had d/w team and family bedside Dr Kana Segovia Office: [phone] Chief Complaint; Unable to obtain source of info EMR Reason for consult: Acute Kidney Injury Hypernatremia HPI: Pt is a 73 M with hx of leukemia s/p chemo, hypertension (years) presented with complaints of SOB and cough initially and being treated for HCAP. he also had diffuse skin desqamation and hypothermia, hypernatremia, and DIA. transfe rred to ICU for respi failure and AMS Denies OTC/herbal meds or NSAIDs No recent iodinated contrast exposure. Noted obvious episodes of low BP (90s). ROS: pt on Bipap. non communcating Physical Examination: General Appearance: ill appearing on bipap Vitals reviewed and noted as below Head; Atraumatic, normocephalic ENT: oral mucosa dry EYES: Pupils are equal, round and reactive to light accommodation. Eye muscles and extraocular movement intact. Sclera is anicteric. Neck; supple no lymphadenopathy, no thyromegaly or bruit Lungs: Increased respiratory rate/effort. Breath sounds bilateral reduced at bases Heart: Normal rate. s1s2 normal. No rub or gallop. Extremities: 1+ edema. No varicose veins Neurological: Patient is AMS and non communicating Skin: Warm and dry. diffuse skin desquamation changes Abdomen: Abdomen is soft. Bowel sounds +. There is no abdominal tenderness, no guarding/rigidity no organomegaly Psych: unable MSK: no joint tenderness or swelling. Digits and nails normal, no deformity : kidney or bladder not palpable Labs/imaging reviewed. Past medical history, past surgical history, family history, social history, allergy reviewed and noted as below Family hx: no hx of CKD. Rest non-contributory SUN and ANCA neg Objective - Vital Signs/Intake and Output Vital Signs (last 24 hours): Temp Pulse Resp BP Pulse Ox 99.0 F 94 H 27 H 137/53 L 85 L 04/07/18 13:00 04/07/18 13:00 04/07/18 13:00 04/07/18 12:00 04/07/18 13:00 Intake and Output: 04/07/18 04/07/18 06:59 18:59 Intake Total 2150 Output Total 400 Balance 1750 - Medications Medications: Current Medications Acetylcysteine (Acetylcysteine 20%) 4 ml IH BIDRESP [facility] Last Admin: 04/07/18 08:14 Dose: 4 ml Aspirin (Aspirin Chewable) 81 mg PO DAILY [facility] Last Admin: 04/04/18 18:59 Dose: Not Given Carbamide Peroxide (Debrox Ear Drops) 0 ml AU BID [facility] Last Admin: 04/07/18 09:10 Dose: 5 drop Carvedilol (Coreg) 3.125 mg PO BID [facility] Last Admin: 04/04/18 19:00 Dose: Not Given Clotrimazole (Lotrimin 1%) 0 gm TOP BID PRN PRN Reason: Rash Last Admin: 04/02/18 09:40 Dose: 1 applic Amino Acids (Clinimix 4.25/5 % (1000 Ml)) 1,000 mls @ 42 mls/hr IV .[id number] [facility] Last Admin: 04/06/18 18:43 Dose: Not Given Fat Emulsion-Soy/MCT/[place]/Fish Oil (Smoflipid 20%) 250 mls @ 21 mls/hr IV MWF@1800 [facility]YA Last Admin: 04/05/18 18:47 Dose: 21 mls/hr Phenylephrine HCl 40 mg/ (Sodium Chloride) 254 mls @ 38.1 mls/hr IV .Q6H40M PRN; Protocol PRN Reason: TITRATE PER MD ORDER Last Titration: 04/05/18 09:30 Dose: 0 mcg/min, 0 mls/hr Vasopressin 20 units/ Sodium (Chloride) 101 mls @ 9.09 mls/hr IV .Q11H7M RIYA; Protocol Last Admin: 04/05/18 03:19 Dose: Not Given Fentanyl Citrate (Fentanyl Citrate/Sodium Chloride 1 Mg/100 Ml) 1,000 mcg in 100 mls @ 2 mls/hr IV .Q24H PRN; Protocol PRN Reason: TITRATE PER MD ORDER Norepinephrine Bitartrate 8 mg (/ Sodium Chloride) 500 mls @ 112.5 mls/hr IV .Q4H27M RIYA; Protocol Last Titration: 04/06/18 07:30 Dose: 0 mcg/min, 0 mls/hr Meropenem/Sodium Chloride (Merrem Iv 500 Mg/Ns 50 Ml) 500 mg in 50 mls @ 100 mls/hr IVPB Q12 [facility]YA; Protocol Stop: 04/12/18 07:01 Last Admin: 04/07/18 09:07 Dose: 100 mls/hr Micafungin Sodium 100 mg/ (Sodium Chloride) 100 mls @ 100 mls/hr IV DAILY [facility]YA; Protocol Stop: 04/13/18 11:01 Last Admin: 04/07/18 09:11 Dose: 100 mls/hr Dextrose (Dextrose 5% In Water 1000 Ml) 1,000 mls @ 100 mls/hr IV .Q10H [facility]YA Last Admin: 04/07/18 14:44 Dose: 100 mls/hr Insulin Human Regular (Humulin R Low) 0 units SC Q6 [facility]YA; Protocol Last Admin: 04/07/18 11:39 Dose: Not Given Lactic Acid (Lac-Hydrin 12% Cream (140 G)) 0 ea TOP TID PRN PRN Reason: Dry skin Last Admin: 04/06/18 08:48 Dose: 1 applic Levalbuterol HCl (Xopenex) 1.25 mg IH [id number] [facility]YA Last Admin: 04/07/18 14:20 Dose: 1.25 mg Losartan Potassium (Cozaar) 12.5 mg PO DAILY [facility] Last Admin: 04/04/18 19:00 Dose: Not Given Multi-Ingredient Cream (Hydrocerin Cream) 0 ea TOP 1000,2200 [facility] Last Admin: 04/07/18 09:07 Dose: 1 applic Pantoprazole Sodium (Protonix Inj) 40 mg IVP Q12 [facility] Last Admin: 04/07/18 09:10 Dose: 40 mg Silver Sulfadiazine (Silvadene 1% 25 Gm) 0 gm TP BID PRN PRN Reason: Dry skin Last Admin: 04/06/18 11:16 Dose: 1 gm Tobramycin Sulfate (Tobrex 0.3% Oph Soln) 1 drop OU Q4 [facility] Last Admin: 04/07/18 11:40 Dose: 1 drop - Labs Labs: 04/07/18 08:20 04/07/18 08:20 PT 16.1 SECONDS (9.4-12.5) H 04/04/18 16:00 INR 1.45 04/04/18 16:00 APTT 39.1 Seconds (26.9-38.3) H 04/04/18 16:00
--- NOTE | 2018-04-07 15:48 | CP.PCM.CON ---
History of Present Illness - History of Present Illness History of Present Illness: Palliative consult requested by Dr Vern Alcazar Reason: Goals of care 73 year old male with history of PML s/p chemotherapy who was recently treated at [facility] for LLL pneumonia and incarcerated inguinal hernia. He presented to [facility] ED on 03/07/18 with shortness of breath. Chest x ray showed LLL infiltrate, small bilateral pleural effusions He was admitted to medical floor and treated with antibiotics. He developed hypoglycemia and hypothermia. 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 He was transferred to MICU for further medical management. Todays chest x ray showed increased opacification in left hemithorax,likely due to large effusion and atelectasis/infiltrate. Mild right basilar atelectasis. He had a GI bleed. Endoscopy 04/04 showed LA grade A esophagitis, many non bleeding gastric ulcers. Gastritis.One non bleeding duodenal ulcer. Hemorrhage duodenopathy. MRI of brain 03/27: Age related degenerative changes, no acute intracranial. findings CT of abdomen 03/27: Modertae size left pleurla effusion, no acute intra abdominal findings Echo:Normal LV, EF 55%, mild aortic stenosis, mild to moderate mitral regurgitation, moderate tricuspid regurgitation, no vegetation or effusion. PMHx: HTN, DIA, PML s/p chemotherapy, skin rash thought to be eczema. PSHx: colon surgery, hernia repair Social History: Non smoker,no alcohol or drug use. Was living independently but recently moved in with his daughter. Advance Care Planning: The patient does not have an Advanced Directive. Review of Systems: Unable to obtain, patient is lethargic, using BiPap Past Patient History - Infectious Disease Hx of Infectious Diseases: None - Past Social History Smoking Status: Never Smoked - CARDIAC Hx Hypertension: Yes - PULMONARY Hx Pneumonia: Yes - NEUROLOGICAL Hx Neurological Disorder: No - HEENT Hx HEENT Problems: No - RENAL Hx Chronic Kidney Disease: No - ENDOCRINE/METABOLIC Hx Endocrine Disorders: No - HEMATOLOGICAL/ONCOLOGICAL Hx Blood Transfusions: Yes Hx Blood Transfusion Reaction: No - INTEGUMENTARY Hx Dermatological Problems: Yes Hx Eczema: Yes - MUSCULOSKELETAL/RHEUMATOLOGICAL Hx Musculoskeletal Disorders: Yes Hx Falls: Yes Hx Unsteady Gait: Yes (WALKER) - GASTROINTESTINAL Hx Gastrointestinal Disorders: No - GENITOURINARY/GYNECOLOGICAL Hx Genitourinary Disorders: No - PSYCHIATRIC Hx Psychophysiologic Disorder: No - SURGICAL HISTORY Hx Surgeries: Yes - ANESTHESIA Hx Anesthesia Reactions: No Hx Malignant Hyperthermia: No Meds Allergies/Adverse Reactions: Allergies Allergy/AdvReac Type Severity Reaction Status Date / Time No Known Allergies Allergy Verified 03/24/18 11:42 - Medications Medications: Current Medications Acetylcysteine (Acetylcysteine 20%) 4 ml IH BIDRESP COUNTS INCLUDE 234 BEDS AT THE [facility] Last Admin: 04/07/18 08:14 Dose: 4 ml Aspirin (Aspirin Chewable) 81 mg PO DAILY [facility]S INCLUDE 234 BEDS AT THE [facility] Last Admin: 04/04/18 18:59 Dose: Not Given Carbamide Peroxide (Debrox Ear Drops) 0 ml AU BID [facility]S INCLUDE 234 BEDS AT THE [facility] Last Admin: 04/07/18 09:10 Dose: 5 drop Carvedilol (Coreg) 3.125 mg PO BID COUNTS INCLUDE 234 BEDS AT THE [facility] Last Admin: 04/04/18 19:00 Dose: Not Given Clotrimazole (Lotrimin 1%) 0 gm TOP BID PRN PRN Reason: Rash Last Admin: 04/02/18 09:40 Dose: 1 applic Amino Acids (Clinimix 4.25/5 % (1000 Ml)) 1,000 mls @ 42 mls/hr IV .[id number] COUNTS INCLUDE 234 BEDS AT THE [facility] Last Admin: 04/06/18 18:43 Dose: Not Given Fat Emulsion-Soy/MCT/[employer]/Fish Oil (Smoflipid 20%) 250 mls @ 21 mls/hr IV MWF@1800 COUNTS INCLUDE 234 BEDS AT THE [facility] Last Admin: 04/05/18 18:47 Dose: 21 mls/hr Phenylephrine HCl 40 mg/ (Sodium Chloride) 254 mls @ 38.1 mls/hr IV .Q6H40M PRN; Protocol PRN Reason: TITRATE PER MD ORDER Last Titration: 04/05/18 09:30 Dose: 0 mcg/min, 0 mls/hr Vasopressin 20 units/ Sodium (Chloride) 101 mls @ 9.09 mls/hr IV .Q11H7M COUNTS INCLUDE 234 BEDS AT THE [facility]; Protocol Last Admin: 04/05/18 03:19 Dose: Not Given Fentanyl Citrate (Fentanyl Citrate/Sodium Chloride 1 Mg/100 Ml) 1,000 mcg in 100 mls @ 2 mls/hr IV .Q24H PRN; Protocol PRN Reason: TITRATE PER MD ORDER Norepinephrine Bitartrate 8 mg (/ Sodium Chloride) 500 mls @ 112.5 mls/hr IV .Q4H27M COUNTS INCLUDE 234 BEDS AT THE [facility]; Protocol Last Titration: 04/06/18 07:30 Dose: 0 mcg/min, 0 mls/hr Meropenem/Sodium Chloride (Merrem Iv 500 Mg/Ns 50 Ml) 500 mg in 50 mls @ 100 mls/hr IVPB Q12 [facility]YA; Protocol Stop: 04/12/18 07:01 Last Admin: 04/07/18 09:07 Dose: 100 mls/hr Micafungin Sodium 100 mg/ (Sodium Chloride) 100 mls @ 100 mls/hr IV DAILY [facility]; Protocol Stop: 04/13/18 11:01 Last Admin: 04/07/18 09:11 Dose: 100 mls/hr Dextrose (Dextrose 5% In Water 1000 Ml) 1,000 mls @ 100 mls/hr IV .Q10H COUNTS INCLUDE 234 BEDS AT THE [facility] Last Admin: 04/07/18 14:44 Dose: 100 mls/hr Insulin Human Regular (Humulin R Low) 0 units SC Q6 [facility]YA; Protocol Last Admin: 04/07/18 11:39 Dose: Not Given Lactic Acid (Lac-Hydrin 12% Cream (140 G)) 0 ea TOP TID PRN PRN Reason: Dry skin Last Admin: 04/06/18 08:48 Dose: 1 applic Levalbuterol HCl (Xopenex) 1.25 mg IH [id number] COUNTS INCLUDE 234 BEDS AT THE [facility] Last Admin: 04/07/18 14:20 Dose: 1.25 mg Losartan Potassium (Cozaar) 12.5 mg PO DAILY [facility]S INCLUDE 234 BEDS AT THE [facility] Last Admin: 04/04/18 19:00 Dose: Not Given Multi-Ingredient Cream (Hydrocerin Cream) 0 ea TOP 1000,2200 COUNTS INCLUDE 234 BEDS AT THE [facility] Last Admin: 04/07/18 09:07 Dose: 1 applic Pantoprazole Sodium (Protonix Inj) 40 mg IVP Q12 [facility]S INCLUDE 234 BEDS AT THE [facility] Last Admin: 04/07/18 09:10 Dose: 40 mg Silver Sulfadiazine (Silvadene 1% 25 Gm) 0 gm TP BID PRN PRN Reason: Dry skin Last Admin: 04/06/18 11:16 Dose: 1 gm Tobramycin Sulfate (Tobrex 0.3% Ophth Soln) 1 drop OU Q4 COUNTS INCLUDE 234 BEDS AT THE [facility] Last Admin: 04/07/18 11:40 Dose: 1 drop Physical Exam - Constitutional Appears: Cachectic, Chronically Ill - Head Exam Head Exam: NORMOCEPHALIC - Eye Exam Eye Exam: PERRL Additional comments: conjunctivitis - ENT Exam ENT Exam: Mucous Membranes Moist - Respiratory Exam Respiratory Exam: Decreased Breath Sounds, Rhonchi Additional comments: BiPap - Cardiovascular Exam Cardiovascular Exam: REGULAR RHYTHM, +S1, +S2 - GI/Abdominal Exam GI & Abdominal Exam: Hypoactive Bowel Sounds, Soft - Extremities Exam Extremities exam: Positive for: pedal edema, pedal pulses present - Neurological Exam Neurological exam: Altered - Skin Additional comments: exfoliate skin rash - Additional Findings Additional findings: palliative performance scale rating 30% Results - Vital Signs Recent Vital Signs: Last Vital Signs Temp 96.1 F L 04/07/18 15:00 Pulse 86 04/07/18 15:00 Resp 30 H 04/07/18 15:00 BP 105/47 L 04/07/18 15:00 Pulse Ox 75 L 04/07/18 15:00 - Labs Result Diagrams: 04/07/18 08:20 04/07/18 08:20 Labs: Laboratory Results - last 24 hr 04/04/18 04/06/18 04/06/18 13:59 09:10 11:31 WBC RBC Hgb Hct MCV MCH MCHC RDW Plt Count Differential Comment See pathology report pCO2 pO2 HCO3 ABG pH ABG Total CO2 ABG O2 Saturation ABG O2 Content ABG Base Excess ABG Hemoglobin ABG Carboxyhemoglobin POC ABG HHb (Measured) ABG Methemoglobin ABG O2 Capacity ABG Potassium Hgb O2 Saturation Sodium Chloride Glucose Lactate FiO2 Inspiratory BiPAP Blood Gas Comments Crit Value Called To Crit Value Called By Blood Gas Notified Time Potassium Carbon Dioxide Anion Gap BUN Creatinine Est GFR ( Amer) Est GFR (Non-Af Amer) POC Glucose (mg/dL) 152 H Random Glucose Calcium Total Bilirubin AST ALT Alkaline Phosphatase Total Protein Albumin Globulin Albumin/Globulin Ratio Arterial Blood Potassium Cryptococcus Ag Screen Crossmatch See Detail 04/06/18 04/06/18 04/06/18 12:45 17:49 18:17 WBC RBC Hgb Hct MCV MCH MCHC RDW Plt Count Differential Comment pCO2 48 H pO2 153.0 H HCO3 21.0 ABG pH 7.25 L ABG Total CO2 22.5 ABG O2 Saturation 99.6 H ABG O2 Content ABG Base Excess -6.4 L ABG Hemoglobin ABG Carboxyhemoglobin POC ABG HHb (Measured) ABG Methemoglobin ABG O2 Capacity ABG Potassium 3.4 L Hgb O2 Saturation Sodium 170.0 H* Chloride 141.0 H Glucose 196 H Lactate 1.1 FiO2 50.0 Inspiratory BiPAP 14 Blood Gas Comments Cl141 na 170 Crit Value Called To Dr. armijo Crit Value Called By Rst Blood Gas Notified Time 1720 Potassium Carbon Dioxide Anion Gap BUN Creatinine Est GFR ( Amer) Est GFR (Non-Af Amer) POC Glucose (mg/dL) 207 H Random Glucose Calcium Total Bilirubin AST ALT Alkaline Phosphatase Total Protein Albumin Globulin Albumin/Globulin Ratio Arterial Blood Potassium 3.4 L Cryptococcus Ag Screen Not detected Crossmatch 04/06/18 04/07/18 04/07/18 20:10 00:53 01:00 WBC RBC Hgb Hct MCV MCH MCHC RDW Plt Count Differential Comment pCO2 pO2 HCO3 ABG pH ABG Total CO2 ABG O2 Saturation ABG O2 Content ABG Base Excess ABG Hemoglobin ABG Carboxyhemoglobin POC ABG HHb (Measured) ABG Methemoglobin ABG O2 Capacity ABG Potassium Hgb O2 Saturation Sodium 163 H* 164 H* Chloride 138 H 139 H Glucose Lactate FiO2 Inspiratory BiPAP Blood Gas Comments Crit Value Called To Crit Value Called By Blood Gas Notified Time Potassium 3.5 L 3.5 L Carbon Dioxide 23 22 Anion Gap 6 L 6 L BUN 58 H 57 H Creatinine 1.9 H 2.0 H Est GFR ( Amer) 42 40 Est GFR (Non-Af Amer) 35 33 POC Glucose (mg/dL) 163 H Random Glucose 225 H 159 H Calcium 8.1 L 8.1 L Total Bilirubin AST ALT Alkaline Phosphatase Total Protein Albumin Globulin Albumin/Globulin Ratio Arterial Blood Potassium Cryptococcus Ag Screen Crossmatch 04/07/18 04/07/18 04/07/18 01:00 04:00 04:00 WBC 14.9 H D 13.4 H RBC 2.97 L 2.91 L Hgb 8.5 L 8.2 L Hct 26.3 L 25.6 L MCV 88.6 88.0 MCH 28.6 28.2 MCHC 32.3 32.0 RDW 19.4 H 19.2 H Plt Count 58 L 60 L Differential Comment pCO2 pO2 HCO3 ABG pH ABG Total CO2 ABG O2 Saturation ABG O2 Content ABG Base Excess ABG Hemoglobin ABG Carboxyhemoglobin POC ABG HHb (Measured) ABG Methemoglobin ABG O2 Capacity ABG Potassium Hgb O2 Saturation Sodium 164 H* Chloride 139 H Glucose Lactate FiO2 Inspiratory BiPAP Blood Gas Comments Crit Value Called To Crit Value Called By Blood Gas Notified Time Potassium 3.3 L Carbon Dioxide 23 Anion Gap 6 L BUN 58 H Creatinine 1.9 H Est GFR ( Amer) 42 Est GFR (Non-Af Amer) 35 POC Glucose (mg/dL) Random Glucose 143 H Calcium 8.2 L Total Bilirubin 0.2 AST 14 L ALT 9 Alkaline Phosphatase 211 H D Total Protein 4.1 L Albumin 1.9 L Globulin 2.2 Albumin/Globulin Ratio 0.8 L Arterial Blood Potassium Cryptococcus Ag Screen Crossmatch 04/07/18 04/07/18 04/07/18 05:00 06:10 08:20 WBC RBC Hgb Hct MCV MCH MCHC RDW Plt Count Differential Comment pCO2 32 L pO2 85.0 HCO3 19.8 L ABG pH 7.40 ABG Total CO2 20.8 L ABG O2 Saturation 99.2 H ABG O2 Content 11.5 L ABG Base Excess -4.4 L ABG Hemoglobin 8.4 L ABG Carboxyhemoglobin 1.9 H POC ABG HHb (Measured) 0.8 ABG Methemoglobin 1.2 ABG O2 Capacity 11.6 L ABG Potassium Hgb O2 Saturation 96.2 Sodium 163 H* Chloride 138 H Glucose Lactate FiO2 40.0 Inspiratory BiPAP Blood Gas Comments Crit Value Called To Crit Value Called By Blood Gas Notified Time Potassium 3.7 Carbon Dioxide 22 Anion Gap 8 L BUN 59 H Creatinine 1.9 H Est GFR ( Amer) 42 Est GFR (Non-Af Amer) 35 POC Glucose (mg/dL) 131 H Random Glucose 97 Calcium 8.1 L Total Bilirubin AST ALT Alkaline Phosphatase Total Protein Albumin Globulin Albumin/Globulin Ratio Arterial Blood Potassium Cryptococcus Ag Screen Crossmatch 04/07/18 08:20 WBC 13.3 H RBC 3.06 L Hgb 8.6 L Hct 26.9 L MCV 87.9 MCH 28.1 MCHC 32.0 RDW 19.4 H Plt Count 63 L Differential Comment pCO2 pO2 HCO3 ABG pH ABG Total CO2 ABG O2 Saturation ABG O2 Content ABG Base Excess ABG Hemoglobin ABG Carboxyhemoglobin POC ABG HHb (Measured) ABG Methemoglobin ABG O2 Capacity ABG Potassium Hgb O2 Saturation Sodium Chloride Glucose Lactate FiO2 Inspiratory BiPAP Blood Gas Comments Crit Value Called To Crit Value Called By Blood Gas Notified Time Potassium Carbon Dioxide Anion Gap BUN Creatinine Est GFR ( Amer) Est GFR (Non-Af Amer) POC Glucose (mg/dL) Random Glucose Calcium Total Bilirubin AST ALT Alkaline Phosphatase Total Protein Albumin Globulin Albumin/Globulin Ratio Arterial Blood Potassium Cryptococcus Ag Screen Crossmatch Assessment & Plan - Assessment and Plan (Free Text) Assessment: 73 year old male with history of PML, skin rash, pneumonia, incarcerated hernia who is admitted with GI bleed, anemia, thrombocytopenia leukocytosis, right p leural effusion, hypothermia, hypernatremia, bacteremia,DIA and exfoliative skin rash. Family at bedside. Palliative services introduced. Family is open to communication. Family states that their father has been failing for the past few weeks and recognize that he is very ill. Goals of care discussed. Family is hopeful that patient will respond to treatment. I explained that because he is critically ill and has other medical comorbidities, he may not improve despite medical intervention. The patient did not have an advanced directive. Benefits and burdens of resuscitation explained. Daughter stated that she has spoken with her father in the past and indicated that he would not want his life prolonged if his condition was terminal. Daughter stated that she will have this discussion with her siblings.Psychosocial support provided. Family was appreciative of palliative intervention Time spent with family in goals of care discussion 30 minutes Plan: Goals of care and advance care planning Bacteremia;/leukocytosis: ID following, recs reviewed, continue Merrem and Micafungin Conjunctivitis; Tobrex Skin rash: skin biopsy done today, results pending. Continue antibiotics, topical agents,supportive care. GI bleed resolved, continue protonix. Hypernatremia; Hypotonic IVF's Anemia: resolved transfuse as needed
[2018-04-07 15:57] LABS: CALCIUM 8.2 mg/dL (8.4-10.5)
[2018-04-07] MEDS: FAT EMULSION 20% IV SCH (18:00)
--- NOTE | 2018-04-07 21:21 | CP.PCM.PN ---
Subjective - Date & Time of Evaluation Date of Evaluation: 04/07/18 Time of Evaluation: 17:00 - Subjective Subjective: s/p skin biopsy Objective - Vital Signs/Intake and Output Vital Signs (last 24 hours): Temp Pulse Resp BP Pulse Ox 95.9 F L 81 47 H 111/56 L 93 L 04/07/18 19:00 04/07/18 20:08 04/07/18 19:00 04/07/18 18:00 04/07/18 19:00 Intake and Output: 04/07/18 04/08/18 18:59 06:59 Intake Total 1705 Output Total 225 Balance 1480 - Medications Medications: Current Medications Acetylcysteine (Acetylcysteine 20%) 4 ml IH BIDRESP [facility] Last Admin: 04/07/18 08:14 Dose: 4 ml Aspirin (Aspirin Chewable) 81 mg PO DAILY [facility] Last Admin: 04/04/18 18:59 Dose: Not Given Carbamide Peroxide (Debrox Ear Drops) 0 ml AU BID [facility] Last Admin: 04/07/18 20:00 Dose: 5 drop Carvedilol (Coreg) 3.125 mg PO BID [facility] Last Admin: 04/04/18 19:00 Dose: Not Given Clotrimazole (Lotrimin 1%) 0 gm TOP BID PRN PRN Reason: Rash Last Admin: 04/02/18 09:40 Dose: 1 applic Phenylephrine HCl 40 mg/ (Sodium Chloride) 254 mls @ 38.1 mls/hr IV .Q6H40M PRN; Protocol PRN Reason: TITRATE PER MD ORDER Last Titration: 04/05/18 09:30 Dose: 0 mcg/min, 0 mls/hr Vasopressin 20 units/ Sodium (Chloride) 101 mls @ 9.09 mls/hr IV .Q11H7M [facility]; Protocol Last Admin: 04/05/18 03:19 Dose: Not Given Fentanyl Citrate (Fentanyl Citrate/Sodium Chloride 1 Mg/100 Ml) 1,000 mcg in 100 mls @ 2 mls/hr IV .Q24H PRN; Protocol PRN Reason: TITRATE PER MD ORDER Norepinephrine Bitartrate 8 mg (/ Sodium Chloride) 500 mls @ 112.5 mls/hr IV .Q4H27M [facility]; Protocol Last Titration: 04/06/18 07:30 Dose: 0 mcg/min, 0 mls/hr Meropenem/Sodium Chloride (Merrem Iv 500 Mg/Ns 50 Ml) 500 mg in 50 mls @ 100 mls/hr IVPB Q12 [facility]; Protocol Stop: 04/12/18 07:01 Last Admin: 04/07/18 09:07 Dose: 100 mls/hr Micafungin Sodium 100 mg/ (Sodium Chloride) 100 mls @ 100 mls/hr IV DAILY [facility]; Protocol Stop: 04/13/18 11:01 Last Admin: 04/07/18 09:11 Dose: 100 mls/hr Dextrose (Dextrose 5% In Water 1000 Ml) 1,000 mls @ 100 mls/hr IV .Q10H [facility] Last Admin: 04/07/18 14:44 Dose: 100 mls/hr Insulin Human Regular (Humulin R Low) 0 units SC Q6 [facility]; Protocol Last Admin: 04/07/18 19:19 Dose: Not Given Lactic Acid (Lac-Hydrin 12% Cream (140 G)) 0 ea TOP TID PRN PRN Reason: Dry skin Last Admin: 04/06/18 08:48 Dose: 1 applic Levalbuterol HCl (Xopenex) 1.25 mg IH [id number] [facility] Last Admin: 04/07/18 19:54 Dose: 1.25 mg Losartan Potassium (Cozaar) 12.5 mg PO DAILY [facility] Last Admin: 04/04/18 19:00 Dose: Not Given Multi-Ingredient Cream (Hydrocerin Cream) 0 ea TOP 1000,2200 [facility] Last Admin: 04/07/18 09:07 Dose: 1 applic Pantoprazole Sodium (Protonix Inj) 40 mg IVP Q12 [facility] Last Admin: 04/07/18 09:10 Dose: 40 mg Silver Sulfadiazine (Silvadene 1% 25 Gm) 0 gm TP BID PRN PRN Reason: Dry skin Last Admin: 04/06/18 11:16 Dose: 1 gm Tobramycin Sulfate (Tobrex 0.3% [facility] Soln) 1 drop OU Q4 [facility] Last Admin: 04/07/18 16:15 Dose: 1 drop - Labs Labs: 04/07/18 08:20 04/07/18 15:19 PT 16.1 SECONDS (9.4-12.5) H 04/04/18 16:00 INR 1.45 04/04/18 16:00 APTT 39.1 Seconds (26.9-38.3) H 04/04/18 16:00 - Head Exam Head Exam: ATRAUMATIC - Eye Exam Eye Exam: Normal appearance - ENT Exam ENT Exam: Mucous Membranes Dry - Respiratory Exam Respiratory Exam: Decreased Breath Sounds - Cardiovascular Exam Cardiovascular Exam: +S1, +S2 - GI/Abdominal Exam GI & Abdominal Exam: Normal Bowel Sounds Assessment and Plan (1) Skin abnormalities Assessment & Plan: s/p skin biopsy ? 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
[2018-04-08] MEDS: Insulin Reg-LOW-Coverage SC SCH ×2 (01:05→07:00)
--- NOTE | 2018-04-08 01:23 | OP ---
PROCEDURE DATE: 04/07/2018 TIME OF SURGERY: 1 p.m. PRIMARY SURGEON: Ck Caal MD ASSISTANTS: Wood Aparicio DO, PGY-2 and Jos Walton, PGY-1 TYPE OF ANESTHESIA: Local, 1% lidocaine, 4 mL. ANESTHESIA ADMINISTERED BY: Dr. Wood Aparicio and Dr. Jos Walton PREOPERATIVE DIAGNOSIS: Diffuse eczematous rash. POSTOPERATIVE DIAGNOSIS: Diffuse skin rash. OPERATIVE FINDINGS: Diffuse skin rash noted throughout the body. No local areas demarcated of the skin noted. OPERATION PERFORMED: Punch biopsy of skin with three tissue specimens from right upper extremity, right thigh, and left thigh. ESTIMATED BLOOD LOSS: 1 mL. INDICATIONS: The patient is a 73-year-old male, admitted to the ICU bed 128/2. Surgery was consulted for diffuse skin rash, and skin biopsy was requested. DESCRIPTION OF THE PROCEDURE: Prior to the procedure, the time-out was performed with the primary nurse of the patient present. Operative sites were marked, confirmed prior to beginning the procedure. Written consent was obtained prior to the procedure and signed by the patient's family and witnessed by the patient's primary nurse. The patient was placed in supine position. Area of skin on the right forearm, right thigh, and left thigh was prepped with chlorhexidine and draped in the usual sterile fashion. Approximately 1 mL of 1% lidocaine without epinephrine was used to raise a skin wheal for local anesthesia on the three operative sites. The punch biopsy device was used to take three separate tissue biopsies and placed in the formalin container for analysis. A 3-0 monofilament nylon was used to close the incisions and achieve good hemostasis. A sterile dressing was applied with 4x4 and paper tape. The patient tolerated the procedure well. Dr. Caal was present for the critical portions of the procedure. After the procedure, good hemostasis was noted. The patient tolerated the procedure well with no immediate postoperative complications noted. Wood Apraicio DO Ck Caal MD [facility] # [id number] MTDD
[2018-04-08] MEDS: Levalbuterol 1.25 MG/3 ML Inhal Soln UD IH SCH ×2 (01:53→07:57)
--- NOTE | 2018-04-08 04:17 | PN ---
DATE: 04/07/2018 ENDOCRINOLOGY FOLLOWUP NOTE LOCATION: Room 128/2, ICU. This is a 73-year-old male with recent admission for acute pneumonitis and receiving IV antibiotic management and is also being followed closely for metabolic management. His glycemic levels are fluctuating but improved, and the glucose levels have ranged from 94 to 120 mg/dL. His chemistries showed persistent hypernatremia despite vasopressin infusion as given. His chemistry showed a BUN of 59, sodium 164, potassium 3.7, chloride 138, CO2 of 22, glucose 95, and creatinine 2. So at this time, his thyroid studies have remained with near optimal range as noted, and has remained clinically and biochemically euthyroid as noted. So at this time, we will continue the present medical management and observe his glycemic fluctuations and determine the need for addition of basal insulin only for inpatient management as indicated. We will follow. Maria Luisa Ray MD
[2018-04-08] MEDS: Tobramycin 0.3% OPHT SOLN OU SCH ×4 (05:04→08:17)
[2018-04-08 07:28] LABS: HEMOGLOBIN 9.1 g/dL (14.0-18.0); MEAN CELL VOLUME 89.9 fl (80.0-105.0); MEAN CORPUSCULAR HEMOGLOBIN 27.8 pg (25.0-35.0); PLATELET COUNT 78 10^3/uL (120.0-450.0); RBC 3.27 10^6/uL (3.5-6.1); RED CELL DISTRIBUTION WIDTH 20.4 % (11.5-14.5); WHITE BLOOD COUNT 10.9 10^3/uL (4.5-11.0)
[2018-04-08 07:35] LABS: ALB/GLOB RATIO 0.8 (1.1-1.8); ALBUMIN 1.8 g/dL (3.0-4.8); CALCIUM 8.3 mg/dL (8.4-10.5)
[2018-04-08] MEDS: Acetylcysteine 20% Inhal Soln (4ml) IH SCH (07:57)
--- NOTE | 2018-04-08 08:31 | CP.PCM.PN ---
<Nichole Sequeira - Last Filed: 04/08/18 08:27> Subjective - Date & Time of Evaluation Date of Evaluation: 04/08/18 Time of Evaluation: 08:27 - Subjective Subjective: Podiatry progress note: Prudencio/Dilip 73 year old male patient seen and evaluated this AM with Dr. Cherry. Patient is resting comfortably in bed, currently getting breathing treatment. Patient denies pain to feet at present. Objective - Vital Signs/Intake and Output Vital Signs (last 24 hours): Temp Pulse Resp BP Pulse Ox 96.2 F L 79 30 H 111/55 L 93 L 04/07/18 19:14 04/08/18 01:55 04/07/18 19:14 04/07/18 19:14 04/07/18 19:00 - Medications Medications: Current Medications Acetylcysteine (Acetylcysteine 20%) 4 ml IH BIDRESP [facility] Last Admin: 04/08/18 07:57 Dose: 4 ml Aspirin (Aspirin Chewable) 81 mg PO DAILY [facility] Last Admin: 04/04/18 18:59 Dose: Not Given Carbamide Peroxide (Debrox Ear Drops) 0 ml AU BID [facility] Last Admin: 04/07/18 20:00 Dose: 5 drop Carvedilol (Coreg) 3.125 mg PO BID [facility] Last Admin: 04/04/18 19:00 Dose: Not Given Clotrimazole (Lotrimin 1%) 0 gm TOP BID PRN PRN Reason: Rash Last Admin: 04/02/18 09:40 Dose: 1 applic Phenylephrine HCl 40 mg/ (Sodium Chloride) 254 mls @ 38.1 mls/hr IV .Q6H40M PRN; Protocol PRN Reason: TITRATE PER MD ORDER Last Titration: 04/05/18 09:30 Dose: 0 mcg/min, 0 mls/hr Vasopressin 20 units/ Sodium (Chloride) 101 mls @ 9.09 mls/hr IV .Q11H7M [facility]; Protocol Last Admin: 04/05/18 03:19 Dose: Not Given Fentanyl Citrate (Fentanyl Citrate/Sodium Chloride 1 Mg/100 Ml) 1,000 mcg in 100 mls @ 2 mls/hr IV .Q24H PRN; Protocol PRN Reason: TITRATE PER MD ORDER Norepinephrine Bitartrate 8 mg (/ Sodium Chloride) 500 mls @ 112.5 mls/hr IV .Q4H27M [facility]; Protocol Last Titration: 04/06/18 07:30 Dose: 0 mcg/min, 0 mls/hr Meropenem/Sodium Chloride (Merrem Iv 500 Mg/Ns 50 Ml) 500 mg in 50 mls @ 100 mls/hr IVPB Q12 [facility]; Protocol Stop: 04/12/18 07:01 Last Admin: 04/07/18 23:28 Dose: 100 mls/hr Micafungin Sodium 100 mg/ (Sodium Chloride) 100 mls @ 100 mls/hr IV DAILY [facility]; Protocol Stop: 04/13/18 11:01 Last Admin: 04/07/18 09:11 Dose: 100 mls/hr Dextrose (Dextrose 5% In Water 1000 Ml) 1,000 mls @ 100 mls/hr IV .Q10H [facility] Last Admin: 04/08/18 05:09 Dose: 100 mls/hr Insulin Human Regular (Humulin R Low) 0 units SC Q6 [facility]; Protocol Last Admin: 04/08/18 07:00 Dose: Not Given Lactic Acid (Lac-Hydrin 12% Cream (140 G)) 0 ea TOP TID PRN PRN Reason: Dry skin Last Admin: 04/06/18 08:48 Dose: 1 applic Levalbuterol HCl (Xopenex) 1.25 mg IH [id number] [facility] Last Admin: 04/08/18 07:57 Dose: 1.25 mg Losartan Potassium (Cozaar) 12.5 mg PO DAILY [facility] Last Admin: 04/04/18 19:00 Dose: Not Given Multi-Ingredient Cream (Hydrocerin Cream) 0 ea TOP 1000,2200 [facility] Last Admin: 04/07/18 23:28 Dose: 2 applic Pantoprazole Sodium (Protonix Inj) 40 mg IVP Q12 [facility] Last Admin: 04/07/18 23:50 Dose: 40 mg Silver Sulfadiazine (Silvadene 1% 25 Gm) 0 gm TP BID PRN PRN Reason: Dry skin Last Admin: 04/06/18 11:16 Dose: 1 gm Tobramycin Sulfate (Tobrex 0.3% [facility] Soln) 1 drop OU Q4 [facility] Last Admin: 04/08/18 08:17 Dose: 1 drop - Labs Labs: 04/08/18 05:00 04/08/18 05:00 PT 16.1 SECONDS (9.4-12.5) H 04/04/18 16:00 INR 1.45 04/04/18 16:00 APTT 39.1 Seconds (26.9-38.3) H 04/04/18 16:00 - Constitutional Appears: Non-toxic, No Acute Distress - Head Exam Head Exam: ATRAUMATIC, NORMOCEPHALIC - Extremities Exam Additional comments: LE focused exam Vasc: DP and PT pulses palpable; temp gradient warm to warm; pedal hair absent; cap refill <3 seconds to all digits; mild + 1 edema appreciated to dorsal aspect of L foot Ortho: pain upon palpation of b/l LE due to severe xerosis and sensitivity Neuro: gross and protective sensation intact b/l Derm: severe xerosis present at b/l LE with scaling and minor evidence of bleeding; flaking skin appreciated; no IDM; dermatitis appreciated; no clinical signs of infection - Neurological Exam Neurological Exam: Alert, Awake, Oriented x3 - Psychiatric Exam Psychiatric exam: Normal Affect, Normal Mood Assessment and Plan - Assessment and Plan (Free Text) Assessment: 73 year old male patient with severe xerosis to bilateral lower extremities Plan: Patient seen and evaluated with Dr. Cherry Afebrile, WBC 10.9 Continue local wound care: Ammonium lactate, clotrimazole, aquaphor b/l LE Multipodus boots to be worn at all times in bed No clinical evidence of infection to the LE at this time Follow as outpatient with podiatry upon discharge Will continue to follow <Sundar Cherry - Last Filed: 04/09/18 12:16> Objective - Vital Signs/Intake and Output Vital Signs (last 24 hours): Temp Pulse Resp BP Pulse Ox 97.0 F L 72 29 H 33/22 L 100 04/08/18 10:00 04/08/18 10:00 04/08/18 09:00 04/08/18 10:00 04/08/18 09:00 - Labs Labs: 04/08/18 05:00 04/08/18 05:00 PT 16.1 SECONDS (9.4-12.5) H 04/04/18 16:00 INR 1.45 04/04/18 16:00 APTT 39.1 Seconds (26.9-38.3) H 04/04/18 16:00 Attending/Attestation - Attestation I have personally seen and examined this patient.: Yes I have fully participated in the care of the patient.: Yes I have reviewed all pertinent clinical information, including history, physical exam and plan: Yes
--- NOTE | 2018-04-08 08:37 | CP.PCM.PN ---
Subjective - Date & Time of Evaluation Date of Evaluation: 04/08/18 Time of Evaluation: 08:36 - Subjective Subjective: Surgery PT seen and examined. Pt is lethargic. Tries to talk but weak. REctal tube, maciel in place. Rectal tube has melanotic stool. Skin bx done at bedside yesterday. Objective - Vital Signs/Intake and Output Vital Signs (last 24 hours): Temp Pulse Resp BP Pulse Ox 96.2 F L 79 30 H 111/55 L 93 L 04/07/18 19:14 04/08/18 01:55 04/07/18 19:14 04/07/18 19:14 04/07/18 19:00 - Medications Medications: Current Medications Acetylcysteine (Acetylcysteine 20%) 4 ml IH BIDRESP [facility] Last Admin: 04/08/18 07:57 Dose: 4 ml Aspirin (Aspirin Chewable) 81 mg PO DAILY [facility] Last Admin: 04/04/18 18:59 Dose: Not Given Carbamide Peroxide (Debrox Ear Drops) 0 ml AU BID [facility] Last Admin: 04/07/18 20:00 Dose: 5 drop Carvedilol (Coreg) 3.125 mg PO BID [facility] Last Admin: 04/04/18 19:00 Dose: Not Given Clotrimazole (Lotrimin 1%) 0 gm TOP BID PRN PRN Reason: Rash Last Admin: 04/02/18 09:40 Dose: 1 applic Phenylephrine HCl 40 mg/ (Sodium Chloride) 254 mls @ 38.1 mls/hr IV .Q6H40M PRN; Protocol PRN Reason: TITRATE PER MD ORDER Last Titration: 04/05/18 09:30 Dose: 0 mcg/min, 0 mls/hr Vasopressin 20 units/ Sodium (Chloride) 101 mls @ 9.09 mls/hr IV .Q11H7M [facility]; Protocol Last Admin: 04/05/18 03:19 Dose: Not Given Fentanyl Citrate (Fentanyl Citrate/Sodium Chloride 1 Mg/100 Ml) 1,000 mcg in 100 mls @ 2 mls/hr IV .Q24H [facility]; Protocol PRN Reason: TITRATE PER MD ORDER Norepinephrine Bitartrate 8 mg (/ Sodium Chloride) 500 mls @ 112.5 mls/hr IV .Q4H27M [facility]; Protocol Last Titration: 04/06/18 07:30 Dose: 0 mcg/min, 0 mls/hr Meropenem/Sodium Chloride (Merrem Iv 500 Mg/Ns 50 Ml) 500 mg in 50 mls @ 100 mls/hr IVPB Q12 [facility]; Protocol Stop: 04/12/18 07:01 Last Admin: 04/07/18 23:28 Dose: 100 mls/hr Micafungin Sodium 100 mg/ (Sodium Chloride) 100 mls @ 100 mls/hr IV DAILY [facility]; Protocol Stop: 04/13/18 11:01 Last Admin: 04/07/18 09:11 Dose: 100 mls/hr Dextrose (Dextrose 5% In Water 1000 Ml) 1,000 mls @ 100 mls/hr IV .Q10H [facility] Last Admin: 04/08/18 05:09 Dose: 100 mls/hr Insulin Human Regular (Humulin R Low) 0 units SC Q6 [facility]; Protocol Last Admin: 04/08/18 07:00 Dose: Not Given Lactic Acid (Lac-Hydrin 12% Cream (140 G)) 0 ea TOP TID PRN PRN Reason: Dry skin Last Admin: 04/06/18 08:48 Dose: 1 applic Levalbuterol HCl (Xopenex) 1.25 mg IH [id number] [facility] Last Admin: 04/08/18 07:57 Dose: 1.25 mg Losartan Potassium (Cozaar) 12.5 mg PO DAILY [facility] Last Admin: 04/04/18 19:00 Dose: Not Given Multi-Ingredient Cream (Hydrocerin Cream) 0 ea TOP 1000,2200 [facility] Last Admin: 04/07/18 23:28 Dose: 2 applic Pantoprazole Sodium (Protonix Inj) 40 mg IVP Q12 [facility] Last Admin: 04/07/18 23:50 Dose: 40 mg Silver Sulfadiazine (Silvadene 1% 25 Gm) 0 gm TP BID PRN PRN Reason: Dry skin Last Admin: 04/06/18 11:16 Dose: 1 gm Tobramycin Sulfate (Tobrex 0.3% [facility] Soln) 1 drop OU Q4 [facility] Last Admin: 04/08/18 08:17 Dose: 1 drop - Labs Labs: 04/08/18 05:00 04/08/18 05:00 PT 16.1 SECONDS (9.4-12.5) H 04/04/18 16:00 INR 1.45 04/04/18 16:00 APTT 39.1 Seconds (26.9-38.3) H 04/04/18 16:00 - Constitutional Appears: Non-toxic - Head Exam Head Exam: ATRAUMATIC, NORMAL INSPECTION, NORMOCEPHALIC - Eye Exam Eye Exam: EOMI - ENT Exam ENT Exam: Mucous Membranes Dry - Neck Exam Neck Exam: Full ROM - Cardiovascular Exam Cardiovascular Exam: REGULAR RHYTHM - GI/Abdominal Exam GI & Abdominal Exam: Soft. absent: Distended - Rectal Exam Additional comments: Rectal tube - Exam Additional comments: Maciel: cloudy urine - Extremities Exam Extremities Exam: Pedal Edema. absent: Normal Inspection - Neurological Exam Neurological Exam: Awake. absent: Alert - Psychiatric Exam Psychiatric exam: Normal Mood - Skin Skin Exam: Dry, Erythema, Warm. absent: Diaphoretic, Intact, Normal Color, Pallor Additional comments: scally red skin, very dry Assessment and Plan - Assessment and Plan (Free Text) Assessment: 73M w. UGI bleed 2/2 gastritis/duodenitis: improving hgn 9 Hypernatremia : Free water deficit 6L , Plasma Osmolarity : 352 Urine output 400cc/24hrs Dry scally skin s/p skin bx CXR shows L side white out, possible mucos plug. Blood cx yeast , Sputum cx ecoli -Diet as tolerated -Trend H/H, transfuse PRN, target hgb >7 -c/w protonix IV BID -correct hypernatremia: D5W , Free water administration -F/U urine osmolarity -f/u skin bx -ABX , antifungal -no plans for surgical intervention at this time -Will d/w attending
[2018-04-08] MEDS: Micafungin 100 MG in Sodium Chloride 0.9% 100 ML IV SCH (09:22)
[2018-04-08] MEDS: Hydrocerin(120 gm) TOP SCH (09:25)
[2018-04-08] MEDS: Ammonium Lactate 12% Cream (140 g) TOP PRN (09:31)
[2018-04-08] MEDS: Silver Sulfadiazine 1% Cream (25 gm) TP PRN (09:31)
[2018-04-08] MEDS: MEROPENEM 500 MG in NS 500 MG/50 ML BAG IVPB SCH (09:32)
--- NOTE | 2018-04-08 10:18 | CP.PCM.PRO ---
Pronouncement of Note - Clinical Findings Physical Exam: No Response Verbal/Painful Stimuli, Absent Peripheral Puls es{Carotid & Femoral}, Absent Heart & Breath Sounds, No Pupillary Light Reflex, No Corneal Reflex, Pupils Fixed & Dilated - Pronouncement Time Time of Pronouncement of : 10:03 Additional Comments: Patient was seen and examined at bedside. Patient started to become bradycardia, became hypotensive and lost his pulse. Attempted to try to raise blood pressure with levophed, to assist with respiration with bipap. Patient was found to be pulseless, stopped breathing, and had loss of pupillary reflex. Pronouced at 10:03. Family and Primary Care doctor notified. - Notifications Pronouncement Notifications: Family Notified, Atending Notified Internet Ecommerce Specialist Notified: No - Autopsy Autopsy Requested: No - [place].ED[place] Number: [id number]
--- NOTE | 2018-04-08 10:42 | RAD ---
Date of service: 04/08/2018 HISTORY: Follow up COMPARISON: No prior. FINDINGS: LUNGS: Complete opacification left hemidiaphragm with no significant right which shift of the mediastinum. Findings likely due to large effusion with significant atelectatic changes. Minimal right basilar atelectasis with questionable small right effusion PLEURA: As above. No pneumothorax apparent. CARDIOVASCULAR: Mild aortic atherosclerotic calcification present. Heart size is difficult to assess due to silhouetting left cardiac border OSSEOUS STRUCTURES: No significant abnormalities. VISUALIZED UPPER ABDOMEN: Normal. OTHER FINDINGS: None. IMPRESSION: Complete opacification left hemidiaphragm with no significant right which shift of the mediastinum. Findings likely due to large effusion with significant atelectatic changes. Minimal right basilar atelectasis with questionable small right effusion
[2018-04-08 13:19] VITALS: PULSE 72; RESP 29; TEMP 97; O2SAT 100
--- NOTE | 2018-04-08 14:57 | DS ---
HISTORY OF PRESENT ILLNESS: He was in the Intensive Care Unit. He was very very sick. He was on multiple medications. He had multiple consults and he just did not respond to treatment well and he . He was DNR/DNI. We were trying to get hospice involved. He had multiple problems; fungemia, hypernatremia, upper GI bleed, sepsis, left-sided pneumonia, exfoliative dermatitis, status post biopsy. He has history of prolymphocytic leukemia. He was on multiple medications, seen by multiple physicians; the Multi Operation Forming Machine Setter, the Surgeon, the Financial Aid, the Renal doctor, Infectious Disease doctor, the International Project Engineer, the Dental Secretary, Speech Therapy Director. I do not know what else we could have done and he . Kirill Alcazar DO
[2018-04-08 18:22] VITALS: BP 33/22
== END 2018-04-08 10:03 | DRG 871 ==
LOC: ED 22:37 → ERH 03-24 02:40 → 5RSO 03-24 15:50 → MERGE 03-24 16:12 → OBSVTOIN 03-24 16:12 → 5RSO 04-01 18:29 → ICU 04-04 12:03
PROVIDERS: ADMIT Family Medicine; ATTEND Family Medicine
PROC: 0BH17EZ Insertion of Endotracheal Airway into Trachea, Via Natural or Artificial Opening (ICD-10-PCS; 2018-04-04)
PROC: 0DJ08ZZ Inspection of Upper Intestinal Tract, Via Natural or Artificial Opening Endoscopic (ICD-10-PCS; 2018-04-04)
PROC: 04HK33Z Insertion of Infusion Device into Right Femoral Artery, Percutaneous Approach (ICD-10-PCS; 2018-04-04)
PROC: 30233N1 Transfusion of Nonautologous Red Blood Cells into Peripheral Vein, Percutaneous Approach (ICD-10-PCS; 2018-04-04)
PROC: 5A1935Z Respiratory Ventilation, Less than 24 Consecutive Hours (ICD-10-PCS; principal; 2018-04-04 20:30)
PROC: 5A09457 Assistance with Respiratory Ventilation, 24-96 Consecutive Hours, Continuous Positive Airway Pressure (ICD-10-PCS; 2018-04-06)
PROC: 0HBBXZX Excision of Right Upper Arm Skin, External Approach, Diagnostic (ICD-10-PCS; 2018-04-07)
PROC: 0HBHXZX Excision of Right Upper Leg Skin, External Approach, Diagnostic (ICD-10-PCS; 2018-04-07)
PROC: 0HBJXZX Excision of Left Upper Leg Skin, External Approach, Diagnostic (ICD-10-PCS; 2018-04-07)
PROC: 3E0F7GC Introduction of Other Therapeutic Substance into Respiratory Tract, Via Natural or Artificial Opening (ICD-10-PCS; 2018-04-07)
DX: A41.9 Sepsis, unspecified organism (principal); J15.5 Pneumonia due to Escherichia coli; K26.4 Chronic or unspecified duodenal ulcer with hemorrhage; I50.23 Acute on chronic systolic (congestive) heart failure; I21.4 Non-ST elevation (NSTEMI) myocardial infarction; J96.01 Acute respiratory failure with hypoxia; K29.71 Gastritis, unspecified, with bleeding; K29.81 Duodenitis with bleeding; N17.0 Acute kidney failure with tubular necrosis; K25.4 Chronic or unspecified gastric ulcer with hemorrhage; E43 Unspecified severe protein-calorie malnutrition; J44.0 Chronic obstructive pulmonary disease with (acute) lower respiratory infection; C94.80 Other specified leukemias not having achieved remission; I42.0 Dilated cardiomyopathy; D62 Acute posthemorrhagic anemia; E87.0 Hyperosmolality and hypernatremia; L97.429 Non-pressure chronic ulcer of left heel and midfoot with unspecified severity; L97.419 Non-pressure chronic ulcer of right heel and midfoot with unspecified severity; J44.1 Chronic obstructive pulmonary disease with (acute) exacerbation; K20.9 Esophagitis, unspecified; L26 Exfoliative dermatitis; I25.10 Atherosclerotic heart disease of native coronary artery without angina pectoris; R57.8 Other shock; R65.20 Severe sepsis without septic shock; Z66 Do not resuscitate; B35.3 Tinea pedis; L40.9 Psoriasis, unspecified; I11.0 Hypertensive heart disease with heart failure; D69.6 Thrombocytopenia, unspecified; T68.XXXA Hypothermia, initial encounter; N21.0 Calculus in bladder; E11.649 Type 2 diabetes mellitus with hypoglycemia without coma; E87.6 Hypokalemia; E83.42 Hypomagnesemia; E78.5 Hyperlipidemia, unspecified; L85.3 Xerosis cutis; E07.81 Sick-euthyroid syndrome; H61.20 Impacted cerumen, unspecified ear; H90.8 Mixed conductive and sensorineural hearing loss, unspecified; R23.4 Changes in skin texture; Y95 Nosocomial condition; Z87.01 Personal history of pneumonia (recurrent); Z85.038 Personal history of other malignant neoplasm of large intestine; Z92.21 Personal history of antineoplastic chemotherapy; Z87.891 Personal history of nicotine dependence; Z79.4 Long term (current) use of insulin